=== PATIENT | female | born 1930 | race Caucasian/White ===

== ENCOUNTER 2016-04-29 18:37 | Inpatient (IN) | payer MEDICARE, MEDICAID ==
[~2016-04-29] VITALS: Ht 157.5 cm; Wt 47.5 kg
[~2016-04-29 18:37] MED LIST: /AMLO25TA PO; ADV100INH INH; AMLO10TA PO; AMOX500T2 PO; ASPI1TAB PO; ASPI81TA PO; ATEN50TA2 PO; ATOR1TAB21 PO; CLOP75TA2 PO; FURO40TA2 PO; JANU100T PO; K-TA1TAB PO; LASI40TA PO; LOSA50TA20 PO; METF1000 PO; NITR4TASL SL; POTA10CA PO; POTA1TAB14 PO; PROA1AER PO; RANI150T PO; RANI15TA PO; SIMV20TA2 PO; SIMV40TA2 PO; VITMTA PO; XANA0.5T PO; spiriva INH
--- NOTE | 2016-04-29 19:31 | REP ---
PA and lateral chest: Comparison is 01/15/2016. There are bilateral pleural effusions. There are large bulla throughout the lung benitez bilaterally, unchanged, compatible with bullous emphysema. Cardiac size is normal. The nasra, mediastinum, and bony thorax are unremarkable. Impression: Chronic bullous emphysema. New bilateral pleural effusions. Signed by Ridge Singleton MD 04/29/2016 07:22 P
[2016-04-29] MEDS ORDERED: IPRATROPIUM 0.5MG/ALBUTEROL 2.5MG INH SOL UD 3ML (DUONEB)(J7620) As Ordered ONE (19:50)
[2016-04-29] MEDS ORDERED: methylPREDNISolone INJ 125 MG/2 ML VIAL (J2930) As Ordered ONE (20:21)
[2016-04-29 20:35] LABS: MEAN CORPUSCULAR HEMOGLOBIN 25.6 pg (27.0-33.0); MEAN CORPUSCULAR HGB CONC 30.4 g/dl (32.0-36.5); MEAN CORPUSCULAR VOLUME 84.4 fl (80.0-96.0); PLATELET COUNT, AUTOMATED 203 k/mm3 (150-450); RED CELL DISTRIBUTION WIDTH 21.4 % (11.5-14.5); WHITE BLOOD COUNT 6.2 K/mm3 (4.0-10.0)
[2016-04-29 20:51] LABS: CALCIUM LEVEL 8.4 MG/DL (8.8-10.2); CREATININE FOR GFR 2.34 MG/DL (0.55-1.02)
[2016-04-29 20:59] LABS: ANISOCYTOSIS 2+; BANDS 1 % (< 11); HYPOCHROMASIA 1+; MICROCYTOSIS 1+
[2016-04-29] MEDS ORDERED: ALPRAZolam 0.25 MG TAB PO SCH (21:00)
[2016-04-29] MEDS: HEPARIN SOD (PORCINE) 5000 UNITS/ML VIAL SC SCH (21:00)
[2016-04-29] MEDS: HumaLOG INSULIN (NovoLOG) PER UNIT SC SCH (21:00)
[2016-04-29] MEDS ORDERED: ALPRAZolam 0.5 MG TAB PO SCH (21:00)
[2016-04-29] MEDS ORDERED: DEXTROSE 50% 50 ML SYRINGE IV PRN (23:00)
[2016-04-29] MEDS ORDERED: IPRATROPIUM 0.5MG/ALBUTEROL 2.5MG INH SOL UD 3ML (DUONEB)(J7620) NEB PRN (23:00)
[2016-04-29] MEDS ORDERED: GLUCOSE 4 GM CHEW TABLET PO PRN (23:00)
[2016-04-29] MEDS ORDERED: GLUCAGON FOR INJ 1 MG VIAL (J1610) SC PRN (23:00)
[2016-04-29] MEDS ORDERED: ACETAMINOPHEN TAB 650MG DOSE (2X325MG) PO PRN (23:15)
[2016-04-29] MEDS ORDERED: ONDANSETRON 4MG/2ML VIAL (J2405) IV PRN (23:15)
[2016-04-29] MEDS ORDERED: FURO20TA2 PO (23:21)
[2016-04-29] MEDS ORDERED: SIMV20TA2 PO ×2 (23:21→23:25)
[2016-04-29] MEDS ORDERED: AMLO10TA2 PO (23:21)
[2016-04-29] MEDS ORDERED: TUMS500C PO (23:21)
[2016-04-29] MEDS ORDERED: ASPI81CH PO (23:21)
[2016-04-29] MEDS ORDERED: OCEA0.654 (23:21)
--- NOTE | 2016-04-29 23:59 | HPE ---
DATE OF ADMISSION: 04/29/2016 PRIMARY CARE PROVIDER: Dr. Abiel Wooten [employer] TRADER: Dr. Lee CHIEF COMPLAINT: Shortness of breath and unable to make urine. HISTORY OF THE PRESENT ILLNESS: This is an 85-year-old female patient with underlying medical history of lung cancer in remission, treated 3 years ago, left-sided, congestive heart failure (CHF), with last echo done October 2015, ejection fraction 65% with right ventricular pressure overload, chronic obstructive pulmonary disease (COPD), chronic hypoxia on 3 liters nasal cannula, cmz-whacoes-islangvrl diabetes, dyslipidemia, hypertension, coronary artery disease with percutaneous coronary intervention (PCI) 21 years ago with stent placement. The patient presented with 3 days of progressively worsening shortness of breath and also unable to make urine today. As per patient and family, last year in September the patient had similar episode and had one session of dialysis. The patient reported recently that she is not feeling very well, reported some stomachache 3 days ago with poor oral (p.o.) intake. As per patient, stomachache has resolved but as of this morning, the patient is not able to make urine. Reported intermittent constipation. Recently, about 3 weeks ago, the patient's Lasix dose was reduced from 80 to 40 as per patient. The patient denies any chest pain, pressure or discomfort. Reported lower extremity swelling. Reported dyspnea on exertion. Baseline ambulating with a walker. Lives alone at home. In the emergency room, the patient is requiring 15 liter high-flow oxygen to achieve a saturation of 91%,mild dyspnea with conversation. Denies any significant cough. Denies any sick contact, does not produce any mucus, denies nasal congestion, fevers, chills. As per patient, recently the patient has been discharged by photogrammetrist because her kidney function significantly improved, and according to labs, in December 2015, the patient had a creatinine of 1.18. ALLERGIES: No known drug allergies. PAST MEDICAL HISTORY: Lung cancer, left sided, treated 3 years ago, in remission. CHF with diastolic dysfunction, ejection fraction 65%, likely pulmonary hypertension. COPD. Ppv-ajswtcq-mfxjkpnvr type 2 diabetes. Chronic hypoxia requiring 3 liters of oxygen. Dyslipidemia. Hypertension. Coronary artery disease with myocardial infarction ([place]) many years ago with stent placement. PAST SURGICAL HISTORY: Cataract surgery, bilateral. Cardiac catheterization with stent placement many years ago, as per patient 21 years ago. SOCIAL HISTORY: The patient quit smoking 21 years ago, 1-2 pack smoking since she was 18. Denies alcohol drinking. FAMILY HISTORY: Noncontributory. REVIEW OF SYSTEMS: 11-point review of systems is negative except for those mentioned in the history of the present illness. HOME MEDICATIONS: - ProAir every 6 hours as needed - Xanax 0.5 mg by mouth three times a day - aspirin 81 mg by mouth daily - atenolol 50 mg by mouth nightly - Lasix 40 mg by mouth daily - metformin 1000 mg by mouth twice a day - multivitamin one tablet by mouth daily - nitroglycerin 0.4 mg sublingual as needed - potassium chloride 20 mEq by mouth daily - ranitidine 150 mg by mouth twice a day - Advair Diskus 100/50 mcg dosage inhalation twice a day - Januvia 100 mg by mouth nightly PHYSICAL EXAMINATION: VITAL SIGNS: Blood pressure 161/73, pulse 68, respirations 22, temperature 96.8, pulse oximetry 94% on 15 liters high-flow nasal cannula. GENERAL: Alert and oriented, mild dyspnea with conversation. Able to speak in full sentences. HEENT: Normocephalic, atraumatic, pale. NECK: With bilateral jugular venous distention (JVD). PULMONARY: Diminished breath sounds bilateral, mild crackles bilateral. CARDIAC: Regular rate and rhythm. Normal S1, S2. ABDOMEN: Soft. No significant distention. Hypoactive bowel sounds. Nontender. No rebound, no guarding. EXTREMITIES: 2+ bilateral lower extremity edema. EKG shows sinus rhythm at 70, T-wave inversion V1 through V4. LABORATORY: WBC 6.2, hemoglobin and hematocrit 10.1 over 31.1, platelets 203. Chemistry: Sodium 138, potassium 6, chloride 100, bicarbonate 21, BUN 34, creatinine 2.34. ASSESSMENT AND PLAN: This is an 85-year-old female patient with underlying medical history of congestive heart failure with diastolic dysfunction, lung cancer, left-sided, diagnosed 3 years ago, loj-bcnxhad-hpgoqusqk type 2 diabetes , chronic kidney disease, dyslipidemia, hypertension, coronary artery disease, admitted with acute on chronic renal failure with fluid overload, acute on chronic hypoxic respiratory failure. Problems: 1. Acute on chronic hypoxic respiratory failure. Patient baseline on 3 liters nasal cannula at home, currently requiring 15 liter high flow, likely secondary to fluid overload. X-rays appreciated with bilateral minimum pleural effusions in the setting of anuric. Lasix has been given. Strict intake and output, Zaman catheter, oxygen supplementation. Continue to follow. 2. Acute on chronic renal failure. Baseline creatinine on last lab in December 2015 was 1.18. Nephrology, Dr. Lee, consulted. Strict intake and output, daily weight, Zaman catheter. Urine study sent. Lasix challenge ordered 60 mg IV Lasix once. Followup urine output. Repeat basic metabolic panel around 2:00 a.m. in the morning to see if the patient's potassium improved. Telemetry. Avoid nephrotoxic agents. Monitor for fluid status. 3. Hyperkalemia secondary to renal failure. Monitor potassium. Lasix given. Kayexalate one dose given. Telemetry monitoring. 4. Acute chronic obstructive pulmonary disease exacerbation with acute on chronic hypoxia. X-ray does not show any focal consolidation. Steroids, Solu-Medrol, Advair nebulizer treatments, followup arterial blood gas (ABG). Azithromycin for anti-inflammatory. Oxygen supplementation. 5. Congestive heart failure with diastolic dysfunction. Likely fluid overload due to renal failure. Strict intake and output, daily weight, Lasix given. Monitor ABG. Oxygen supplementation. If patient's respiratory status worsens, might need continuous positive airway pressure (CPAP). In the meantime, continue to follow. Will continue aspirin, beta blockers. Followup echo, followup cardiac enzymes. Lasix as ordered. 6. Coronary artery disease. Continue aspirin and beta blockers. Followup cardiac enzymes, followup telemetry. 7. Ybh-lnlvthi-ytwnbokyp diabetes. Holding oral medications. Insulin as per protocol. Consistent-carbohydrate and renal diet. 8. Hypertension. Monitor blood pressure. Lasix and atenolol as ordered. 9. Deep vein thrombosis (DVT) prophylaxis. Heparin subcu. 10. Constipation. Bowel regimen as ordered. DISPOSITION PLANNING: Pending clinical improvement. MTDD
[2016-04-30] MEDS ORDERED: SOD POLYSTYRENE SULFONATE SUSP 15 GM/60 ML UD PO SCH (01:14)
[2016-04-30] MEDS ORDERED: FUROSEMIDE 40 MG/4 ML VIAL (J1940) IV SCH ×2 (01:15→08:00)
--- NOTE | 2016-04-30 01:30 | REPUSA ---
CLINICAL HISTORY: Renal failure. TECHNIQUE: Realtime sonographic images were obtained in multiple projections. COMMENTS: The right kidney measures 11.5x5.1x4.5 cm and the left kidney measures 10.3x5.7x5.2 cm. bilateral i ncrease in renal cortical echogenicity with decreased corticomedullary differentiation. Both kidneys are free of hydronephrosis. There is no evidence of solid or cystic mass. There is no perinephric flu id. There is no renal calculus. IMPRESSION: Increased renal echogenicity suggestive of parenchymal disease. No change from the prior exam on 11/12/2015. Thank you for your kind referral of this patient.
[2016-04-30 02:57] LABS: CREATININE FOR GFR 2.25 MG/DL (0.55-1.02)
[2016-04-30] MEDS ORDERED: FUROSEMIDE 40 MG/4 ML VIAL (J1940) As Ordered ONE ×2 (03:00→08:11)
[2016-04-30] MEDS ORDERED: ATORVASTATIN 20 MG TAB As Ordered ONE (03:01)
[2016-04-30] MEDS ORDERED: HEPARIN SOD (PORCINE) 5000 UNITS/ML VIAL As Ordered ONE ×2 (03:01→09:10)
[2016-04-30] MEDS ORDERED: SOD POLYSTYRENE SULFONATE SUSP 15 GM/60 ML UD As Ordered ONE (03:01)
[2016-04-30] MEDS ORDERED: ALPRAZolam 0.25 MG TAB As Ordered ONE ×3 (03:01→10:11)
[2016-04-30] MEDS ORDERED: AZITHROMYCIN INJ 500MG VIAL (J0456) As Ordered ONE (03:01)
[2016-04-30] MEDS ORDERED: methylPREDNISolone INJ 125 MG/2 ML VIAL (J2930) As Ordered ONE ×2 (03:01→12:57)
[2016-04-30] MEDS: amLODIPine 10 MG TAB PO SCH ×2 (03:19→20:48)
[2016-04-30] MEDS: ATORVASTATIN 20 MG TAB PO SCH ×2 (03:19→20:47)
[2016-04-30] MEDS: ATENOLOL 50 MG TAB PO SCH ×3 (03:19→20:47)
[2016-04-30] MEDS: SENOKOT S TAB PO SCH ×3 (03:19→20:46)
[2016-04-30] MEDS: methylPREDNISolone INJ 125 MG/2 ML VIAL (J2930) IV SCH ×3 (03:20→20:45)
[2016-04-30] MEDS: HEPARIN SOD (PORCINE) 5000 UNITS/ML VIAL SC SCH ×3 (03:20→20:46)
[2016-04-30] MEDS: AZITHROMYCIN INJ 500 MG, VIAL MATE ADAPTER 1 EACH in D5W 250 ML IV SCH ×2 (03:21→20:45)
[2016-04-30] MEDS: ADVAIR DISKUS 500/50 INH PWD INH SCH ×3 (03:31→21:22)
[2016-04-30] MEDS: IPRATROPIUM 0.5MG/ALBUTEROL 2.5MG INH SOL UD 3ML (DUONEB)(J7620) NEB SCH ×4 (03:31→20:00)
[2016-04-30 04:05] VITALS: BP 131/75
[2016-04-30 06:50] LABS: MEAN CORPUSCULAR HGB CONC 30.5 g/dl (32.0-36.5); MEAN CORPUSCULAR VOLUME 85.2 fl (80.0-96.0); RED CELL DISTRIBUTION WIDTH 19.9 % (11.5-14.5); WHITE BLOOD COUNT 3.9 K/mm3 (4.0-10.0)
[2016-04-30 07:13] LABS: ALBUMIN 3.1 GM/DL (3.2-5.2); CALCIUM LEVEL 7.7 MG/DL (8.8-10.2); CREATININE FOR GFR 2.41 MG/DL (0.55-1.02); GLOMERULAR FILTRATION RATE 20.3 (>32); MAGNESIUM LEVEL 1.6 MG/DL (1.8-2.4); PHOSPHORUS LEVEL 6.2 MG/DL (2.5-4.9)
[2016-04-30 07:14] LABS: POTASSIUM SERUM 5.7 MEQ/L (3.5-5.1)
[2016-04-30] MEDS ORDERED: HumaLOG INSULIN (NovoLOG) PER UNIT As Ordered ONE ×2 (07:56→13:00)
[2016-04-30] MEDS: HumaLOG INSULIN (NovoLOG) PER UNIT SC SCH ×4 (08:15→20:49)
[2016-04-30] MEDS ORDERED: ALPRAZolam 0.5 MG TAB PO SCH (09:00)
[2016-04-30] MEDS: ALPRAZolam 0.5 MG TAB PO SCH ×2 (09:00→20:46)
[2016-04-30] MEDS ORDERED: ASPIRIN 81 MG CHEW TABLET As Ordered ONE (09:11)
[2016-04-30] MEDS ORDERED: MULTIVITAMINS/MINERALS THERAP 1 TAB As Ordered ONE (09:11)
[2016-04-30] MEDS ORDERED: PANTOPRAZOLE 40MG TAB (PROTONIX) As Ordered ONE (09:11)
[2016-04-30] MEDS: MULTIVITAMINS/MINERALS THERAP 1 TAB PO SCH (09:19)
[2016-04-30] MEDS: ASPIRIN 81 MG CHEW TABLET PO SCH (09:19)
[2016-04-30] MEDS: PANTOPRAZOLE 40MG TAB (PROTONIX) PO SCH (09:19)
[2016-04-30 09:28] VITALS: BP 111/56
[2016-04-30] MEDS ORDERED: ALPRAZolam 0.25 MG TAB PO SCH (09:47)
[2016-04-30] MEDS ORDERED: IPRATROPIUM 0.5MG/ALBUTEROL 2.5MG INH SOL UD 3ML (DUONEB)(J7620) As Ordered ONE (15:14)
[2016-04-30 16:00] VITALS: BP 104/59
[2016-04-30] MEDS ORDERED: MAG SULF 1GM/100ML (MAG RUN) 1 GM in APPROPRIATE DILUENT 1 EA IV ONE (16:00)
--- NOTE | 2016-04-30 16:19 | CR.PDOC ---
[facility] Consultation Consultation DATE OF ADMISSION: 04/29/2016 DATE OF CONSULTATION: 04/30/2016 ATTENDING PHYSICIAN: Dr. Masha Harper CONSULTING PHYSICIAN: Dr. Dalila Lee REASON FOR CONSULTATION: Acute on chronic kidney disease HISTORY OF THE PRESENT ILLNESS: Ms. Magallanes is an 85 year old female with past medical history significant for diastolic heart failure, chronic obstructive pulmonary disease, chronic hypoxic respiratory failure, on 3 liters nasal cannula, rvo-xejlbct-scplzcnmu diabetes, dyslipidemia, hypertension, coronary artery disease with stent placement and lung cancer in remission who presented to the emergency department with progressive dyspnea and inability to urinate. Patient has history of acute renal injury in the past and was following with nephrology, with significant improvement in her creatinine. Reports that she was doing pretty well and at baseline. She does have intermittent shortness of breath secondary to her COPD but reported that she had increasing shortness of breath over the past 3 days. She denied any chest pain, chest pressure, palpitations or cough. She reported that she had nausea and dry heaves for a few days but it resolved yesterday. Upon resolution of those symptoms, she began having difficulty with urinating. Prior to yesterday, she was voiding normally. She reports that she felt that she was urinating too much actually and ask her primary care provider to decrease her dose of Lasix. She states that a few weeks ago her dose of Lasix was decreased from 40 mg to 20 mg. She denies any dysuria or hematuria. No abdominal pain, vomiting or diarrhea. No fevers, chills or night sweats. She reports that appetite has been good and she has been drinking and eating normally. She denies any use of NSAIDs. When she presented to the emergency department, she was found to have a creatinine of 2.3. Most recent labs done in December show a creatinine of 1.2. She was also found to be hypoxic, initially requiring 15 L of high flow oxygen which is well above her baseline of 3 L. Currently, she has been weaned down to 8 L. Given her worsening renal function, nephrology consult was requested. PAST MEDICAL HISTORY: 1. Diastolic heart failure, with preserved ejection fraction 2. Chronic obstructive pulmonary disease 3. Chronic hypoxic respiratory failure, requiring 3 L at baseline 4. Lvx-kyihsqx-iznezxfrk type 2 diabetes. 5. Dyslipidemia. 6. Hypertension. 7. Coronary artery disease with myocardial infarction ([place]) 8. Lung cancer, in remission. PAST SURGICAL HISTORY: 1. Cardiac catheterization with stent placement many years ago. 2. Cataract surgery, bilateral. ALLERGIES: No known drug allergies. HOME MEDICATIONS: Please see below. SOCIAL HISTORY: The patient is a former smoker, quit about 22 years ago. She smoked 1-2 pack packs of cigarettes since she was 18. She denies any alcohol use. No illicit drugs. She lives alone. She has 2 living sons. FAMILY HISTORY: No history of renal disease. Daughter had history of breast cancer, now . REVIEW OF SYSTEMS: CONSTITUTIONAL: She denies fever, chills, night sweats. She reports good appetite. She reports that she has lost weight, but is unsure how much and states that it is due to urinating so much and losing fluid. HEENT: Denies headache, lightheadedness or dizziness. No acute changes to vision or hearing. CARDIOVASCULAR: Positive for dyspnea on exertion. Denies chest pain, chest pressure. No palpitations. She denies orthopnea and paroxysmal nocturnal dyspnea. RESPIRATORY: Positive for increased shortness of breath. No cough. No hemoptysis. GENITOURINARY: She reports decreased urinary frequency. No urgency. No dysuria or hematuria. MUSCULOSKELETAL: No unusual muscle or joint pains. GASTROINTESTINAL: Denies nausea, vomiting, abdominal pain, diarrhea, hematochezia or melena. She states that she is usually on the more constipated side. SKIN: No unusual rashes or skin lesions. NEUROLOGICAL: No syncope. No paresthesias. No history of CVA. ENDOCRINE: She has history of diabetes. No thyroid disorder. HEMATOLOGIC/LYMPHATIC: No excessive bleeding or bruising. No abnormal lumps or bumps in the neck, axilla or groin area. PHYSICAL EXAMINATION: Vital Signs Date Time Temp Pulse Resp B/P Pulse Ox O2 Delivery O2 Flow Rate FiO2 04/30/16 09:28 98.9 84 18 111/56 92 High Flow Cannula 10.0 GENERAL: Alert and oriented, in no acute distress. Speaking in full sentences. HEENT: Normocephalic, atraumatic, extraocular muscles are intact. Pupils are equally round and reactive to light. No scleral icterus. Moist mucosa. NECK: Jugular veins are elevated. Supple. No cervical lymphadenopathy. No thyromegaly. HEART: Normal S1, S2. Regular rate and rhythm. LUNGS: She has bilateral crackles. No rhonchi or wheezing appreciated. ABDOMEN: Soft. Nontender, nondistended. Bowel sounds are present. No rebound, guarding or rigidity. EXTREMITIES: 1+ bilateral lower extremity edema. No cyanosis. Positive pedal pulses bilaterally. SKIN: Warm and dry. Good skin turgor. No rashes noted. NEURO: No focal deficits. Cranial nerves II through XII are grossly intact. Motor and sensation intact. IMAGING: Chest x-ray on 04/29 revealed chronic bullous emphysema and new bilateral pleural effusions. Renal ultrasound on 04/30 revealed chronic parenchymal disease, no acute findings. ASSESSMENT AND PLAN: Ms. Magallanes is an 85 year old female with past medical history significant for diastolic heart failure, chronic obstructive pulmonary disease (COPD), chronic hypoxic respiratory failure, on 3 liters nasal cannula, lzz-ruyfwft-czxoezezv diabetes, dyslipidemia, hypertension, coronary artery disease and lung cancer in remission who presented to the emergency department with progressive dyspnea and inability to urinate found to have acute on chronic renal failure, fluid overload and acute on chronic hypoxic respiratory failure. 1. Acute on chronic renal failure, likely secondary to fluid overload/CHF exacerbation. Clinically, she appears volume overloaded with lower extremity edema, elevated jugular veins, and bilateral crackles. Her dose of Lasix has been increased to 60 mg every 8 hours. Monitor output. Avoid nephrotoxic medications. 2. Acute on chronic hypoxic respiratory failure, likely secondary to fluid overload. She is currently requiring 8 liters of oxygen, with a baseline of 3 liters at home. Chest x-ray revealed new bilateral pleural effusions. As patient diureses, hopefully she can be weaned down back to baseline. 3. Hyperkalemia secondary to renal failure. This should improve with Lasix. We' ll obtain a repeat potassium level this afternoon. She was also given 1 dose of Kayexalate overnight. 4. Hypomagnesemia. Mag run x 1 dose has been given. 5. Elevated lactate, likely secondary to hypoperfusion from heart failure exacerbation. 6. Diastolic heart failure. Continue with IV diuresis. Volume status will be monitored closely. Echocardiogram pending. Cardiac enzymes negative thus far. 7. Chronic obstructive pulmonary disease exacerbation. She is currently on Solu- Medrol, azithromycin and breathing treatments. Being managed by primary team. 8. Hypertension. Patient's atenolol and Norvasc now have holding parameters of systolic less than 130. This way, she can be diuresed without causing hypo- tension. 9. Coronary artery disease status post stenting. Continue aspirin, beta miesha and statin. 10. Diabetes. She is on insulin sliding scale per protocol. Thank you for the consultation and allowing us to participate in the care of Ms. Magallanes. We will continue to follow along with you. Allergies Coded Allergies: No Known Drug Allergy (Verified Allergy, Unknown, 06/29/12) Home Medications Scheduled (Aspirin) 81 Mg Chw 81 MG PO DAILY (Reported) Alprazolam (Xanax) 0.5 Mg Tab 0.5 MG PO BID (Reported) 0800, 1700 Amlodipine Besylate (Amlodipine Besylate) 10 Mg Tab 10 MG PO QHS (Reported) Atenolol (Atenolol) 50 Mg Tab 50 MG PO BID (Reported) Furosemide (Furosemide) 20 Mg Tab 20 MG PO DAILY (Reported) TOOK ONE AT 1300 PER ORDERS, NORMALLY TAKES IN THE MORNING Metformin Hydrochloride (Metformin HCl) 1,000 Mg Tab 1,000 MG PO BID (Reported ) Multivitamins *[facility] STOCKED* (Thera M Plus *[facility] STOCKED*) 1 Tab Tab 1 TAB PO DAILY (Reported) Potassium Chloride (Potassium Chloride ER) 20 Meq Tab 20 MEQ PO DAILY (Reported ) Salmeterol/Fluticasone (Advair Diskus 100-50 Mcg/Dose) 28 Puff/Inhaler Aerp 1 PUFF INH BID (Reported) Simvastatin (Simvastatin) 20 Mg Tab 20 MG PO QHS (Reported) Sitagliptin Phosphate (Januvia) 100 Mg Tab 100 MG PO QHS (Reported) Scheduled PRN Albuterol Sulfate (Proair Hfa) 108 Mcg/Act Aer 2 INHALATION PO Q6H PRN PRN SHORTNESS OF BREATH (Reported) Calcium Carbonate (Tums) 500 Mg Chw 1,000 MG PO BID PRN PRN HEARTBURN (Reported ) Nitroglycerin (Nitrostat) 0.4 Mg Subl 0.4 MG SL NITRO PRN PRN ANGINA (Reported) Sodium Chloride ([place] Nasal [place]) 0.65 % Spr 1 SPRAY NA QID PRN PRN NASAL DRYNESS (Reported) EACH NOSTRIL GME ATTESTATION GME ATTESTATION My preceptor for this patient encounter was physically present in the building during the encounter and was fully available. As needed, all aspects of the patient interview, examination, medical decision making process, and medical care plan development were reviewed and approved by the preceptor. Preceptor is aware and concurs with the plan as stated in the body of this note and will attest to such by his/her cosignature. KAYE HARMAN DO Apr 30, 2016 16:19
--- NOTE | 2016-04-30 16:24 | EDDOCDS ---
Physician Documentation [facility] Name: Shanti Magallanes Age: 85 yrs Sex: Female : 1930 Arrival Date: 04/29/2016 Time: 18:37 Bed Admit Hold Private MD: Abiel Wooten M.D. Disposition: 04/29/16 22:34 Hospitalization ordered by Masha Harper for Inpatient Admission. Preliminary diagnosis are Shortness of breath, Acute kidney failure, Acute diastolic (congestive) heart failure, Chronic obstructive pulmonary disease with (acute) exacerbation. - [facility] - Status is Inpatient Admission. ead - Condition is Stable. - Problem is new. - Symptoms have worsened. Historical: - Allergies: no known allergies; - Home Meds: 1. Januvia 100 mg oral tab 1 tab once daily (Last dose: 04/28/2016 21:00) 2. metformin 1,000 mg Oral tab 2 times per day (Last dose: 04/29/2016 15:00) 3. atenolol 50 mg Oral tab 1 tab 2 times per day (Last dose: 04/28/2016 21:00) 4. ProAir HFA inhalation 2 puffs as needed (Last dose: 04/29/2016 10:00) 5. potassium chloride 20 mEq Oral TbER once daily (Last dose: 04/29/2016 09:00) 6. furosemide 40 mg Oral tab once daily (Last dose: 04/29/2016 15:30) 7. Advair Diskus 100-50 mcg/dose Inhl dsdv 2 times per day (Last dose: 04/29/2016 09:00) 8. Xanax 0.5 mg Oral as needed (Last dose: 04/29/2016 09:00) 9. simvastatin 20 mg Oral tab once daily (Last dose: 04/28/2016 21:00) 10. amlodipine 10 mg Oral tab 1 tab once daily (Last dose: 04/28/2016 21:00) - PMHx: Cancer, Lung - Left; CHF; COPD; Diabetes - NIDDM: controlled; Hypercholesterolemia; Hypertension; RI; - PSHx: Cataract Surgery- Bilateral; - Social history: Smoking status: Patient states former smoker of tobacco. No barriers to communication noted, The patient speaks fluent [place], Speaks appropriately for age. - : The pt / caregiver states he / she is not on anticoagulants. Home medication list is obtained from the patient, family members. - Exposure Risk Screening:: None identified. Vital Signs: 04/29 19:01 BP 146 / 70; Pulse 69; Resp 20; Temp 96.8(O); Pulse Ox 91% on 3 lpm NC; ld5 19:02 Weight 47.63 kg / 105.01 lbs (R); Height 5 ft. 2 in. (157.48 cm) (R); ld5 21:08 BP 157 / 75 (auto/); mgs 21:08 Pulse 68 MON; Pulse Ox 86% ; mgs 21:12 BP 151 / 75; Pulse 70; Resp 22; Pulse Ox 94% on 15 lpm NC; mgs 21:39 BP 161 / 73 (auto/); mgs 21:40 Pulse 68 MON; Pulse Ox 94% on 15 lpm NC; mgs 22:09 BP 145 / 71 (auto/); mgs 22:09 Pulse 68 MON; Pulse Ox 93% ; mgs 22:39 BP 158 / 73 (auto/); mgs 22:39 Pulse 68 MON; Pulse Ox 93% ; mgs 19:02 Body Mass Index 19.20 (47.63 kg, 157.48 cm) ld5 MDM: 18:58 Lifestyle Director/Pulse Ox/q 30 min VS ordered. br1 18:58 IV Saline Lock ordered. br1 18:58 Rhythm Strip to chart ordered. br1 18:58 Undress patient appropriately for examination ordered. br1 18:59 B-Type Natiuretic Peptide Ordered. EDMS 18:59 Basic Metabolic Profile Ordered. EDMS 18:59 CBC with Diff Ordered. EDMS 18:59 Cardiac Injury Profile Ordered. EDMS 19:00 Troponin Ordered. EDMS 19:01 Chest, 2 View (pa\E\lat) Ordered. EDMS 19:01 ECG WITH READING ER PHYS+CARDIAG ordered. EDMS 19:41 Solu-MEDROL 125 mg IVP once ordered. fg 19:41 Albuterol-Ipratropium 3 ml Inhalation once ordered. fg 19:41 Call Respiratory ordered. fg 19:41 Call Respiratory complete. ar3 19:55 Financial registration complete. gjb 20:37 DIFFERENTIAL NO CHARGE Ordered. EDMS 20:37 PLATELET ESTIMATE Ordered. EDMS 20:53 [facility] Payment Agreement was scanned into [employer] and attached to record. gjb 22:34 BED REQUEST+ADM ordered. EDMS 23:03 RENAL US Ordered. EDMS 23:04 ECHOCARD,DOPPLER/COLOR FLOW ordered. EDMS 23:04 RENAL DIET ordered. EDMS 23:04 ARTERIAL BLOOD GAS Ordered. EDMS 23:05 URINALYSIS Ordered. EDMS 23:05 TOTAL PROTEIN,RANDOM URINE Ordered. EDMS 23:05 CREATININE,RANDOM URINE Ordered. EDMS 23:05 SODIUM,RANDOM URINE Ordered. EDMS 23:05 POTASSIUM,RANDOM URINE Ordered. EDMS 23:05 CHLORIDE,RANDOM URINE Ordered. EDMS 23:05 OSMOLALITY,URINE Ordered. EDMS 23:06 CARDIAC MARKER PANEL Ordered. EDMS 23:06 COMPLETE BLOOD COUNT Ordered. EDMS 23:06 RENAL PROFILE Ordered. EDMS 23:06 MAGNESIUM LEVEL Ordered. EDMS 23:08 PHYSICAL THERAPY EVAL & TREAT ordered. EDMS 23:09 Admission / Observation Status ordered. EDMS 23:10 C REACTIVE PROTEIN QUANTITATIV Ordered. EDMS 23:10 BASIC METABOLIC PROFILE Ordered. EDMS 23:18 LACTIC ACID LEVEL, LACTATE Ordered. EDMS 23:25 CARDIAC MARKER PANEL Ordered. EDMS 04/30 01:02 Zaman ordered. mgs Administered Medications: 04/29 19:50 Drug: Albuterol-Ipratropium 3 ml [ipratropium-albuterol 0.5 mg-3 mg(2.5 mg base)/3 mL 6 nebulization soln (3 mL)] Route: Inhalation; 20:26 Drug: Solu-MEDROL 125 mg [Solu-Medrol 500 mg intravenous solution (125 mg)] Route: IVP; mgs Site: left antecubital; Signatures: Dispatcher [employer] EDNichole Shannon RN RN mcp Roggie, Brian, MD MD br1 Mariah Ruiz, COMPUTER NUMERICAL CONTROL MACHINIST COMPUTER NUMERICAL CONTROL MACHINIST ar3 Chloe Keita RN RN ld5 Dunaway, Emily, RN RN ead Sheldon, Matthew, RN RN mgs Gill, Frances, MD MD fg Beck, Gabriela gjb Hollis, Jacob jh6 The chart was reviewed and I authenticate all verbal orders and agree with the evaluation and treatment provided.Corrections: (The following items were deleted from the chart) 23:10 23:05 C REACTIVE PROTEIN QUANTITATIV ordered. EDMS EDMS 23:25 23:05 CARDIAC MARKER PANEL ordered. EDMS EDMS Attachments: 20:53 [facility]
--- NOTE | 2016-04-30 16:24 | EDDOCDS ---
Nurse's Notes [facility] Name: Shanti Magallanes Age: 85 yrs Sex: Female : 1930 Arrival Date: 04/29/2016 Time: 18:37 Bed Admit Hold Private MD: Abiel Wooten M.D. Diagnosis: Shortness of breath;Acute kidney failure;Acute diastolic (congestive) heart failure;Chronic obstructive pulmonary disease with (acute) exacerbation Presentation: 04/29 19:01 Presenting complaint: EMS states: Initial call was for difficulty breathing. Pt has ld5 history of COPD. When EMS arrived, pt had no respiratory complaints. Family stated pt has not urinated today. In September pt had renal failure and had dialysis x1. Family concerned about renal function. Suicide/Homicide risk assessment- the patient denies having any suicidal and/or homicidal ideations and does not present with any other emotional, behavioral or mental health complaints. Status: Patient is not a customer service voice or dependent. Transition of care: patient was not received from another setting of care. Care prior to arrival: IV initiated. Glucose check. 228. 19:01 Acuity: DILLON Level 3 ld5 19:01 Method Of Arrival: Ambulance ld5 Triage Assessment: 19:03 General: Appears in no apparent distress. Pain: Denies pain. Neurological: Level of ld5 Consciousness is awake, obeys commands. Respiratory: Onset: The symptoms/episode began/occurred history of COPD, no new respiratory symptoms per pt. Respiratory: Reports cough that is non-productive. GI: Abdomen is non- distended Reports nausea. : Reports Conflicting stories as to pt's urinary status. Family reports pt has not urinated today. Pt reports urinating just prior to EMS arrival. Family member concerned due to renal failure in September. Derm: Skin is intact, Skin is dusky. Historical: - Allergies: no known allergies; - Home Meds: 1. Januvia 100 mg oral tab 1 tab once daily (Last dose: 04/28/2016 21:00) 2. metformin 1,000 mg Oral tab 2 times per day (Last dose: 04/29/2016 15:00) 3. atenolol 50 mg Oral tab 1 tab 2 times per day (Last dose: 04/28/2016 21:00) 4. ProAir HFA inhalation 2 puffs as needed (Last dose: 04/29/2016 10:00) 5. potassium chloride 20 mEq Oral TbER once daily (Last dose: 04/29/2016 09:00) 6. furosemide 40 mg Oral tab once daily (Last dose: 04/29/2016 15:30) 7. Advair Diskus 100-50 mcg/dose Inhl dsdv 2 times per day (Last dose: 04/29/2016 09:00) 8. Xanax 0.5 mg Oral as needed (Last dose: 04/29/2016 09:00) 9. simvastatin 20 mg Oral tab once daily (Last dose: 04/28/2016 21:00) 10. amlodipine 10 mg Oral tab 1 tab once daily (Last dose: 04/28/2016 21:00) - PMHx: Cancer, Lung - Left; CHF; COPD; Diabetes - NIDDM: controlled; Hypercholesterolemia; Hypertension; [place]; - PSHx: Cataract Surgery- Bilateral; - Social history: Smoking status: Patient states former smoker of tobacco. No barriers to communication noted, The patient speaks fluent Citizen [place], Speaks appropriately for age. - : The pt / caregiver states he / she is not on anticoagulants. Home medication list is obtained from the patient, family members. - Exposure Risk Screening:: None identified. Screenin/01 01:07 Screening information is obtained from the patient, family members. Fall risk: At risk mgs due to age. Assistance ADL's: requires no assistance with activities of daily living. Abuse/DV Screen: The patient / caregiver reports he/she is: not in a situation that causes fear, pain or injury. Nutritional screening: No deficits noted. Advance Directives: Currently, there is no health care proxy. There is no active DNR order. home support is adequate. Assessment: 04/29 20:04 General: Appears in no apparent distress, Behavior is appropriate for age, cooperative. mgs Neurological: Level of Consciousness is awake, alert. Cardiovascular: Capillary refill < 3 seconds. Respiratory: Airway is patent Respiratory effort is even, unlabored, Breath sounds are diminished bilaterally. Derm: Skin is pink, warm & dry. 21:10 Adult Sepsis Screening: The patient does not have new or worsening altered mentation. mgs Patient has a respiratory rate of greater than or equal to 22 (1 point). Systolic blood pressure is greater than 100. Patient has a qSOFA score of 1- Negative Sepsis Screen. General: Appears in no apparent distress, Behavior is appropriate for age, cooperative. Neurological: Level of Consciousness is awake, alert, Oriented to person, place, time. Cardiovascular: Capillary refill < 3 seconds. Respiratory: Airway is patent Respiratory effort is even, unlabored. Derm: Skin is pink, warm & dry. 22:02 General: Appears in no apparent distress, Behavior is appropriate for age, cooperative. mgs Neurological: Level of Consciousness is awake, alert, Oriented to person, place, time. Cardiovascular: Capillary refill < 3 seconds Heart tones S1 S2 present. Respiratory: Airway is patent Respiratory effort is even, unlabored, Breath sounds are diminished bilaterally. Derm: Skin is pink, warm & dry. 23:04 Adult Sepsis Screening: The patient does not have new or worsening altered mentation. mgs Patient has a respiratory rate of greater than or equal to 22 (1 point). Systolic blood pressure is greater than 100. Patient has a qSOFA score of 1- Negative Sepsis Screen. General: Appears in no apparent distress, Behavior is appropriate for age, cooperative. Neurological: Level of Consciousness is awake, alert, Oriented to person, place, time. Cardiovascular: Capillary refill < 3 seconds. Respiratory: Airway is patent Respiratory effort is even, unlabored, Respiratory pattern is regular, symmetrical. Derm: Skin is pink, warm & dry. 04/30 00:05 General: Appears in no apparent distress, Behavior is appropriate for age, cooperative. mgs Neurological: Level of Consciousness is awake, alert, Oriented to person, place, time. Cardiovascular: Capillary refill < 3 seconds. Respiratory: Airway is patent Respiratory effort is even, unlabored, Respiratory pattern is regular, symmetrical. Derm: Skin is pink, warm & dry. 01:05 General: Appears in no apparent distress, Behavior is appropriate for age, cooperative. mgs Neurological: Level of Consciousness is awake, alert, Oriented to person, place, time. Cardiovascular: Capillary refill < 3 seconds. Respiratory: Airway is patent Respiratory effort is even, unlabored, Respiratory pattern is regular, symmetrical. Derm: Skin is pink, warm & dry. Vital Signs: 04/29 19:01 BP 146 / 70; Pulse 69; Resp 20; Temp 96.8(O); Pulse Ox 91% on 3 lpm NC; ld5 19:02 Weight 47.63 kg (R); Height 5 ft. 2 in. (157.48 cm) (R); ld5 21:08 BP 157 / 75 (auto/); mgs 21:08 Pulse 68 MON; Pulse Ox 86% ; mgs 21:12 BP 151 / 75; Pulse 70; Resp 22; Pulse Ox 94% on 15 lpm NC; mgs 21:39 BP 161 / 73 (auto/); mgs 21:40 Pulse 68 MON; Pulse Ox 94% on 15 lpm NC; mgs 22:09 BP 145 / 71 (auto/); mgs 22:09 Pulse 68 MON; Pulse Ox 93% ; mgs 22:39 BP 158 / 73 (auto/); mgs 22:39 Pulse 68 MON; Pulse Ox 93% ; mgs 19:02 Body Mass Index 19.20 (47.63 kg, 157.48 cm) ld5 Vitals: 19:01 Log In Time N/A - ambulance arrival. ld5 ED Course: 18:38 Patient visited by Klaudia Walker, Picking Belt Operator. lbd 18:38 Abiel Wooten is Private Physician. lbd 18:38 Patient moved to Waiting lbd 18:39 Patient moved to 20 kcs 19:04 Triage Initiated ld5 19:11 Patient moved to Radiology tmb 19:18 Abbie Arnold MD is Attending Physician. fg 19:18 Patient visited by Abbie Arnold MD. fg 19:20 Patient moved to 20 tmb 19:32 Patient visited by Vito Colbert PCA. mdr 19:32 EKG done. (by ED staff). Reviewed by Abbie Arnold MD. mdr 19:48 Ross Velasco,RN is Primary Nurse. mgs 20:07 Patient visited by Ross Velasco,AIDA. mgs 20:17 B-Type Natiuretic Peptide Sent. mgs 20:17 Basic Metabolic Profile Sent. mgs 20:17 CBC with Diff Sent. mgs 20:17 Cardiac Injury Profile Sent. mgs 20:17 Troponin Sent. mgs 20:23 Chest, 2 View (pa\E\lat) Returned. EDMS 20:31 Maintain field IV. Dressing intact. Good blood return noted. Site clean & dry. Gauge & mgs site: 20 in left AC. 20:53 [facility] Payment Agreement was scanned into [employer] and attached to record. gjb 21:11 Patient visited by Ross Velasco,AIDA. mgs 21:13 Patient visited by Ross Velasco,AIDA. mgs 21:44 DIFFERENTIAL NO CHARGE Sent. hs1 21:45 Patient visited by Vito Colbert, ELISE. mdr 21:45 Warm blanket given. mdr 22:03 Patient visited by Ross Velasco,RN. mgs 22:23 Bladder Scan completed Results: 42 ml. mgs 22:33 Leroy Masha is Hospitalizing Provider. fg 23:05 Patient visited by Ross Velasco,AIDA. mgs 23:11 Patient moved to Admit Hold cz 02 00:14 Patient moved to Ultrasound dmg 00:25 Patient moved to 20 dmg 00:37 Patient moved to Ultrasound dmg 00:52 Patient moved to 20 dmg 01:01 Zaman cath inserted 16 Fr. Balloon inflated. To gravity drainage. rw1 01:19 Patient moved to Admit Hold sls1 02:04 RENAL US Returned. EDMS 03:28 Patient visited by Lachelle Husain RN. mlc 03:28 notified hospitalist of critical lab value, lactic acid 2.9. mlc Administered Medications: 04/29 19:50 Drug: Albuterol-Ipratropium 3 ml [ipratropium-albuterol 0.5 mg-3 mg(2.5 mg base)/3 mL [facility] nebulization soln (3 mL)] Route: Inhalation; 20:26 Drug: Solu-MEDROL 125 mg [Solu-Medrol 500 mg intravenous solution (125 mg)] Route: IVP; mgs Site: left antecubital; RT: 19:50 Initial Med Neb Given as ordered Patient was instructed and evaluated on procedure jh6 Patient tolerated procedure well without adverse effect. Respiratory: Airway is patent Respiratory effort is even, unlabored, Respiratory pattern is regular symmetrical, Breath sounds with crackles in right middle lobe, left lower lobe and right lower lobe Breath sounds are diminished in right upper lobe, left upper lobe, right middle lobe, left lower lobe and right lower lobe. 20:16 O2 via nasal cannula 12 lpm, humidified. Respiratory: Airway is patent Respiratory jh6 effort is even, unlabored, Respiratory pattern is regular symmetrical, Breath sounds with crackles in right middle lobe, left lower lobe and right lower lobe Breath sounds are diminished in right upper lobe, left upper lobe, right middle lobe, left lower lobe and right lower lobe. Order Results: Lab Order: B-Type Natiuretic Peptide; SPEC'M 04/29/16 20:15 Test: BRAIN NATRIURETIC PEPTIDE; Value: 2810; Range: <100; Abnormal: Above high normal; Units: PG/ML; Status: F Lab Order: Basic Metabolic Profile; SPEC'M 04/29/16 20:15 Test: GLUCOSE, FASTING; Value: 154; Range: 83-110; Abnormal: Above high normal; Units: MG/DL; Status: F Test: BLOOD UREA NITROGEN; Value: 34; Range: 7-18; Abnormal: Above high normal; Units: MG/DL; Status: F Test: CREATININE FOR GFR; Value: 2.34; Range: 0.55-1.02; Abnormal: Above high normal; Units: MG/DL; Status: F Test: GLOMERULAR FILTRATION RATE; Value: 21.0; Range: >32; Abnormal: Below low normal; Status: F Test: SODIUM LEVEL; Value: 138; Range: 136-145; Units: MEQ/L; Status: F Test: POTASSIUM SERUM; Value: 6.0; Range: 3.5-5.1; Abnormal: Above high normal; Units: MEQ/L; Status: F Test: CHLORIDE LEVEL; Value: 100; Range: 98-107; Units: MEQ/L; Status: F Test: CARBON DIOXIDE LEVEL; Value: 21; Range: 21-32; Units: MEQ/L; Status: F Test: ANION GAP; Value: 17; Range: 8-16; Abnormal: Above high normal; Units: MEQ/L; Status: F Test: CALCIUM LEVEL; Value: 8.4; Range: 8.8-10.2; Abnormal: Below low normal; Units: MG/DL; Status: F Test Note: ; Units are mL/min/1.73 m2 Chronic Kidney Disease Staging per NKF: Stage I & II GFR >=60 Normal to Mildly Decreased Stage III GFR 30-59 Moderately Decreased Stage IV GFR 15-29 Severely Decreased Stage V GFR <15 Very Little GFR Left ESRD GFR <15 on BROILER MANAGER Lab Order: CBC with Diff; SPEC'M 04/29/16 20:15 Test: WHITE BLOOD COUNT; Value: 6.2; Range: 4.0-10.0; Units: K/mm3; Status: F Test: RED BLOOD COUNT; Value: 3.93; Range: 4.00-5.40; Abnormal: Below low normal; Units: M/mm3; Status: F Test: HEMOGLOBIN; Value: 10.1; Range: 12.0-16.0; Abnormal: Below low normal; Units: g/dl; Status: F Test: HEMATOCRIT; Value: 33.1; Range: 36.0-47.0; Abnormal: Below low normal; Units: %; Status: F Test: MEAN CORPUSCULAR VOLUME; Value: 84.4; Range: 80.0-96.0; Units: fl; Status: F Test: MEAN CORPUSCULAR HEMOGLOBIN; Value: 25.6; Range: 27.0-33.0; Abnormal: Below low normal; Units: pg; Status: F Test: MEAN CORPUSCULAR HGB CONC; Value: 30.4; Range: 32.0-36.5; Abnormal: Below low normal; Units: g/dl; Status: F Test: RED CELL DISTRIBUTION WIDTH; Value: 21.4; Range: 11.5-14.5; Abnormal: Above high normal; Units: %; Status: F Test: PLATELET COUNT, AUTOMATED; Value: 203; Range: 150-450; Units: k/mm3; Status: F Test: NEUTROPHILS; Value: 83; Range: 35-75; Abnormal: Above high normal; Units: %; Status: F Test: BANDS; Value: 1; Range: < 11; Units: %; Status: F Test: LYMPHOCYTES; Value: 12; Range: 16-52; Abnormal: Below low normal; Units: %; Status: F Test: MONOCYTES; Value: 4; Range: 0-8; Units: %; Status: F Test: HYPOCHROMASIA; Value: 1+; Status: F Test: ANISOCYTOSIS; Value: 2+; Status: F Test: MICROCYTOSIS; Value: 1+; Status: F Lab Order: Cardiac Injury Profile; SPEC'M 04/29/16 20:15 Test: CPK CREATINE PHOSPHOKINASE; Value: 42; Range: 26-192; Units: U/L; Status: F Test: CK-MB VALUE MASS; Value: 2.6; Range: 0.0-3.6; Units: NG/ML; Status: F Test: MB/CK RELATIVE INDEX; Value: 6.19; Range: < OR =4; Abnormal: Above high normal; Status: F Test Note: ; DIAGNOSIS CRITERIA MMB ng/ml Relative Index (RI) NON-AMI < or = 5 N/A LOU ZONE > 5 < or = 4 AMI > 5 > 4 Lab Order: Troponin; [facility] 04/29/16 20:15 Test: TROPONIN I; Value: 0.04; Range: < 0.10; Units: NG/ML; Status: F Test Note: ; Troponin I Reference Interval for [employer] LOCI: 99th Percentile= 0.00-0.045 ng/ml Risk Stratification: <= 0.10 ng/ml Decreased Risk for Adverse Clinical Events. 0.10-1.50 ng/ml Increased Risk for Adverse Clinical Events. Evaluation of additional criterion and/or repeat testing in 2-6 hours is suggested to rule out myocardial damage. >= 1.50 ng/ml Indicative of Myocardial Injury. Lab Order: PLATELET ESTIMATE; [facility] 04/29/16 20:15 Test: PLATELET ESTIMATE; Value: NORMAL; Range: NORMAL; Status: F Lab Order: CARDIAC MARKER PANEL; [facility] 04/30/16 08:24 Test: CPK CREATINE PHOSPHOKINASE; Value: 39; Range: 26-192; Units: U/L; Status: F Test: CK-MB VALUE MASS; Value: 2.2; Range: 0.0-3.6; Units: NG/ML; Status: F Test: MB/CK RELATIVE INDEX; Value: 5.64; Range: < OR =4; Abnormal: Above high normal; Status: F Test: TROPONIN I; Value: 0.03; Range: < 0.10; Units: NG/ML; Status: F Test Note: ; DIAGNOSIS CRITERIA MMB ng/ml Relative Index (RI) NON-AMI < or = 5 N/A LOU ZONE > 5 < or = 4 AMI > 5 > 4 Lab Order: COMPLETE BLOOD COUNT; 04/30/16 06:32 Test: WHITE BLOOD COUNT; Value: 3.9; Range: 4.0-10.0; Abnormal: Below low normal; Units: K/mm3; Status: F Test: RED BLOOD COUNT; Value: 3.73; Range: 4.00-5.40; Abnormal: Below low normal; Units: M/mm3; Status: F Test: HEMOGLOBIN; Value: 9.7; Range: 12.0-16.0; Abnormal: Below low normal; Units: g/dl; Status: F Test: HEMATOCRIT; Value: 31.8; Range: 36.0-47.0; Abnormal: Below low normal; Units: %; Status: F Test: MEAN CORPUSCULAR VOLUME; Value: 85.2; Range: 80.0-96.0; Units: fl; Status: F Test: MEAN CORPUSCULAR HEMOGLOBIN; Value: 26.0; Range: 27.0-33.0; Abnormal: Below low normal; Units: pg; Status: F Test: MEAN CORPUSCULAR HGB CONC; Value: 30.5; Range: 32.0-36.5; Abnormal: Below low normal; Units: g/dl; Status: F Test: RED CELL DISTRIBUTION WIDTH; Value: 19.9; Range: 11.5-14.5; Abnormal: Above high normal; Units: %; Status: F Test: PLATELET COUNT, AUTOMATED; Value: 174; Range: 150-450; Units: k/mm3; Status: F Lab Order: RENAL PROFILE; [facility] 04/30/16 06:32 Test: GLUCOSE, FASTING; Value: 291; Range: 83-110; Abnormal: Above high normal; Units: MG/DL; Status: F Test: BLOOD UREA NITROGEN; Value: 46; Range: 7-18; Abnormal: Above high normal; Units: MG/DL; Status: F Test: CREATININE FOR GFR; Value: 2.41; Range: 0.55-1.02; Abnormal: Above high normal; Units: MG/DL; Status: F Test: GLOMERULAR FILTRATION RATE; Value: 20.3; Range: >32; Abnormal: Below low normal; Status: F Test: SODIUM LEVEL; Value: 138; Range: 136-145; Units: MEQ/L; Status: F Test: POTASSIUM SERUM; Value: 5.7; Range: 3.5-5.1; Abnormal: Above high normal; Units: MEQ/L; Status: F Test: CHLORIDE LEVEL; Value: 102; Range: 98-107; Units: MEQ/L; Status: F Test: CARBON DIOXIDE LEVEL; Value: 22; Range: 21-32; Units: MEQ/L; Status: F Test: ANION GAP; Value: 14; Range: 8-16; Units: MEQ/L; Status: F Test: CALCIUM LEVEL; Value: 7.7; Range: 8.8-10.2; Abnormal: Below low normal; Units: MG/DL; Status: F Test: PHOSPHORUS LEVEL; Value: 6.2; Range: 2.5-4.9; Abnormal: Above high normal; Units: MG/DL; Status: F Test: ALBUMIN; Value: 3.1; Range: 3.2-5.2; Abnormal: Below low normal; Units: GM/DL; Status: F Test Note: ; Units are mL/min/1.73 m2 Chronic Kidney Disease Staging per NKF: Stage I & II GFR >=60 Normal to Mildly Decreased Stage III GFR 30-59 Moderately Decreased Stage IV GFR 15-29 Severely Decreased Stage V GFR <15 Very Little GFR Left ESRD GFR <15 on BROILER MANAGER Lab Order: MAGNESIUM LEVEL; SPEC' 04/30/16 06:32 Test: MAGNESIUM LEVEL; Value: 1.6; Range: 1.8-2.4; Abnormal: Below low normal; Units: MG/DL; Status: F Lab Order: C REACTIVE PROTEIN QUANTITATIV; SPEC' 04/29/16 20:15 Test: C REACTIVE PROTEIN QUANTITATIV; Value: 0.72; Range: 0.00-0.30; Abnormal: Above high normal; Units: MG/DL; Status: F Lab Order: BASIC METABOLIC PROFILE; SPEC' 04/30/16 02:15 Test: GLUCOSE, FASTING; Value: 212; Range: 83-110; Abnormal: Above high normal; Units: MG/DL; Status: F Test: BLOOD UREA NITROGEN; Value: 41; Range: 7-18; Abnormal: Above high normal; Units: MG/DL; Status: F Test: CREATININE FOR GFR; Value: 2.25; Range: 0.55-1.02; Abnormal: Above high normal; Units: MG/DL; Status: F Test: GLOMERULAR FILTRATION RATE; Value: 22.0; Range: >32; Abnormal: Below low normal; Status: F Test: SODIUM LEVEL; Value: 137; Range: 136-145; Units: MEQ/L; Status: F Test: POTASSIUM SERUM; Value: 6.0; Range: 3.5-5.1; Abnormal: Above high normal; Units: MEQ/L; Status: F Test: CHLORIDE LEVEL; Value: 101; Range: 98-107; Units: MEQ/L; Status: F Test: CARBON DIOXIDE LEVEL; Value: 19; Range: 21-32; Abnormal: Below low normal; Units: MEQ/L; Status: F Test: ANION GAP; Value: 17; Range: 8-16; Abnormal: Above high normal; Units: MEQ/L; Status: F Test: CALCIUM LEVEL; Value: 8.0; Range: 8.8-10.2; Abnormal: Below low normal; Units: MG/DL; Status: F Test Note: ; Units are mL/min/1.73 m2 Chronic Kidney Disease Staging per NKF: Stage I & II GFR >=60 Normal to Mildly Decreased Stage III GFR 30-59 Moderately Decreased Stage IV GFR 15-29 Severely Decreased Stage V GFR <15 Very Little GFR Left ESRD GFR <15 on BROILER MANAGER Lab Order: LACTIC ACID LEVEL, LACTATE; 04/30/16 02:15 Test: LACTIC ACID SEPSIS PROTOCOL; Value: 2.9; Range: 0.4-2.0; Abnormal: Above upper panic limits; Units: MMOL/L; Status: F Lab Order: CARDIAC MARKER PANEL; 04/30/16 02:15 Test: CPK CREATINE PHOSPHOKINASE; Value: 45; Range: 26-192; Units: U/L; Status: F Test: CK-MB VALUE MASS; Value: 2.3; Range: 0.0-3.6; Units: NG/ML; Status: F Test: MB/CK RELATIVE INDEX; Value: 5.11; Range: < OR =4; Abnormal: Above high normal; Status: F Test: TROPONIN I; Value: 0.03; Range: < 0.10; Abnormal: Delta; Units: NG/ML; Status: F Test Note: ; DIAGNOSIS CRITERIA MMB ng/ml Relative Index (RI) NON-AMI < or = 5 N/A LOU ZONE > 5 < or = 4 AMI > 5 > 4 Lab Order: Fingerstick Blood Sugar; [facility]04/30/16 12:38 Test: BEDSIDE GLUCOSE; Value: 215; Range: 83-110; Abnormal: Above high normal; Units: MG/DL; Status: F Radiology Order: Chest, 2 View (pa\E\lat) Test: Chest, 2 View (pa\E\lat) REASON FOR EXAMINATION: Shortness of Breath; PA and lateral chest:; ; Comparison is 01/15/2016.; ; There are bilateral pleural effusions.; ; There are large bulla throughout the lung benitez bilaterally, unchanged,; compatible with bullous emphysema.; ; Cardiac size is normal. The nasra, mediastinum, and bony thorax are; unremarkable.; ; Impression:; ; Chronic bullous emphysema. New bilateral pleural effusions.; ; ; Signed by; Ridge Singleton MD 04/29/2016 07:22 P; Radiology Order: RENAL US Test: RENAL US REASON FOR EXAMINATION: renal failure; ; CLINICAL HISTORY: Renal failure.; TECHNIQUE: Realtime sonographic images were obtained in multiple projections.; COMMENTS:; The right kidney measures 11.5x5.1x4.5 cm and the left kidney measures 10.3x5.7x5.2 cm. bilateral i; ncrease in renal cortical echogenicity with decreased corticomedullary differentiation. Both kidneys; are free of hydronephrosis. There is no evidence of solid or cystic mass. There is no perinephric flu; id. There is no renal calculus.; IMPRESSION:; Increased renal echogenicity suggestive of parenchymal disease.; No change from the prior exam on 11/12/2015.; Thank you for your kind referral of this patient.; ; ; Outcome: 22:34 Decision to Hospitalize by Provider. fg 04/30 16:23 Admitted to PCU accompanied by nurse, accompanied by tech, via stretcher, on monitor, ead with chart. 16:24 Patient left the ED. ead Signatures: Dispatcher [employer] EDMS Arabella Romero, AIDA RN Klaudia Daly, Picking Belt Operator Unit lbd Charlie Malhotra RN RN cz Gunn, Deanne dmg Workman, Robert, LPN LPN rw1 Chloe Keita RN RN ld5 Kassandra Huang RN RN hs1 Jorge Luis Shetty 6 Imelda Rondon RN RN sls1 Lillian Youngblood RN RN ead Ever Stout Mandy,RN RN [facility] [place] [place] Ross Velasco,ADIA RN mgs Abbie Arnold MD MD fg Rick, Mitchell, PCA IMMIGRATION CASE WORKER Kenzie Goss Corrections: (The following items were deleted from the chart) 04/29 22:02 21:40 Pulse 68bpm; Monitor; Pulse Ox 94%; mgs mgs MTDD
[2016-04-30] MEDS: FUROSEMIDE 100 MG/10 ML VIAL (J1940) IV SCH (16:50)
--- NOTE | 2016-04-30 17:00 | IPN ---
DATE: 04/30/2016 SUBJECTIVE: The patient is seen and examined in the emergency room holding area. The patient is alert and awake, however, the patient is not fully oriented. The patient thinks that she is in [place]; however, she notes that this is 2017. Per patient, the patient feels that her breathing shows significant improvement. The patient was on high flow nasal cannula with 15 liters. Diuretic was given early in the morning, around 2:00 a.m. At the time of encounter, the patient is able to maintain satisfactory oxygen saturation with 7 liters nasal cannula. OBJECTIVE: VITAL SIGNS: Temperature 98.9, pulse is 84, respirations 18, blood pressure 111/56, pulse oximetry is 92% with 10 liters nasal cannula, later is able to titrate down to 7 liters. GENERAL: The patient is alert and awake. The patient does not demonstrate full orientation. HEENT: Normocephalic, atraumatic. Extraocular motors grossly intact. CARDIOVASCULAR: Positive S1, S2. Regular rate. LUNGS: Positive bilateral crackles. Diminished breath sounds. ABDOMEN: Soft, nontender, nondistended. Bowel sounds present. EXTREMITIES: 1+ pitting edema bilaterally, improved from the previous physical examination. LABORATORY DATA: WBC 3.9, hemoglobin 9.7, hematocrit 31.8, platelet count is 174. Sodium is 138, potassium is 5.7, chloride is 102, carbon dioxide is 22, BUN 46, creatinine 2.41, GFR is 20.3, fasting glucose 291, lactic acid 2.1, calcium 7.7, phosphorous 6.2, magnesium 1.6, total CK is 39, troponin I is 0.03. ASSESSMENT AND PLAN: 1. Acute respiratory failure, most likely secondary to congestive heart failure (CHF) exacerbation. The patient had recent adjustment of diuretic. The Lasix dose was decreased from 80 to 40. The patient presented with sign of fluid overload. IV Lasix was given in the morning and the patient showed gradual improvement of the respiratory status. Initially, the patient required 15 liters nasal cannula. At the time of encounter, the patient only required 7 liters nasal cannula. Nephrology has been consulted to help with fluid management. We appreciate their recommendations. We will follow with input, output and daily weights. 2. Acute on chronic diastolic congestive heart failure (CHF). The patient is currently being diuresed. 3. Acute on chronic renal failure, most likely secondary to her congestive heart failure (CHF) exacerbation. Currently, GFR is 20.3. We appreciate Dr. Lee's assistance. 4. Hyperkalemia secondary to renal failure, potassium decreased from 6 to 5.7. We will continue to monitor. The patient is admitted to the progressive care unit (PCU). The patient will be on cardiac telemetry. 5. History of COPD. There is a suspicion that the patient may have COPD exacerbation. The patient is on azithromycin and Solu-Medrol. The patient still requires high demand for oxygen. 6. History of coronary artery disease. Continue aspirin and beta miesha. 7. Xft-bthjxwi-pqdeeaujl diabetes. The patient will be on sliding scale. Continue with consistent carbohydrate diet. 8. Hypertension. The patient's blood pressure has been in the satisfactory range. 9. Deep vein thrombosis (DVT) prophylaxis. The patient is on heparin.
[2016-04-30 17:44] LABS: OSMOLALITY URINE 327 MOSM/KG (500-800)
--- NOTE | 2016-04-30 19:44 | ECHO ---
DATE OF PROCEDURE: 04/30/2016 AGE: 85 GENDER: Female HEIGHT: 62 inches WEIGHT: 104 pounds BODY SURFACE AREA: 1.45 sq m INPATIENT: Progressive Care Unit (PCU), room 3219 REFERRING PHYSICIAN: Dr. Harper INDICATION: Dyspnea. 2D MEASUREMENTS: RV: 4.8 cm LV: 3.4 cm Septum: 1.0 cm Posterior wall: 1.0 cm Aortic root: 3.0 cm LA: 3.2 cm LVEF: 60% DOPPLER MEASUREMENTS: AV: 0.83 m/s LVOT: 0.68 m/s LVOT diameter: 2.0 cm MV-E: 34, A: 71, E/A ratio: 0.5 Early mitral deceleration time: 211 ms E prime: 2.6, A prime 6, E/E prime ratio: 13 PAWP: 14.9 mmHg PV: 0.5 m/s Pulmonary artery acceleration time: 95 ms RVSP: 61 mmHg IVC: 2.5 cm COMMENTS: Normal sinus rhythm without intraventricular conduction disturbance. Normal left heart chamber sizes. At least moderately dilated right heart chamber. Normal left ventricle (LV) wall thickness. On real-time imaging from the parasternal and projections there was an obvious "D-shaped" septum visualizing the left ventricle from the parasternal short axis projection. This obvious septal wall motion abnormality was related to right ventricular pressure overload. Other left ventricular singh move normally. Slightly thickened mitral annulus but normal leaflet thickness and excursion with no posterior systolic buckling. Three equal size aortic cusps with mildly thickened cusp edges but adequate cusp separation. Normal aortic root size. No apparent intracardiac mass or pericardial effusion. Color flow Doppler study taken from the parasternal and projection showed trace mitral, mild aortic, and moderate tricuspid insufficiency. Guided continuous wave Doppler of her aortic valve showed a normal peak systolic velocity against LV outflow tract obstruction. Pulsed and continuous wave Doppler of her LV inflow tract taken from the apical four-chamber projection showed normal diastolic filling velocities against mitral stenosis. It was more prominent late diastolic / atrial dependent filling pattern. A degree of LV diastolic dysfunction was confirmed by a slightly prolonged early mitral deceleration time and tissue Doppler of her mitral annulus. Using pulsed and tissue Doppler of her mitral annulus, her estimated mean left atrial pressure was upper limits of normal. Pulsed and continuous wave Doppler of her pulmonary trunk showed a normal peak systolic velocity against right velocity (RV) outflow tract obstruction. Her pulmonary artery acceleration time was abbreviated consistent with an elevated pulmonary vascular resistance. Guided continuous wave Doppler of her tricuspid valve allowed our estimation of her right ventricular systolic pressure (severely increased). Her inferior vena cava was prominently dilated with absent respiratory collapse consistent with a central venous pressure of 20 or more small and swollen, a small G. CONCLUSIONS: Normal left ventricular size, and wall thickness with septal wall motion abnormality due to right ventricular pressure overload. Global left ventricular systolic function appeared to be preserved. Normal left atrial size Doppler evidence of an impairment of LV diastolic function but current estimated mean left atrial pressure upper limits of normal. Moderately prominently dilated right heart chambers with Doppler evidence of cyst severe pulmonary hypertension. Prominently dilated inferior vena cava with absent respiratory collapse consistent with right heart failure and significantly elevated central venous pressure. Slightly thickened mitral annulus without functionally significant abnormality. Mild - moderate aortic valvular sclerosis without stenosis and only mild insufficiency. Comparing the above test findings with those of 11/14/2015, there was no significant change.
[2016-04-30 19:49] VITALS: BP_SYST 100; BP_SYST 94; BP_DIAS 53; BP_DIAS 64
[2016-04-30 20:00] VITALS: PULSE 77
[2016-04-30] MEDS ORDERED: SLF 3 ML SYR IV PRN (22:15)
[2016-05-01] VITALS (9 sets, daily range): BP systolic 100–146; BP diastolic 57–70; PULSE 75–81
[2016-05-01] MEDS: FUROSEMIDE 100 MG/10 ML VIAL (J1940) IV SCH ×3 (00:57→21:23)
[2016-05-01] MEDS: IPRATROPIUM 0.5MG/ALBUTEROL 2.5MG INH SOL UD 3ML (DUONEB)(J7620) NEB SCH ×4 (02:00→20:00)
[2016-05-01] MEDS: methylPREDNISolone INJ 125 MG/2 ML VIAL (J2930) IV SCH ×2 (03:19→12:18)
[2016-05-01] MEDS: SLF 3 ML SYR IV SCH ×3 (03:20→21:25)
[2016-05-01 05:50] LABS: MEAN CORPUSCULAR HEMOGLOBIN 25.8 pg (27.0-33.0); MEAN CORPUSCULAR HGB CONC 30.5 g/dl (32.0-36.5); MEAN CORPUSCULAR VOLUME 84.6 fl (80.0-96.0); RED CELL DISTRIBUTION WIDTH 19.5 % (11.5-14.5); WHITE BLOOD COUNT 6.4 K/mm3 (4.0-10.0)
[2016-05-01 06:00] LABS: ALBUMIN 2.8 GM/DL (3.2-5.2); CREATININE FOR GFR 2.91 MG/DL (0.55-1.02); GLOMERULAR FILTRATION RATE 16.4 (>32); MAGNESIUM LEVEL 2.1 MG/DL (1.8-2.4); PHOSPHORUS LEVEL 5.7 MG/DL (2.5-4.9); POTASSIUM SERUM 4.6 MEQ/L (3.5-5.1)
[2016-05-01] MEDS: ADVAIR DISKUS 500/50 INH PWD INH SCH ×2 (07:43→20:44)
[2016-05-01] MEDS: HumaLOG INSULIN (NovoLOG) PER UNIT SC SCH ×4 (08:38→21:25)
[2016-05-01] MEDS: HEPARIN SOD (PORCINE) 5000 UNITS/ML VIAL SC SCH ×2 (08:38→21:25)
[2016-05-01] MEDS: ASPIRIN 81 MG CHEW TABLET PO SCH (08:39)
[2016-05-01] MEDS: SENOKOT S TAB PO SCH ×2 (08:39→21:00)
[2016-05-01] MEDS: ATENOLOL 50 MG TAB PO SCH ×2 (08:40→21:00)
[2016-05-01] MEDS: MULTIVITAMINS/MINERALS THERAP 1 TAB PO SCH (08:40)
[2016-05-01] MEDS: PANTOPRAZOLE 40MG TAB (PROTONIX) PO SCH (08:40)
[2016-05-01] MEDS: ALPRAZolam 0.5 MG TAB PO SCH ×2 (08:40→21:24)
--- NOTE | 2016-05-01 18:37 | IPNPDOC ---
Date Seen The patient was seen on 05/01/16. Progress Note DATE OF ENCOUNTER: 05/01/2016 SUBJECTIVE: This patient was seen this morning at bedside. She reports that she is feeling okay. She denies any increased shortness of breath. No chest pain, chest pressure or palpitations. No nausea, vomiting, diarrhea, abdominal pain. No lightheadedness or dizziness. No fevers or chills. Appetite is fair. She reports that she has been urinating. No dysuria or hematuria. She had a total negative output of 960ml with positive balance of 530ml. OBJECTIVE: Vital Signs Date Time Temp Pulse Resp B/P Pulse Ox O2 Delivery O2 Flow Rate FiO2 05/01/16 16:00 96.6 78 18 146/58 97 High Flow Cannula 6.0 I&O- Last 24 Hours up to 6 AM 05/01/16 06:00 Intake Total 1490 ml Output Total 1085 ml Balance 405 ml GENERAL: Alert and oriented, in no acute distress. HEENT: Normocephalic, atraumatic, extraocular muscles are intact. Moist mucosa. NECK: Supple. Jugular veins are mildly elevated. No thyromegaly. HEART: Normal S1, S2. Regular rate and rhythm. LUNGS: She has bilateral crackles. No rhonchi or wheezing appreciated. ABDOMEN: Soft. Nontender, nondistended. Bowel sounds are present. No rebound, guarding or rigidity. EXTREMITIES: Trace foot/ankle edema. No cyanosis. Positive pedal pulses bilaterally. SKIN: Warm and dry. Good skin turgor. No rashes noted. NEURO: No focal deficits. Motor and sensation intact. LABORATORY DATA: 05/01/16 05:21 IMAGING: Chest x-ray on 04/29 revealed chronic bullous emphysema and new bilateral pleural effusions. Renal ultrasound on 04/30 revealed chronic parenchymal disease, no acute findings. ASSESSMENT AND PLAN: Ms. Magallanes is an 85 year old female with past medical history significant for diastolic heart failure, chronic obstructive pulmonary disease (COPD), chronic hypoxic respiratory failure, on 3 liters nasal cannula, lpo-fcudmwn-ukwsczkil diabetes, dyslipidemia, hypertension, coronary artery disease and lung cancer in remission who presented to the emergency department with progressive dyspnea and inability to urinate found to have acute on chronic renal failure, fluid overload and acute on chronic hypoxic respiratory failure. 1. Acute on chronic renal failure, likely secondary to fluid overload/CHF exacerbation. Clinically, it appears that her volume status has improved however her renal function has worsened. Creatinine has gone from 2.4 to 2.9. We will decrease her Lasix to 60mg q12h. Continue to monitor output. Avoid nephrotoxic medications. We will re-assess her renal function tomorrow. 2. Acute on chronic hypoxic respiratory failure, likely secondary to fluid overload. She is currently requiring 6 liters of oxygen, with a baseline of 3 liters at home. Chest x-ray revealed new bilateral pleural effusions. As patient diureses, hopefully she can be weaned back down to baseline. 3. Hyperkalemia secondary to renal failure, resolved. Continue to monitor electrolytes. 4. Hypomagnesemia, resolved after magnesium supplementation. 5. Diastolic heart failure. Continue with IV diuresis. Echocardiogram revealed ejection fraction of 60%, right ventricular pressure overload with right heart failure and significantly elevated central venous pressure, severe pulmonary hypertension, mild aortic insufficiency. 6. Chronic obstructive pulmonary disease exacerbation. She is currently on prednisone, azithromycin and breathing treatments. Being managed by primary team. 7. Hypertension. Blood pressure stable. She is on Norvasc and atenolol. 8. Anemia. Hemoglobin is currently 9.7. No intervention needed at this time. Will check iron studies. GME ATTESTATION GME ATTESTATION My preceptor for this patient encounter was physically present in the building during the encounter and was fully available. As needed, all aspects of the patient interview, examination, medical decision making process, and medical care plan development were reviewed and approved by the preceptor. Preceptor is aware and concurs with the plan as stated in the body of this note and will attest to such by his/her cosignature. ATTENDING NOTE Nephrology: Pt examined today AM along with the resident. Volume status improving now. Cr is trending up. Decrease Lasix dose now. Cont to monitor 24 hr I/O. Rest of plan as per resident's note. KAYE HARMAN DO May 01, 2016 18:37 SAILAJA BELCHER MD May 01, 2016 22:20
[2016-05-01] MEDS: amLODIPine 10 MG TAB PO SCH (21:00)
[2016-05-01] MEDS: AZITHROMYCIN INJ 500 MG, VIAL MATE ADAPTER 1 EACH in D5W 250 ML IV SCH (21:24)
[2016-05-01] MEDS: predniSONE 20 MG TAB PO SCH (21:24)
[2016-05-01] MEDS: ATORVASTATIN 20 MG TAB PO SCH (21:24)
--- NOTE | 2016-05-01 21:40 | IPN ---
DATE: 05/01/2016 SUBJECTIVE: Patient seen and examined in the room today. Patient stated her breathing shows some improvement, and patient feels more energy and less distress; however, patient still requires dipeoy-tedm-nmbltd oxygen supplements. No overnight events were reported. OBJECTIVE: VITAL SIGNS: Temperature is 97.3, pulse is 74, respirations 20, blood pressure 112/57, pulse oximetry 93% with high-flow nasal cannula. GENERAL: No sign of acute distress, alert and oriented times three. HEENT: Normocephalic, atraumatic. Extraocular motor grossly intact. CARDIOVASCULAR: Positive S1, S2, regular rate. LUNGS: Positive bilateral crackles. Diminished breath sounds. No wheezes. ABDOMEN: Soft, nontender, nondistended. Bowel sounds present. EXTREMITIES: 1+ pitting edema bilaterally. No sign of cyanosis. LABORATORY DATA: WBC 6.4, hemoglobin 9.7, hematocrit 31.7, platelet count is 186. Sodium is 136, potassium 4.6, chloride is 98, carbon dioxide 27, BUN 38, creatinine 2.91, GFR is 16.4, fasting glucose 319, calcium 7, phosphorus 5.7, magnesium 2.1, albumin 2.8. ASSESSMENT AND PLAN: 1. Acute respiratory failure secondary to congestive heart failure exacerbation. Patient started on intravenous (IV) diuresis. Appreciate nephrology's assistance with the fluid management. Patient started to have negative output since this morning. Clinically patient shows improvement. Will try to titrate patient's oxygen down as tolerated. 2. Acute on chronic diastolic congestion heart failure. Patient is currently on IV diuresis. 3. Acute on chronic renal failure, most likely secondary to congestive heart failure (CHF) exacerbation. We appreciate city planning teacher's assistance. 5. Hyperkalemia secondary to renal failure. Potassium showed significant improvement. Initially patient had potassium of 6, currently potassium of 4.6, which is within normal range. 6. History of chronic obstructive pulmonary disease (COPD). We suspect patient may have COPD exacerbation, so patient has been on Solu-Medrol and azithromycin. During the physical exam today, patient's wheezes show significant improvement. We will continue the azithromycin. Will switch IV Solu-Medrol to oral prednisone. Will continue to taper the steroid as tolerated. 7. History of coronary artery disease, currently on aspirin and beta miesha. 8. Lvt-jhhshba-kryrpdcbz diabetes, on sliding scale. Continue on consistent-carbohydrate diet. 9. Hypertension. Blood pressure is in the satisfactory range. 10. Deep vein thrombosis (DVT) prophylaxis, on heparin.
[2016-05-01] MEDS ORDERED: SODIUM CHLORIDE NASAL 0.65% SPRAY BTL (OCEAN) PRN (22:00)
[2016-05-01] MEDS ORDERED: CEPACOL LOZENGE PO PRN (22:00)
[2016-05-02] MEDS: IPRATROPIUM 0.5MG/ALBUTEROL 2.5MG INH SOL UD 3ML (DUONEB)(J7620) NEB SCH ×4 (02:00→20:00)
[2016-05-02 04:00] VITALS: BP 111/61
[2016-05-02 06:14] LABS: MEAN CORPUSCULAR HEMOGLOBIN 25.7 pg (27.0-33.0); MEAN CORPUSCULAR HGB CONC 31.1 g/dl (32.0-36.5); MEAN CORPUSCULAR VOLUME 82.6 fl (80.0-96.0); RED CELL DISTRIBUTION WIDTH 19.4 % (11.5-14.5); WHITE BLOOD COUNT 7.4 K/mm3 (4.0-10.0)
[2016-05-02 06:24] LABS: ALBUMIN 2.8 GM/DL (3.2-5.2); CALCIUM LEVEL 6.7 MG/DL (8.8-10.2); CREATININE FOR GFR 2.53 MG/DL (0.55-1.02); GLOMERULAR FILTRATION RATE 19.2 (>32); MAGNESIUM LEVEL 1.9 MG/DL (1.8-2.4); PERCENT SATURATION 3.2 % (13.2-37.4); PHOSPHORUS LEVEL 5.3 MG/DL (2.5-4.9); POTASSIUM SERUM 3.4 MEQ/L (3.5-5.1)
[2016-05-02] MEDS: SLF 3 ML SYR IV SCH ×3 (06:56→20:52)
[2016-05-02] MEDS: ADVAIR DISKUS 500/50 INH PWD INH SCH ×2 (07:26→21:02)
[2016-05-02 08:00] VITALS: BP 125/75
[2016-05-02] MEDS: HumaLOG INSULIN (NovoLOG) PER UNIT SC SCH ×4 (08:15→20:51)
[2016-05-02] MEDS: ASPIRIN 81 MG CHEW TABLET PO SCH (08:16)
[2016-05-02] MEDS: FUROSEMIDE 100 MG/10 ML VIAL (J1940) IV SCH ×2 (08:16→20:50)
[2016-05-02] MEDS: PANTOPRAZOLE 40MG TAB (PROTONIX) PO SCH (08:16)
[2016-05-02] MEDS: HEPARIN SOD (PORCINE) 5000 UNITS/ML VIAL SC SCH ×2 (08:16→20:51)
[2016-05-02] MEDS: ALPRAZolam 0.5 MG TAB PO SCH ×2 (08:17→17:04)
[2016-05-02] MEDS: MULTIVITAMINS/MINERALS THERAP 1 TAB PO SCH (08:17)
[2016-05-02] MEDS: SENOKOT S TAB PO SCH ×2 (08:17→20:52)
[2016-05-02] MEDS: predniSONE 20 MG TAB PO SCH ×2 (08:17→20:52)
[2016-05-02] MEDS: ATENOLOL 50 MG TAB PO SCH ×2 (08:18→20:51)
--- NOTE | 2016-05-02 08:52 | ECGEPIP ---
Stationary ECG Study [facility] - ED Test Date: 2016-04-29 Pat Name: TRACY ELI Department: Room: [place] [address] Gender: F [employer]: : [id number] Requested By: LOLITA Ribera Order Number: [id number] Reading MD: Inez Leavitt Measurements Intervals [place] Rate: 70 P: 98 [place]: 156 QRS: 135 QRSD: 106 T: -16 QT: 418 QTc: 453 Interpretive Statements SINUS RHYTHM RIGHT VENTRICULAR HYPERTROPHY AND ST-T CHANGE DELAYED R PROGRESSION RAD NSTTW ABNORMALITY DECREASED RATE 01/18/16 Electronically Signed On 05-02-2016 8:51:36 EST by Inez Leavitt
[2016-05-02] MEDS ORDERED: POTASSIUM CHLORIDE 10 MEQ SR TABLET PO ONE (09:00)
[2016-05-02] MEDS ORDERED: CALCIUM GLUCONATE 1,000 MG in D5W MINI-BAG PLUS 100 ML IV ONE (09:15)
--- NOTE | 2016-05-02 11:24 | IPNPDOC ---
Date Seen The patient was seen on 05/02/16. Progress Note DATE OF ENCOUNTER: 05/02/2016 SUBJECTIVE: This patient was seen this morning at bedside. She reports that she is feeling okay. She denies any increased shortness of breath. She is currently on 5 L of nasal cannula, still above her baseline. No chest pain, chest pressure or palpitations. No nausea, vomiting, diarrhea, abdominal pain. No lightheadedness or dizziness. No fevers or chills. She reports that she has been urinating. No dysuria or hematuria. She had a net negative of 525ml in previous 24 hours. OBJECTIVE: Vital Signs Date Time Temp Pulse Resp B/P Pulse Ox O2 Delivery O2 Flow Rate FiO2 05/02/16 08:18 75 125/65 05/02/16 08:00 96.8 18 94 Nasal Cannula 5.0 I&O- Last 24 Hours up to 6 AM 05/02/16 06:00 Intake Total 1575 ml Output Total 2675 ml Balance -1100 ml GENERAL: Alert and oriented, in no acute distress. HEENT: Normocephalic, atraumatic, extraocular muscles are intact. Moist mucosa. NECK: Supple. Jugular veins are mildly elevated. No thyromegaly. HEART: Normal S1, S2. Regular rate and rhythm. LUNGS: She has bilateral crackles. No rhonchi or wheezing appreciated. ABDOMEN: Soft. Nontender, nondistended. Bowel sounds are present. No rebound, guarding or rigidity. EXTREMITIES: Trace foot/ankle edema. No cyanosis. Positive pedal pulses bilaterally. SKIN: Warm and dry. Good skin turgor. No rashes noted. NEURO: No focal deficits. Motor and sensation intact. LABORATORY DATA: 05/02/16 05:40 Albumin 2.8L, Anion Gap 13, Calcium Level 6.7L, Ferritin 30, Glomerular Filtration Rate 19.2L, Iron Level 10L, Magnesium Level 1.9, Phosphorus Level 5.3H, Total Iron Binding Capacity 314, Transferrin % Saturation 3.2L IMAGING: Chest x-ray on 04/29 revealed chronic bullous emphysema and new bilateral pleural effusions. Renal ultrasound on 04/30 revealed chronic parenchymal disease, no acute findings. Repeat chest x-ray pending. ASSESSMENT AND PLAN: Ms. Magallanes is an 85 year old female with past medical history significant for diastolic heart failure, chronic obstructive pulmonary disease (COPD), chronic hypoxic respiratory failure, on 3 liters nasal cannula, nzn-nswhevt-glpwxjgaw diabetes, dyslipidemia, hypertension, coronary artery disease and lung cancer in remission who presented to the emergency department with progressive dyspnea and inability to urinate found to have acute on chronic renal failure, fluid overload and acute on chronic hypoxic respiratory failure. 1. Acute on chronic renal failure, likely secondary to fluid overload/CHF exacerbation. Her creatinine has improved from 2.9 to 2.5. Volume status has also improved. We will continue with Lasix 60 mg every 12 hours. Continue to monitor output. Avoid nephrotoxic medications. 2. Acute on chronic hypoxic respiratory failure, likely secondary to fluid overload. She is currently requiring 5 liters of oxygen, with a baseline of 3 liters at home. There is an order for repeat chest x-ray, which is pending. Previous chest x-ray revealed bilateral pleural effusions. As patient diureses, hopefully oxygen can be weaned back down to baseline. 3. Hypokalemia. Potassium supplementation has been given. We'll place her on daily potassium while being diuresed. 4. Hypocalcemia. Calcium gluconate has been given. We will continue to monitor electrolytes. 5. Diastolic heart failure. Continue with IV diuresis. Echocardiogram revealed ejection fraction of 60%, right ventricular pressure overload with right heart failure and significantly elevated central venous pressure, severe pulmonary hypertension, mild aortic insufficiency. 6. Chronic obstructive pulmonary disease exacerbation. She is currently on prednisone, azithromycin and breathing treatments. Being managed by primary team. 7. Hypertension. Blood pressure stable. She is on Norvasc and atenolol. 8. Anemia. Hemoglobin is currently 9.4. Iron studies were found to be low. GME ATTESTATION GME ATTESTATION My preceptor for this patient encounter was physically present in the building during the encounter and was fully available. As needed, all aspects of the patient interview, examination, medical decision making process, and medical care plan development were reviewed and approved by the preceptor. Preceptor is aware and concurs with the plan as stated in the body of this note and will attest to such by his/her cosignature. ATTENDING NOTE Nephrology: Pt was seen and examined in the AM during rounds. Cont current dose of diuretics. Renal function is improving. diuretic response is adequate. KAYE HARMAN DO May 02, 2016 11:23 SAILAJA BELCHER MD May 04, 2016 21:57
[2016-05-02 12:00] VITALS: BP 142/70
[2016-05-02] MEDS ORDERED: IRON SUCROSE 100 MG/5 ML INJ (J1756) IV ONE (12:30)
--- NOTE | 2016-05-02 12:30 | REP ---
Chest x-ray: Two views. History: Shortness of breath. Comparison chest x-ray April 29, 2016. Findings: EKG monitoring electrodes overlie the chest. Oxygen delivery tubing is seen. There is some perihilar left upper lobe fibrosis again seen unchanged. There is slight blunting of the right lateral and left lateral and both posterior pleural angles indicating small bilateral pleural effusions. This is unchanged. Cardiomegaly is observed unchanged as seen on lateral radiograph. Diffuse osteopenia and degenerative changes are seen in the thoracic spine. Impression: Small bilateral effusions. Mild cardiomegaly. Left perihilar fibrosis. Signed by Greg Le MD 05/02/2016 07:25 P
[2016-05-02] MEDS ORDERED: IRON SUCROSE 25 MG in NS 50 ML IV ONE (14:00)
[2016-05-02] MEDS ORDERED: IRON SUCROSE 475 MG in NS 250 ML IV ONE (15:00)
[2016-05-02 16:00] VITALS: BP 140/68
--- NOTE | 2016-05-02 16:17 | IPN ---
DATE: 05/02/2016 SUBJECTIVE: Patient seen and examined in the room today. Patient stated her breathing has been stable, however patient has continued to require 5 liter nasal cannula. No overnight events are reported. OBJECTIVE: VITAL SIGNS temperature 96.8, pulse is 66, respiration 18, blood pressure is 125/75, pulse ox is 94% with 5 liter nasal cannula. GENERAL: No sign of acute distress. Alert and oriented times three. HEENT: Normocephalic, atraumatic. Extraocular motor grossly intact. CARDIOVASCULAR: Positive S1, S2. Regular rate. LUNGS: Positive bilateral crackles. Diminished breath sounds. No wheezes. ABDOMEN: Soft, non-tender, non-distended, bowel sounds present. EXTREMITIES: One positive pitting edema, most significant in left lower extremity. There is trace pitting edema also present on the right lower extremity. No sign of cyanosis. LABORATORY DATA: WBC 7.4, hemoglobin 9.4, hematocrit 30.3, platelet count is 187. Sodium 137, potassium 3.4, chloride 98, carbon dioxide 26, BUN 65, creatinine 2.53, glomerular filtration rate (GFR) is 19.2. Fasting glucose 272, calcium 6.7, phosphorous 5.7, magnesium 1.9, iron is 10, total red blood cells is 314. Transferrin percentage saturation is 3.2, ferritin is 30, albumin is 2.8. ASSESSMENT AND PLAN: 1. Acute respiratory failure secondary to congestive heart failure exacerbation. Patient is continued on IV Lasix diuresis. Patient will continue to require 5 liters nasal cannula for oxygen support. While patient improved compared to yesterday patient intermittently required 10 liter nasal cannula. Patient has a good negative fluid balance. We appreciate nephrology's team assistance. 2. Acute on chronic diastolic congestive heart failure on IV Lasix diuresis. 3. Acute on chronic renal failure. Patient's renal function started to improve. Continue the heavy diuresis. Appreciate nephrology's team assistance. 4. History of chronic obstructive pulmonary disease. There was suspicion patient had exacerbation. Patient was on Solu-Medrol and azithromycin. Currently patient does not have any significant wheezes. Patient continued on azithromycin. Patients steroid has been tapering as tolerated. 5. History of coronary artery disease. Currently on aspirin and beta blockers. 6. Non-insulin dependent diabetes. On sliding scale. Continue consistent carbohydrate diet. 7. Hypertension. Blood pressure in the satisfactory range. 8. Deep vein thrombosis prophylaxis on heparin.
--- NOTE | 2016-05-02 17:24 | EDDOCDS ---
Physician Documentation [facility] Name: Shanti Magallanes Age: 85 yrs Sex: Female : 1930 Arrival Date: 04/29/2016 Time: 18:37 Bed Admit Hold Private MD: Abiel Wooten M.D. Disposition: 04/29/16 22:34 Hospitalization ordered by Masha Harper for Inpatient Admission. Preliminary diagnosis are Shortness of breath, Acute kidney failure, Acute diastolic (congestive) heart failure, Chronic obstructive pulmonary disease with (acute) exacerbation. - Bed requested for [facility]. - Status is Inpatient Admission. ead - Condition is Stable. - Problem is new. - Symptoms have worsened. Historical: - Allergies: no known allergies; - Home Meds: 1. Januvia 100 mg oral tab 1 tab once daily (Last dose: 04/28/2016 21:00) 2. metformin 1,000 mg Oral tab 2 times per day (Last dose: 04/29/2016 15:00) 3. atenolol 50 mg Oral tab 1 tab 2 times per day (Last dose: 04/28/2016 21:00) 4. ProAir HFA inhalation 2 puffs as needed (Last dose: 04/29/2016 10:00) 5. potassium chloride 20 mEq Oral TbER once daily (Last dose: 04/29/2016 09:00) 6. furosemide 40 mg Oral tab once daily (Last dose: 04/29/2016 15:30) 7. Advair Diskus 100-50 mcg/dose Inhl dsdv 2 times per day (Last dose: 04/29/2016 09:00) 8. Xanax 0.5 mg Oral as needed (Last dose: 04/29/2016 09:00) 9. simvastatin 20 mg Oral tab once daily (Last dose: 04/28/2016 21:00) 10. amlodipine 10 mg Oral tab 1 tab once daily (Last dose: 04/28/2016 21:00) - PMHx: Cancer, Lung - Left; CHF; COPD; Diabetes - NIDDM: controlled; Hypercholesterolemia; Hypertension; [place]; - PSHx: Cataract Surgery- Bilateral; - Social history: Smoking status: Patient states former smoker of tobacco. No barriers to communication noted, The patient speaks fluent [place], Speaks appropriately for age. - : The pt / caregiver states he / she is not on anticoagulants. Home medication list is obtained from the patient, family members. - Exposure Risk Screening:: None identified. Vital Signs: 04/29 19:01 BP 146 / 70; Pulse 69; Resp 20; Temp 96.8(O); Pulse Ox 91% on 3 lpm NC; ld5 19:02 Weight 47.63 kg / 105.01 lbs (R); Height 5 ft. 2 in. (157.48 cm) (R); ld5 21:08 BP 157 / 75 (auto/); mgs 21:08 Pulse 68 MON; Pulse Ox 86% ; mgs 21:12 BP 151 / 75; Pulse 70; Resp 22; Pulse Ox 94% on 15 lpm NC; mgs 21:39 BP 161 / 73 (auto/); mgs 21:40 Pulse 68 MON; Pulse Ox 94% on 15 lpm NC; mgs 22:09 BP 145 / 71 (auto/); mgs 22:09 Pulse 68 MON; Pulse Ox 93% ; mgs 22:39 BP 158 / 73 (auto/); mgs 22:39 Pulse 68 MON; Pulse Ox 93% ; mgs 19:02 Body Mass Index 19.20 (47.63 kg, 157.48 cm) ld5 MDM: 18:58 Test Kitchen Home Economist/Pulse Ox/q 30 min VS ordered. br1 18:58 IV Saline Lock ordered. br1 18:58 Rhythm Strip to chart ordered. br1 18:58 Undress patient appropriately for examination ordered. br1 18:59 B-Type Natiuretic Peptide Ordered. EDMS 18:59 Basic Metabolic Profile Ordered. EDMS 18:59 CBC with Diff Ordered. EDMS 18:59 Cardiac Injury Profile Ordered. EDMS 19:00 Troponin Ordered. EDMS 19:01 Chest, 2 View (pa\E\lat) Ordered. EDMS 19:01 ECG WITH READING ER PHYS+CARDIAG ordered. EDMS 19:41 Solu-MEDROL 125 mg IVP once ordered. fg 19:41 Albuterol-Ipratropium 3 ml Inhalation once ordered. fg 19:41 Call Respiratory ordered. fg 19:41 Call Respiratory complete. ar3 19:55 Financial registration complete. gjb 20:37 DIFFERENTIAL NO CHARGE Ordered. EDMS 20:37 PLATELET ESTIMATE Ordered. EDMS 20:53 [facility] Payment Agreement was scanned into [employer] and attached to record. gjb 22:34 BED REQUEST+ADM ordered. EDMS 23:03 RENAL US Ordered. EDMS 23:04 ECHOCARD,DOPPLER/COLOR FLOW ordered. EDMS 23:04 RENAL DIET ordered. EDMS 23:04 ARTERIAL BLOOD GAS Ordered. EDMS 23:05 URINALYSIS Ordered. EDMS 23:05 TOTAL PROTEIN,RANDOM URINE Ordered. EDMS 23:05 CREATININE,RANDOM URINE Ordered. EDMS 23:05 SODIUM,RANDOM URINE Ordered. EDMS 23:05 POTASSIUM,RANDOM URINE Ordered. EDMS 23:05 CHLORIDE,RANDOM URINE Ordered. EDMS 23:05 OSMOLALITY,URINE Ordered. EDMS 23:06 CARDIAC MARKER PANEL Ordered. EDMS 23:06 COMPLETE BLOOD COUNT Ordered. EDMS 23:06 RENAL PROFILE Ordered. EDMS 23:06 MAGNESIUM LEVEL Ordered. EDMS 23:08 PHYSICAL THERAPY EVAL & TREAT ordered. EDMS 23:09 Admission / Observation Status ordered. EDMS 23:10 C REACTIVE PROTEIN QUANTITATIV Ordered. EDMS 23:10 BASIC METABOLIC PROFILE Ordered. EDMS 23:18 LACTIC ACID LEVEL, LACTATE Ordered. EDMS 23:25 CARDIAC MARKER PANEL Ordered. EDMS 02/01 01:02 Zaman ordered. mgs 05/01 13:01 T-Sheet-- Draft Copy was scanned into [employer] and attached to record. gb 13:01 ECG/EKG was scanned into [employer] and attached to record. gb 13:01 Trend VS was scanned into [employer] and attached to record. gb 13:01 Radiology Report was scanned into [employer] and attached to record. gb Administered Medications: 04/29 19:50 Drug: Albuterol-Ipratropium 3 ml [ipratropium-albuterol 0.5 mg-3 mg(2.5 mg base)/3 mL jh6 nebulization soln (3 mL)] Route: Inhalation; 20:26 Drug: Solu-MEDROL 125 mg [Solu-Medrol 500 mg intravenous solution (125 mg)] Route: IVP; mgs Site: left antecubital; Signatures: Dispatcher [employer] EDMS Nichole Kaufman RN RN mcp Emely Mcfarland, Reg Reg gb Torito Luis MD MD br1 Mariah Ruiz, ACCOUNT EXECUTIVE HEALTHCARE ACCOUNT EXECUTIVE HEALTHCARE ar3 Chloe Keita RN RN ld5 Lillian Youngblood,RN RN Ross Steel,Abbie Boateng RN, MD MD fg Beck, Gabriela gjb Hollis, Jacob 6 The chart was reviewed and I authenticate all verbal orders and agree with the evaluation and treatment provided.Corrections: (The following items were deleted from the chart) 23:10 23:05 C REACTIVE PROTEIN QUANTITATIV ordered. EDMS EDMS 23:25 23:05 CARDIAC MARKER PANEL ordered. EDMS EDMS Attachments: 20:53 [facility] Payment Agreement gjb 05/01 13:01 T-Sheet-- Draft Copy gb 13:01 ECG/EKG gb Chart Complete MTDD
--- NOTE | 2016-05-02 17:24 | EDDOCDS ---
Physician Documentation [facility] Name: Shanti Magallanes Age: 85 yrs Sex: Female : 1930 Arrival Date: 04/29/2016 Time: 18:37 Bed Admit Hold Private MD: Abiel Wooten M.D. Disposition: 04/29/16 22:34 Hospitalization ordered by Masha Harper for Inpatient Admission. Preliminary diagnosis are Shortness of breath, Acute kidney failure, Acute diastolic (congestive) heart failure, Chronic obstructive pulmonary disease with (acute) exacerbation. - [facility] - Status is Inpatient Admission. ead - Condition is Stable. - Problem is new. - Symptoms have worsened. Historical: - Allergies: no known allergies; - Home Meds: 1. Januvia 100 mg oral tab 1 tab once daily (Last dose: 04/28/2016 21:00) 2. metformin 1,000 mg Oral tab 2 times per day (Last dose: 04/29/2016 15:00) 3. atenolol 50 mg Oral tab 1 tab 2 times per day (Last dose: 04/28/2016 21:00) 4. ProAir HFA inhalation 2 puffs as needed (Last dose: 04/29/2016 10:00) 5. potassium chloride 20 mEq Oral TbER once daily (Last dose: 04/29/2016 09:00) 6. furosemide 40 mg Oral tab once daily (Last dose: 04/29/2016 15:30) 7. Advair Diskus 100-50 mcg/dose Inhl dsdv 2 times per day (Last dose: 04/29/2016 09:00) 8. Xanax 0.5 mg Oral as needed (Last dose: 04/29/2016 09:00) 9. simvastatin 20 mg Oral tab once daily (Last dose: 04/28/2016 21:00) 10. amlodipine 10 mg Oral tab 1 tab once daily (Last dose: 04/28/2016 21:00) - PMHx: Cancer, Lung - Left; CHF; COPD; Diabetes - NIDDM: controlled; Hypercholesterolemia; Hypertension; [place]; - PSHx: Cataract Surgery- Bilateral; - Social history: Smoking status: Patient states former smoker of tobacco. No barriers to communication noted, The patient speaks fluent [place], Speaks appropriately for age. - : The pt / caregiver states he / she is not on anticoagulants. Home medication list is obtained from the patient, family members. - Exposure Risk Screening:: None identified. Vital Signs: 04/29 19:01 BP 146 / 70; Pulse 69; Resp 20; Temp 96.8(O); Pulse Ox 91% on 3 lpm NC; ld5 19:02 Weight 47.63 kg / 105.01 lbs (R); Height 5 ft. 2 in. (157.48 cm) (R); ld5 21:08 BP 157 / 75 (auto/); mgs 21:08 Pulse 68 MON; Pulse Ox 86% ; mgs 21:12 BP 151 / 75; Pulse 70; Resp 22; Pulse Ox 94% on 15 lpm NC; mgs 21:39 BP 161 / 73 (auto/); mgs 21:40 Pulse 68 MON; Pulse Ox 94% on 15 lpm NC; mgs 22:09 BP 145 / 71 (auto/); mgs 22:09 Pulse 68 MON; Pulse Ox 93% ; mgs 22:39 BP 158 / 73 (auto/); mgs 22:39 Pulse 68 MON; Pulse Ox 93% ; mgs 19:02 Body Mass Index 19.20 (47.63 kg, 157.48 cm) ld5 MDM: 18:58 Tread Builder/Pulse Ox/q 30 min VS ordered. br1 18:58 IV Saline Lock ordered. br1 18:58 Rhythm Strip to chart ordered. br1 18:58 Undress patient appropriately for examination ordered. br1 18:59 B-Type Natiuretic Peptide Ordered. EDMS 18:59 Basic Metabolic Profile Ordered. EDMS 18:59 CBC with Diff Ordered. EDMS 18:59 Cardiac Injury Profile Ordered. EDMS 19:00 Troponin Ordered. EDMS 19:01 Chest, 2 View (pa\E\lat) Ordered. EDMS 19:01 ECG WITH READING ER PHYS+CARDIAG ordered. EDMS 19:41 Solu-MEDROL 125 mg IVP once ordered. fg 19:41 Albuterol-Ipratropium 3 ml Inhalation once ordered. fg 19:41 Call Respiratory ordered. fg 19:41 Call Respiratory complete. ar3 19:55 Financial registration complete. gjb 20:37 DIFFERENTIAL NO CHARGE Ordered. EDMS 20:37 PLATELET ESTIMATE Ordered. EDMS 20:53 [facility] Payment Agreement was scanned into [employer] and attached to record. gjb 22:34 BED REQUEST+ADM ordered. EDMS 23:03 RENAL US Ordered. EDMS 23:04 ECHOCARD,DOPPLER/COLOR FLOW ordered. EDMS 23:04 RENAL DIET ordered. EDMS 23:04 ARTERIAL BLOOD GAS Ordered. EDMS 23:05 URINALYSIS Ordered. EDMS 23:05 TOTAL PROTEIN,RANDOM URINE Ordered. EDMS 23:05 CREATININE,RANDOM URINE Ordered. EDMS 23:05 SODIUM,RANDOM URINE Ordered. EDMS 23:05 POTASSIUM,RANDOM URINE Ordered. EDMS 23:05 CHLORIDE,RANDOM URINE Ordered. EDMS 23:05 OSMOLALITY,URINE Ordered. EDMS 23:06 CARDIAC MARKER PANEL Ordered. EDMS 23:06 COMPLETE BLOOD COUNT Ordered. EDMS 23:06 RENAL PROFILE Ordered. EDMS 23:06 MAGNESIUM LEVEL Ordered. EDMS 23:08 PHYSICAL THERAPY EVAL & TREAT ordered. EDMS 23:09 Admission / Observation Status ordered. EDMS 23:10 C REACTIVE PROTEIN QUANTITATIV Ordered. EDMS 23:10 BASIC METABOLIC PROFILE Ordered. EDMS 23:18 LACTIC ACID LEVEL, LACTATE Ordered. EDMS 23:25 CARDIAC MARKER PANEL Ordered. EDMS 02/01 01:02 Zaman ordered. mgs 05/01 13:01 T-Sheet-- Draft Copy was scanned into [employer] and attached to record. gb 13:01 ECG/EKG was scanned into [employer] and attached to record. gb 13:01 Trend VS was scanned into [employer] and attached to record. gb 13:01 Radiology Report was scanned into [employer] and attached to record. gb Administered Medications: 04/29 19:50 Drug: Albuterol-Ipratropium 3 ml [ipratropium-albuterol 0.5 mg-3 mg(2.5 mg base)/3 mL jh6 nebulization soln (3 mL)] Route: Inhalation; 20:26 Drug: Solu-MEDROL 125 mg [Solu-Medrol 500 mg intravenous solution (125 mg)] Route: IVP; mgs Site: left antecubital; Signatures: Dispatcher [employer] EDMS Nichole Kaufman RN RN mcp Emely Mcfarland, Reg Reg gb Torito Luis MD MD br1 Mariah Ruiz, FAMILY DAY CARE WORKER FAMILY DAY CARE WORKER ar3 Chloe Keita RN RN ld5 Lillian Youngblood,RN RN Ross Steel,Abbie Boateng RN, MD MD fg Beck, Gabriela gjb Hollis, Jacob 6 The chart was reviewed and I authenticate all verbal orders and agree with the evaluation and treatment provided.Corrections: (The following items were deleted from the chart) 23:10 23:05 C REACTIVE PROTEIN QUANTITATIV ordered. EDMS EDMS 23:25 23:05 CARDIAC MARKER PANEL ordered. EDMS EDMS Attachments: 20:53 [facility] Payment Agreement gjb 05/01 13:01 T-Sheet-- Draft Copy gb 13:01 ECG/EKG gb Chart Complete MTDD
--- NOTE | 2016-05-02 17:24 | EDDOCDS ---
Nurse's Notes [facility] Name: Shanti Magallanes Age: 85 yrs Sex: Female : 1930 Arrival Date: 04/29/2016 Time: 18:37 Bed Admit Hold Private MD: Abiel Wooten M.D. Diagnosis: Shortness of breath;Acute kidney failure;Acute diastolic (congestive) heart failure;Chronic obstructive pulmonary disease with (acute) exacerbation Presentation: 04/29 19:01 Presenting complaint: EMS states: Initial call was for difficulty breathing. Pt has ld5 history of COPD. When EMS arrived, pt had no respiratory complaints. Family stated pt has not urinated today. In September pt had renal failure and had dialysis x1. Family concerned about renal function. Suicide/Homicide risk assessment- the patient denies having any suicidal and/or homicidal ideations and does not present with any other emotional, behavioral or mental health complaints. 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 Transition of care: patient was not received from another setting of care. Care prior to arrival: IV initiated. Glucose check. 228. 19:01 Acuity: DILLON Level 3 ld5 19:01 Method Of Arrival: Ambulance ld5 Triage Assessment: 19:03 General: Appears in no apparent distress. Pain: Denies pain. Neurological: Level of ld5 Consciousness is awake, obeys commands. Respiratory: Onset: The symptoms/episode began/occurred history of COPD, no new respiratory symptoms per pt. Respiratory: Reports cough that is non-productive. GI: Abdomen is non- distended Reports nausea. : Reports Conflicting stories as to pt's urinary status. Family reports pt has not urinated today. Pt reports urinating just prior to EMS arrival. Family member concerned due to renal failure in September. Derm: Skin is intact, Skin is dusky. Historical: - Allergies: no known allergies; - Home Meds: 1. Januvia 100 mg oral tab 1 tab once daily (Last dose: 04/28/2016 21:00) 2. metformin 1,000 mg Oral tab 2 times per day (Last dose: 04/29/2016 15:00) 3. atenolol 50 mg Oral tab 1 tab 2 times per day (Last dose: 04/28/2016 21:00) 4. ProAir HFA inhalation 2 puffs as needed (Last dose: 04/29/2016 10:00) 5. potassium chloride 20 mEq Oral TbER once daily (Last dose: 04/29/2016 09:00) 6. furosemide 40 mg Oral tab once daily (Last dose: 04/29/2016 15:30) 7. Advair Diskus 100-50 mcg/dose Inhl dsdv 2 times per day (Last dose: 04/29/2016 09:00) 8. Xanax 0.5 mg Oral as needed (Last dose: 04/29/2016 09:00) 9. simvastatin 20 mg Oral tab once daily (Last dose: 04/28/2016 21:00) 10. amlodipine 10 mg Oral tab 1 tab once daily (Last dose: 04/28/2016 21:00) - PMHx: Cancer, Lung - Left; CHF; COPD; Diabetes - NIDDM: controlled; Hypercholesterolemia; Hypertension; UT; - PSHx: Cataract Surgery- Bilateral; - Social history: Smoking status: Patient states former smoker of tobacco. No barriers to communication noted, The patient speaks fluent Afghan, Speaks appropriately for age. - : The pt / caregiver states he / she is not on anticoagulants. Home medication list is obtained from the patient, family members. - Exposure Risk Screening:: None identified. Screenin/01 01:07 Screening information is obtained from the patient, family members. Fall risk: At risk mgs due to age. Assistance ADL's: requires no assistance with activities of daily living. Abuse/DV Screen: The patient / caregiver reports he/she is: not in a situation that causes fear, pain or injury. Nutritional screening: No deficits noted. Advance Directives: Currently, there is no health care proxy. There is no active DNR order. home support is adequate. Assessment: 04/29 20:04 General: Appears in no apparent distress, Behavior is appropriate for age, cooperative. mgs Neurological: Level of Consciousness is awake, alert. Cardiovascular: Capillary refill < 3 seconds. Respiratory: Airway is patent Respiratory effort is even, unlabored, Breath sounds are diminished bilaterally. Derm: Skin is pink, warm & dry. 21:10 Adult Sepsis Screening: The patient does not have new or worsening altered mentation. mgs Patient has a respiratory rate of greater than or equal to 22 (1 point). Systolic blood pressure is greater than 100. Patient has a qSOFA score of 1- Negative Sepsis Screen. General: Appears in no apparent distress, Behavior is appropriate for age, cooperative. Neurological: Level of Consciousness is awake, alert, Oriented to person, place, time. Cardiovascular: Capillary refill < 3 seconds. Respiratory: Airway is patent Respiratory effort is even, unlabored. Derm: Skin is pink, warm & dry. 22:02 General: Appears in no apparent distress, Behavior is appropriate for age, cooperative. mgs Neurological: Level of Consciousness is awake, alert, Oriented to person, place, time. Cardiovascular: Capillary refill < 3 seconds Heart tones S1 S2 present. Respiratory: Airway is patent Respiratory effort is even, unlabored, Breath sounds are diminished bilaterally. Derm: Skin is pink, warm & dry. 23:04 Adult Sepsis Screening: The patient does not have new or worsening altered mentation. mgs Patient has a respiratory rate of greater than or equal to 22 (1 point). Systolic blood pressure is greater than 100. Patient has a qSOFA score of 1- Negative Sepsis Screen. General: Appears in no apparent distress, Behavior is appropriate for age, cooperative. Neurological: Level of Consciousness is awake, alert, Oriented to person, place, time. Cardiovascular: Capillary refill < 3 seconds. Respiratory: Airway is patent Respiratory effort is even, unlabored, Respiratory pattern is regular, symmetrical. Derm: Skin is pink, warm & dry. 04/30 00:05 General: Appears in no apparent distress, Behavior is appropriate for age, cooperative. mgs Neurological: Level of Consciousness is awake, alert, Oriented to person, place, time. Cardiovascular: Capillary refill < 3 seconds. Respiratory: Airway is patent Respiratory effort is even, unlabored, Respiratory pattern is regular, symmetrical. Derm: Skin is pink, warm & dry. 01:05 General: Appears in no apparent distress, Behavior is appropriate for age, cooperative. mgs Neurological: Level of Consciousness is awake, alert, Oriented to person, place, time. Cardiovascular: Capillary refill < 3 seconds. Respiratory: Airway is patent Respiratory effort is even, unlabored, Respiratory pattern is regular, symmetrical. Derm: Skin is pink, warm & dry. Vital Signs: 04/29 19:01 BP 146 / 70; Pulse 69; Resp 20; Temp 96.8(O); Pulse Ox 91% on 3 lpm NC; ld5 19:02 Weight 47.63 kg (R); Height 5 ft. 2 in. (157.48 cm) (R); ld5 21:08 BP 157 / 75 (auto/); mgs 21:08 Pulse 68 MON; Pulse Ox 86% ; mgs 21:12 BP 151 / 75; Pulse 70; Resp 22; Pulse Ox 94% on 15 lpm NC; mgs 21:39 BP 161 / 73 (auto/); mgs 21:40 Pulse 68 MON; Pulse Ox 94% on 15 lpm NC; mgs 22:09 BP 145 / 71 (auto/); mgs 22:09 Pulse 68 MON; Pulse Ox 93% ; mgs 22:39 BP 158 / 73 (auto/); mgs 22:39 Pulse 68 MON; Pulse Ox 93% ; mgs 19:02 Body Mass Index 19.20 (47.63 kg, 157.48 cm) ld5 Vitals: 19:01 Log In Time N/A - ambulance arrival. ld5 ED Course: 18:38 Patient visited by Klaudia Walker, Trailer Technician. lbd 18:38 Abiel Wooten is Private Physician. lbd 18:38 Patient moved to Waiting lbd 18:39 Patient moved to 20 kcs 19:04 Triage Initiated ld5 19:11 Patient moved to Radiology tmb 19:18 Abbie Arnold MD is Attending Physician. fg 19:18 Patient visited by Abbie Arnold MD. fg 19:20 Patient moved to 20 tmb 19:32 Patient visited by Vito Colbert PCA. mdr 19:32 EKG done. (by ED staff). Reviewed by Abbie Arnold MD. mdr 19:48 Ross Velasco,RN is Primary Nurse. mgs 20:07 Patient visited by Ross Velasco,AIDA. mgs 20:17 B-Type Natiuretic Peptide Sent. mgs 20:17 Basic Metabolic Profile Sent. mgs 20:17 CBC with Diff Sent. mgs 20:17 Cardiac Injury Profile Sent. mgs 20:17 Troponin Sent. mgs 20:23 Chest, 2 View (pa\E\lat) Returned. EDMS 20:31 Maintain field IV. Dressing intact. Good blood return noted. Site clean & dry. Gauge & mgs site: 20 in left AC. 20:53 [facility] Payment Agreement was scanned into [employer] and attached to record. gjb 21:11 Patient visited by Ross Velasco,AIDA. mgs 21:13 Patient visited by Ross Velasco,AIDA. mgs 21:44 DIFFERENTIAL NO CHARGE Sent. hs1 21:45 Patient visited by Vito Colbert, ELISE. mdr 21:45 Warm blanket given. mdr 22:03 Patient visited by Ross Velasco,RN. mgs 22:23 Bladder Scan completed Results: 42 ml. mgs 22:33 Leroy Masha is Hospitalizing Provider. fg 23:05 Patient visited by Ross Velasco,AIDA. mgs 23:11 Patient moved to Admit Hold cz 02 00:14 Patient moved to Ultrasound dmg 00:25 Patient moved to 20 dmg 00:37 Patient moved to Ultrasound dmg 00:52 Patient moved to 20 dmg 01:01 Zaman cath inserted 16 Fr. Balloon inflated. To gravity drainage. rw1 01:19 Patient moved to Admit Hold sls1 02:04 RENAL US Returned. EDMS 03:28 Patient visited by Lachelle Husain RN. mlc 03:28 notified hospitalist of critical lab value, lactic acid 2.9. [facility] 05/01 13:01 T-Sheet-- Draft Copy was scanned into [employer] and attached to record. gb 13:01 ECG/EKG was scanned into [employer] and attached to record. gb 13:01 Trend VS was scanned into [employer] and attached to record. gb 13:01 Radiology Report was scanned into [employer] and attached to record. gb Administered Medications: 04/29 19:50 Drug: Albuterol-Ipratropium 3 ml [ipratropium-albuterol 0.5 mg-3 mg(2.5 mg base)/3 mL [facility] nebulization soln (3 mL)] Route: Inhalation; 20:26 Drug: Solu-MEDROL 125 mg [Solu-Medrol 500 mg intravenous solution (125 mg)] Route: IVP; mgs Site: left antecubital; Attachments: 13:01 Trend VS gb RT: 04/29 19:50 Initial Med Neb Given as ordered Patient was instructed and evaluated on procedure jh6 Patient tolerated procedure well without adverse effect. Respiratory: Airway is patent Respiratory effort is even, unlabored, Respiratory pattern is regular symmetrical, Breath sounds with crackles in right middle lobe, left lower lobe and right lower lobe Breath sounds are diminished in right upper lobe, left upper lobe, right middle lobe, left lower lobe and right lower lobe. 20:16 O2 via nasal cannula 12 lpm, humidified. Respiratory: Airway is patent Respiratory jh6 effort is even, unlabored, Respiratory pattern is regular symmetrical, Breath sounds with crackles in right middle lobe, left lower lobe and right lower lobe Breath sounds are diminished in right upper lobe, left upper lobe, right middle lobe, left lower lobe and right lower lobe. Order Results: Lab Order: B-Type Natiuretic Peptide; SPEC'M 04/29/16 20:15 Test: BRAIN NATRIURETIC PEPTIDE; Value: 2810; Range: <100; Abnormal: Above high normal; Units: PG/ML; Status: F Lab Order: Basic Metabolic Profile; SPEC'M 04/29/16 20:15 Test: GLUCOSE, FASTING; Value: 154; Range: 83-110; Abnormal: Above high normal; Units: MG/DL; Status: F Test: BLOOD UREA NITROGEN; Value: 34; Range: 7-18; Abnormal: Above high normal; Units: MG/DL; Status: F Test: CREATININE FOR GFR; Value: 2.34; Range: 0.55-1.02; Abnormal: Above high normal; Units: MG/DL; Status: F Test: GLOMERULAR FILTRATION RATE; Value: 21.0; Range: >32; Abnormal: Below low normal; Status: F Test: SODIUM LEVEL; Value: 138; Range: 136-145; Units: MEQ/L; Status: F Test: POTASSIUM SERUM; Value: 6.0; Range: 3.5-5.1; Abnormal: Above high normal; Units: MEQ/L; Status: F Test: CHLORIDE LEVEL; Value: 100; Range: 98-107; Units: MEQ/L; Status: F Test: CARBON DIOXIDE LEVEL; Value: 21; Range: 21-32; Units: MEQ/L; Status: F Test: ANION GAP; Value: 17; Range: 8-16; Abnormal: Above high normal; Units: MEQ/L; Status: F Test: CALCIUM LEVEL; Value: 8.4; Range: 8.8-10.2; Abnormal: Below low normal; Units: MG/DL; Status: F Test Note: ; Units are mL/min/1.73 m2 Chronic Kidney Disease Staging per NKF: Stage I & II GFR >=60 Normal to Mildly Decreased Stage III GFR 30-59 Moderately Decreased Stage IV GFR 15-29 Severely Decreased Stage V GFR <15 Very Little GFR Left ESRD GFR <15 on CAST IRON DIPPER Lab Order: CBC with Diff; SPEC'M 04/29/16 20:15 Test: WHITE BLOOD COUNT; Value: 6.2; Range: 4.0-10.0; Units: K/mm3; Status: F Test: RED BLOOD COUNT; Value: 3.93; Range: 4.00-5.40; Abnormal: Below low normal; Units: M/mm3; Status: F Test: HEMOGLOBIN; Value: 10.1; Range: 12.0-16.0; Abnormal: Below low normal; Units: g/dl; Status: F Test: HEMATOCRIT; Value: 33.1; Range: 36.0-47.0; Abnormal: Below low normal; Units: %; Status: F Test: MEAN CORPUSCULAR VOLUME; Value: 84.4; Range: 80.0-96.0; Units: fl; Status: F Test: MEAN CORPUSCULAR HEMOGLOBIN; Value: 25.6; Range: 27.0-33.0; Abnormal: Below low normal; Units: pg; Status: F Test: MEAN CORPUSCULAR HGB CONC; Value: 30.4; Range: 32.0-36.5; Abnormal: Below low normal; Units: g/dl; Status: F Test: RED CELL DISTRIBUTION WIDTH; Value: 21.4; Range: 11.5-14.5; Abnormal: Above high normal; Units: %; Status: F Test: PLATELET COUNT, AUTOMATED; Value: 203; Range: 150-450; Units: k/mm3; Status: F Test: NEUTROPHILS; Value: 83; Range: 35-75; Abnormal: Above high normal; Units: %; Status: F Test: BANDS; Value: 1; Range: < 11; Units: %; Status: F Test: LYMPHOCYTES; Value: 12; Range: 16-52; Abnormal: Below low normal; Units: %; Status: F Test: MONOCYTES; Value: 4; Range: 0-8; Units: %; Status: F Test: HYPOCHROMASIA; Value: 1+; Status: F Test: ANISOCYTOSIS; Value: 2+; Status: F Test: MICROCYTOSIS; Value: 1+; Status: F Lab Order: Cardiac Injury Profile; [facility] 04/29/16 20:15 Test: CPK CREATINE PHOSPHOKINASE; Value: 42; Range: 26-192; Units: U/L; Status: F Test: CK-MB VALUE MASS; Value: 2.6; Range: 0.0-3.6; Units: NG/ML; Status: F Test: MB/CK RELATIVE INDEX; Value: 6.19; Range: < OR =4; Abnormal: Above high normal; Status: F Test Note: ; DIAGNOSIS CRITERIA MMB ng/ml Relative Index (RI) NON-AMI < or = 5 N/A LOU ZONE > 5 < or = 4 AMI > 5 > 4 Lab Order: Troponin; [facility] 04/29/16 20:15 Test: TROPONIN I; Value: 0.04; Range: < 0.10; Units: NG/ML; Status: F Test Note: ; Troponin I Reference Interval for [employer] LOCI: 99th Percentile= 0.00-0.045 ng/ml Risk Stratification: <= 0.10 ng/ml Decreased Risk for Adverse Clinical Events. 0.10-1.50 ng/ml Increased Risk for Adverse Clinical Events. Evaluation of additional criterion and/or repeat testing in 2-6 hours is suggested to rule out myocardial damage. >= 1.50 ng/ml Indicative of Myocardial Injury. Lab Order: PLATELET ESTIMATE; [facility] 04/29/16 20:15 Test: PLATELET ESTIMATE; Value: NORMAL; Range: NORMAL; Status: F Lab Order: CARDIAC MARKER PANEL; [facility] 04/30/16 08:24 Test: CPK CREATINE PHOSPHOKINASE; Value: 39; Range: 26-192; Units: U/L; Status: F Test: CK-MB VALUE MASS; Value: 2.2; Range: 0.0-3.6; Units: NG/ML; Status: F Test: MB/CK RELATIVE INDEX; Value: 5.64; Range: < OR =4; Abnormal: Above high normal; Status: F Test: TROPONIN I; Value: 0.03; Range: < 0.10; Units: NG/ML; Status: F Test Note: ; DIAGNOSIS CRITERIA MMB ng/ml Relative Index (RI) NON-AMI < or = 5 N/A LOU ZONE > 5 < or = 4 AMI > 5 > 4 Lab Order: COMPLETE BLOOD COUNT; [facility] 04/30/16 06:32 Test: WHITE BLOOD COUNT; Value: 3.9; Range: 4.0-10.0; Abnormal: Below low normal; Units: K/mm3; Status: F Test: RED BLOOD COUNT; Value: 3.73; Range: 4.00-5.40; Abnormal: Below low normal; Units: M/mm3; Status: F Test: HEMOGLOBIN; Value: 9.7; Range: 12.0-16.0; Abnormal: Below low normal; Units: g/dl; Status: F Test: HEMATOCRIT; Value: 31.8; Range: 36.0-47.0; Abnormal: Below low normal; Units: %; Status: F Test: MEAN CORPUSCULAR VOLUME; Value: 85.2; Range: 80.0-96.0; Units: fl; Status: F Test: MEAN CORPUSCULAR HEMOGLOBIN; Value: 26.0; Range: 27.0-33.0; Abnormal: Below low normal; Units: pg; Status: F Test: MEAN CORPUSCULAR HGB CONC; Value: 30.5; Range: 32.0-36.5; Abnormal: Below low normal; Units: g/dl; Status: F Test: RED CELL DISTRIBUTION WIDTH; Value: 19.9; Range: 11.5-14.5; Abnormal: Above high normal; Units: %; Status: F Test: PLATELET COUNT, AUTOMATED; Value: 174; Range: 150-450; Units: k/mm3; Status: F Lab Order: RENAL PROFILE; [facility] 04/30/16 06:32 Test: GLUCOSE, FASTING; Value: 291; Range: 83-110; Abnormal: Above high normal; Units: MG/DL; Status: F Test: BLOOD UREA NITROGEN; Value: 46; Range: 7-18; Abnormal: Above high normal; Units: MG/DL; Status: F Test: CREATININE FOR GFR; Value: 2.41; Range: 0.55-1.02; Abnormal: Above high normal; Units: MG/DL; Status: F Test: GLOMERULAR FILTRATION RATE; Value: 20.3; Range: >32; Abnormal: Below low normal; Status: F Test: SODIUM LEVEL; Value: 138; Range: 136-145; Units: MEQ/L; Status: F Test: POTASSIUM SERUM; Value: 5.7; Range: 3.5-5.1; Abnormal: Above high normal; Units: MEQ/L; Status: F Test: CHLORIDE LEVEL; Value: 102; Range: 98-107; Units: MEQ/L; Status: F Test: CARBON DIOXIDE LEVEL; Value: 22; Range: 21-32; Units: MEQ/L; Status: F Test: ANION GAP; Value: 14; Range: 8-16; Units: MEQ/L; Status: F Test: CALCIUM LEVEL; Value: 7.7; Range: 8.8-10.2; Abnormal: Below low normal; Units: MG/DL; Status: F Test: PHOSPHORUS LEVEL; Value: 6.2; Range: 2.5-4.9; Abnormal: Above high normal; Units: MG/DL; Status: F Test: ALBUMIN; Value: 3.1; Range: 3.2-5.2; Abnormal: Below low normal; Units: GM/DL; Status: F Test Note: ; Units are mL/min/1.73 m2 Chronic Kidney Disease Staging per NKF: Stage I & II GFR >=60 Normal to Mildly Decreased Stage III GFR 30-59 Moderately Decreased Stage IV GFR 15-29 Severely Decreased Stage V GFR <15 Very Little GFR Left ESRD GFR <15 on CAST IRON DIPPER Lab Order: MAGNESIUM LEVEL; 04/30/16 06:32 Test: MAGNESIUM LEVEL; Value: 1.6; Range: 1.8-2.4; Abnormal: Below low normal; Units: MG/DL; Status: F Lab Order: C REACTIVE PROTEIN QUANTITATIV; SPEC04/29/16 20:15 Test: C REACTIVE PROTEIN QUANTITATIV; Value: 0.72; Range: 0.00-0.30; Abnormal: Above high normal; Units: MG/DL; Status: F Lab Order: BASIC METABOLIC PROFILE; 04/30/16 02:15 Test: GLUCOSE, FASTING; Value: 212; Range: 83-110; Abnormal: Above high normal; Units: MG/DL; Status: F Test: BLOOD UREA NITROGEN; Value: 41; Range: 7-18; Abnormal: Above high normal; Units: MG/DL; Status: F Test: CREATININE FOR GFR; Value: 2.25; Range: 0.55-1.02; Abnormal: Above high normal; Units: MG/DL; Status: F Test: GLOMERULAR FILTRATION RATE; Value: 22.0; Range: >32; Abnormal: Below low normal; Status: F Test: SODIUM LEVEL; Value: 137; Range: 136-145; Units: MEQ/L; Status: F Test: POTASSIUM SERUM; Value: 6.0; Range: 3.5-5.1; Abnormal: Above high normal; Units: MEQ/L; Status: F Test: CHLORIDE LEVEL; Value: 101; Range: 98-107; Units: MEQ/L; Status: F Test: CARBON DIOXIDE LEVEL; Value: 19; Range: 21-32; Abnormal: Below low normal; Units: MEQ/L; Status: F Test: ANION GAP; Value: 17; Range: 8-16; Abnormal: Above high normal; Units: MEQ/L; Status: F Test: CALCIUM LEVEL; Value: 8.0; Range: 8.8-10.2; Abnormal: Below low normal; Units: MG/DL; Status: F Test Note: ; Units are mL/min/1.73 m2 Chronic Kidney Disease Staging per NKF: Stage I & II GFR >=60 Normal to Mildly Decreased Stage III GFR 30-59 Moderately Decreased Stage IV GFR 15-29 Severely Decreased Stage V GFR <15 Very Little GFR Left ESRD GFR <15 on CAST IRON DIPPER Lab Order: LACTIC ACID LEVEL, LACTATE; SPECM 04/30/16 02:15 Test: LACTIC ACID SEPSIS PROTOCOL; Value: 2.9; Range: 0.4-2.0; Abnormal: Above upper panic limits; Units: MMOL/L; Status: F Lab Order: CARDIAC MARKER PANEL; SPEC'M 04/30/16 02:15 Test: CPK CREATINE PHOSPHOKINASE; Value: 45; Range: 26-192; Units: U/L; Status: F Test: CK-MB VALUE MASS; Value: 2.3; Range: 0.0-3.6; Units: NG/ML; Status: F Test: MB/CK RELATIVE INDEX; Value: 5.11; Range: < OR =4; Abnormal: Above high normal; Status: F Test: TROPONIN I; Value: 0.03; Range: < 0.10; Abnormal: Delta; Units: NG/ML; Status: F Test Note: ; DIAGNOSIS CRITERIA MMB ng/ml Relative Index (RI) NON-AMI < or = 5 N/A LOU ZONE > 5 < or = 4 AMI > 5 > 4 Lab Order: Fingerstick Blood Sugar; [facility] 04/30/16 12:38 Test: BEDSIDE GLUCOSE; Value: 215; Range: 83-110; Abnormal: Above high normal; Units: MG/DL; Status: F Radiology Order: Chest, 2 View (pa\E\lat) Test: Chest, 2 View (pa\E\lat) REASON FOR EXAMINATION: Shortness of Breath; PA and lateral chest:; ; Comparison is 01/15/2016.; ; There are bilateral pleural effusions.; ; There are large bulla throughout the lung benitez bilaterally, unchanged,; compatible with bullous emphysema.; ; Cardiac size is normal. The nasra, mediastinum, and bony thorax are; unremarkable.; ; Impression:; ; Chronic bullous emphysema. New bilateral pleural effusions.; ; ; Signed by; Ridge Singleton MD 04/29/2016 07:22 P; Radiology Order: RENAL US Test: RENAL US REASON FOR EXAMINATION: renal failure; ; CLINICAL HISTORY: Renal failure.; TECHNIQUE: Realtime sonographic images were obtained in multiple projections.; COMMENTS:; The right kidney measures 11.5x5.1x4.5 cm and the left kidney measures 10.3x5.7x5.2 cm. bilateral i; ncrease in renal cortical echogenicity with decreased corticomedullary differentiation. Both kidneys; are free of hydronephrosis. There is no evidence of solid or cystic mass. There is no perinephric flu; id. There is no renal calculus.; IMPRESSION:; Increased renal echogenicity suggestive of parenchymal disease.; No change from the prior exam on 11/12/2015.; Thank you for your kind referral of this patient.; ; ; Outcome: 22:34 Decision to Hospitalize by Provider. fg 04/30 16:23 Admitted to PCU accompanied by nurse, accompanied by tech, via stretcher, on monitor, ead with chart. 16:24 Patient left the ED. ead Signatures: Dispatcher [employer] Arabella Wallace RN RN Klaudia Daly, Trailer Technician Unit lbd Charlie Malhotra, RN RN cz Bob, Carmita dmg Bartolo, Emely, Reg Reg gb Kun,Raffi,EYEWEAR MANUFACTURING TECH EYEWEAR MANUFACTURING TECH rw1 Chloe Keita,RN RN ld5 Kassandra Huang, AIDA RN hs1 Jorge Luis Shetty jh6 Imelda Rondon, RN RN sls1 Lillian Youngblood,RN RN asniad Ever Stout MandyRN Ross Crocker,RN RN mgs Abbie Arnold MD MD fg Rick, Mitchell, ELISE WOOD GRINDER OPERATOR Kenzie Goss Corrections: (The following items were deleted from the chart) 04/29 22:02 21:40 Pulse 68bpm; Monitor; Pulse Ox 94%; mgs mgs Chart Complete MTDD
[2016-05-02 20:37] VITALS: BP 144/74
[2016-05-02] MEDS: AZITHROMYCIN 250 MG TAB PO SCH (20:51)
[2016-05-02] MEDS: ATORVASTATIN 20 MG TAB PO SCH (20:52)
[2016-05-02] MEDS: amLODIPine 10 MG TAB PO SCH (20:52)
[2016-05-02 23:59] VITALS: BP 128/65
[2016-05-03] MEDS: IPRATROPIUM 0.5MG/ALBUTEROL 2.5MG INH SOL UD 3ML (DUONEB)(J7620) NEB SCH ×4 (02:00→20:00)
[2016-05-03] MEDS: SLF 3 ML SYR IV SCH ×3 (03:40→20:54)
[2016-05-03 04:27] VITALS: BP 139/64
[2016-05-03 05:54] LABS: MEAN CORPUSCULAR HEMOGLOBIN 25.7 pg (27.0-33.0); MEAN CORPUSCULAR HGB CONC 30.7 g/dl (32.0-36.5); MEAN CORPUSCULAR VOLUME 83.8 fl (80.0-96.0); RED CELL DISTRIBUTION WIDTH 19.4 % (11.5-14.5); WHITE BLOOD COUNT 7.6 K/mm3 (4.0-10.0)
[2016-05-03 06:13] LABS: CALCIUM LEVEL 7.1 MG/DL (8.8-10.2); CREATININE FOR GFR 1.9 MG/DL (0.55-1.02); GLOMERULAR FILTRATION RATE 26.7 (>32); MAGNESIUM LEVEL 1.8 MG/DL (1.8-2.4); PHOSPHORUS LEVEL 4.5 MG/DL (2.5-4.9); POTASSIUM SERUM 3.3 MEQ/L (3.5-5.1)
[2016-05-03] MEDS: ADVAIR DISKUS 500/50 INH PWD INH SCH ×2 (07:31→19:31)
[2016-05-03 08:00] VITALS: BP 143/76
[2016-05-03] MEDS: HEPARIN SOD (PORCINE) 5000 UNITS/ML VIAL SC SCH ×2 (08:24→20:50)
[2016-05-03] MEDS: FUROSEMIDE 100 MG/10 ML VIAL (J1940) IV SCH ×2 (08:24→20:33)
[2016-05-03] MEDS: ATENOLOL 50 MG TAB PO SCH ×2 (08:25→20:55)
[2016-05-03] MEDS: HumaLOG INSULIN (NovoLOG) PER UNIT SC SCH ×4 (08:25→20:54)
[2016-05-03] MEDS: predniSONE 20 MG TAB PO SCH ×2 (08:25→20:49)
[2016-05-03] MEDS: SENOKOT S TAB PO SCH ×2 (08:25→20:50)
[2016-05-03] MEDS: ALPRAZolam 0.5 MG TAB PO SCH ×2 (08:25→16:14)
[2016-05-03] MEDS: PANTOPRAZOLE 40MG TAB (PROTONIX) PO SCH (08:25)
[2016-05-03] MEDS: ASPIRIN 81 MG CHEW TABLET PO SCH (08:26)
[2016-05-03] MEDS: MULTIVITAMINS/MINERALS THERAP 1 TAB PO SCH (08:26)
[2016-05-03] MEDS ORDERED: POTASSIUM CHLORIDE 10 MEQ SR TABLET PO ONE (09:00)
--- NOTE | 2016-05-03 12:32 | IPNPDOC ---
Date Seen The patient was seen on 05/03/16. Progress Note DATE OF ENCOUNTER: 05/03/2016 SUBJECTIVE: Ms. Magallanes was seen this morning at bedside. She reports that she is feeling well. She denies any increased shortness of breath. She is back down to her baseline requirement of 3 L of oxygen. She reports that she was given IV Venofer yesterday that made her a little nauseous, otherwise no other acute complaints. No chest pain, chest pressure or palpitations. No vomiting, diarrhea , abdominal pain. No lightheadedness or dizziness. No fevers or chills. She had a net negative of 2530ml in previous 24 hours. OBJECTIVE: Vital Signs Date Time Temp Pulse Resp B/P Pulse Ox O2 Delivery O2 Flow Rate FiO2 05/03/16 08:25 67 143/76 05/03/16 08:00 Nasal Cannula 3.0 05/03/16 08:00 97.1 20 90 I&O- Last 24 Hours up to 6 AM 05/03/16 06:00 Intake Total 2220 ml Output Total 4650 ml Balance -2430 ml GENERAL: Alert and oriented, in no acute distress. HEENT: Normocephalic, atraumatic, extraocular muscles are intact. Moist mucosa. NECK: Supple. Jugular veins are mildly elevated. No thyromegaly. HEART: Normal S1, S2. Regular rate and rhythm. LUNGS: She has bilateral crackles. No rhonchi or wheezing appreciated. ABDOMEN: Soft. Nontender, nondistended. Bowel sounds are present. No rebound, guarding or rigidity. EXTREMITIES: No significant lower extremity edema. No cyanosis. Positive pedal pulses bilaterally. SKIN: Warm and dry. Good skin turgor. No rashes noted. NEURO: No focal deficits. Motor and sensation intact. LABORATORY DATA: 05/03/16 05:06 IMAGING: Chest x-ray on 04/29 revealed chronic bullous emphysema and new bilateral pleural effusions. Renal ultrasound on 04/30 revealed chronic parenchymal disease, no acute findings. Repeat chest x-ray done on 05/02 revealed small bilateral effusions, mild cardiomegaly and left perihilar fibrosis. ASSESSMENT AND PLAN: Ms. Magallanes is an 85 year old female with past medical history significant for diastolic heart failure, chronic obstructive pulmonary disease (COPD), chronic hypoxic respiratory failure, on 3 liters nasal cannula, acy-qdyegqa-jvxxsfrko diabetes, dyslipidemia, hypertension, coronary artery disease and lung cancer in remission who presented to the emergency department with progressive dyspnea and inability to urinate found to have acute on chronic renal failure, fluid overload and acute on chronic hypoxic respiratory failure. 1. Acute on chronic renal failure, likely secondary to fluid overload/CHF exacerbation. Her creatinine continues to improve and volume status has also improved. Continue with Lasix 60 mg every 12 hours. Continue to monitor output. Avoid nephrotoxic medications. 2. Acute on chronic hypoxic respiratory failure, likely secondary to fluid overload. She is back down to her normal 3 L of supplemental oxygen. Repeat chest x-ray shows small bilateral effusions. 3. Hypokalemia. Potassium supplementation has been given today. 4. Hypocalcemia. Calcium gluconate was given on 05/02. We will continue to monitor electrolytes. 5. Diastolic heart failure. Continue with IV diuresis. Echocardiogram revealed ejection fraction of 60%, right ventricular pressure overload with right heart failure and significantly elevated central venous pressure, severe pulmonary hypertension, mild aortic insufficiency. 6. Chronic obstructive pulmonary disease exacerbation. She is currently on prednisone, azithromycin and breathing treatments. Being managed by primary team. 7. Hypertension. Blood pressure stable. She is on Norvasc and atenolol. 8. Anemia in chronic kidney disease. Hemoglobin is currently 10.1. Iron was found to be low. She was given Venofer yesterday. GME ATTESTATION GME ATTESTATION My preceptor for this patient encounter was physically present in the building during the encounter and was fully available. As needed, all aspects of the patient interview, examination, medical decision making process, and medical care plan development were reviewed and approved by the preceptor. Preceptor is aware and concurs with the plan as stated in the body of this note and will attest to such by his/her cosignature. KAYE HARMAN DO May 03, 2016 12:32
[2016-05-03 13:40] VITALS: BP 137/67
--- NOTE | 2016-05-03 20:10 | IPN ---
DATE: 05/01/2016 SUBJECTIVE: The patient is seen and examined in the room today. The patient stated her breathing is improving. She can feel her lung is more expanded and she can have an easier time to breathe. At baseline, the patient uses three liters nasal cannula. No overnight events are reported. The patient feels she has more energy than before. OBJECTIVE: VITAL SIGNS: Temperature is 97.1, pulse is 67, respirations 20, blood pressure 143/76, pulse oximetry 90% with three liters nasal cannula. GENERAL: No sign of acute distress. Alert and oriented times three. HEENT: Normocephalic, atraumatic. Extraocular motor grossly intact. CARDIOVASCULAR: Positive S1, S2. Regular rate. LUNGS: Positive bilateral crackles, improved compared to yesterday. Diminished breath sounds. No wheezes. ABDOMEN: Soft, nontender, nondistended. Bowel sounds present. EXTREMITIES: Trace edema bilaterally. No sign of cyanosis. LABORATORY DATA: WBC is 7.6, hemoglobin 10.1, hematocrit 32.7, platelet count is 197. Sodium is 139, potassium 3.3, chloride 98, carbon dioxide 32, BUN 62, creatinine 1.9, GFR is 26.7, fasting glucose 257, calcium 7.1, phosphorus 4.5, magnesium 1.8, albumin 3. ASSESSMENT AND PLAN: 1. Acute respiratory failure secondary to diastolic congestive heart failure exacerbation. The patient's breathing continues to improve. Now the patient's oxygen support is decreased to three liters nasal cannula, which is close to the patient's baseline. The patient has been receiving diuresis with assistance from the nephrology team. 2. Acute on chronic renal failure secondary to congestive heart failure (CHF) exacerbation. The patient's renal function continues to improve. Currently the patient is on Lasix. 3. Diastolic congestive heart failure. Currently patient in exacerbation. Currently on intravenous (IV) Lasix diuresis. 4. Chronic obstructive pulmonary disease (COPD) exacerbation. The patient is on azithromycin and tapering dose of prednisone. 5. Hypertension. Continue Norvasc and atenolol. 6. Anemia of chronic disease, stable. 7. History of coronary artery disease on aspirin and beta miesha. 8. Hbd-ofqdvoc-dgzqiwdha diabetes, on sliding scale. Continue on carbohydrate consistent diet. 9. Deep venous thrombosis (DVT) prophylaxis on heparin.
[2016-05-03] MEDS: ATORVASTATIN 20 MG TAB PO SCH (20:50)
[2016-05-03] MEDS: AZITHROMYCIN 250 MG TAB PO SCH (20:50)
[2016-05-03] MEDS: amLODIPine 10 MG TAB PO SCH (20:55)
[2016-05-03 22:00] VITALS: BP 117/67
[2016-05-04] MEDS: IPRATROPIUM 0.5MG/ALBUTEROL 2.5MG INH SOL UD 3ML (DUONEB)(J7620) NEB SCH ×4 (02:17→19:11)
[2016-05-04] MEDS: SLF 3 ML SYR IV SCH ×3 (05:04→21:32)
[2016-05-04 06:00] VITALS: BP 131/64
[2016-05-04 06:21] LABS: MEAN CORPUSCULAR HEMOGLOBIN 25.9 pg (27.0-33.0); MEAN CORPUSCULAR HGB CONC 31.3 g/dl (32.0-36.5); MEAN CORPUSCULAR VOLUME 82.6 fl (80.0-96.0); RED CELL DISTRIBUTION WIDTH 19.6 % (11.5-14.5); WHITE BLOOD COUNT 5.1 K/mm3 (4.0-10.0)
[2016-05-04 06:36] LABS: CALCIUM LEVEL 7.7 MG/DL (8.8-10.2); CREATININE FOR GFR 1.66 MG/DL (0.55-1.02); GLOMERULAR FILTRATION RATE 31.3 (>32); MAGNESIUM LEVEL 1.6 MG/DL (1.8-2.4); PHOSPHORUS LEVEL 4.1 MG/DL (2.5-4.9)
[2016-05-04 06:47] LABS: POTASSIUM SERUM 2.9 MEQ/L (3.5-5.1)
[2016-05-04] MEDS: ADVAIR DISKUS 500/50 INH PWD INH SCH ×2 (07:08→19:10)
[2016-05-04] MEDS: HEPARIN SOD (PORCINE) 5000 UNITS/ML VIAL SC SCH ×2 (08:27→21:34)
[2016-05-04] MEDS: HumaLOG INSULIN (NovoLOG) PER UNIT SC SCH ×4 (08:27→21:34)
[2016-05-04] MEDS: ALPRAZolam 0.5 MG TAB PO SCH ×2 (08:28→16:01)
[2016-05-04] MEDS: ASPIRIN 81 MG CHEW TABLET PO SCH (08:28)
[2016-05-04] MEDS: predniSONE 20 MG TAB PO SCH ×2 (08:28→21:36)
[2016-05-04] MEDS: SENOKOT S TAB PO SCH ×2 (08:28→21:36)
[2016-05-04] MEDS: PANTOPRAZOLE 40MG TAB (PROTONIX) PO SCH (08:28)
[2016-05-04] MEDS: ATENOLOL 50 MG TAB PO SCH ×2 (08:29→21:35)
[2016-05-04] MEDS: MULTIVITAMINS/MINERALS THERAP 1 TAB PO SCH (08:30)
[2016-05-04] MEDS: POTASSIUM CHLORIDE 10 MEQ SR TABLET PO SCH ×3 (08:30→21:35)
[2016-05-04] MEDS ORDERED: POTASSIUM CHLORIDE 10 MEQ SR TABLET PO SCH (09:00)
[2016-05-04] MEDS: FUROSEMIDE 40 MG TAB PO SCH (10:18)
[2016-05-04] MEDS ORDERED: MAG SULF 1GM/100ML (MAG RUN) 1 GM in APPROPRIATE DILUENT 1 EA IV ONE (13:00)
[2016-05-04 14:00] VITALS: BP 136/63
--- NOTE | 2016-05-04 16:31 | IPN ---
DATE: 05/04/2016 SUBJECTIVE: Patient is seen and examined in the room today. Patient feels she has more energy. Her breathing is improving. Currently she only needs 3 liters nasal cannula to maintain normal breathing which is about her baseline. No overnight events are reported. OBJECTIVE: VITAL SIGNS: Temperature 97, pulse 80, respirations 18, blood pressure 136/63, pulse oximetry 91% with 3 liters nasal cannula. GENERAL: No sign of acute distress, alert and oriented times three. HEENT: Normocephalic, atraumatic. Extraocular motors grossly intact. CARDIOVASCULAR: Positive S1, S2, regular rate. LUNGS: Clear to auscultation bilaterally. No wheezes or rhonchi. ABDOMEN: Soft, nontender, nondistended. Bowel sounds present. EXTREMITIES: No lower extremity edema, no sign of cyanosis. LABORATORY DATA: WBC 5.1, hemoglobin 10.3, hematocrit 32.7, platelet count 205. Sodium 143, potassium 2.9, chloride 98, carbon dioxide 34, BUN 59, creatinine 1.66, GFR 31.3, fasting glucose 233, calcium 7.7, phosphorous 4.1, magnesium 1.6, albumin 3.1. ASSESSMENT AND PLAN: 1. Acute respiratory failure secondary to diastolic congestive heart failure exacerbation. Patient has been receiving intravenous (IV) Lasix diuresis. Currently patient's breathing has shown significant improvement, patient is almost back to her baseline. Will refer full management per nephrology's recommendations. 2. Acute on chronic renal failure secondary to congestive heart failure. Renal function continues to improve with IV Lasix diuresis. Lasix dosage has been adjusted due to Lasix related severe hypokalemia. 3. Hypokalemia secondary to Lasix diuresis. Patient will get appropriate potassium supplement. Continue to monitor the potassium with a daily basic metabolic panel (BMP). 4. Diastolic congestive heart failure exacerbation. Improving, signs of overload is almost resolved with diuresis. 5. Chronic obstructive pulmonary disease (COPD) exacerbation. Patient is on azithromycin and tapering dose of prednisone. 6. Hypertension. Continue Norvasc and atenolol. 7. Anemia of chronic disease. Hemoglobin and hematocrit are stable. Continue to monitor. 8. History of coronary artery disease. On beta miesha and aspirin. 9. Insulin dependent diabetes. Continue consistent carbohydrate diet. Continue insulin sliding scale. 10. Deep venous thrombosis (DVT) prophylaxis. On heparin.
[2016-05-04] MEDS: AZITHROMYCIN 250 MG TAB PO SCH (21:35)
[2016-05-04] MEDS: ATORVASTATIN 20 MG TAB PO SCH (21:35)
[2016-05-04] MEDS: amLODIPine 10 MG TAB PO SCH (21:36)
[2016-05-04 22:00] VITALS: BP 143/60
[2016-05-05] MEDS: IPRATROPIUM 0.5MG/ALBUTEROL 2.5MG INH SOL UD 3ML (DUONEB)(J7620) NEB SCH ×3 (01:51→13:24)
[2016-05-05] MEDS: SLF 3 ML SYR IV SCH ×2 (05:25→14:00)
[2016-05-05 05:43] LABS: MEAN CORPUSCULAR HEMOGLOBIN 25.5 pg (27.0-33.0); MEAN CORPUSCULAR HGB CONC 30.6 g/dl (32.0-36.5); MEAN CORPUSCULAR VOLUME 83.3 fl (80.0-96.0); RED CELL DISTRIBUTION WIDTH 19.5 % (11.5-14.5); WHITE BLOOD COUNT 5.4 K/mm3 (4.0-10.0)
[2016-05-05 06:00] VITALS: BP 145/69
[2016-05-05 06:01] LABS: ALBUMIN 2.8 GM/DL (3.2-5.2); CREATININE FOR GFR 1.54 MG/DL (0.55-1.02); GLOMERULAR FILTRATION RATE 34.1 (>32); PHOSPHORUS LEVEL 3.9 MG/DL (2.5-4.9); POTASSIUM SERUM 3.9 MEQ/L (3.5-5.1)
[2016-05-05] MEDS: ADVAIR DISKUS 500/50 INH PWD INH SCH (07:31)
[2016-05-05] MEDS: HumaLOG INSULIN (NovoLOG) PER UNIT SC SCH ×2 (08:08→12:15)
[2016-05-05] MEDS: ALPRAZolam 0.5 MG TAB PO SCH (08:09)
[2016-05-05] MEDS: FUROSEMIDE 40 MG TAB PO SCH (08:09)
[2016-05-05] MEDS: POTASSIUM CHLORIDE 10 MEQ SR TABLET PO SCH (08:09)
[2016-05-05] MEDS: HEPARIN SOD (PORCINE) 5000 UNITS/ML VIAL SC SCH (08:09)
[2016-05-05] MEDS: predniSONE 20 MG TAB PO SCH (08:10)
[2016-05-05] MEDS: PANTOPRAZOLE 40MG TAB (PROTONIX) PO SCH (08:10)
[2016-05-05] MEDS: ASPIRIN 81 MG CHEW TABLET PO SCH (08:10)
[2016-05-05] MEDS: MULTIVITAMINS/MINERALS THERAP 1 TAB PO SCH (08:10)
[2016-05-05] MEDS: SENOKOT S TAB PO SCH (08:10)
[2016-05-05 08:12] VITALS: BP 124/60
[2016-05-05] MEDS: ATENOLOL 50 MG TAB PO SCH (08:12)
[2016-05-05] MEDS ORDERED: FURO40TA2 PO (10:52)
--- NOTE | 2016-05-05 13:22 | IPN ---
DATE: 05/05/2016 SUBJECTIVE: The patient was seen and examined at the bedside this morning. She feels much better. She is currently on nasal cannula at 3 liters per minute, which is her baseline. Her volume status is well optimized at this time. REVIEW OF SYSTEMS: The patient denies any fevers, chills, rigors, headache, nausea, vomiting, or chest pain. Her shortness of breath is back to her baseline. She is requiring 2 liters of oxygen, which is her requirement at home as well. She denies any vomiting, pain in the abdomen, constipation, or diarrhea. The rest of the review of systems is negative. OBJECTIVE: VITAL SIGNS: Temperature is 96.6 degrees Fahrenheit, blood pressure is 145/69, pulse is 63, respiratory rate of 18, saturating 95% on nasal cannula. Intake and output: Urine output recorded as 2 liters and 200 mL so far today since overnight. Bed scale weight is not available. PHYSICAL EXAMINATION: GENERAL: The patient is awake, alert, oriented times three. Sitting in the bed. No apparent distress. HEAD AND NECK EXAM: Extraocular muscles intact. Pupils are equal, round and reactive to light. Mucus membranes are moist. Neck is supple. There is no jugular venous distention (JVD). CARDIOVASCULAR: S1, S2. Regular rate. No murmur, rub or gallop. RESPIRATORY: Bilateral equal air entry. No rales or rhonchi at this time. ABDOMEN: Soft. Positive bowel sounds. Nontender. No ascites. No organomegaly. EXTREMITIES: No clubbing or cyanosis. Pulses are 2+. CENTRAL NERVOUS SYSTEM (FIRER LOCOMOTIVE): No focal neurological deficits. Power is 5/5 in all extremities. LABORATORY REVIEW: CBC showed a WBC of 5.4, hemoglobin 10.1, platelets of 222. BMP showed a sodium of 141, potassium 3.9, chloride 98, bicarbonate 33, BUN 55, creatinine is 1.5, it was 1.6 yesterday. Calcium is 8, phosphorous is 3.9, magnesium 2. CURRENT MEDICATIONS: The patient's current medications are all reviewed by me. Her Lasix dose is 40 mg by mouth daily at this time. There is no change in the medications today as compared with yesterday. ASSESSMENT: Ms. Magallanes is an 85-year-old female with a past medical history of diastolic congestive heart failure (CHF), chronic obstructive pulmonary disease (COPD) on home oxygen at 3 liters per minute, pdz-agzyxid-arolucglx diabetic, hypertension admitted at this time because of fluid overload and congestive heart failure (CHF) exacerbation. Nephrology service following the patient for acute kidney injury and fluid overload. PLAN: 1. Acute kidney injury superimposed on chronic kidney disease. It was secondary to fluid overload and congestive heart failure (CHF). The patient has been aggressively diuresed. Her volume status is optimized at this time. Her Lasix dose has been decreased to 40 mg by mouth daily because she was alkalotic yesterday. Continue the current dose at this time. Renal function is improving. Creatinine is 1.5 today. 2. Hypokalemia. The patient's potassium has improved to 3.9 today. Continue current dose of potassium chloride 20 mEq by mouth three times a day. 3. Hypertension. Blood pressure is acceptable at this time. Continue current dose of amlodipine 10 mg by mouth daily, atenolol 50 mg by mouth twice a day. 4. Iron deficiency anemia. The patient was given IV Venofer during this admission. Hemoglobin is 10.1 at this time. No urgent need to start ROSLYN at this time. 5. Discharge planning. It is okay to discharge the patient from nephrology standpoint. The patient can followup with nephrology as an outpatient. Plan of care was discussed with the hospitalist team.
--- NOTE | 2016-05-05 18:22 | DSES ---
DATE OF ADMISSION: 04/29/2016 DATE OF DISCHARGE: 05/05/2016 PRIMARY CARE PROVIDER: Dr. Abiel Wooten CONSULTANTS: [employer]. PROCEDURES: None. COMPLICATIONS: None. ADMISSION/DISCHARGE DIAGNOSIS: 1. Acute respiratory failure secondary to diastolic congestive heart failure exacerbation. 2. Acute on chronic renal failure secondary to congestive heart failure exacerbation. 3. Hypokalemia secondary to Lasix diuresis. 4. Diastolic heart failure exacerbation. 5. Chronic obstructive pulmonary disease (COPD) exacerbation. 6. Hypertension. 7. Anemia of chronic disease. 8. History of coronary artery disease. 9. Insulin-dependent diabetes. HOSPITALIZATION COURSE: The patient is an 85-year-old female who presented to [facility] on 04/29/2016 for oliguria and respiratory failure. The patient recently had a home diuretic dose reduction. After medication the patient started to develop difficulty breathing, and the patient started to have signs of fluid overload to the point that she was not able to produce any urine. When the patient came to the emergency room, the patient required 15 liters high flow oxygen to achieve oxygen saturation greater than 90%. The patient is admitted for respiratory failure due to congestive heart failure (CHF) exacerbation and the patient was continued on high flow oxygen and railroad operating engineer, Dr. Lee, has been consulted. The patient was started on intravenous (IV) Lasix diuresis. With aggressive IV diuresis, the patient's oxygen requirement was able to decrease to 10 liters and 5 liters high flow in the next 1-2 days. The patient's renal failure and respiratory distress continued to improve with diuresis. However, on admission, the patient was also found to have hyperkalemia. With Lasix diuresis, the patient's potassium continued to improve and finally reached into normal range. However, on 05/02/2016, the patient started to show severe hypokalemia due to aggressive IV diuresis and Lasix diuresis had been reduced and the patient had been started on potassium supplement. The patient's hypokalemia recovered very well without any complications. On 05/05/2016, the patient had returned to her baseline, and the patient only requires 3 liters nasal cannula to maintain satisfactory oxygen saturation and the patient has very good urine output and the patient's renal function has continued to improve and is approaching baseline. The patient was determined to be medically stable for discharge. The patient was recommended to followup with her primary care provider for diuretic adjustment and laboratory followup within 1 week. OBJECTIVE: Vital Signs: Temperature is 96.6, pulse is 63, respirations 18, blood pressure is 145/69, pulse oximetry is 95% with 3 liters nasal cannula. WBC 5.4, hemoglobin 10.1, hematocrit 33, platelet count is 222. Sodium 141, potassium 3.9, chloride is 98, carbon dioxide 33, BUN is 55, creatinine 1.54, GFR is 34.1, fasting glucose is 288, calcium 8, phosphorus 3.9, magnesium 2, albumin 2.8. IMAGING STUDIES: Chest x-ray on 04/29/2016 shows chronic bullous emphysema. New bilateral pleural effusion. Renal ultrasound suggests parenchymal disease. DISCHARGE MEDICATIONS: - Lasix 40 mg by mouth daily - albuterol dual inhalation by mouth every 6 hours as needed - Xanax 0.5 mg by mouth twice a day - amlodipine 10 mg by mouth nightly - aspirin 81 mg by mouth daily - atenolol 50 mg by mouth twice a day - Tums 1000 mg by mouth twice a day as needed for heartburn - metformin 1000 mg by mouth twice a day - multivitamin one tablet by mouth daily - Nystatin 0.4 mg sublingual as needed for angina - potassium chloride 20 mEq by mouth daily - Advair one puff inhalation twice a day - simvastatin 20 mg by mouth nightly - Januvia 100 mg by mouth nightly - [place] Nasal [place] per nostril four times a day as needed DISCHARGE INSTRUCTIONS: Discontinue lines, discharge home. Activity as tolerated. Low salt diet as tolerated. The patient recommended to continue to have fluid restrictions. The patient should followup with her primary care provider within 1 week for Lasix diuresis readjustment and also followup on the electrolytes. Time: Greater than 30 minutes. Condition: Stable.
== END 2016-05-05 15:35 | disposition home or self-care (01) | DRG 291 ==
LOC: M ED 18:37 → M ED INP 23:03 → M PCU 04-30 15:41 → M MSPAV 05-03 13:32
PROVIDERS: ADMIT Hospitalist; ATTEND Internal Medicine
DX: I50.33 Acute on chronic diastolic (congestive) heart failure (principal); J96.21 Acute and chronic respiratory failure with hypoxia; J44.1 Chronic obstructive pulmonary disease with (acute) exacerbation; N17.9 Acute kidney failure, unspecified; I12.9 Hypertensive chronic kidney disease with stage 1 through stage 4 chronic kidney disease, or unspecified chronic kidney disease; D63.1 Anemia in chronic kidney disease; E11.9 Type 2 diabetes mellitus without complications; E78.5 Hyperlipidemia, unspecified; I25.10 Atherosclerotic heart disease of native coronary artery without angina pectoris; N18.9 Chronic kidney disease, unspecified; E87.6 Hypokalemia; E87.70 Fluid overload, unspecified; E83.42 Hypomagnesemia; Z79.82 Long term (current) use of aspirin; Z79.84 Long term (current) use of oral hypoglycemic drugs; Z79.899 Other long term (current) drug therapy; Z85.118 Personal history of other malignant neoplasm of bronchus and lung; Z99.81 Dependence on supplemental oxygen; Z95.9 Presence of cardiac and vascular implant and graft, unspecified; I25.2 Old myocardial infarction; Z87.891 Personal history of nicotine dependence

== ENCOUNTER → 2016-05-29 | Outpatient (REF) | payer MEDICARE, MEDICAID ==
[~2016-05-29] MED LIST changes: +AMLO10TA2 PO; +ASPI81CH PO; +FURO20TA2 PO; +OCEA0.654; +TUMS500C PO
== END ==
LOC: M LAB REF 16:49
PROVIDERS: ATTEND Internal Medicine Nephrology
DX: N18.3 Chronic kidney disease, stage 3 (moderate) (principal); N39.0 Urinary tract infection, site not specified

== ENCOUNTER → 2016-06-17 | Outpatient (REF) | payer MEDICARE, MEDICAID | LOC: M LAB REF 16:58 | PROVIDERS: ATTEND Internal Medicine Nephrology | DX: N18.3 Chronic kidney disease, stage 3 (moderate) (principal); N39.0 Urinary tract infection, site not specified ==

== ENCOUNTER 2016-12-05 20:23 | Emergency (ER) | payer MEDICARE, MEDICAID ==
[~2016-12-05] VITALS: Ht 157.5 cm; Wt 48.6 kg
[~2016-12-05 20:23] MED LIST changes: +METF10004 PO; -PROA1AER PO; +PROAAER10 PO
[2016-12-05] MEDS ORDERED: ONDANSETRON 4MG/2ML VIAL (J2405) IV ONE (21:15)
[2016-12-05] MEDS ORDERED: NS 1,000 ML IV SCH (21:15)
[2016-12-05] MEDS ORDERED: MORPHINE 4 MG/ML 1ML SYRINGE IV ONE (21:15)
[2016-12-05 21:34] LABS: BASO % 0.2 % (0.0-1.0); EOS # 0.2 K/mm3 (0.0-0.50); EOS % 1.8 % (0.0-3.0); LARGE UNSTAINED CELL # 0.1 K/mm3 (0.0-0.4); LARGE UNSTAINED CELL % 1.5 % (0.0-4.0); LYMPH # 1.2 K/mm3 (1.5-4.5); LYMPH % 12.6 % (24.0-44.0); MEAN CORPUSCULAR HEMOGLOBIN 31.3 pg (27.0-33.0); MEAN CORPUSCULAR VOLUME 94.8 fl (80.0-96.0); MONO # 0.4 K/mm3 (0.0-0.8); MONO % 3.9 % (0.0-5.0); NEUTROPHILS # 7.5 K/mm3 (1.8-7.7); NEUTROPHILS % 79.9 % (36.0-66.0); PLATELET COUNT, AUTOMATED 257 k/mm3 (150-450); WHITE BLOOD COUNT 9.4 K/mm3 (4.0-10.0)
[2016-12-05 21:41] LABS: INR 0.88
[2016-12-05 21:48] LABS: CALCIUM LEVEL 9.7 MG/DL (8.8-10.2); CREATININE FOR GFR 1.42 MG/DL (0.55-1.02); GLOMERULAR FILTRATION RATE 37.3 (>32)
[2016-12-05] MEDS ORDERED: ISOVUE-370 76% 100ML VIAL (Q9967) As Ordered ONE (22:39)
--- NOTE | 2016-12-05 23:10 | REPUSA ---
CT of the abdomen and pelvis with contrast Clinical statement: Pain, incarcerated hernia. Technique: Multiple axial CT images were obtained from the base of the lungs through the floor of the pelvis utilizing 5 mm axial slices after administration of nonionic intravenous contrast. Coronal an d sagittal reconstructions were also obtained. No comparison is available. Findings: Chest: The visualized lung bases are clear. Abdomen: The liver, spleen, kidneys, gallbladder, and adrenal glands are unremarkable. Extensive calc ification of the pancreas is noted, consistent with chronic pancreatitis. No pseudocyts are seen. No acute inflammatory changes are seen within the pancreas. The aorta demonstrates mild atherosclerotic disease, but otherwise is within normal limits. There is no evidence of abdominal lymphadenopathy or ascites. Pelvis: The bowel is unremarkable, with no obstructive or inflammatory changes. There is a right ingu inal hernia containing omental fat, but no bowel is involved at the site. The urinary bladder is with in normal limits. The other pelvic structures appear grossly intact. There is no evidence of pelvic l ymphadenopathy or ascites. Bones: There are no suspicious osseous abnormalities seen. Multilevel degenerative disc disease with mild dextroscoliosis, the apex at L3, is appreciated. This degenerative disc disease is most severe a t L3/L4. Impression: 1. No obstructive or inflammatory bowel changes. 2. Right inguinal hernia containing only omental fat. No bowel involvement is seen at this site. 3. Extensive changes from chronic pancreatitis. No evidence of acute pancreatitis. 4. Mild diffuse atherosclerosis of the abdominal aorta. 5. Moderate scoliosis and multilevel degenerative disc disease throughout the lumbar spine as describ ed.
[2016-12-05 23:39] VITALS: BP 158/79
== END 2016-12-05 23:57 | disposition home or self-care (01) ==
LOC: M ED 20:23 → EDBD 20:23 → M ED 23:57
DX: K40.90 Unilateral inguinal hernia, without obstruction or gangrene, not specified as recurrent (principal); I10 Essential (primary) hypertension; E11.9 Type 2 diabetes mellitus without complications; F33.9 Major depressive disorder, recurrent, unspecified; F41.9 Anxiety disorder, unspecified; E78.00 Pure hypercholesterolemia, unspecified; Z79.899 Other long term (current) drug therapy; I25.2 Old myocardial infarction; Z85.118 Personal history of other malignant neoplasm of bronchus and lung
CPT/HCPCS: 74177; 80048; 83605; 85025; 85610; 85730; 96374; 96375; 99284; J2405; Q9967

== ENCOUNTER 2017-02-10 07:19 | Day surgery (SDC) | payer MEDICARE, MEDICAID ==
--- NOTE | 2017-02-05 11:23 | CR ---
PREOPERATIVE EVALUATION AND CONSULTATION CONSULTING PHYSICIAN: Dr. Abiel Wooten SURGEON: Dr. Raffi Sheehan DATE: 02/05/2017 REASON FOR INTERVENTION: Right inguinal hernia repair (status post reduction in the emergency department prior). PLANNED SURGICAL DATE: 02/10/2017 CHIEF COMPLAINT: Symptomatic right inguinal hernia requiring reduction. HISTORY OF PRESENT ILLNESS: This is an extremely pleasant yet quite anxious 86-year-old patient who is well known to me. The patient presents today with her [id number] for preoperative evaluation and consultation. At this point in time, the patient is having no new symptoms whatsoever. She does however have significant medical issues for which do appear to be stable at this point in time. It is notable she is oxygen dependent. She is on 2 liters by nasal cannula with an oxygen saturation of 91%. She has a history of lung cancer for which she had targeted radiation in [place] and long standing chronic obstructive pulmonary disease (COPD). She is not having an exacerbation at this time. Additionally, the patient has known coronary artery disease and had a stent in 1994. She had not had any recent chest pain or issues; however, has had work up in the emergency room (ER) previously without significant findings. The patient does have chronic kidney disease including a history of acute renal failure, however, recent labs have shown significant improvement with a baseline creatinine of 1.5 and she does follow with Dr. Lee who has optimized her care. She was deemed to have a history of chronic diastolic heart failure which is controlled with furosemide. She has had no issues with anesthesia in the past. Other medical issues appear to generally be stable and these include type 2 diabetes, chronic anxiety, gastroesophageal reflux disease (GERD), and allergic rhinitis. Again, she denies any new symptoms and feels that she is presently stable at this point. PAST MEDICAL HISTORY: 1. Lung cancer, status post radiation in [place] with Dr. Ordonez. 2. COPD requiring 2 liters of oxygen 24-7. 3. Episode of acute renal failure on top of chronic renal failure, new creatinine of 1.5 baseline. 4. History of anemia. 5. Type 2 diabetes, fair control. 6. Anxiety - chronic. 7. GERD. 8. Coronary artery disease (CAD), status post stent in 1994 and has been asymptomatic since. 9. Allergic rhinitis. 10. History of diastolic heart failure, normal ejection fraction (EF) on last check. PAST SURGICAL HISTORY: 1. Cataract surgery. 2. Coronary catheterization and stent in 1994. 3. Radiation [address] Ordonze in [place]. HISTORY OF HOSPITALIZATIONS: 1. Most recent, 04/29/2016, acute renal failure, some diastolic heart failure, COPD exacerbation at [facility]. 2. COPD admission on 01/14/2016. 3. Acute renal failure and metabolic acidosis 11/12/2015. ALLERGIES: No known drug allergies. MEDICATIONS: - Zoloft 50 mg by mouth daily - fluticasone nose spray 2 sprays each nostril daily - Astelin 2 sprays each nostril daily as needed - aspirin 81 mg by mouth daily - potassium chloride 20 mEq daily - ProAir inhaler 2 puffs four times a day as needed for rescue - Advair 100/50 inhaled twice a day for maintenance therapy - ranitidine 150 mg once or twice a day as needed for GERD - Xanax 0.5 mg one tablet twice a day as needed for anxiety - metformin 500 mg twice a day (has been titrated by nephrology due to renal function) - atenolol 50 mg by mouth twice a day - Januvia 100 mg by mouth daily - Nitrostat 0.4 mg under the tongue times three as needed chest pain - Lasix 40 mg by mouth daily SOCIAL HISTORY: The patient lives in a senior housing complex behind [place]. Her son Ren lives in the nearby neighborhood with his . 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 She is a former smoker having smoked a pack a day for many years, quitting at age 65. Takes no alcohol. FAMILY HISTORY: Mother and father both in their mid to late 70s. Mother had diabetes. Father had severe arthritis, unclear cause of . REVIEW OF SYSTEMS: As per history of present illness (HPI), otherwise 10 system review is negative. PHYSICAL EXAMINATION: VITAL SIGNS: Blood pressure 135/75 (this is after relaxing, history of white coat initial elevations). Pulse 70. Oxygen saturation 91% on 2 liters by nasal cannula. Weight 110 pounds. GENERAL: The patient appears at baseline health. She is smiling. She greets me warmly. Her [id number] is at her side. She appears in no acute distress. She does have oxygen by nasal cannula. HEAD: Atraumatic, normocephalic. Pupils equal, round, and react to light and accommodation. Extraocular motions intact. Oral cavity: Oropharynx is benign, no evidence of thrush. NECK: Supple. No lymphadenopathy or thyromegaly. HEART: Regular rate and rhythm. S1, S2. No murmurs. LUNGS: Although quite distant, clear to auscultation. No wheezes appreciated. ABDOMEN: Soft. Nontender. Nondistended. EXTREMITIES: Trace edema. No clubbing or cyanosis. RECENT LABS: Show a CBC within normal limits, WBC 7.8, hemoglobin 12.3, platelets 208. Hemoglobin A1c is 7.3. Creatinine 1.5, BUN 32, remainder of electrolytes are generally normal. LFTs are normal. Recent EKG through the hospital showed normal sinus rhythm with T wave inversions on the precordial leads. ASSESSMENT AND PLAN: 1. Preoperative evaluation and consultation. At this point in time, although the patient is indeed optimized for surgical intervention, however, she will need close monitoring since she is oxygen dependent and is likely retaining CO2 and has decreased lung function due to radiation for prior lung cancer. Additionally, the patient did have known CAD with a stent, however, has been asymptomatic for many years. She has significant risk for acute renal issues and volume status will need to be monitored closely with some diastolic dysfunction. She has otherwise had no issues with anesthesia or other known anesthesia complications. She is a significant risk, however, is stable at this point in time. To the best of my knowledge, this is a relatively low to intermediate risk procedure. If you have any questions, please feel free to call me at [phone]. 2. Unilateral inguinal hernia. At this point in time, the patient did require manual reduction in the emergency department, hence, this could become a significant emergency and it would be better completed in planned fashion. I appreciate Dr. Sheehan's evaluation and care of this patient. 3. COPD, again, advanced, and will need to be monitored closely. 4. Chronic kidney disease Stage III-IV. Volume status needs to be monitored closely. 5. Chronic diastolic heart failure. Again, patient has had a significant cardiac workup and this appears to be compensated and stable. Volume status will need to be monitored. 6. Type 2 diabetes. Relatively well controlled with hemoglobin A1c of 7.3 for a patient of this age. Will continue to monitor. Recent reductions in metformin have been monitored by nephrology as well. 7. Anxiety. Patient is quite anxious at baseline. She may need benzodiazepines intermittently. She does understand the risk at her age and we are aware of these risks, especially undergoing her respiratory status, hence, the use of short half life and low doses whenever possible. 8. Atherosclerotic heart disease. Does not appear to be symptomatic. We are monitoring. 9. GERD. Good results with Zantac. Will continue. 10. Lower extremity edema. Will monitor as a sign of volume status. 11. Allergic rhinitis. Will continue her medication as written. 12. Ongoing care. The patient will see me as scheduled in the office, however, if there are new issues prior to surgery, she will let us know. She does understand the need to continue her atenolol perioperatively despite respiratory issues, cardiac protection appears to be paramount at this point. If she has new problems or issues sooner, again, she will let us know.
[~2017-02-10] VITALS: Ht 154.9 cm; Wt 53.1 kg
[~2017-02-10 07:19] MED LIST changes: +BUPIVACAINE HCL 0.25% 30 ML VIAL As Ordered ONE; +BUPIVACAINE LIPOSOME/PF 1.3% 20 ML VIAL (13.3MG/ML)(EXPAREL) As Ordered ONE; +LR 1,000 ML IV SCH
[2017-02-10] MEDS ORDERED: fentaNYL 100 MCG/2 ML INJECTION (J3010) As Ordered ONE (10:56)
[2017-02-10] MEDS ORDERED: MIDAZOLAM INJ 2 MG/2 ML VIAL (J2250) As Ordered ONE (10:56)
[2017-02-10] MEDS ORDERED: PROPOFOL 200 MG/20 ML VIAL As Ordered ONE (11:16)
[2017-02-10] MEDS ORDERED: LIDOCAINE 2% INJ 100 MG/5 ML SDV (FOR ANES.) As Ordered ONE (11:17)
[2017-02-10] MEDS ORDERED: PHENYLephrine HCL 500 MCG/5 ML (100MCG/ML) SYRINGE (J2370) As Ordered ONE (11:26)
[2017-02-10] MEDS ORDERED: ePHEDrine SULFATE 25 MG/5 ML(5MG/ML) SYRINGE As Ordered ONE (11:46)
[2017-02-10] MEDS ORDERED: DESFLURANE 240 ML INHALANT As Ordered ONE (11:47)
[2017-02-10] MEDS ORDERED: LR 1,000 ML IV SCH (12:30)
[2017-02-10] MEDS ORDERED: MORPHINE 2 MG/ML 1ML SYRINGE IV PRN (12:30)
[2017-02-10] MEDS ORDERED: fentaNYL 100 MCG/2 ML INJECTION (J3010) IV PRN (12:30)
[2017-02-10] MEDS ORDERED: ONDANSETRON 4MG/2ML VIAL (J2405) IV PRN (12:30)
[2017-02-10] MEDS ORDERED: BUPIVACAINE LIPOSOME/PF 1.3% 20 ML VIAL (13.3MG/ML)(EXPAREL) As Ordered ONE (12:34)
[2017-02-10] MEDS ORDERED: NORCO, ANEXSIA 5/325MG TABLET (HYDROcodone/ACETAMINOPHEN) PO PRN (12:45)
[2017-02-10] MEDS ORDERED: IBUPROFEN 400 MG TAB PO PRN (12:45)
[2017-02-10] MEDS ORDERED: ACETAMINOPHEN TAB 650MG DOSE (2X325MG) PO PRN (12:45)
[2017-02-10 15:03] VITALS: BP 191/87
[2017-02-10] MEDS ORDERED: NORCOTAB PO (16:02)
--- NOTE | 2017-02-12 07:11 | RO ---
DATE OF PROCEDURE: 02/10/2017 PREOPERATIVE DIAGNOSIS: Right inguinal hernia. POSTOPERATIVE DIAGNOSIS: Right inguinal hernia. PROCEDURE PERFORMED: Right inguinal herniorrhaphy. SURGEON: Raffi Sheehan MD CENTRIFUGAL STATION OPERATOR: ANESTHESIA: Spinal. INDICATIONS FOR PROCEDURE: The patient is an 86-year-old woman with a long history of a small right inguinal hernia. She recently had an episode where she developed abdominal cramping and distension and was seen in the emergency department. A CT scan confirmed her inguinal hernia and showed a loop of bowel near the opening of the hernia with some proximal dilated small bowel. This was felt to be a transient incarceration of small bowel within her hernia and she is now for repair. OPERATIVE PROCEDURE: The patient had a spinal anesthetic placed. She was placed supine on the operating table. The patient's lower abdomen, groin and genitalia were prepped and draped in a sterile fashion. An approximately 6 cm right lower quadrant skin incision was made over the course of the inguinal canal. The incision was deepened through the subcutaneous tissues. Hemostasis was ensured with the cautery. The external oblique was opened in the direction of its fibers into the external ring. The patient was found to have a definite direct hernia, though this presented as a fairly narrow thick-walled sac. There was a minimal amount of fibrofatty tissue protruding lateral to the inferior epigastric vessels as well. The hernia sac was dissected free from surrounding structures. The round ligament was divided. The hernia sac was opened and there were no adherent contents. The sac was transected at the level of the fascia and sent as a permanent pathology specimen. The neck of the sac was closed with a running suture of #0 Vicryl. A Bassini type repair of the inguinal floor was then performed approximating the shelving edge of the inguinal ligament with the conjoint tendon using interrupted simple sutures of Ethibond. This appeared to give a nice closure of the inguinal floor. Care was taken to close the internal ring. The external oblique was then closed with a running suture of #0 Vicryl. 0.25% Marcaine was infiltrated about the wound. The subcutaneous tissues were approximated with chromic and the skin edges were closed with a running subcuticular #4-0 Vicryl and Steri-Strips. A light dressing was applied. The patient tolerated the procedure well without apparent complication. She was awakened in the operating room and moved to the recovery room in stable condition.
== END 2017-02-10 16:06 | disposition home or self-care (01) ==
LOC: M SDC 07:19
PROVIDERS: ATTEND Surgery
DX: K40.90 Unilateral inguinal hernia, without obstruction or gangrene, not specified as recurrent (principal); I12.0 Hypertensive chronic kidney disease with stage 5 chronic kidney disease or end stage renal disease; J44.9 Chronic obstructive pulmonary disease, unspecified; C34.90 Malignant neoplasm of unspecified part of unspecified bronchus or lung; E11.9 Type 2 diabetes mellitus without complications; N18.5 Chronic kidney disease, stage 5; I50.32 Chronic diastolic (congestive) heart failure; F41.9 Anxiety disorder, unspecified; I25.10 Atherosclerotic heart disease of native coronary artery without angina pectoris; I25.2 Old myocardial infarction; D64.9 Anemia, unspecified; K21.9 Gastro-esophageal reflux disease without esophagitis; J30.9 Allergic rhinitis, unspecified; Z79.899 Other long term (current) drug therapy; Z79.82 Long term (current) use of aspirin; Z79.84 Long term (current) use of oral hypoglycemic drugs; Z92.3 Personal history of irradiation; Z87.891 Personal history of nicotine dependence; Z96.1 Presence of intraocular lens
CPT/HCPCS: 49505; 88302; J2250; J2370; J3010

== ENCOUNTER → 2020-01-06 | Outpatient (REF) | payer MEDICARE, MEDICAID ==
[~2020-01-06] MED LIST changes: -/AMLO25TA PO; -AMLO10TA2 PO; +AMLO1TAB25 PO; -ASPI1TAB PO; -ASPI81CH PO; +ASPI81CH32 PO; +ASPI81CH49 PO; -ASPI81TA PO; +ASPI81TA26 PO; -BUPIVACAINE HCL 0.25% 30 ML VIAL As Ordered ONE; -BUPIVACAINE LIPOSOME/PF 1.3% 20 ML VIAL (13.3MG/ML)(EXPAREL) As Ordered ONE; +HYDR-3715 PO; +KLOR10TA76 PO; -LASI40TA PO; +LASI40TA9 PO; -LR 1,000 ML IV SCH; +NORV2TAB PO; -POTA10CA PO; -SIMV20TA2 PO; +SIMV20TA22 PO
== END ==
LOC: M LAB REF 16:09
PROVIDERS: ATTEND Family Medicine
DX: E03.9 Hypothyroidism, unspecified (principal)

== ENCOUNTER 2020-05-02 19:07 | Inpatient (IN) | payer MEDICARE, MEDICAID ==
[~2020-05-02] VITALS: Ht 162.6 cm; Wt 76.2 kg
[~2020-05-02 19:07] MED LIST changes: -ALPR0.5T3 PO; -CALC1CAP31 PO; -GLIP5TAB8 PO; -PROAAER10 INH; -SITA50TAB PO; -[UNRECOGNIZED DRUG - REMARK]
[2020-05-02] MEDS ORDERED: NS 1,000 ML IV SCH (19:50)
[2020-05-02] MEDS ORDERED: LIDOCAINE 2% 5ML JELLY UROJET TOP ONE (20:00)
[2020-05-02] MEDS ORDERED: MORPHINE 4 MG/ML 1ML VIAL/SYRINGE (J2270) IV ONE (20:00)
[2020-05-02] MEDS ORDERED: ONDANSETRON 4MG/2ML VIAL IV ONE (20:00)
[2020-05-02 20:27] LABS: BASO % 0.3 % (0.0-1.0); EOS # 0.1 10^3/uL (0.0-0.5); EOS % 0.9 % (0.0-3.0); HEMATOCRIT 44.8 % (36.0-47.0); LYMPH # 1.1 10^3/uL (1.5-5.0); LYMPH % 9.2 % (24.0-44.0); MEAN CORPUSCULAR HEMOGLOBIN 28.8 pg (27.0-33.0); MEAN CORPUSCULAR HGB CONC 31.3 g/dl (32.0-36.5); MEAN CORPUSCULAR VOLUME 92.2 fl (80.0-96.0); MONO # 0.4 10^3/uL (0.0-0.8); MONO % 3.6 % (0.0-5.0); NEUTROPHILS # 9.9 10^3/uL (1.5-8.5); NEUTROPHILS % 85.3 % (36.0-66.0); PLATELET COUNT, AUTOMATED 189 10^3/uL (150-450); RED BLOOD COUNT 4.86 10^6/uL (4.00-5.40); WHITE BLOOD COUNT 11.6 10^3/uL (4.0-10.0)
--- OUTSIDE RECORDS SUMMARY | 2020-05-02 20:29 | CCD ---
Author Author [facility] Organization [facility] Address Unknown Phone Unavailable Care Team Providers Care [employer] Specialist Name Role Phone Tommy CUETO [phone] Unavailable Unavailable José Luis, A Glenroy Unavailable Unavailable José Luis, A Glen[place] Unavailable Unavailable [place], A Glenroy Unavailable Unavailable [place], A Glenroy Unavailable Unavailable [place], A Glenroy Unavailable Unavailable José Luis, A Glenroy Unavailable Unavailable José Luis, A Glenroy Unavailable Unavailable José Luis, A Glen[place] Unavailable Unavailable [place], A Glenroy Unavailable Unavailable [place], A Glenroy Unavailable Unavailable [place], A Glenroy Unavailable Unavailable [place], A Glenroy Unavailable Unavailable [place], A Glenroy Unavailable Unavailable [place], A Glenroy Unavailable Unavailable [place], A Glenroy Unavailable Unavailable [place], A Glenroy Unavailable Unavailable José Luis, A Glenroy Unavailable Unavailable [place], A Glenroy Unavailable Unavailable [place], A Glenroy Unavailable Unavailable [place], A Glenroy Unavailable Unavailable José Luis, A Glen[place] Unavailable Unavailable José Luis, A [place] Unavailable Unavailable [place], A Glenroy Unavailable Unavailable [place], A Glenroy Unavailable Unavailable [place], A Glenroy Unavailable Unavailable José Luis, A Glen[place] Unavailable Unavailable José Luis, A [place] Unavailable Unavailable [place], A [place] Unavailable Unavailable José Luis, A [place] Unavailable Unavailable Jim Wooten MD Unavailable Unavailable Sugar F Abiel ASHER Unavailable Unavailable White F Abiel ASHER Unavailable Unavailable White F Abiel ASHER Unavailable Unavailable White F Abiel ASHER Unavailable Unavailable White F Abiel ASHER Unavailable Unavailable White F Abiel ASHER Unavailable Unavailable White F Abiel ASHER Unavailable Unavailable White F Abiel ASHER Unavailable Unavailable White F Abiel ASHER Unavailable Unavailable White F Abiel ASHER Unavailable Unavailable White F Abiel ASHER Unavailable Unavailable White F Abiel ASHER Unavailable Unavailable White F Abiel ASHER Unavailable Unavailable White F Abiel ASHER Unavailable Unavailable White F Abiel ASHER Unavailable Unavailable White F Abiel ASHER Unavailable Unavailable White F Abiel ASHER Unavailable Unavailable White, F Abiel ASHER Unavailable Unavailable White F Abiel ASHER Unavailable Unavailable White F Abiel ASHER Unavailable Unavailable White F Abiel ASHER Unavailable Unavailable White F Abiel ASHER Unavailable Unavailable White F Abiel ASHER Unavailable Unavailable White F Abiel ASHER Unavailable Unavailable White F Abiel ASHER Unavailable Unavailable Sugar F Abiel ASHER Unavailable Unavailable Sugar F Abiel ASHER Unavailable Unavailable Sugar F Abiel ASHER Unavailable Unavailable Sugar F Abiel ASHER Unavailable Unavailable White F Abiel ASHER Unavailable Unavailable Sugar F Abiel ASHER Unavailable Unavailable Sugar F Abiel ASHER Unavailable Unavailable Sugar F Abiel ASHER Unavailable Unavailable Sugar F Abiel ASHER Unavailable Unavailable Sugar F Abiel ASHER Unavailable Unavailable Sugar F Abiel ASHER Unavailable Unavailable Sugar F Abiel ASHER Unavailable Unavailable Sugar F Abiel ASHER Unavailable Unavailable Sugar F Abiel ASHER Unavailable Unavailable Sugar F Abiel ASHER Unavailable Unavailable Sugar F Abiel ASHER Unavailable Unavailable Sugar F Abiel ASHER Unavailable Unavailable Sugar F Abiel ASHER Unavailable Unavailable Sugar F Abiel ASHER Unavailable Unavailable Sugar F Abiel ASHER Unavailable Unavailable Sugar F Abiel ASHER Unavailable Unavailable Sugar F Abiel ASHER Unavailable Unavailable Sugar F Abiel ASHER Unavailable Unavailable Sugar F Abiel ASHER Unavailable Unavailable Sugar F Abiel ASHER Unavailable Unavailable Sugar F Abiel ASHER Unavailable Unavailable Sugar F Abiel ASHER Unavailable Unavailable Sugar F Abiel ASHER Unavailable Unavailable Sugar F Abiel ASHER Unavailable Unavailable Sugar F Abiel ASHER Unavailable Unavailable Sugar F Abiel ASHER Unavailable Unavailable Sugar F Abiel ASHER Unavailable Unavailable Sugar F Abiel ASHER Unavailable Unavailable Sugar F Abiel ASHER Unavailable Unavailable Sugar F Abiel ASHER Unavailable Unavailable Sugar F Abiel ASHER Unavailable Unavailable White, F Abiel MD Unavailable Unavailable White, F Abiel MD Unavailable Unavailable White, F Abiel MD Unavailable Unavailable White, F Abiel MD Unavailable Unavailable White, F Abiel MD Unavailable Unavailable White, F Abiel MD Unavailable Unavailable White, F Abiel MD Unavailable Unavailable White, F Abiel MD Unavailable Unavailable White, F Abiel MD Unavailable Unavailable White, F Abiel MD Unavailable Unavailable White, F Abiel MD Unavailable Unavailable Re-disclosure Warning The records that you are about to access may contain information from federally-assisted alcohol or drug abuse programs. If such information is present, then the following federally mandated warning applies: This information has been disclosed to you from records protected by federal confidentiality rules (42 CFR part 2). The federal rules prohibit you from making any further disclosure of this information unless further disclosure is expressly permitted by the written consent of the person to whom it pertains or as otherwise permitted by 42 CFR part 2. A general authorization for the release of medical or other information is NOT sufficient for this purpose. The Federal rules restrict any use of the information to criminally investigate or prosecute any alcohol or drug abuse patient.The records that you are about to access may contain highly sensitive health information, the redisclosure of which is protected by Article 27-F of the [place] Public Health law. If you continue you may have access to information: Regarding HIV / AIDS; Provided by facilities licensed or operated by the [place] [facility] Office of Mental Health; or Provided by the [place] [facility] Office for People With Developmental Disabilities. If such information is present, then the following [place] [facility] mandated warning applies: This information has been disclosed to you from confidential records which are protected by state law. State law prohibits you from making any further disclosure of this information without the specific written consent of the person to whom it pertains, or as otherwise permitted by law. Any unauthorized further disclosure in violation of state law may result in a fine or retirement sentence or both. A general authorization for the release of medical or other information is NOT sufficient authorization for further disc losure. Allergies and Adverse Reactions Type Description Substance Reaction Status Data Source(s ) Drug Class NO KNOWN ALLERGIES NO KNOWN ALLERGIES [facility] Family History Family Member Name Family Member Gender Family Member Status Date o f Status Description Data Source(s) Unknown Male Problem [facility] ([facility], ) () Unknown Female Problem [facility] ([facility]) Encounters Encounter Providers Location Date Indications Data Source(s ) Outpatient Attender: Glenroy Ordonez 10/23/2020 12:00:00 A [facility] Office Visit Attender: Abiel Haas 01/08 02:30:00 PM [facility] Outpatient Attender: Glenroy HurtadoA-LISSARONC 2019 12:00:00 AM EDT - 10/17/2019 03:40:30 PM EDT Malignant neoplasm of unspecified part o f left bronchus or lung [facility] Malignant neoplasm of unspecified part o f left bronchus or lung Outpatient Referrer: CRISTOBAL CUETO [id number] 12:00:00 AM EDT Malignant neoplasm of unspecified part of left bronchus or lung [facility] Malignant neoplasm of unspecified part o f left bronchus or lung Outpatient Attender: Glenroy Ordonez 10/14/2019 12:00:00 [facility] Outpatient Attender: Abiel Haas 09/06 01:30:00 PM EDT [facility] Medications Medication Brand Name Start Date Product Form Dose Route Admi nistrative Instructions Pharmacy Instructions Status Indications Reaction Description Data Source(s) 5 mg 04/13/2020 12:00:00 AM EST tablet 90 TAKE ONE TABLET BY MOUTH EVERY DAY TAKE ONE TABLET BY MOUTH EVERY DAY SOLD: 04/15/2020 [facility] Alprazolam 0.5 MG Oral Tablet ALPRAZOLAM 04/06/2020 12:00:00 AM EST ta blet 60 TAKE 1 TABLET BY MOUTH TWO TIMES A DAY NEEDED MAX DAILY DOSE = 2 TABLETS TAKE 1 TABLET BY MOUTH TWO TIMES A DAY NEEDED MAX DAILY DOSE = 2 TABLETS SOLD: 04/06/2020 [facility] 90 mcg/actuation 04/05/2020 12:00:00 AM EST HFA aerosol inha ler 8 INHALE TWO PUFFS BY MOUTH FOUR TIMES A DAY NEEDED INHALE TWO PUFFS BY MOUTH FOUR TIMES A DAY NEEDED SOLD: 04/05/2020 [facility] 40 mg 03/12/2020 12:00:00 AM EST tablet 90 TAKE ONE TABLET BY MOUTH EVERY DAY TAKE ONE TABLET BY MOUTH EVERY DAY SOLD: 03/12/2020 [facility] Alprazolam 0.5 MG Oral Tablet ALPRAZOLAM 02/06/2020 12:00:00 AM EST ta blet 60 TAKE ONE TABLET BY MOUTH TWICE A DAY NEEDED MAXIMUM DAILY DOSE = 2 TABLETS TAKE ONE TABLET BY MOUTH TWICE A DAY NEEDED MAXIMUM DAILY DOSE = 2 TABLETS SOLD: 02/06/2020 [facility] 100-50 mcg/dose 01/19/2020 12:00:00 AM EDT blister with vy ce 120 INHALE ONE PUFF BY MOUTH TWICE A DAY INHALE ONE PUFF BY MOUTH TWICE A DAY SOLD: 01/19/2020 [facility] 100-50 mcg/dose 01/19/2020 12:00:00 AM EDT blister with vy ce 120 INHALE ONE PUFF BY MOUTH TWICE A DAY INHALE ONE PUFF BY MOUTH TWICE A DAY SOLD: 03/18/2020 [facility] Alprazolam 0.5 MG Oral Tablet ALPRAZOLAM 01/06/2020 12:00:00 AM EDT ta blet 60 TAKE ONE TABLET BY MOUTH TWICE A DAY NEEDED MAXIMUM DAILY DOSE = 2 TAKE ONE TABLET BY MOUTH TWICE A DAY NEEDED MAXIMUM DAILY DOSE = 2 SOLD: 01/06/2020 [facility] Alprazolam 0.5 MG Oral Tablet ALPRAZOLAM 12/08/2019 12:00:00 AM EDT ta blet 60 TAKE ONE TABLET BY MOUTH TWICE A DAY NEEDED MAXIMUM DAILY DOSE = TWO TABLETS TAKE ONE TABLET BY MOUTH TWICE A DAY NEEDED MAXIMUM DAILY DOSE = TWO TABLETS SOLD: 12/08/2019 [facility] 20 mEq 11/16/2019 12:00:00 AM EDT tablet extended release 90 TAKE ONE TABLET BY MOUTH EVERY DAY TAKE ONE TABLET BY MOUTH EVERY DAY SOLD: 11/16/2019 [facility] 20 mEq 11/16/2019 12:00:00 AM EDT tablet extended release 90 TAKE ONE TABLET BY MOUTH EVERY DAY TAKE ONE TABLET BY MOUTH EVERY DAY SOLD: 02/12/2020 [facility] Alprazolam 0.5 MG Oral Tablet ALPRAZOLAM 11/08/2019 12:00:00 AM EDT ta blet 60 TAKE ONE TABLET BY MOUTH TWICE A DAY NEEDED MAXIMUM DAILY DOSE = 2 TABLETS TAKE ONE TABLET BY MOUTH TWICE A DAY NEEDED MAXIMUM DAILY DOSE = 2 TABLETS SOLD: 11/08/2019 [facility] 90 mcg/actuation 11/03/2019 12:00:00 AM EDT HFA aerosol inha ler 8 INHALE TWO PUFFS BY MOUTH FOUR TIMES A DAY NEEDED INHALE TWO PUFFS BY MOUTH FOUR TIMES A DAY NEEDED SOLD: 11/22/2019 [facility] 90 mcg/actuation 11/03/2019 12:00:00 AM EDT HFA aerosol inha ler 8 INHALE TWO PUFFS BY MOUTH FOUR TIMES A DAY NEEDED INHALE TWO PUFFS BY MOUTH FOUR TIMES A DAY NEEDED SOLD: 03/01/2020 [facility] 90 mcg/actuation 11/03/2019 12:00:00 AM EDT HFA aerosol inha ler 8 INHALE TWO PUFFS BY MOUTH FOUR TIMES A DAY NEEDED INHALE TWO PUFFS BY MOUTH FOUR TIMES A DAY NEEDED SOLD: 11/03/2019 [facility] 90 mcg/actuation 11/03/2019 12:00:00 AM EDT HFA aerosol inha ler 8 INHALE TWO PUFFS BY MOUTH FOUR TIMES A DAY NEEDED INHALE TWO PUFFS BY MOUTH FOUR TIMES A DAY NEEDED SOLD: 12/16/2019 [facility] 5 mg 10/21/2019 12:00:00 AM EDT tablet 90 TAKE 1 TABLET BY MOUTH ONCE DAILY TAKE 1 TABLET BY MOUTH ONCE DAILY SOLD: 10/21/2019 [facility] 5 mg 10/21/2019 12:00:00 AM EDT tablet 90 TAKE 1 TABLET BY MOUTH ONCE DAILY TAKE 1 TABLET BY MOUTH ONCE DAILY SOLD: 01/16/2020 [facility] Calcitriol 0.55851 MG Oral Capsule 0.25 mcg CALCITRIOL 10/14/2019 12:00:00 AM EDT capsule 60 TAKE 1 CAPSULE BY MOUTH 5 DA YS PER WEEK TAKE 1 CAPSULE BY MOUTH 5 DAYS PER WEEK SOLD: 10/14/2019 [facility] 0.25 mcg 10/14/2019 12:00:00 AM EDT capsule 60 TAKE 1 CAPSULE BY MOUTH 5 DAYS PER WEEK TAKE 1 CAPSULE BY MOUTH 5 DAYS PER WEEK SOLD: 12/30/2019 [facility] Alprazolam 0.5 MG Oral Tablet ALPRAZOLAM 10/07/2019 12:00:00 AM EDT ta blet 60 TAKE ONE TABLET BY MOUTH TWICE A DAY NEEDED MAXIMUM DAILY DOSE = 2 TAKE ONE TABLET BY MOUTH TWICE A DAY NEEDED MAXIMUM DAILY DOSE = 2 SOLD: 10/07/2019 [facility] Atenolol 50 MG Oral Tablet ATENOLOL 09/29/2019 12:00:00 AM EDT tablet 180 TAKE ONE TABLET BY MOUTH TWICE A DAY TAKE ONE TABLET BY MOUTH TWICE A DAY SOLD: 12/26/2019 [facility] Atenolol 50 MG Oral Tablet ATENOLOL 09/29/2019 12:00:00 AM EDT tablet 180 TAKE ONE TABLET BY MOUTH TWICE A DAY TAKE ONE TABLET BY MOUTH TWICE A DAY SOLD: 03/22/2020 [facility] 50 mg 09/29/2019 12:00:00 AM EDT tablet 180 TAKE ONE TABLET BY MOUTH TWICE A DAY TAKE ONE TABLET BY MOUTH TWICE A DAY SOLD: 09/30/2019 [facility] 40 mg 09/19/2019 12:00:00 AM EDT tablet 90 TAKE 1 TABLET BY MOUTH EVERY DAY TAKE 1 TABLET BY MOUTH EVERY DAY SOLD: 12/16/2019 [facility] 40 mg 09/19/2019 12:00:00 AM EDT tablet 90 TAKE 1 TABLET BY MOUTH EVERY DAY TAKE 1 TABLET BY MOUTH EVERY DAY SOLD: 09/19/2019 [facility] Alprazolam 0.5 MG Oral Tablet ALPRAZOLAM 09/09/2019 12:00:00 AM EDT ta blet 60 TAKE ONE TABLET BY MOUTH TWICE A DAY NEEDED MAXIMUM DAILY DOSE = 2 TABLETS TAKE ONE TABLET BY MOUTH TWICE A DAY NEEDED MAXIMUM DAILY DOSE = 2 TABLETS SOLD: 09/09/2019 [facility] 40 mg 09/08/2019 12:00:00 AM EDT tablet 60 TAKE ONE TABLET BY MOUTH TWICE A DAY TAKE ONE TABLET BY MOUTH TWICE A DAY SOLD: 09/08/2019 [facility] 25 mg 09/08/2019 12:00:00 AM EDT tablet 30 TAKE 1 TABLET BY MOUTH EVERY DAY AT DINNER, DO NOT TAKE IF YOU SKIP DINNER TAKE 1 TABLET BY MOUTH EVERY DAY AT DINNER, DO NOT TAKE IF YOU SKIP DINNER SOLD: 09/08/2019 [facility] Famotidine 40 MG Oral Tablet [Pepcid] Pepcid 09/07/2019 12:00:00 AM EDT ORAL active [facility] ([facility]) 60 ACTUAT Budesonide 0.16 MG/ACTUAT / fo rmoterol fumarate 0.0045 MG/ACTUAT Metered Dose Inhaler [Symbicort] Symbicort 09/07/2019 12:00:00 AM EDT RESPIRATORY active [facility] ( [facility]) Acarbose 25 MG Oral Tablet Acarbose 09/07/2019 12:00:00 AM EDT active [facility]) Alprazolam 0.5 MG Oral Tablet ALPRAZOLAM 08/09/2019 12:00:00 AM EDT ta blet 60 TAKE ONE TABLET BY MOUTH TWICE A DAY NEEDED MAXIMUM DAILY DOSE = 2 TAKE ONE TABLET BY MOUTH TWICE A DAY NEEDED MAXIMUM DAILY DOSE = 2 SOLD: 08/09/2019 [facility] 100-50 mcg/dose 07/29/2019 12:00:00 AM EDT blister with vy ce 120 INHALE ONE PUFF BY MOUTH TWICE A DAY INHALE ONE PUFF BY MOUTH TWICE A DAY SOLD: 11/22/2019 [facility] 100-50 mcg/dose 07/29/2019 12:00:00 AM EDT blister with vy ce 120 INHALE ONE PUFF BY MOUTH TWICE A DAY INHALE ONE PUFF BY MOUTH TWICE A DAY SOLD: 09/25/2019 [facility] 100-50 mcg/dose 07/29/2019 12:00:00 AM EDT blister with vy ce 120 INHALE ONE PUFF BY MOUTH TWICE A DAY INHALE ONE PUFF BY MOUTH TWICE A DAY SOLD: 07/29/2019 [facility] 50 mg 07/25/2019 12:00:00 AM EDT tablet 90 TAKE ONE TABLET BY MOUTH EVERY DAY TAKE ONE TABLET BY MOUTH EVERY DAY SOLD: 10/21/2019 [facility] 50 mg 07/25/2019 12:00:00 AM EDT tablet 90 TAKE ONE TABLET BY MOUTH EVERY DAY TAKE ONE TABLET BY MOUTH EVERY DAY SOLD: 01/16/2020 [facility] 50 mg 07/25/2019 12:00:00 AM EDT tablet 90 TAKE ONE TABLET BY MOUTH EVERY DAY TAKE ONE TABLET BY MOUTH EVERY DAY SOLD: 07/25/2019 [facility] 50 mg 07/25/2019 12:00:00 AM EDT tablet 90 TAKE ONE TABLET BY MOUTH EVERY DAY TAKE ONE TABLET BY MOUTH EVERY DAY SOLD: 04/15/2020 [facility] 5 mg 07/21/2019 12:00:00 AM EDT tablet 90 TAKE ONE TABLET BY MOUTH EVERY DAY TAKE ONE TABLET BY MOUTH EVERY DAY SOLD: 07/21/2019 [facility] Alprazolam 0.5 MG Oral Tablet ALPRAZOLAM 07/11/2019 12:00:00 AM EDT ta blet 60 TAKE ONE TABLET BY MOUTH TWICE A DAY NEEDED MAXIMUM DAILY DOSE = 2 TAKE ONE TABLET BY MOUTH TWICE A DAY NEEDED MAXIMUM DAILY DOSE = 2 SOLD: 07/11/2019 [facility] 90 mcg/actuation 07/05/2019 12:00:00 AM EDT HFA aerosol inha ler 8 INHALE TWO PUFFS BY MOUTH FOUR TIMES A DAY NEEDED INHALE TWO PUFFS BY MOUTH FOUR TIMES A DAY NEEDED SOLD: 08/05/2019 [facility] 90 mcg/actuation 07/05/2019 12:00:00 AM EDT HFA aerosol inha ler 8 INHALE TWO PUFFS BY MOUTH FOUR TIMES A DAY NEEDED INHALE TWO PUFFS BY MOUTH FOUR TIMES A DAY NEEDED SOLD: 10/07/2019 [facility] 90 mcg/actuation 07/05/2019 12:00:00 AM EDT HFA aerosol inha ler 8 INHALE TWO PUFFS BY MOUTH FOUR TIMES A DAY NEEDED INHALE TWO PUFFS BY MOUTH FOUR TIMES A DAY NEEDED SOLD: 09/09/2019 [facility] 90 mcg/actuation 07/05/2019 12:00:00 AM EDT HFA aerosol inha ler 8 INHALE TWO PUFFS BY MOUTH FOUR TIMES A DAY NEEDED INHALE TWO PUFFS BY MOUTH FOUR TIMES A DAY NEEDED SOLD: 07/05/2019 [facility] Alprazolam 0.5 MG Oral Tablet ALPRAZOLAM 06/10/2019 12:00:00 AM EDT ta blet 60 TAKE 1 TABLET BY MOUTH TWICE DAILY NEEDED MAXIMUM DAILY DOSE = 2 TABLETS TAKE 1 TABLET BY MOUTH TWICE DAILY NEEDED MAXIMUM DAILY DOSE = 2 TABLETS SOLD: 06/10/2019 [facility] Alprazolam 0.5 MG Oral Tablet ALPRAZOLAM 05/12/2019 12:00:00 AM EST ta blet 60 TAKE 1 TABLET BY MOUTH TWICE DAILY NEEDED MAX = 2 TABS/DAY TAKE 1 TABLET BY MOUTH TWICE DAILY NEEDED MAX = 2 TABS/DAY SOLD: 05/12/2019 [facility] Calcitriol 0.22361 MG Oral Capsule Calcitriol 04/29/2019 12:00:00 AM EST ORAL active [facility] Alprazolam 0.5 MG Oral Tablet ALPRAZOLAM 04/12/2019 12:00:00 AM EST ta blet 60 TAKE ONE TABLET BY MOUTH TWICE A DAY NEEDED MAXIMUM DAILY DOSE = 2 TABLETS TAKE ONE TABLET BY MOUTH TWICE A DAY NEEDED MAXIMUM DAILY DOSE = 2 TABLETS SOLD: 04/12/2019 [facility] 40 mg 03/31/2019 12:00:00 AM EST tablet 90 TAKE ONE TABLET BY MOUTH EVERY DAY TAKE ONE TABLET BY MOUTH EVERY DAY SOLD: 03/31/2019 [facility] 40 mg 03/31/2019 12:00:00 AM EST tablet 90 TAKE ONE TABLET BY MOUTH EVERY DAY TAKE ONE TABLET BY MOUTH EVERY DAY SOLD: 06/24/2019 [facility] Alprazolam 0.5 MG Oral Tablet ALPRAZOLAM 03/14/2019 12:00:00 AM EST ta blet 60 TAKE ONE TABLET BY MOUTH TWICE A DAY NEEDED MAXIMUM DAILY DOSE = 2 TABLETS TAKE ONE TABLET BY MOUTH TWICE A DAY NEEDED MAXIMUM DAILY DOSE = 2 TABLETS SOLD: 03/14/2019 [facility] Calcitriol 0.01483 MG Oral Capsule 0.25 mcg CALCITRIOL 02/14/2019 12:00:00 AM EST capsule 45 TAKE ONE CAPSULE BY MOUTH EV MOE OTHER DAY TAKE ONE CAPSULE BY MOUTH EVERY OTHER DAY SOLD: 05/12/2019 [facility] Calcitriol 0.38115 MG Oral Capsule 0.25 mcg CALCITRIOL 02/14/2019 12:00:00 AM EST capsule 45 TAKE ONE CAPSULE BY MOUTH EV MOE OTHER DAY TAKE ONE CAPSULE BY MOUTH EVERY OTHER DAY SOLD: 08/07/2019 [facility] 5 mg 02/14/2019 12:00:00 AM EST tablet 90 TAKE 1 TABLET BY MOUTH ONCE DAILY TAKE 1 TABLET BY MOUTH ONCE DAILY SOLD: 05/03/2019 [facility] 100-50 mcg/dose 02/09/2019 12:00:00 AM EST blister with vy ce 120 INHALE ONE PUFF BY MOUTH TWICE A DAY INHALE ONE PUFF BY MOUTH TWICE A DAY SOLD: 06/03/2019 [facility] 100-50 mcg/dose 02/09/2019 12:00:00 AM EST blister with vy ce 120 INHALE ONE PUFF BY MOUTH TWICE A DAY INHALE ONE PUFF BY MOUTH TWICE A DAY SOLD: 04/07/2019 [facility] 20 mEq 12/27/2018 12:00:00 AM EDT tablet extended release 90 TAKE ONE TABLET BY MOUTH EVERY DAY TAKE ONE TABLET BY MOUTH EVERY DAY SOLD: 09/01/2019 [facility] 20 mEq 12/27/2018 12:00:00 AM EDT tablet extended release 90 TAKE ONE TABLET BY MOUTH EVERY DAY TAKE ONE TABLET BY MOUTH EVERY DAY SOLD: 03/15/2019 [facility] 20 mEq 12/27/2018 12:00:00 AM EDT tablet extended release 90 TAKE ONE TABLET BY MOUTH EVERY DAY TAKE ONE TABLET BY MOUTH EVERY DAY SOLD: 06/10/2019 [facility] 50 mg 08/27/2018 12:00:00 AM EDT tablet 180 TAKE ONE TABLET BY MOUTH TWICE A DAY TAKE ONE TABLET BY MOUTH TWICE A DAY SOLD: 03/15/2019 [facility] 50 mg 08/27/2018 12:00:00 AM EDT tablet 180 TAKE ONE TABLET BY MOUTH TWICE A DAY TAKE ONE TABLET BY MOUTH TWICE A DAY SOLD: 06/24/2019 [facility] 50 mg 07/26/2018 12:00:00 AM EDT tablet 90 TAKE ONE TABLET BY MOUTH EVERY DAY TAKE ONE TABLET BY MOUTH EVERY DAY SOLD: 04/26/2019 [facility] 90 mcg/actuation 05/19/2018 12:00:00 AM EST HFA aerosol inha ler 8 INHALE TWO PUFFS BY MOUTH FOUR TIMES A DAY NEEDED INHALE TWO PUFFS BY MOUTH FOUR TIMES A DAY NEEDED SOLD: 03/30/2019 [facility] 90 mcg/actuation 05/19/2018 12:00:00 AM EST HFA aerosol inha ler 8 INHALE TWO PUFFS BY MOUTH FOUR TIMES A DAY NEEDED INHALE TWO PUFFS BY MOUTH FOUR TIMES A DAY NEEDED SOLD: 05/11/2019 [facility] Insurance Providers Payer name Policy type / Coverage type Policy ID Covered libertarian ID Covered libertarian's relationship to hernandez Policy Hernandez Plan Information EMEDNY [id number] SP [id number] MEDICARE [id number] SP [id number] MEDICARE A [id number] Self [id number] MEDICAID [id number] Self [id number] MEDICARE A [id number] Self [id number] A Medicaid Medigap Part B [id number] Self [id number] Medicare [place] Medicare Primary [id number] Self [id number] Medicaid Medigap Part B [id number] Self [id number] [place] Primary [id number] Self [id number] MEDICAID [id number] SP [id number] MEDICARE [id number] SP [id number] [place] Primary [id number] Self [id number] Medicaid Medigap Part B [id number] Self [id number] [place] Medicare Primary [id number] Self [id number] MEDICAID [id number] SP [id number] Medicaid Medigap Part B [id number] Self [id number] Medicare [place] Medicare Primary [id number] Self [id number] [facility] C [id number] S [id number] MEDICAID M [id number] S [id number] MEDICARE C [id number] S [id number] A Medicaid Medigap Part B [id number] Self [id number] [place] Primary [id number] Self [id number] Medicaid Medigap Part B 1 1 Self 1 1 Medicare [place] Primary Self MEDICAID [id number] SP [id number] PART B C [id number] S [id number] [place] Part B Self [place] Primary Self MEDICAID REF AMBULAT W [id number] S [id number] MEDICARE OUTPATIENT M [id number] S [id number] A [id number] Surgeries/Procedures Procedure Description Date Indications Data Source(s) CT THORAX W/O CONTRAST MATERIAL CT THORAX WITHOUT CONTRAST 7125 0 Routine 10/14/2019 2:50 PM EDT Non-small cell cancer of left lung 10/14/2019 06:50:42 PM ED T Non-small cell cancer of left lung [facility] Non-small cell cancer of left lung Results ID Date Data Source [id number] 01/06/2020 08:58:00 AM EDT [facility] ([facility]) Name Value Range Interpretation Code Description Data Ale rce(s) Supporting Document(s) Triiodothyronine (T3) Free [Mass/volume] in Serum or Plasma 3.5 pg/ mL 2.2-4.[facility] ID Date Data Source [id number] 01/06/2020 08:58:00 AM EDT [facility] Name Value Range Interpretation Code Description Data Ale rce(s) Supporting Document(s) Thyroxine (T4) free [Mass/volume] in Serum or Plasma 1.39 ng/dL 0.76- 1.46 [facility] ID Date Data Source [id number] 01/06/2020 08:58:00 AM EDT [facility]) Name Value Range Interpretation Code Description Data Ale rce(s) Supporting Document(s) Thyrotropin [Units/volume] in Serum or Plasma by Detec tion limit <= 0.05 mIU/L 0.04 uIU/mL 0.36-3.74 [facility] ([facility] ) ID Date Data Source [id number] 01/06/2020 08:58:00 AM EDT [facility] Name Value Range Interpretation Code Description Data Ale rce(s) Supporting Document(s) Cholesterol in LDL [Mass/volume] in Serum or Plasma by calcu lation 140 CALC 50-159 [facility] ([facility]) Cholesterol [Mass/volume] in Serum or Plasma 240 mg/dL 131-200 [facility] ([facility]) Triglyceride [Mass/volume] in Serum or Plasma 209 mg/dL 30-150 [facility] ([facility]) Cholesterol in HDL [Mass/volume] in Serum or Plasma 58 mg/dL 35-60 [facility] ([facility]) ID Date Data Source [id number] 01/06/2020 08:58:00 AM EDT [facility] [facility] Name Value Range Interpretation Code Description Data Ale rce(s) Supporting Document(s) Glucose [Mass/volume] in Serum or Plasma 342 mg/dL 74-99 [facility] ([facility]) 100-125 mg/dL PRE-DIABETES/FASTING >126 mg/dL DIABETES/FASTING Urea nitrogen [Mass/volume] in Serum or Plasma 42 mg/dL 7-18 [facility] ([facility]) Creatinine 1.9 mg/dL 0.6-1.3 [facility] ([facility]) Sodium [Moles/volume] in Serum or Plasma 140 meq/L 136-145 [facility] ([facility]) Potassium [Moles/volume] in Serum or Plasma 4.3 meq/L 3.5-5.1 [facility] ([facility]) Carbon dioxide, total [Moles/volume] in Serum or Plasma 30 meq/L 21 -32 [facility] ([facility]) Chloride [Moles/volume] in Serum or Plasma 102 meq/L 98-107 [facility] ([facility]) Alkaline phosphatase isoenzyme [Units/volume] in Serum or Pl asma 87 mg/dL 46-116 [facility] ([facility]) Calcium [Mass/volume] in Serum or Plasma 9.8 mg/dL 8.5-10.1 [facility] ([facility]) Total Bilirubin 0.7 mg/dL 0.2-1.0 [facility] ([facility]) Aspartate aminotransferase [Enzymatic activity/volume] in Serum or Plasma 17 U/L 15-37 [facility] ([facility] ) Alanine aminotransferase [Enzymatic activity/volume] in Seru m or Plasma 25 U/L 12-78 [facility] ([facility]) Albumin [Mass/volume] in Serum or Plasma 3.1 g/dL 3.4-5.0 [facility] ([facility]) A/G Ratio 0.78 CALC 1.00-1.90 [facility] ([facility]) Proteinase 3 Ab [Units/volume] in Serum 7.1 g/dL 6.4-8.2 [facility] ([facility]) Glomerular filtration rate/1.73 sq M pre dicted among non-blacks [Volume Rate/Area] in Serum or Plasma by Creatinine-based formula (MDRD) 25 mL/min [facility] ([facility]) Glomerular filtration rate/1.73 sq M pre dicted among blacks [Volume Rate/Area] in Serum or Plasma by Creatinine-based formula (MDRD) 30 mL/min [facility] ([facility]) <content>CHRONIC KIDNEY DISEASE STAGING PER NKF</content>
<content></content>
<content>STAGE I & II GFR >= 60 NORMAL TO MILDLY DECREASED</content>
<content>STAGE III GFR 30-59 MODERATELY DECREASED</content>
<content>STAGE IV GFR 15-29 SEVERELY DECREASED</content>
<content>STAGE V GFR <15 VERY LITTLE GFR LEFT</content>
<content>ESRD GFR <15 ON RETAIL SELLING FLOOR LEADER</content>
<content></content> ID Date Data Source [id number] 01/06/2020 08:58:00 AM EDT [facility] ([facility]) Name Value Range Interpretation Code Description Data Ale rce(s) Supporting Document(s) Magnesium 1.5 mg/dL 1.8-2.[address] [facility] ID Date Data Source [id number] 01/06/2020 08:58:00 AM EDT [facility] ([facility]) Name Value Range Interpretation Code Description Data Ale rce(s) Supporting Document(s) Glucose mean value [Mass/volume] in Blood Estimated fr om glycated hemoglobin 174 mg/dL 60-[address] [facility] ) Hemoglobin A1c/Hemoglobin.total in Blood 7.7 % [facility] ([facility]) Lab Result Notes: Pre-Diabetes 5.7 - 6.4 % Diabetes = or > 6.5% ID Date Data Source [id number] 01/06/2020 08:58:00 AM EDT [facility] ([facility]) Name Value Range Interpretation Code Description Data Ale rce(s) Supporting Document(s) Leukocytes [#/volume] in Blood by Automated count 9.3 x10*3/UL 4.1-10 .[address] [facility]) Hemoglobin [Mass/volume] in Blood 13.9 g/dL 12.0-18.0 [facility] ([facility]) Erythrocytes [#/volume] in Blood by Automated count 4.63 x10*6/UL 4.2 0-6.30 [facility]) Hematocrit [Volume Fraction] of Blood by Automated count 41.5 % 3 7.0-51.0 [facility] ([facility]) MCV 89.7 fL 80.0-97.0 [facility] MCH 30.0 pg 26.0-32.0 [facility] MCHC 33.4 g/dL 31.0-38.0 [facility]) Erythrocyte distribution width [Ratio] by Automated count 13.6 % 11.6-13.7 [facility] ([facility]) Platelets [#/volume] in Blood by Automated count 191 x10*3/UL 140-440 [facility] ([facility]) Mid % 4.3 % 1.7-9.3 [facility]) MPV 8.4 FL 7.8-11.0 [facility]) Lymph % 13.5 % 10.0-58.5 [facility]) Neut % 82.2 % 37.0-92.0 [facility] Lymph # 1.2 x10*3/UL 0.6-4.1 [facility] ([facility]) Mid # 0.5 x10*3/UL 0.1-0.6 [facility] ([facility]) Neut # 7.6 x10*3/UL 2.0-7.8 [facility] ([facility]) ID Date Data Source [id number] 10/17/2019 02:15:10 PM EDT [facility] Name Value Range Interpretation Code Description Data Ale rce(s) Supporting Document(s) Progress Note [facility] DQTLLh7hIoDWYtRk46/PBQnfMROle5QsEUcoWZn7TGnbYGWwZ4BfRMI5gL4aKJN2GJfAAhEyVsCpKuTb lbm [file] AY/0N86h7s45CrCR4YKBSu/HM1a+k5a2J58V+S5c78 v6Reulk6k3gqmhMZeYbhYB4gbwTAuLdQPRqzYGqv32tsyct9MFt16G2bFW6yX0iCpooq4EMVQ/hq9Wfr baking assistant+ByX3uhgQLCkOQes2QvU1aPxZPDfnsOIrqsmS7OozWevJqvIPAZ9YqB+OV+4DXgLeoGBIHRgFe+Xo [file] AgICAgICAgICAgICAgICAgICAgICAgICAgICAgICAgICAgICAgICAgICAgICAgICAgICAgICAgICAgIC AgICAgICAgICAgICAgICAgICAgICAgICAgICAgICAgICAgDQogICAgICAgICAgICAgICAgICAgICAgIC AgICAgICAgICAgICAgICAgICAgICAgICAgICAgICAg ICAgICAgICAgICAgICAgICAgICAgICAgICAgICAgICAgICAgICAgICAgICAgDQogICAgICAgICAgICAg ICAgICAgICAgICAgICAgICAgICAgICAgICAgICAgICAgICAgICAgICAgICAgICAgICAgICAgICAgICAg ICAgICAgICAgICAgICAgICAgICAgICAgICAgDQogIC AgICAgICAgICAgICAgICAgICAgICAgICAgICAgICAgICAgICAgICAgICAgICAgICAgICAgICAgICAgIC AgICAgICAgICAgICAgICAgICAgICAgICAgICAgICAgICAgICAgDQogICAgICAgICAgICAgICAgICAgIC AgICAgICAgICAgICAgICAgICAgICAgICAgICAgICAg ICAgICAgICAgICAgICAgICAgICAgICAgICAgICAgICAgICAgICAgICAgICAgICAgDQogICAgICAgICAg ICAgICAgICAgICAgICAgICAgICAgICAgICAgICAgICAgICAgICAgICAgICAgICAgICAgICAgICAgICAg ICAgICAgICAgICAgICAgICAgICAgICAgICAgICAgDQ ogICAgICAgICAgICAgICAgICAgICAgICAgICAgICAgICAgICAgICAgICAgICAgICAgICAgICAgICAgIC AgICAgICAgICAgICAgICAgICAgICAgICAgICAgICAgICAgICAgICAgDQogICAgICAgICAgICAgICAgIC AgICAgICAgICAgICAgICAgICAgICAgICAgICAgICAg ICAgICAgICAgICAgICAgICAgICAgICAgICAgICAgICAgICAgICAgICAgICAgICAgICAgDQogICAgICAg ICAgICAgICAgICAgICAgICAgICAgICAgICAgICAgICAgICAgICAgICAgICAgICAgICAgICAgICAgICAg ICAgICAgICAgICAgICAgICAgICAgICAgICAgICAgIC AgDQogICAgICAgICAgICAgICAgICAgICAgICAgICAgICAgICAgICAgICAgICAgICAgICAgICAgICAgIC NzSZLfJQAsPBStVMUuIZEqHWGmPPLeGVWqFTGiMCRfZWGmVINfLHTtRDIwBXq9D8bkHVWaXXLxPP0jUX d3Jz8+RXdLLqFtVQD8ufRewS4DMA2gr0ChVJiuLCNr o1NaZCd6EG8UGNYeOSyzTQ9FCBfgiw5ZBLRtVLKguPLDr3fnUvNyYIT7EIRaKnnnWF1ULNMaD6ycxlGj DSXuOGDWENuxJZIFXNbaWALBJU8NYbNoS1QgtN72SVEFXp4+ZMsydfQaWtnIArItINEin4KrCQs5LX3O QSBlPrgqj1TdNrGcDRQHNKmkHG4MNNJ8XPQ1RKIuCa 2NDROdF436nrDbFO6MDx2MJmBtTR6efq2NBvPiOGBgUaoXRmv7TQvfST9RcLIvXQdLnx0nkuCfpeAQk7 FhkcWqkTRCeYMrGZMdLPEvSRWyr57sAMaeIBGrEERkBk8sSQ9gFCQtRWGgUgOvIVBIVV4QKDXhQAZjnK HsNBJsTKTNQW8YZZxnBDJ5ULUmmwDcyBOdABjaKD4F YXJlbnQgMjMgMCBSDQo+Wx2HVI4te7QhUBxkOELvPY9szu7NGMtRNmFkO1J4cKVmD0U6PSgbIu2VNZXl ZXRjLtFhZHHSUSspZB3GJR1msyR6VP6CuGVsDGUsYEFrjBVrJZr5W93nuAThWXqjKK3ADMA+Brody+Pg0K THRwVITaAZUyLrKiKRMAPrSyH9BmG6WGl2CrX0FvXI 57pQsyxjKbESpjOV6OBY1bPQEfMCCTIU3VtWRwtL5zboCuNqEhFBIGTmSxU61cuBLaWUXnMTKoQKSsHs 1ZKNTrX4ZrniNqnCylqzLtCVKpZLKOJY7HKLkadaKzjXXoqEncZH59lFtqNZ5PUk4DCgHdHU6joy6HqS RqCu9JYDSjVy3VJMMbYIIdGPAyHTC7PBPvAwOmRCvw TPLaDAIiVLW3BHAxFUQuVY1QKsJaYUYaFcIoSwMwRFNtUDCgza3TXXVhLFOyCGy6AiYnZXJyUVAvDTzf GVJpYMXkIFQ9ULKbKAFvIZ3DKtWpEXBaADQ7SCZoSAUhVOAico5VQGUjMCBhFfgfIDRgRQPqCFZbUVci VUXmXBN3WDLiRSPpCVYsWR9KBeQfWXYgJEesQzCxHD GzDCLril9OWEMlMXOaXys2QEBdIYVsETKnYKyhAMWkNBH5HWLiHHHsWTJwTA9FDwOkPMKqNDxeHMPbPK EqWBWlrw6OJNYcPHKyPBWqHZVzLJTxTYOsHMomIZTdZQL3KaedCLDzUNRlPC9KWpAmJWJaPGZlRPXpJW RtDNAywh4YVOMbUKTjVQT4OaZaMUTuITQuGBmmGLJb BDMgKiEdPJAsFMCpRH0QUcHlPIGtIqHxFrFrONSnVSXzaw3AORIaDBIjSbT3VwFnTJDfIJCtNPnmRFEz OQQiRsG2IPFcZDNeSA8XXeGaMGIoDqK0KQCaEFTmXBGnyy6CMCJhSOPyChSoACVnMCHmGNRwPJzqDJXz TGHgIZTgGGZwQRCcOD0EUlGzXCUrVvJ0HXJyUIFcHR Xfyh8QJYZwWULrOAVrTfVmFZSeBEOvNHwbXGFpIWW5GSa9ERWbNQFoBC9BBlImJPnjMUAJVrw8UNnlR7 a0OLYtGj4WC4Bse6XmOiJlUSQQIExoPM9bzvYkQTRoCc3KM4wNKlu6MjM4BqY5JfXmVyYsNWO4EIU2WY X2EdXwVMT8IoabRP6nLCQ7XhYjWLE5IXUvI5T4MSRa CTr2NTxrHwRzAuT0GNM0NvMnIX5LYg6DLuD9SSE2tRQkAd6ENjJ4RHhFRnXnJB6HZVx= ID Date Data Source [id number] 10/14/2019 07:51:56 PM EDT [facility] CT THORAX WITHOUT CONTRAST [id number] RE SULTInterpreted by:Lolita Enriquez MDPROCEDURE INFORMATION: Exam: CT Chest Without Contrast Exam date and time: 10/14/2019 2:41 PM Age: 89 years old Clinical indication: Malignant neoplasm of unspecified part of left bronchus or lung; Other: Osman treated with sbrt; Additional info: Osman treated with sbrt 01/22/17 TECHNIQUE: Imaging protocol: Computed tomography of the chest without contrast. Radiation optimization: All CT scans at this facility use at least one of these dose optimization techniques: automated exposure control; mA and/or kV adjustment per patient size (includes targeted exams where dose is matched to clinical indication); or iterative reconstruction. COMPARISON: CT THORAX WITHOUT CONTRAST [id number] 10/15/2018 12:30 PM FINDINGS: Lungs: Right apical calcified pulmonary nodule, 4.5 mm. Anterior right upper lobe calcified pulmonary nodule, 1.6 mm. Normal 2 increased lung volumes without diffuse opacities. Pleural space: No significant pleural fluid or evidence of pneumothorax. Heart: There are left anterior descending and left circumflex coronary artery calcifications. Aorta: Unremarkable. No aortic aneurysm. Great vessels off aortic arch: The heart and great vessels demonstrate normal contour and configuration. Lymph nodes: There are small middle mediastinal and hilar lymph nodes. Pancreas: Findings again suggest chronic calcific pancreatitis. Bones/joints: The skeletal structures demonstrate normal contour and configuration without significant lytic or blastic change. Soft tissues: Unremarkable. Other findings: Spiculated left suprahilar mass, 3.1 x 2 cm, stable to slightly increased in size when compared to prior examination dated, October 15, 2018 . There are centrilobular hyperlucent parenchymal changes. IMPRESSION: 1. Mild multifocal reactive mediastinal and hilar lymphadenopathy. 2. Coronary artery disease. 3. Spiculated left suprahilar mass, 3.1 x 2 cm, stable to slightly increased in size when compared to prior examination dated, October 15, 2018 . 4. Centrilobular emphysema. 5. No evidence of acute pulmonary disease. THIS DOCUMENT HAS BEEN ELECTRONICALLY SIGNED BY LOLITA ENRIQUEZ MDThis document has been electronically signed by Lolita Enriquez MD on 10/14/2019 7:51 PM Name Value Range Interpretation Code Description Data Ale rce(s) Supporting Document(s) ID Date Data Source [id number] 09/07/2019 07:58:00 AM EDT [facility] ([facility]) Name Value Range Interpretation Code Description Data Ale rce(s) Supporting Document(s) Glucose [Mass/volume] in Serum or Plasma 199 mg/dL 74-99 [facility] ([facility]) 100-125 mg/dL PRE-DIABETES/FASTING >126 mg/dL DIABETES/FASTING Urea nitrogen [Mass/volume] in Serum or Plasma 38 mg/dL 7-18 [facility] ([facility]) Sodium [Moles/volume] in Serum or Plasma 145 meq/L 136-145 [facility] ([facility]) Creatinine 1.9 mg/dL 0.6-1.3 [facility] Chloride [Moles/volume] in Serum or Plasma 107 meq/L 98-107 [facility] ([facility]) Potassium [Moles/volume] in Serum or Plasma 3.6 meq/L 3.5-5.1 [facility] ([facility]) Carbon dioxide, total [Moles/volume] in Serum or Plasma 28 meq/L 21 -32 [facility] ([facility]) Calcium [Mass/volume] in Serum or Plasma 9.2 mg/dL 8.5-10.1 [facility] ([facility]) Alkaline phosphatase isoenzyme [Units/volume] in Serum or Pl asma 109 mg/dL 46-116 [facility] ([facility]) Alanine aminotransferase [Enzymatic activity/volume] in Seru m or Plasma 20 U/L 12-78 [facility] ([facility]) Total Bilirubin 0.7 mg/dL 0.2-1.0 [facility] ([facility]) Aspartate aminotransferase [Enzymatic activity/volume] in Serum or Plasma 13 U/L 15-37 [facility] ([facility] ) Albumin [Mass/volume] in Serum or Plasma 3.2 g/dL 3.4-5.0 [facility] ([facility]) NOTE: RESULT VERIFIED. A/G Ratio 0.78 CALC 1.00-1.90 [facility]) Proteinase 3 Ab [Units/volume] in Serum 7.3 g/dL 6.4-8.2 [facility] ([facility]) Glomerular filtration rate/1.73 sq M pre dicted among non-blacks [Volume Rate/Area] in Serum or Plasma by Creatinine-based formula (MDRD) 25 mL/min [facility] Glomerular filtration rate/1.73 sq M pre dicted among blacks [Volume Rate/Area] in Serum or Plasma by Creatinine-based formula (MDRD) 30 mL/min [facility] ([facility]) <content>CHRONIC KIDNEY DISEASE STAGING PER NKF</content>
<content></content>
<content>STAGE I & II GFR >= 60 NORMAL TO MILDLY DECREASED</content>
<content>STAGE III GFR 30-59 MODERATELY DECREASED</content>
<content>STAGE IV GFR 15-29 SEVERELY DECREASED</content>
<content>STAGE V GFR <15 VERY LITTLE GFR LEFT</content>
<content>ESRD GFR <15 ON RETAIL SELLING FLOOR LEADER</content>
<content></content> ID Date Data Source [id number] 09/07/2019 07:58:00 AM EDT [facility]) Name Value Range Interpretation Code Description Data Ale rce(s) Supporting Document(s) Hemoglobin A1c/Hemoglobin.total in Blood 7.9 g/dL 4.8-5.6 [facility] ([facility]) Lab Result Notes: Pre-Diabetes 5.7 - 6.4 % Diabetes = or > 6.5% Glucose mean value [Mass/volume] in Blood Estimated fr om glycated hemoglobin 180 mg/dL 60-110 [facility] ([facility] ) ID Date Data Source [id number] 09/07/2019 07:57:00 AM EDT [facility] ([facility]) Name Value Range Interpretation Code Description Data Ale rce(s) Supporting Document(s) Thyroxine (T4) free [Mass/volume] in Serum or Plasma 1.45 ng/dL 0.76- 1.46 [facility] ([facility]) ID Date Data Source [id number] 09/07/2019 07:57:00 AM EDT [facility] ([facility]) Name Value Range Interpretation Code Description Data Ale rce(s) Supporting Document(s) Magnesium 1.6 mg/dL 1.8-2.4 [facility] Thyrotropin [Units/volume] in Serum or Plasma by Detec tion limit <= 0.05 mIU/L 0.03 uIU/mL 0.36-3.74 [facility] ([facility] ) ID Date Data Source [id number] 05/04/2019 07:37:00 AM EST [facility] ([facility]) Name Value Range Interpretation Code Description Data Ale rce(s) Supporting Document(s) Thyrotropin [Units/volume] in Serum or Plasma by Detec tion limit <= 0.05 mIU/L 0.03 uIU/mL 0.36-3.74 [facility] ([facility] ) NOTE: RESULT VERIFIED. ID Date Data Source [id number] 05/04/2019 07:37:00 AM EST [facility] ([facility]) Name Value Range Interpretation Code Description Data Ale rce(s) Supporting Document(s) Cholesterol [Mass/volume] in Serum or Plasma 232 mg/dL 131-200 [facility] ([facility]) Triglyceride [Mass/volume] in Serum or Plasma 240 mg/dL 30-150 [facility] ([facility]) Cholesterol in HDL [Mass/volume] in Serum or Plasma 51 mg/dL 35-60 [facility] ([facility]) Cholesterol in LDL [Mass/volume] in Serum or Plasma by calcu lation 133 CALC 50-159 [facility] ([facility]) ID Date Data Source [id number] 05/04/2019 07:37:00 AM EST [facility] ([facility]) Name Value Range Interpretation Code Description Data Ale rce(s) Supporting Document(s) Glucose [Mass/volume] in Serum or Plasma 228 mg/dL 74-99 [facility] ([facility]) 100-125 mg/dL PRE-DIABETES/FASTING >126 mg/dL DIABETES/FASTING Sodium [Moles/volume] in Serum or Plasma 142 meq/L 136-145 [facility] ([facility]) Urea nitrogen [Mass/volume] in Serum or Plasma 27 mg/dL 7-18 [facility] ([facility]) Creatinine 1.5 mg/dL 0.6-1.3 [facility] ([facility] Chloride [Moles/volume] in Serum or Plasma 104 meq/L 98-107 [facility] ([facility]) Calcium [Mass/volume] in Serum or Plasma 9.0 mg/dL 8.5-10.1 [facility] ([facility]) Potassium [Moles/volume] in Serum or Plasma 3.9 meq/L 3.5-5.1 [facility] ([facility]) Carbon dioxide, total [Moles/volume] in Serum or Plasma 31 meq/L 21 -32 [facility] ([facility]) Total Bilirubin 0.6 mg/dL 0.2-1.0 [facility] ([facility]) Aspartate aminotransferase [Enzymatic activity/volume] in Serum or Plasma 12 U/L 15-37 [facility] ([facility] ) Alkaline phosphatase isoenzyme [Units/volume] in Serum or Pl asma 103 mg/dL 46-116 [facility] ([facility]) Albumin [Mass/volume] in Serum or Plasma 3.0 g/dL 3.4-5.0 [facility] ([facility]) NOTE: RESULT VERIFIED. Alanine aminotransferase [Enzymatic activity/volume] in Seru m or Plasma 20 U/L 12-78 [facility] ([facility]) Proteinase 3 Ab [Units/volume] in Serum 6.9 g/dL 6.4-8.2 [facility] Glomerular filtration rate/1.73 sq M pre dicted among blacks [Volume Rate/Area] in Serum or Plasma by Creatinine-based formula (MDRD) 40 mL/min [facility] <content>CHRONIC KIDNEY DISEASE STAGING PER NKF</content>
<content></content>
<content>STAGE I & II GFR >= 60 NORMAL TO MILDLY DECREASED</content>
<content>STAGE III GFR 30-59 MODERATELY DECREASED</content>
<content>STAGE IV GFR 15-29 SEVERELY DECREASED</content>
<content>STAGE V GFR <15 VERY LITTLE GFR LEFT</content>
<content>ESRD GFR <15 ON RETAIL SELLING FLOOR LEADER</content>
<content></content> A/G Ratio 0.77 CALC 1.00-1.90 [facility] Glomerular filtration rate/1.73 sq M pre dicted among non-blacks [Volume Rate/Area] in Serum or Plasma by Creatinine-based formula (MDRD) 33 mL/min [facility] ID Date Data Source [id number] 05/04/2019 07:37:00 AM EST [facility] Name Value Range Interpretation Code Description Data Ale rce(s) Supporting Document(s) Hemoglobin A1c/Hemoglobin.total in Blood 7.9 g/dL 4.8-5.6 [facility] Lab Result Notes: Pre-Diabetes 5.7 - 6.4 % Diabetes = or > 6.5% Glucose mean value [Mass/volume] in Blood Estimated fr om glycated hemoglobin 180 mg/dL 60-110 [facility] ID Date Data Source [id number] 05/04/2019 07:37:00 AM EST [facility] Name Value Range Interpretation Code Description Data Ale rce(s) Supporting Document(s) Erythrocytes [#/volume] in Blood by Automated count 4.18 x10*6/UL 4.2 0-6.30 [facility] ([facility]) Leukocytes [#/volume] in Blood by Automated count 8.8 x10*3/UL 4.1-10 .9 [facility] ([facility]) Hemoglobin [Mass/volume] in Blood 12.2 g/dL 12.0-18.0 [facility] ([facility]) MCH 29.1 pg 26.0-32.0 [facility] Hematocrit [Volume Fraction] of Blood by Automated count 36.7 % 3 7.0-51.0 [facility] ([facility]) MCV 87.7 fL 80.0-97.0 [facility] MCHC 33.2 g/dL 31.0-38.0 [facility] Erythrocyte distribution width [Ratio] by Automated count 12.9 % 11.6-13.7 [facility] ([facility]) Platelets [#/volume] in Blood by Automated count 196 x10*3/UL 140-440 [facility] ([facility]) Lymph % 17.0 % 10.0-58.5 [facility] MPV 8.2 FL 7.8-11.0 [facility] Mid % 5.1 % 1.7-9.3 [facility] Neut % 77.9 % 37.0-92.0 [facility] Mid # 0.4 x10*3/UL 0.1-0.6 [facility] ([facility]) Lymph # 1.5 x10*3/UL 0.6-4.1 [facility] ([facility]) Neut # 6.9 x10*3/UL 2.0-7.8 [facility] ([facility]) Procedure Vital Signs ID Date Data Source [id number] Name Value Range Interpretation Code Description Data Source(s) Body mass index (BMI) [Ratio] 21.3 kg/m2 21.3 k g/m2 [facility]) Body weight 120.00 [lb_av] 120.00 [lb_av] [facility] ([facility]) Body height 63 [in_i] 63 [in_i] [facility] 5'3" Body mass index (BMI) [Ratio] 21.3 kg/m2 21.3 k g/m2 [facility]) Oxygen saturation in Arterial blood by Pulse oximetry 88 % 88 % [facility]) 3 liters Body weight 120.00 [lb_av] 120.00 [lb_av] [facility] ([facility]) Body height 63 [in_i] 63 [in_i] [facility] ([facility]) 5'3" Heart rate 94 /min 94 /min [facility] ([facility]) Diastolic blood pressure 80 mm[Hg] 80 mm[Hg] [facility]) Systolic blood pressure 144 mm[Hg] 144 mm[Hg] [facility]) Body mass index (BMI) [Ratio] 22.5 kg/m2 22.5 k g/m2 [facility]) Oxygen saturation in Arterial blood by Pulse oximetry 93 % 93 % [facility]) 3 liters Body weight 127.00 [lb_av] 127.00 [lb_av] [facility] ([facility]) Body height 63 [in_i] 63 [in_i] [facility] ([facility]) 5'3" Heart rate 88 /min 88 /min [facility] ([facility]) Diastolic blood pressure 78 mm[Hg] 78 mm[Hg] [facility]) Systolic blood pressure 144 mm[Hg] 144 mm[Hg] [facility] ([facility]) Diastolic blood pressure 80 mm[Hg] 80 mm[Hg] [facility]) Systolic blood pressure 152 mm[Hg] 152 mm[Hg] [facility] ([facility])
[2020-05-02 20:48] LABS: CALCIUM LEVEL 9.4 MG/DL (8.8-10.2); CREATININE FOR GFR 1.68 MG/DL (0.55-1.30); GLOMERULAR FILTRATION RATE 30.5 (>32)
[2020-05-02 20:53] LABS: INR 1.04; PROTHROMBIN TIME 13.8 SECONDS (12.5-14.3)
--- NOTE | 2020-05-02 21:17 | REPVR ---
PROCEDURE INFORMATION: Exam: XR Chest, 1 View Exam date and time: 05/02/2020 8:57 PM Age: 89 years old Clinical indication: Other: Hip trauma; Additional info: Preop TECHNIQUE: Imaging protocol: XR of the chest Views: 1 view. COMPARISON: CR Chest, 2 view PA, Lat 05/02/2016 10:44 AM FINDINGS: Lungs: Unremarkable. No consolidation. Pleural spaces: Unremarkable. No pleural effusion. No pneumothorax. Heart/Mediastinum: Unremarkable. No cardiomegaly. Bones/joints: Acute intertrochanteric fracture left hip. Osteoporosis. Degenerative spondylosis in the visualized lower lumbar spine. IMPRESSION: Acute intertrochanteric fracture left hip. Electronically signed by: Ryder Mcdonald On 05/02/2020 21:17:41 PM
--- NOTE | 2020-05-02 21:18 | REPVR ---
PROCEDURE INFORMATION: Exam: XR Left Hip with Pelvis when Performed Exam date and time: 05/02/2020 8:57 PM Age: 89 years old Clinical indication: Other: Trauma; Additional info: Include pelvis trauma TECHNIQUE: Imaging protocol: XR Left hip with pelvis when performed. Views: 2 or 3 views. COMPARISON: CT ABD PELVIS WITH CONTRAST 12/05/2016 10:49 PM FINDINGS: Bones/joints: Acute intertrochanteric fracture left hip. Degenerative arthropathy left hip joint. Osteoporosis. Soft tissues: Unremarkable. IMPRESSION: Acute intertrochanteric fracture left hip. Electronically signed by: Ryder Mcdonald On 05/02/2020 21:18:16 PM
--- NOTE | 2020-05-02 21:25 | REPVR ---
PROCEDURE INFORMATION: Exam: CT Lumbar Spine Without Contrast Exam date and time: 05/02/2020 9:06 PM Age: 89 years old Clinical indication: Injury or trauma; Fall; Blunt trauma (contusions or hematomas); Additional info: Fall pain TECHNIQUE: Imaging protocol: Computed tomography images of the lumbar spine without contrast. Radiation optimization: All CT scans at this facility use at least one of these dose optimization techniques: automated exposure control; mA and/or kV adjustment per patient size (includes targeted exams where dose is matched to clinical indication); or iterative reconstruction. COMPARISON: No relevant prior studies available. FINDINGS: Vertebrae: Dextroscoliosis. The spine demonstrates moderate degenerative changes. L1-L2: No significant disc protrusion. No severe spinal canal stenosis. No significant neural foraminal narrowing. L2-L3: Mild central spinal stenosis at L2-L3. L3-L4: Marked disc space narrowing at L3-L4 with prominent intervertebral osteophytes. Moderate foraminal stenosis on the left. Moderate central spinal stenosis at L3-L4. L4-L5: Severe central spinal stenosis at L4-L5. L5-S1: Bulging annulus L5-S1. Other bones/joints: Osteoporosis. Lungs: Patchy infiltrates both lung bases likely represent atelectasis. Clinical correlation to exclude pneumonitis suggested. Soft tissues: Nonobstructive calculus lower pole right kidney. Atherosclerotic calcifications abdominal aorta. Otherwise unremarkable. Other findings: Extensive pancreatic calcifications redemonstrated. IMPRESSION: 1. Mild central spinal stenosis L2-L3, moderate central spinal stenosis L3-L4, and severe central spinal stenosis L4-L5. No acute findings. 2. Patchy infiltrates both lung bases likely represent atelectasis. Clinical correlation to exclude pneumonitis suggested. 3. Extensive pancreatic calcifications redemonstrated. Electronically signed by: Ryder Mcdonald On 05/02/2020 21:25:09 PM
[2020-05-02] MEDS ORDERED: MORPHINE 2 MG/ML 1ML VIAL (J2270) IV ONE (22:15)
[2020-05-02] MEDS ORDERED: PROAAER10 INH (22:50)
[2020-05-02] MEDS ORDERED: POTA1TAB14 PO (22:50)
[2020-05-02] MEDS ORDERED: ATEN50TA2 PO (22:50)
[2020-05-02] MEDS ORDERED: NITR4TASL SL (22:50)
[2020-05-02] MEDS ORDERED: GLIP5TAB8 PO (22:50)
[2020-05-02] MEDS ORDERED: SITA50TAB PO (22:50)
[2020-05-02] MEDS ORDERED: FURO40TA2 PO (22:50)
[2020-05-02] MEDS ORDERED: CALC1CAP31 PO (22:50)
[2020-05-02] MEDS ORDERED: ALPR0.5T3 PO (22:50)
[2020-05-02] MEDS ORDERED: ADV100INH INH (22:50)
[2020-05-02] MEDS ORDERED: [UNRECOGNIZED DRUG - REMARK] (22:51)
[2020-05-02 22:56] LABS: RSV AMPLIFICATION NEGATIVE (NEGATIVE)
[2020-05-02] MEDS ORDERED: ONDANSETRON 4MG/2ML VIAL IV PRN (23:00)
[2020-05-02] MEDS ORDERED: ALPRAZolam 0.5 MG TAB PO PRN (23:00)
[2020-05-02] MEDS ORDERED: GLUCAGON INJ 1MG VIAL SC PRN (23:00)
[2020-05-02] MEDS ORDERED: ALBUTEROL 90 MCG/ACT 8GM HFA INHALER INH PRN (23:00)
[2020-05-02] MEDS ORDERED: ACETAMINOPHEN TAB 650MG DOSE (2X325MG) PO PRN (23:00)
[2020-05-02] MEDS ORDERED: GLUCOSE 4GM CHEW TABLET PO PRN (23:00)
[2020-05-02] MEDS ORDERED: NITROGLYCERIN 0.4 MG SUBL TABLET SL PRN (23:00)
[2020-05-02] MEDS ORDERED: DEXTROSE 50% 50 ML SYRINGE IV PRN (23:00)
--- OUTSIDE RECORDS SUMMARY | 2020-05-02 23:07 | CCD ---
Author Author [facility] Organization [facility] Address Unknown Phone Unavailable Care Team Providers Care Payroll Consultant Name Role Phone Tommy CUETO [id number] Unavailable Unavailable Waubay, A Glenroy Unavailable Unavailable Waubay, A Glenroy Unavailable Unavailable Waubay, A Glenroy Unavailable Unavailable Waubay, A Glenroy Unavailable Unavailable José Luis, A Glenroy Unavailable Unavailable Waubay, A Glenroy Unavailable Unavailable Waubay, A Glenroy Unavailable Unavailable Waubay, A Glenroy Unavailable Unavailable José Luis, A Glenroy Unavailable Unavailable Waubay, A Glenroy Unavailable Unavailable José Luis, A Glenroy Unavailable Unavailable José Luis, A Glenroy Unavailable Unavailable Waubay, A Glenroy Unavailable Unavailable José Luis, A Glenroy Unavailable Unavailable Waubay, A Glenroy Unavailable Unavailable Waubay, A Glenroy Unavailable Unavailable Waubay, A Glenroy Unavailable Unavailable José Luis, A Glenroy Unavailable Unavailable José Luis, A Glenroy Unavailable Unavailable José Luis, A Glenroy Unavailable Unavailable José Luis, A Glenroy Unavailable Unavailable José Luis, A Glenroy Unavailable Unavailable José Luis, A Glenroy Unavailable Unavailable Waubay, A Glenroy Unavailable Unavailable José Luis, A Glenroy Unavailable Unavailable Waubay, A Glenroy Unavailable Unavailable José Luis, A [...] Abiel ASHER Unavailable Unavailable Sugar F Abiel SAHER Unavailable Unavailable Sugar F Abiel ASHER Unavailable Unavailable Sugar F Abiel ASHER Unavailable Unavailable Sugar F Abiel ASHER Unavailable Unavailable Sugar F Abiel ASHER Unavailable Unavailable Sugar F Abiel ASHER Unavailable Unavailable Jim Wooten MD Unavailable Unavailable Jim Wooten MD Unavailable Unavailable Jim Wooten MD Unavailable Unavailable Jim Wooten MD Unavailable Unavailable Jim Wooten MD Unavailable Unavailable [...] Unavailable Sugar F Abiel ASHER Unavailable Unavailable Jim Wooten MD Unavailable Unavailable Sugar F Abiel ASHER Unavailable Unavailable Sugar F Abiel MD Unavailable Unavailable White, F [...] is protected by Article 27-F of the [facility] Public Health law. If you continue you may have access to information: Regarding HIV / AIDS; Provided by facilities licensed or operated by the [facility] Office of Mental Health; or Provided by the [facility] Office for People With Developmental Disabilities. If such information is present, then the following [facility] mandated warning applies: This information has been [...] law may result in a fine or nursing home sentence or both. A general authorization for the release of medical or other information is NOT sufficient authorization for further disc losure. Allergies and Adverse Reactions Type Description Substance Reaction Status Data Source(s ) Drug Class NO KNOWN ALLERGIES NO KNOWN ALLERGIES [facility] Family History Family Member Name Family Member Gender Family Member Status Date o f Status Description Data Source(s) Unknown Male Problem [facility] ([facility] ) () Unknown Female Problem [facility] ([facility]) Encounters Encounter Providers Location Date Indications Data Source(s ) Outpatient Attender: Glenroy Ordonez 10/23/2020 12:00:00 [facility] Office Visit Attender: Abiel Haas 01/08 02:30:00 PM EDT [facility] ([facility] ) Outpatient Attender: Glenroy Ordonez [id number] 2019 12:00:00 AM EDT - 10/17/2019 03:40:30 PM EDT Malignant neoplasm of unspecified part o f left bronchus or lung [facility] Malignant neoplasm of unspecified part o f left bronchus or lung Outpatient Referrer: CRISTOBAL CUETO [id number] 12:00:00 AM EDT Malignant neoplasm of unspecified part of left bronchus or lung [facility] Malignant neoplasm of unspecified part o f left bronchus or lung Outpatient Attender: Glenroy Ordonez 10/14/2019 12:00:00 [facility] Outpatient Attender: Abiel Haas 09/06 01:30:00 PM EDT [facility] ([facility] ) Medications Medication Brand Name Start [...] TIMES A DAY NEEDED SOLD: 04/05/2020 [facility] 40 mg 03/12/2020 12:00:00 AM EST [...] BY MOUTH ONCE DAILY SOLD: 01/16/2020 [facility] Calcitriol 0.96689 MG Oral Capsule 0.25 mcg CALCITRIOL 10/14/2019 [...] 09/07/2019 12:00:00 AM EDT ORAL active [facility] ([facility]) 60 ACTUAT Budesonide 0.16 MG/ACTUAT / fo rmoterol fumarate 0.0045 MG/ACTUAT Metered Dose Inhaler [Symbicort] Symbicort 09/07/2019 12:00:00 AM EDT RESPIRATORY active [facility] ( [facility]) Acarbose 25 MG Oral Tablet Acarbose 09/07/2019 12:00:00 AM EDT active [facility] ([facility]) Alprazolam 0.5 MG Oral Tablet [...] BY MOUTH EVERY DAY SOLD: 07/21/2019 [facility] Alprazolam 0.5 MG Oral Tablet ALPRAZOLAM 07/11/2019 12:00:00 AM EDT ta blet 60 TAKE ONE TABLET BY MOUTH TWICE A DAY NEEDED MAXIMUM DAILY DOSE = 2 TAKE ONE TABLET BY MOUTH TWICE A DAY NEEDED MAXIMUM DAILY DOSE = 2 SOLD: 07/11/2019 [facility] 90 mcg/actuation 07/05/2019 12:00:00 AM EDT HFA aerosol inha ler 8 INHALE TWO PUFFS BY MOUTH FOUR TIMES A DAY NEEDED INHALE TWO PUFFS BY MOUTH FOUR TIMES A DAY NEEDED SOLD: 08/05/2019 [facility] 90 mcg/actuation 07/05/2019 12:00:00 AM EDT HFA aerosol inha ler 8 INHALE TWO PUFFS BY MOUTH FOUR TIMES A DAY NEEDED INHALE TWO PUFFS BY MOUTH FOUR TIMES A DAY NEEDED SOLD: 10/07/2019 [facility] 90 mcg/actuation 07/05/2019 12:00:00 AM EDT HFA aerosol inha ler 8 INHALE TWO PUFFS BY MOUTH FOUR TIMES A DAY NEEDED INHALE TWO PUFFS BY MOUTH FOUR TIMES A DAY NEEDED SOLD: 09/09/2019 [facility] 90 mcg/actuation 07/05/2019 12:00:00 AM EDT [...] DOSE = 2 TABLETS SOLD: 06/10/2019 [facility] Alprazolam 0.5 MG Oral Tablet ALPRAZOLAM 05/12/2019 12:00:00 AM EST ta blet 60 TAKE 1 TABLET BY MOUTH TWICE DAILY NEEDED MAX = 2 TABS/DAY TAKE 1 TABLET BY MOUTH TWICE DAILY NEEDED MAX = 2 TABS/DAY SOLD: 05/12/2019 [facility] Calcitriol 0.62928 MG Oral Capsule Calcitriol 04/29/2019 12:00:00 AM EST ORAL active [facility] ([facility]) Alprazolam 0.5 MG Oral Tablet ALPRAZOLAM [...] 2 TABLETS SOLD: 03/14/2019 [facility] Calcitriol 0.94796 MG Oral Capsule 0.25 mcg CALCITRIOL 02/14/2019 12:00:00 AM EST capsule 45 TAKE ONE CAPSULE BY MOUTH EV MOE OTHER DAY TAKE ONE CAPSULE BY MOUTH EVERY OTHER DAY SOLD: 05/12/2019 [facility] Calcitriol 0.22606 MG Oral Capsule 0.25 mcg CALCITRIOL 02/14/2019 [...] BY MOUTH TWICE A DAY SOLD: 04/07/2019 [facility] 20 mEq 12/27/2018 12:00:00 AM EDT [...] type / Coverage type Policy ID Covered democrat ID Covered democrat's relationship to hernandez Policy Hernandez Plan Information EMEDNY [id number] SP [id number] MEDICARE [id number] SP [id number] MEDICARE A [id number] Self [id number] MEDICAID M [id number] Self [id number] MEDICARE A [id number] Self [id number] A Medicaid Medigap Part B [id number] Self [id number] Medicare [place] Govt Servic Medicare Primary [id number] Self [id number] Medicaid Medigap Part B [id number] Self [id number] 94A Medicare [place] Govt Servic Medicare Primary [id number] Self [id number] MEDICAID [id number] SP [id number] MEDICARE [id number] SP [id number] [place] Primary [id number] Self [id number] Medicaid Medigap Part B [id number] Self [id number] 94A Medicare [place] Govt [place] Medicare Primary [id number] Self [id number] MEDICAID [id number] SP [id number] Medicaid Medigap Part B [id number] Self [id number] 94A Medicare [place] Govt Servic Medicare Primary [id number] Self [id number] [facility] C [id number] S [id number] MEDICAID M [id number] S [id number] MEDICARE C [id number] S [id number] A Medicaid Medigap Part B [id number] Self [id number] 94A Medicare [place] Govt [place] Medicare Primary [id number] Self [id number] Medicaid Medigap Part B 1 1 Self 1 1 Medicare [place] Medicare Primary Self MEDICAID [id number] SP [id number] [id number] MEDICARE PART B C [id number] S [id number] [place] Med[place] Part B Self [place] Primary Self MEDICAID REF AMBULAT W [id number] S [id number] MEDICARE OUTPATIENT M [id number] S [id number] A [id number] Surgeries/Procedures Procedure Description Date Indications Data Source(s) CT THORAX W/O CONTRAST MATERIAL CT THORAX WITHOUT CONTRAST [id number] 0 Routine 10/14/2019 2:50 PM EDT Non-small cell cancer of left lung 10/14/2019 06:50:42 PM ED T Non-small cell cancer of left lung [facility] Non-small cell cancer of left lung Results ID Date Data Source [id number] 01/06/2020 08:58:00 AM EDT [facility] ([facility]) Name Value Range Interpretation Code Description Data Ale rce(s) Supporting Document(s) Triiodothyronine (T3) Free [Mass/volume] in Serum or Plasma 3.5 pg/ mL 2.2-4.0 [facility] ([facility]) ID Date Data Source [id number] 01/06/2020 08:58:00 AM EDT [facility] ([facility]) Name Value Range Interpretation Code Description Data Ale rce(s) Supporting Document(s) Thyroxine (T4) free [Mass/volume] in Serum or Plasma 1.39 ng/dL 0.76- 1.46 [facility] ([facility]) ID Date Data Source [id number] 01/06/2020 08:58:00 AM EDT [facility] ([facility]) Name Value Range Interpretation Code Description Data Ale rce(s) Supporting Document(s) Thyrotropin [Units/volume] in Serum or Plasma by Detec tion limit <= 0.05 mIU/L 0.04 uIU/mL 0.36-3.74 [facility] ([facility] ) ID Date Data Source [id number] 01/06/2020 08:58:00 AM EDT [facility] ([facility]) Name Value Range Interpretation Code Description Data Ale rce(s) Supporting Document(s) Cholesterol in LDL [Mass/volume] in Serum or Plasma by calcu lation 140 CALC 50-159 [facility] ([facility]) Cholesterol [Mass/volume] in Serum or Plasma 240 mg/dL 131-200 [facility] ([facility]) Triglyceride [Mass/volume] in Serum or Plasma 209 mg/dL 30-150 [facility] ([facility]) Cholesterol in HDL [Mass/volume] in Serum or Plasma 58 mg/dL 35-60 [facility] ([facility]) ID Date Data Source [id number] 01/06/2020 08:58:00 AM EDT [facility] ([facility]) Name Value Range Interpretation Code Description Data Ale rce(s) Supporting Document(s) Glucose [Mass/volume] in Serum or Plasma 342 mg/dL 74-99 [facility] ([facility]) 100-125 mg/dL PRE-DIABETES/FASTING >126 mg/dL DIABETES/FASTING Urea nitrogen [Mass/volume] in Serum or Plasma 42 mg/dL 7-18 [facility] ([facility]) Creatinine 1.9 mg/dL 0.6-1.3 [facility]) Sodium [Moles/volume] in Serum or Plasma 140 meq/L 136-145 [facility] ([facility]) Potassium [Moles/volume] in Serum or Plasma 4.3 meq/L 3.5-5.1 [facility] ([facility]) Carbon dioxide, total [Moles/volume] in Serum or Plasma 30 meq/L 21 -32 [facility] ([facility]) Chloride [Moles/volume] in Serum or Plasma 102 meq/L 98-107 [facility] ([facility]) Alkaline phosphatase isoenzyme [Units/volume] in Serum or Pl asma 87 mg/dL 46-116 [facility] ([facility]) Calcium [Mass/volume] in Serum or Plasma 9.8 mg/dL 8.5-10.1 [facility] ([facility]) Total Bilirubin 0.7 mg/dL 0.2-1.0 [facility] ([facility]) Aspartate aminotransferase [Enzymatic activity/volume] in Serum or Plasma 17 U/L 15-37 [facility] ([facility] ) Alanine aminotransferase [Enzymatic activity/volume] in Seru m or Plasma 25 U/L 12-78 [facility] ([facility]) Albumin [Mass/volume] in Serum or Plasma 3.1 g/dL 3.4-5.0 [facility] ([facility]) A/G Ratio 0.78 CALC 1.00-1.90 [facility] ([facility]) Proteinase 3 Ab [Units/volume] in Serum 7.1 g/dL 6.4-8.2 [facility] ([facility]) Glomerular filtration rate/1.73 sq M pre dicted among non-blacks [Volume Rate/Area] in Serum or Plasma by Creatinine-based formula (MDRD) 25 mL/min [facility] ([facility]) Glomerular filtration rate/1.73 sq M pre dicted among blacks [Volume Rate/Area] in Serum or Plasma by Creatinine-based formula (MDRD) 30 mL/min [facility] <content>CHRONIC KIDNEY DISEASE STAGING PER NKF</content>
<content></content>
<content>STAGE I & II GFR >= 60 NORMAL TO MILDLY DECREASED</content>
<content>STAGE III GFR 30-59 MODERATELY DECREASED</content>
<content>STAGE IV GFR 15-29 SEVERELY DECREASED</content>
<content>STAGE V GFR <15 VERY LITTLE GFR LEFT</content>
<content>ESRD GFR <15 ON CLINICAL AUDITOR</content>
<content></content> ID Date Data Source [id number] 01/06/2020 08:58:00 AM EDT [facility] ([facility]) Name Value Range Interpretation Code Description Data Ale rce(s) Supporting Document(s) Magnesium 1.5 mg/dL 1.8-2.4 [facility]) ID Date Data Source [id number] 01/06/2020 08:58:00 AM EDT [facility] ([facility]) Name Value Range Interpretation Code Description Data Ale rce(s) Supporting Document(s) Glucose mean value [Mass/volume] in Blood Estimated fr om glycated hemoglobin 174 mg/dL 60-110 [facility] ([facility] ) Hemoglobin A1c/Hemoglobin.total in Blood 7.7 % [facility] ([facility]) Lab Result Notes: Pre-Diabetes 5.7 - 6.4 % Diabetes = or > 6.5% ID Date Data Source [id number] 01/06/2020 08:58:00 AM EDT [facility] ([facility]) Name Value Range Interpretation Code Description Data Ale rce(s) Supporting Document(s) Leukocytes [#/volume] in Blood by Automated count 9.3 x10*3/UL 4.1-10 .9 [facility] ([facility]) Hemoglobin [Mass/volume] in Blood 13.9 g/dL 12.0-18.0 [facility] ([facility]) Erythrocytes [#/volume] in Blood by Automated count 4.63 x10*6/UL 4.2 0-6.30 [facility] ([facility]) Hematocrit [Volume Fraction] of Blood by Automated count 41.5 % 3 7.0-51.0 [facility] ([facility]) MCV 89.7 fL 80.0-97.0 [facility] ([facility]) MCH 30.0 pg 26.0-32.0 [facility] ([facility]) MCHC 33.4 g/dL 31.0-38.0 [facility] ([facility]) Erythrocyte distribution width [Ratio] by Automated count 13.6 % 11.6-13.7 [facility] ([facility]) Platelets [#/volume] in Blood by Automated count 191 x10*3/UL 140-440 [facility] ([facility]) Mid % 4.3 % 1.7-9.3 [facility]) MPV 8.4 FL 7.8-11.0 [facility] ([facility]) Lymph % 13.5 % 10.0-58.5 [facility]) Neut % 82.2 % 37.0-92.0 [facility]) Lymph # 1.2 x10*3/UL 0.6-4.1 [facility] ([facility]) Mid # 0.5 x10*3/UL 0.1-0.6 [facility] ([facility]) Neut # 7.6 x10*3/UL 2.0-7.8 [facility] ([facility]) ID Date Data Source [id number] 10/17/2019 02:15:10 PM EDT [facility] Name Value Range Interpretation Code Description Data Ale rce(s) Supporting Document(s) Progress Note [facility] QPLZKq5nMtNWUiKo83/BODjrFHXkb7GnPRreEOj7EYrbGWCaC2JkYGW5zN0wJGF8SZiXKvCgVxBgRvSr lbm [file] AY/4K98z6w71ZmIE2KKERb/HM1a+l2w3I95G+S5c78 i9Tbaft0y2fexdXEgUfkEV7gdjGHdMdCIKqtVUtm35medbh3LGc16L7dTW8bA8tPtvka0KWTA/hq9Wfr civil design technician+TyP4kiuTXPjICho3EiW8uGgZWOryfIDbampB3XgtOzcKewRKDG5BgT+OV+4DXgLeoGBIHRgFe+Xo [file] AgICAgICAgICAgICAgICAgICAgICAgICAgICAgICAgICAgICAgICAgICAgICAgICAgICAgICAgICAgIC AgICAgICAgICAgICAgICAgICAgICAgICAgICAgICAgICAgDQogICAgICAgICAgICAgICAgICAgICAgIC AgICAgICAgICAgICAgICAgICAgICAgICAgICAgICAg ICAgICAgICAgICAgICAgICAgICAgICAgICAgICAgICAgICAgICAgICAgICAgDQogICAgICAgICAgICAg ICAgICAgICAgICAgICAgICAgICAgICAgICAgICAgICAgICAgICAgICAgICAgICAgICAgICAgICAgICAg ICAgICAgICAgICAgICAgICAgICAgICAgICAgDQogIC AgICAgICAgICAgICAgICAgICAgICAgICAgICAgICAgICAgICAgICAgICAgICAgICAgICAgICAgICAgIC AgICAgICAgICAgICAgICAgICAgICAgICAgICAgICAgICAgICAgDQogICAgICAgICAgICAgICAgICAgIC AgICAgICAgICAgICAgICAgICAgICAgICAgICAgICAg ICAgICAgICAgICAgICAgICAgICAgICAgICAgICAgICAgICAgICAgICAgICAgICAgDQogICAgICAgICAg ICAgICAgICAgICAgICAgICAgICAgICAgICAgICAgICAgICAgICAgICAgICAgICAgICAgICAgICAgICAg ICAgICAgICAgICAgICAgICAgICAgICAgICAgICAgDQ ogICAgICAgICAgICAgICAgICAgICAgICAgICAgICAgICAgICAgICAgICAgICAgICAgICAgICAgICAgIC AgICAgICAgICAgICAgICAgICAgICAgICAgICAgICAgICAgICAgICAgDQogICAgICAgICAgICAgICAgIC AgICAgICAgICAgICAgICAgICAgICAgICAgICAgICAg ICAgICAgICAgICAgICAgICAgICAgICAgICAgICAgICAgICAgICAgICAgICAgICAgICAgDQogICAgICAg ICAgICAgICAgICAgICAgICAgICAgICAgICAgICAgICAgICAgICAgICAgICAgICAgICAgICAgICAgICAg ICAgICAgICAgICAgICAgICAgICAgICAgICAgICAgIC AgDQogICAgICAgICAgICAgICAgICAgICAgICAgICAgICAgICAgICAgICAgICAgICAgICAgICAgICAgIC FsEBDuJVCdSHFkYKNxZKUuTVVlICEzZMNpEBMgDCKiYCIvRQVpNYUeFNCsHBa4U6seFSTwIPAlCF3bPT d3Jz8+OVoLNtUqOGJ5maUsgD7WOV4ju6DaIEuwQGPq r9IoTLi4EO3FTMOxWGgmIE9XQJsghv8RTRGvYMSruQQDk7wkKmHdKIO7WTIySxfuQV8KBALeT7tvvvAt KTBfYNXOUCpuSBYOMNdiDOOCIS6MTbWdP5JpiD37JCTUKh7+TZvipsMfUwzUUbZxQMPyg9TaKRa6TP3F JPMqVarfa2AqIpGfUXYCLIcgBL0LHGU8WHO5HMYgBs 9ZRWBcL002knYkOF6XOy6HDgMrVL7fsg4XVhCmWLFxTavOYbf5BDziAD3FsLRjJYhNsh3eczAgniQCv5 BaybAneHXXcAYrZZQdWSZdBTQgh61zTMutWGKcEBNzZy8fSJ4qRGHvXENyOeSoMWIKGT8BKHOtVHGghT OtBMBhTFTMGK8MWOdmNBS6LRZuwnNnpOCeXKraZL7U YXJlbnQgMjMgMCBSDQo+Kq6DYI3et6MbPJdzDXNrWM9lyp8NKBdTEnQsV0F4lVKnF9Z7QQaxRr0AMLKl QCMoBeDvKLSEWHslGW8LEL0mqdN6VP8XiJRoECLpFIOepGTuKSf8Y21yhCHyDUjtYO8YYBE+Brody+Pg0K UFVuSKCxWHHtTuGwHSGRGgBvI2SdG3KEo8RhM8YnWD 59dRemnxQwFFinXP8FYE0nCOYpAPTTDG7TwVCxhC2klxEpPrRwRMUBAkYkI82spFMqPDHcRRZzROLoQf 8LONCvP7XvbtUknQkdbnLzBCXwYAYBTI3CLQfynoDizLDstFiuOA55vXkdCA9GLz8EReXbRW1pkg1KrM WfRv2YCRBrKr0FMQMyVJBiCKNtBRO4IZDwYhAzKOxn PJKtXCFzAGO2NASfILAaSM6FSsXaYEOtFbIrRqMoMDMkXBGgza6DKEEnOCFuHPd6MxTaNOAqICXeXNqd QMRuEGPmDEK9OSRrCMOfZF7VWfMzCAQnDGX0RHXyZZNqJGHoxf3JRBUpUTJwVeohAEIlAAMxFRCsIDhd HPOhEBS9XHScZRSsNTAcTO3AKiLhONLuPYsnTzApAY SmNFKpsq1KGHQbJNQoAlm3KEBtTHBkCSHfTVdkINChLPM6MJSeZUAuSWWpZA9RKxSaGVIbQRgvYRCrFS SnDXYwxn4OMAXqHDIfHPUeUYTmWROgBNMpOTdpNSUcBNF5MuxeVQVgFVFlWS3RBpQtCXJbSRRzHOXtAN DpTWOmve2CYUZbAJKiVSH0PiFuLRUdFPSvXZumHTZh MTCsUxMnZROvSAFiOL6ZHtRrSKQuNkUjZzZpNFDsOWHhom9OVMGmWWPnXpC8VkRjQWNdTTJjFPyaRFWo OKZzIzB4ZCJmQLKuFV0AOcXiGECaZcI3VKOsTSKwYLQdtk6DQPHdQFIsWlJnLQAyBFBoENPiWJloLDBs ZNHhPXHnDWBsTRZiYM2PSdFzLDHkVtQ0SYUhSUYrXA Ewwh2VVIKuYZJwBEGfFuOuCHIiFGRaGPvmAPIxHOK1OUs6XCJdBXCeVL7UStDfFOolSLTICfb9JYcjH3 t4EPMmSo1IZ0Wez2CdKoWrLKVGYXqwRK2djuAlNZIwIh7LK1lJUne4VkF4TgE7FeFoZzNyBHN9KIR5QE O9SkMaDBY0WywhBW5dHUT7LuWyWLO1DQPmL6M4KHAo YWw1YPuyOeMjRdQ3YVQ2YfYoEL9HYu6GJqA7XKH7fOQcDm1RRsJ7EWlWToZlWN1YFMy= ID Date Data Source [id number] 10/14/2019 07:51:56 PM EDT [facility] CT THORAX WITHOUT CONTRAST [id number] RE SULTInterpreted by:Lolita Enriquez, MDPROCEDURE INFORMATION: Exam: CT Chest Without Contrast [...] iterative reconstruction. COMPARISON: CT THORAX WITHOUT CONTRAST [id number] 10/15/2018 12:30 PM FINDINGS: Lungs: Right apical [...] rce(s) Supporting Document(s) ID Date Data Source [id number] 09/07/2019 07:58:00 AM EDT [facility] ([facility]) Name Value Range Interpretation Code Description Data Ale rce(s) Supporting Document(s) Glucose [Mass/volume] in Serum or Plasma 199 mg/dL 74-99 [facility] ([facility]) 100-125 mg/dL PRE-DIABETES/FASTING >126 mg/dL DIABETES/FASTING Urea nitrogen [Mass/volume] in Serum or Plasma 38 mg/dL 7-18 [facility] ([facility]) Sodium [Moles/volume] in Serum or Plasma 145 meq/L 136-145 [facility] ([facility]) Creatinine 1.9 mg/dL 0.6-1.3 [facility]) Chloride [Moles/volume] in Serum or Plasma 107 meq/L 98-107 [facility] ([facility]) Potassium [Moles/volume] in Serum or Plasma 3.6 meq/L 3.5-5.1 [facility] ([facility]) Carbon dioxide, total [Moles/volume] in Serum or Plasma 28 meq/L 21 -32 [facility] ([facility]) Calcium [Mass/volume] in Serum or Plasma 9.2 mg/dL 8.5-10.1 [facility] ([facility]) Alkaline phosphatase isoenzyme [Units/volume] in Serum or Pl asma 109 mg/dL 46-116 [facility] ([facility]) Alanine aminotransferase [Enzymatic activity/volume] in Seru m or Plasma 20 U/L 12-78 [facility] ([facility]) Total Bilirubin 0.7 mg/dL 0.2-1.0 [facility] ([facility]) Aspartate aminotransferase [Enzymatic activity/volume] in Serum or Plasma 13 U/L 15-37 [facility] ([facility] ) Albumin [Mass/volume] in Serum or Plasma 3.2 g/dL 3.4-5.0 [facility] ([facility]) NOTE: RESULT VERIFIED. A/G Ratio 0.78 CALC 1.00-1.90 [facility] Proteinase 3 Ab [Units/volume] in Serum 7.3 g/dL 6.4-8.2 [facility] ([facility]) Glomerular filtration rate/1.73 sq M pre dicted among non-blacks [Volume Rate/Area] in Serum or Plasma by Creatinine-based formula (MDRD) 25 mL/min [facility] ([facility]) Glomerular filtration rate/1.73 sq M pre dicted among blacks [Volume Rate/Area] in Serum or Plasma by Creatinine-based formula (MDRD) 30 mL/min [facility] ([facility]) <content>CHRONIC KIDNEY DISEASE STAGING PER NKF</content>
<content></content>
<content>STAGE I & II GFR >= 60 NORMAL TO MILDLY DECREASED</content>
<content>STAGE III GFR 30-59 MODERATELY DECREASED</content>
<content>STAGE IV GFR 15-29 SEVERELY DECREASED</content>
<content>STAGE V GFR <15 VERY LITTLE GFR LEFT</content>
<content>ESRD GFR <15 ON CLINICAL AUDITOR</content>
<content></content> ID Date Data Source [id number] 09/07/2019 07:58:00 AM EDT [facility] ([facility]) Name Value Range Interpretation Code Description Data Ale rce(s) Supporting Document(s) Hemoglobin A1c/Hemoglobin.total in Blood 7.9 g/dL 4.8-5.6 [facility] ([facility]) Lab Result Notes: Pre-Diabetes 5.7 - 6.4 % Diabetes = or > 6.5% Glucose mean value [Mass/volume] in Blood Estimated fr om glycated hemoglobin 180 mg/dL 60-110 [facility] ([facility] ) ID Date Data Source [id number] 09/07/2019 07:57:00 AM EDT [facility] ([facility]) Name Value Range Interpretation Code Description Data Ale rce(s) Supporting Document(s) Thyroxine (T4) free [Mass/volume] in Serum or Plasma 1.45 ng/dL 0.76- 1.46 [facility] ([facility]) ID Date Data Source [id number] 09/07/2019 07:57:00 AM EDT [facility] ([facility]) Name Value Range Interpretation Code Description Data Ale rce(s) Supporting Document(s) Magnesium 1.6 mg/dL 1.8-2.4 [facility]) Thyrotropin [Units/volume] in Serum or Plasma by Detec tion limit <= 0.05 mIU/L 0.03 uIU/mL 0.36-3.74 [facility] ([facility] ) ID Date Data Source [id number] 05/04/2019 07:37:00 AM EST [facility] ([facility]) Name Value Range Interpretation Code Description Data Ale rce(s) Supporting Document(s) Thyrotropin [Units/volume] in Serum or Plasma by Detec tion limit <= 0.05 mIU/L 0.03 uIU/mL 0.36-3.74 [facility] ([facility] ) NOTE: RESULT VERIFIED. ID Date Data Source [id number] 05/04/2019 07:37:00 AM EST [facility] ([facility]) Name Value Range Interpretation Code Description Data Ale rce(s) Supporting Document(s) Cholesterol [Mass/volume] in Serum or Plasma 232 mg/dL 131-200 [facility] ([facility]) Triglyceride [Mass/volume] in Serum or Plasma 240 mg/dL 30-150 [facility] ([facility]) Cholesterol in HDL [Mass/volume] in Serum or Plasma 51 mg/dL 35-60 [facility] ([facility]) Cholesterol in LDL [Mass/volume] in Serum or Plasma by calcu lation 133 CALC 50-159 [facility] ([facility]) ID Date Data Source [id number] 05/04/2019 07:37:00 AM EST [facility] ([facility]) Name Value Range Interpretation Code Description Data Ale rce(s) Supporting Document(s) Glucose [Mass/volume] in Serum or Plasma 228 mg/dL 74-99 [facility] ([facility]) 100-125 mg/dL PRE-DIABETES/FASTING >126 mg/dL DIABETES/FASTING Sodium [Moles/volume] in Serum or Plasma 142 meq/L 136-145 [facility] ([facility]) Urea nitrogen [Mass/volume] in Serum or Plasma 27 mg/dL 7-18 [facility] ([facility]) Creatinine 1.5 mg/dL 0.6-1.3 [facility] ([facility]) Chloride [Moles/volume] in Serum or Plasma 104 meq/L 98-107 [facility] ([facility]) Calcium [Mass/volume] in Serum or Plasma 9.0 mg/dL 8.5-10.1 [facility] ([facility]) Potassium [Moles/volume] in Serum or Plasma 3.9 meq/L 3.5-5.1 [facility] ([facility]) Carbon dioxide, total [Moles/volume] in Serum or Plasma 31 meq/L 21 -32 [facility] ([facility]) Total Bilirubin 0.6 mg/dL 0.2-1.0 [facility] ([facility]) Aspartate aminotransferase [Enzymatic activity/volume] in Serum or Plasma 12 U/L 15-37 [facility] ([facility] ) Alkaline phosphatase isoenzyme [Units/volume] in Serum or Pl asma 103 mg/dL 46-116 [facility] ([facility]) Albumin [Mass/volume] in Serum or Plasma 3.0 g/dL 3.4-5.0 [facility] ([facility]) NOTE: RESULT VERIFIED. Alanine aminotransferase [Enzymatic activity/volume] in Seru m or Plasma 20 U/L 12-78 [facility] ([facility]) Proteinase 3 Ab [Units/volume] in Serum 6.9 g/dL 6.4-8.2 [facility] Glomerular filtration rate/1.73 sq M pre dicted among blacks [Volume Rate/Area] in Serum or Plasma by Creatinine-based formula (MDRD) 40 mL/min [facility] <content>CHRONIC KIDNEY DISEASE STAGING PER NKF</content>
<content></content>
<content>STAGE I & II GFR >= 60 NORMAL TO MILDLY DECREASED</content>
<content>STAGE III GFR 30-59 MODERATELY DECREASED</content>
<content>STAGE IV GFR 15-29 SEVERELY DECREASED</content>
<content>STAGE V GFR <15 VERY LITTLE GFR LEFT</content>
<content>ESRD GFR <15 ON CLINICAL AUDITOR</content>
<content></content> A/G Ratio 0.77 CALC 1.00-1.90 [facility] Glomerular filtration rate/1.73 sq M pre dicted among non-blacks [Volume Rate/Area] in Serum or Plasma by Creatinine-based formula (MDRD) 33 mL/min [facility] ID Date Data Source [id number] 05/04/2019 07:37:00 AM EST [facility] Name Value Range Interpretation Code Description Data Ale rce(s) Supporting Document(s) Hemoglobin A1c/Hemoglobin.total in Blood 7.9 g/dL 4.8-5.6 [facility] Lab Result Notes: Pre-Diabetes 5.7 - 6.4 % Diabetes = or > 6.5% Glucose mean value [Mass/volume] in Blood Estimated fr om glycated hemoglobin 180 mg/dL 60-110 [facility] ID Date Data Source [id number] 05/04/2019 07:37:00 AM EST [facility] Name Value Range Interpretation Code Description Data Ale rce(s) Supporting Document(s) Erythrocytes [#/volume] in Blood by Automated count 4.18 x10*6/UL 4.2 0-6.30 [facility] ([facility]) Leukocytes [#/volume] in Blood by Automated count 8.8 x10*3/UL 4.1-10 .9 [facility] ([facility]) Hemoglobin [Mass/volume] in Blood 12.2 g/dL 12.0-18.0 [facility] ([facility]) MCH 29.1 pg 26.0-32.0 [facility] Hematocrit [Volume Fraction] of Blood by Automated count 36.7 % 3 7.0-51.0 [facility] ([facility]) MCV 87.7 fL 80.0-97.0 [facility] MCHC 33.2 g/dL 31.0-38.0 [facility] Erythrocyte distribution width [Ratio] by Automated count 12.9 % 11.6-13.7 [facility] ([facility]) Platelets [#/volume] in Blood by Automated count 196 x10*3/UL 140-440 [facility] ([facility]) Lymph % 17.0 % 10.0-58.5 [facility] MPV 8.2 FL 7.8-11.0 [facility] Mid % 5.1 % 1.7-9.3 [facility] Neut % 77.9 % 37.0-92.0 [facility] Mid # 0.4 x10*3/UL 0.1-0.6 [facility] ([facility]) Lymph # 1.5 x10*3/UL 0.6-4.1 [facility] ([facility]) Neut # 6.9 x10*3/UL 2.0-7.8 [facility] ([facility]) Procedure Vital Signs ID Date Data Source [id number] Name Value Range Interpretation Code Description Data Source(s) Body mass index (BMI) [Ratio] 21.3 kg/m2 21.3 k g/m2 [facility] ([facility]) Body weight 120.00 [lb_av] 120.00 [lb_av] [facility] T ([facility]) Body height 63 [in_i] 63 [in_i] [facility] ([facility]) 5'3" Body mass index (BMI) [Ratio] 21.3 kg/m2 21.3 k g/m2 [facility] ([facility]) Oxygen saturation in Arterial blood by Pulse oximetry 88 % 88 % [facility] ([facility]) 3 liters Body weight 120.00 [lb_av] 120.00 [lb_av] [facility] ([facility]) Body height 63 [in_i] 63 [in_i] [facility] ([facility]) 5'3" Heart rate 94 /min 94 /min [facility] ([facility]) Diastolic blood pressure 80 mm[Hg] 80 mm[Hg] [facility] ([facility]) Systolic blood pressure 144 mm[Hg] 144 mm[Hg] [facility] ([facility]) Body mass index (BMI) [Ratio] 22.5 kg/m2 22.5 k g/m2 [facility] ([facility]) Oxygen saturation in Arterial blood by Pulse oximetry 93 % 93 % [facility] ([facility]) 3 liters Body weight 127.00 [lb_av] 127.00 [lb_av] [facility] T ([facility]) Body height 63 [in_i] 63 [in_i] [facility] ([facility]) 5'3" Heart rate 88 /min 88 /min [facility] ([facility]) Diastolic blood pressure 78 mm[Hg] 78 mm[Hg] [facility] ([facility]) Systolic blood pressure 144 mm[Hg] 144 mm[Hg] [facility] ([facility]) Diastolic blood pressure 80 mm[Hg] 80 mm[Hg] [facility] ([facility]) Systolic blood pressure 152 mm[Hg] 152 mm[Hg] [facility] ([facility])
[2020-05-02] MEDS ORDERED: IPRATROPIUM 0.5MG/ALBUTEROL 2.5MG INH SOL UD 3ML (DUONEB) NEB PRN (23:15)
[2020-05-03] VITALS (39 sets, daily range): BP systolic 77–126; BP diastolic 49–75
--- NOTE | 2020-05-03 02:58 | HPEPDOC ---
[facility] Medical History & Physical Date of Admission May 02, 2020 Date of Service: May 02, 2020 Attending Physician: KHADIJAH JOSEPH MD History and Physical CHIEF COMPLAINT: Left hip pain HISTORY OF PRESENT ILLNESS:. Patient is an 89-year-old female with a past medical history of congestive heart failure with diastolic dysfunction, pulmonary hypertension, COPD, diabetes mellitus type 2, dyslipidemia, hyp ertension who presented to the [facility] emergency department with complaint of left hip pain after mechanical fall at home. Patient states that she was reaching over her couch to grab something and her foot got caught on something causing her to fall over onto her left side. She was unable to get up and had to call her son who found her and called EMS. Patient states that she did not have any chest pain, palpitations or shortness of breath when this occurred. She denies any loss of consciousness. She denies hitting her head. In the emergency department the patient was vitally stable, although hypertensive. She received a lumbar spine CT, hip pelvis x-ray a chest x-ray imaging, which was all normal except for an acute intertrochanteric fracture of the left hip. Patient was given pain medication. Dr. Henao of orthopedic surgery was contacted through the ER. Hospitalist service was consulted and the patient was admitted for further evaluation management PAST MEDICAL HISTORY: 1. Lung cancer, left lung, treated with radiation 2. Congestive heart failure with diastolic dysfunction. Last echocardiogram was in 2017, LVEF 65%. 3. Pulmonary hypertension. 4. COPD with chronic hypoxemic respiratory failure on 3 L nasal cannula at baseline 5. Diabetes mellitus type II 6. Dyslipidemia. 7. Hypertension 8. Coronary artery disease with a myocardial infarction and stent placement PAST SURGICAL HISTORY: 1. Cataract surgery bilaterally. 2. Cardiac catheterization with stent placement many years ago. 3. Inguinal hernia repair. SOCIAL HISTORY: Patient lives at home alone. She cares for herself. She has a cane for ambulation. Her states that she does not use it. She is a former smoker, quit more than 20 years ago but smoked approximately 1-2 packs per day. Denies any alcohol use. Denies any history of IV or illicit drug use. FAMILY HISTORY: Patient admits to a family history of coronary disease ALLERGIES: Please see below. REVIEW OF SYSTEMS: CONSTITUTIONAL: Denies fevers, chills, unintentional weight loss or weight gain. Denies night sweats. HEENT:. Denies dysphagia or odynophagia. Denies headache. CARDIOVASCULAR:. Denies chest pain, palpitations or feelings of the heart racing. RESPIRATORY:. Denies shortness of breath from baseline. Denies coughing. Denies wheezing. GASTROINTESTINAL: Denies abdominal pain, nausea, vomiting, diarrhea, or constipation. GENITOURINARY:. Denies dysuria or increased frequency. SKIN: Denies any Rashes or lesions. MUSCULOSKELETAL: Admits to Left sided hip pain NEUROLOGICAL: Denies any change in speech or slurred speech.. PSYCHIATRIC: Denies any history of depression or anxiety. ENDOCRINE:. Denies heat intolerance or cold intolerance, admits to history of diabetes mellitus type 2 HEMATOLOGIC/LYMPHATIC:. Denies any history of easy bruising or bleeding. Denies any history of DVT or pulmonary embolism. HOME MEDICATIONS: Please see below. PHYSICAL EXAMINATION: VITAL SIGNS: Temperature 98.6, pulse, 97, respiratory rate 20, blood pressure and 141/68, pulse oximetry 94 % on 5 L nasal cannula GENERAL APPEARANCE: Patient is awake, alert, oriented. He does not appear to be in any Acute distress. she is lying comfortably on stretcher. HEENT: Atraumatic Normocephalic. Eyes nonicteric. Trachea is midline mucous members are pink and moist. CARDIOVASCULAR: Normal S1, S2, regular rate and rhythm. No clicks rubs or murmurs. LUNGS: Clear vesicular breath sounds bilaterally somewhat diminished throughout. Mild scattered wheezing. Otherwise no rhonchi or rales ABDOMEN:. Soft Nondistended. Nontender. Normoactive bowel sounds throughout. EXTREMITIES: Externally rotated and shortened left leg. Full equal pulses in bilateral upper and lower extremities. No edema NEUROLOGICAL: No Focal neurological deficits. PSYCHIATRIC: Mood and Affect appear appropriate. LABORATORY DATA: See below. IMAGING: PROCEDURE INFORMATION: Exam: CT Lumbar Spine Without Contrast Exam date and time: 05/02/2020 9:06 PM Age: 89 years old Clinical indication: Injury or trauma; Fall; Blunt trauma (contusions or hematomas); Additional info: Fall pain TECHNIQUE: Imaging protocol: Computed tomography images of the lumbar spine without contrast. Radiation optimization: All CT scans at this facility use at least one of these dose optimization techniques: automated exposure control; mA and/or kV adjustment per patient size (includes targeted exams where dose is matched to clinical indication); or iterative reconstruction. COMPARISON: No relevant prior studies available. FINDINGS: Vertebrae: Dextroscoliosis. The spine demonstrates moderate degenerative changes. L1-L2: No significant disc protrusion. No severe spinal canal stenosis. No significant neural foraminal narrowing. L2-L3: Mild central spinal stenosis at L2-L3. L3-L4: Marked disc space narrowing at L3-L4 with prominent intervertebral osteophytes. Moderate foraminal stenosis on the left. Moderate central spinal stenosis at L3-L4. L4-L5: Severe central spinal stenosis at L4-L5. L5-S1: Bulging annulus L5-S1. Other bones/joints: Osteoporosis. Lungs: Patchy infiltrates both lung bases likely represent atelectasis. Clinical correlation to exclude pneumonitis suggested. Soft tissues: Nonobstructive calculus lower pole right kidney. Atherosclerotic calcifications abdominal aorta. Otherwise unremarkable. Other findings: Extensive pancreatic calcifications redemonstrated. IMPRESSION: 1. Mild central spinal stenosis L2-L3, moderate central spinal stenosis L3-L4, and severe central spinal stenosis L4-L5. No acute findings. 2. Patchy infiltrates both lung bases likely represent atelectasis. Clinical correlation to exclude pneumonitis suggested. 3. Extensive pancreatic calcifications redemonstrated. Electronically signed by: Ryder Mcdonald On 05/02/2020 21:25:09 PM PROCEDURE INFORMATION: Exam: XR Left Hip with Pelvis when Performed Exam date and time: 05/02/2020 8:57 PM Age: 89 years old Clinical indication: Other: Trauma; Additional info: Include pelvis trauma TECHNIQUE: Imaging protocol: XR Left hip with pelvis when performed. Views: 2 or 3 views. COMPARISON: CT ABD PELVIS WITH CONTRAST 12/05/2016 10:49 PM FINDINGS: Bones/joints: Acute intertrochanteric fracture left hip. Degenerative arthropathy left hip joint. Osteoporosis. Soft tissues: Unremarkable. IMPRESSION: Acute intertrochanteric fracture left hip. Electronically signed by: Ryder Mcdonald On 05/02/2020 21:18:16 PM PROCEDURE INFORMATION: Exam: XR Chest, 1 View Exam date and time: 05/02/2020 8:57 PM Age: 89 years old Clinical indication: Other: Hip trauma; Additional info: Preop TECHNIQUE: Imaging protocol: XR of the chest Views: 1 view. COMPARISON: CR Chest, 2 view PA, Lat 05/02/2016 10:44 AM FINDINGS: Lungs: Unremarkable. No consolidation. Pleural spaces: Unremarkable. No pleural effusion. No pneumothorax. Heart/Mediastinum: Unremarkable. No cardiomegaly. Bones/joints: Acute intertrochanteric fracture left hip. Osteoporosis. Degenerative spondylosis in the visualized lower lumbar spine. IMPRESSION: Acute intertrochanteric fracture left hip. Electronically signed by: Ryder Mcdonald On 05/02/2020 21:17:41 PM MICROBIOLOGY: Please see below. ASSESSMENT: Patient is an 89-year-old female with a past medical history significant for coronary artery disease, congestive heart failure with diastolic dysfunction, pulmonary hypertension and COPD who presented to the [facility] emergency room after mechanical fall and found to have a left intertrochanteric hip fracture PLAN: 1. Left intertrochanteric hip fracture secondary to mechanical fall -Patient suffered a mechanical fall at home. She was reaching over a couch to get something in her foot got caught resulting her to fall over. Orthopedic surgery has been contacted through the emergency department likely surgery tomorrow. -Will keep patient nothing by mouth -Pain management with morphine 2. Hypoxia -Patient was noted to become more hypoxic emergency department. Currently on 7 L nasal cannula. . She has a history of chronic central pulmonary disease and may be in a mild exacerbation. We'll give Solu-Medrol. Additionally she has a history of pulmonary hypertension and diastolic congestive heart failure although she does not appear volume overloaded. -Will continue to monitor. - DuoNeb's ordered when necessary. 3. Pulmonary hypertension and chronic diastolic congestive heart failure -Patient has a history of pulmonary hypertension and chronic diastolic it is heart failure. Currently she does appear compensated. She is hypoxic, although chest x-ray and lung sounds are clear. 4. Diabetes mellitus type 2 -Will hold glipizide -Every 6 hours fingersticks this patient is currently nothing by mouth 5. COPD -Possibly in a mild exacerbation. Will continue home inhalers and given Solu- Medrol IV. 6. Anxiety -Continue home Xanax 7. Hypertension -Continue atenolol 8. DVT prophylaxis -Mechanical Vital Signs Vital Signs Date Time Temp Pulse Resp B/P (MAP) Pulse Ox O2 Delivery O2 Flow Rate FiO2 05/03/20 01:00 97.6 96 19 108/60 (76) 88 Nasal Cannula 7.0 Laboratory Data Labs 24H Laboratory Tests 2 05/02/20 20:14: Immature Granulocyte % (Auto) 0.7, Neutrophils (%) (Auto) 85.3H, Lymphocytes (%) (Auto) 9.2L, Monocytes (%) (Auto) 3.6, Eosinophils (%) (Auto) 0.9, Basophils (%) (Auto) 0.3, Neutrophils # (Auto) 9.9H, Lymphocytes # (Auto) 1.1L, Monocytes # (Auto) 0.4, Eosinophils # (Auto) 0.1, Basophils # (Auto) 0.0, Nucleated Red Blood Cells % (auto) 0.0, Prothrombin Time 13.8, Prothromb Time International Ratio 1.04, Urine Color YELLOW, Urine Appearance HAZY, Urine pH 5.0, Urine Specific [place] 1.008, Urine Protein NEGATIVE, Urine Glucose (UA) NEGATIVE, Urine Ketones NEGATIVE, Urine Blood NEGATIVE, Urine Nitrite NEGATIVE, Urine Bilirubin NEGATIVE, Urine Urobilinogen 0.2, Urine Leukocyte Esterase 1+H, Urine WBC (Auto) 5H, Urine RBC (Auto) 1, Urine Hyaline Casts (Auto) 0, Urine Bacteria (Auto) 1+H, Urine Squamous Epithelial Cells 0, Urine Sperm (Auto) , Anion Gap 9, Glomerular Filtration Rate 30.5L, Calcium Level 9.4, DZ-Prg-W-Type Natriuretic Peptide 671H 05/02/20 22:05: Coronavirus (COVID-19)(PCR) NEGATIVE, Influenza Type A (RT-PCR) NEGATIVE, Influenza Type B (RT-PCR) NEGATIVE, Respiratory Syncytial Virus (PCR) NEGATIVE 05/03/20 01:07: Bedside [facility] CBC/BMP Laboratory Tests 05/02/20 20:14 Microbiology Microbiology 05/02/20 Urine Culture, Received Pending Home Medications Scheduled Atenolol (Atenolol) 50 Mg Tablet, 50 MG PO BID Calcitriol (Calcitriol) 0.25 Mcg Capsule, 0.25 MCG PO 5XW Furosemide (Furosemide) 40 Mg Tablet, 40 MG PO DAILY Glipizide (Glipizide) 5 Mg Tablet, 5 MG PO DAILY Potassium Chloride (Potassium Chloride) 20 Meq Tablet.er, 20 MEQ PO DAILY Salmeterol/Fluticasone (Advair 100-50 Diskus) 1 Each Blst.w.dev, 1 PUFF INH BID Sitagliptin (Januvia) 50 Mg Tablet, 50 MG PO DAILY Scheduled PRN Albuterol Sulfate (Proair Hfa) 8.5 Gm Hfa.aer.ad, 2 PUFF INH QID PRN for SHORTNESS OF BREATH Alprazolam (Alprazolam) 0.5 Mg Tablet, 0.5 MG PO BID PRN for ANXIETY Nitroglycerin (Nitrostat) 0.4 Mg Tab.subl, 0.4 MG SL NITRO PRN for CHEST PAIN Miscellaneous Medications [Patient Coment] MED REC COMPLETED VIA PHARMACY Allergies Coded Allergies: No Known Drug Allergies (Verified Allergy, Unknown, 05/02/20) ATTENDING NOTE I have personally evaluated and examined the patient. Discussed with resident/student regarding plan of care and agree with the above assessment and plan. Patient noted to be hypoxic to mid to high 80s on 5-7L of O2 via NC. Patient did appear to be in chronic respiratory insufficiency requiring 3L home O2 use. Patient presented with traumatic fall and no evidence of infection or acute pathology to explain hypoxia. Patient is mentating well and is convinced that the pulse ox is not reading accurately. Will transition patient to NRB and see if she can be tapered down again by mo rning. No evidence of PNA or volume overload. A-FIB/CHADSVASC A-FIB History Current/History of A-Fib/PAF?: No SIRI WALL DO May 03, 2020 02:58 KHADIJAH JOSEPH MD May 03, 2020 05:09
[2020-05-03] MEDS ORDERED: methylPREDNISolone 125MG 2ML VIAL IV ONE (04:15)
[2020-05-03] MEDS ORDERED: ceFAZolin SOD 2 GM in IV 1 EA IV ONE (06:00)
[2020-05-03] MEDS: HumaLOG INSULIN (NovoLOG) PER UNIT SC SCH ×5 (06:04→23:45)
[2020-05-03 06:33] LABS: HEMATOCRIT 47.5 % (36.0-47.0); HEMOGLOBIN 14.4 g/dl (12.0-15.5); MEAN CORPUSCULAR HEMOGLOBIN 28.9 pg (27.0-33.0); MEAN CORPUSCULAR HGB CONC 30.3 g/dl (32.0-36.5); MEAN CORPUSCULAR VOLUME 95.4 fl (80.0-96.0); PLATELET COUNT, AUTOMATED 202 10^3/uL (150-450); RED BLOOD COUNT 4.98 10^6/uL (4.00-5.40); WHITE BLOOD COUNT 27.9 10^3/uL (4.0-10.0)
[2020-05-03 06:56] LABS: CALCIUM LEVEL 8.9 MG/DL (8.8-10.2); CREATININE FOR GFR 2.54 MG/DL (0.55-1.30)
[2020-05-03] MEDS: ADVAIR HFA 45/21MCG INHALER INH SCH ×2 (07:24→20:31)
[2020-05-03] MEDS ORDERED: NS 500 ML IV ONE (07:30)
--- NOTE | 2020-05-03 07:42 | ECGEPIP ---
[facility] - ED Test Date: 2020-05-02 Pat Name: TRACY ELI Department: Room: - Gender: Female [employer] Work[employer]: SELMA : 1930 Requested By: MARIELLA MCKEON Order Number: [id number] Reading MD: Inez Leavitt Measurements Intervals [place] Rate: 95 P: 83 MA: 191 QRS: -82 QRSD: 90 T: 56 QT: 337 QTc: 424 Interpretive Statements SINUS RHYTHM POSSIBLE LEFT ATRIAL ENLARGEMENT LEFT ANTERIOR FASCICULAR BLOCK DELAYED R PROGRESSION MODERATE ST DEPRESSION baseline artifact may affect interpretation Electronically Signed on 05-03-2020 7:42:09 EST by Inez Leavitt
[2020-05-03] MEDS ORDERED: PIPERACILLIN/TAZOBACTAM SOD 3.375 GM in D5W MINI-BAG PLUS 50 ML IV SCH (08:00)
[2020-05-03] MEDS ORDERED: PIPERACILLIN/TAZOBACTAM SOD 2.25 GM in D5W MINI-BAG PLUS 50 ML IV SCH ×4 (08:00)
--- NOTE | 2020-05-03 08:08 | REP ---
INDICATION: ? cva. COMPARISON: None. TECHNIQUE: Helical scanning is acquired. 5 mm axial images were reformatted. Coronal MPR images were generated. FINDINGS: Bone window settings demonstrate intact bony calvarium. The visualized paranasal sinuses are clear. No intraorbital abnormality is seen. On soft tissue window settings, there is a extra-axial mass in the left frontal a lobe region 2.3 by 3.3 x 2.5 cm in diameter with a broad dural attachment and increased attenuation consistent with a benign meningioma. There is subtle mass effect on the adjacent to the frontal yost matter. There is no evidence of intracranial hemorrhage. No other intracranial mass lesion is seen. There is generalized volume loss and some small vessel changes are seen. No acute infarction is evident. Mild vascular calcification is present. IMPRESSION: 3.3 cm left frontal meningioma. No evidence of intracranial hemorrhage, infarct, extra-axial fluid collection, or midline shift.. <Electronically signed by Jamil Le > 05/03/20 0804
[2020-05-03 08:15] LABS: ABG BASE EXCESS -6.5 (-2.0-2.0); ABG HCO3 21.7 MEQ/L (22.0-26.0); ABG PARTIAL PRESSURE CO2 54.3 mmHg (35.0-45.0); ABG PARTIAL PRESSURE O2 66.3 mmHg (75.0-100.0); ABG STANDARD HCO3 19.1 MEQ/L (22.0-26.0); ABG TOTAL CO2 23.4 MEQ/L (23.0-31.0)
[2020-05-03] MEDS ORDERED: NS 1,000 ML IV SCH (08:30)
[2020-05-03] MEDS: atenoloL 50 MG TAB PO SCH ×2 (09:00→20:20)
[2020-05-03] MEDS ORDERED: ASPIRIN 300 MG SUPP PR ONE ×2 (09:00→14:30)
[2020-05-03] MEDS ORDERED: VANCOMYCIN HCL 750 MG, VIAL MATE ADAPTER 1 EACH in D5W 250 ML IV ONE (09:00)
[2020-05-03 09:09] LABS: ALBUMIN 2.4 GM/DL (3.2-5.2); BILIRUBIN,DIRECT 0.1 MG/DL (0.0-0.2); BILIRUBIN,TOTAL 0.3 MG/DL (0.2-1.0); TOTAL PROTEIN 6.2 GM/DL (6.4-8.2)
--- NOTE | 2020-05-03 09:28 | REP ---
INDICATION: Acute resp failure. COMPARISON: Comparison chest CT 14 January 2016. Comparison is made with chest radiograph from May 02, 2020. TECHNIQUE: Bed. FINDINGS: Preliminary hr representative radiograph demonstrates a significant change from the appearance of the chest x-ray on May 02, 2020. Extensive bilateral infiltrates are noted. Axial CT images demonstrate dense consolidation in both lower lobes with multiple small airspace is in the infiltrate in the right lower lobe consistent with necrotizing pneumonia. There is considerable consolidation in the left lower lobe as well. Small bilateral pleural effusions are suspected. No pericardial effusion is seen. Cardiomegaly is observed. No mediastinal adenopathy is seen. There is a left upper lobe perihilar mass lesion visible on today's CT study. This spiculated lesion is similar to the appearance on the 2016 study. It currently measures 2.1 cm anterior-posterior by 3.1 cm right to left by 2.3 cm cranial to caudal. It is quite similar in size and appearance to the 2016 prior study. There are advanced emphysematous changes throughout both upper lobes. There is some early infiltrate in the right middle lobe inferiorly. Extensive vascular calcification is again seen. Normal adrenal glands. Visualized upper abdominal structures are unremarkable. IMPRESSION: 1. Essentially stable spiculated left upper lobe perihilar mass. 2. Advanced COPD. And bilateral upper lobe emphysema. 3. Extensive bilateral lower lobe necrotizing pneumonia. 4. Very small bilateral pleural effusions. Right a little more so than left. <Electronically signed by Jamil Le > 05/03/20 0908
[2020-05-03] MEDS ORDERED: VANCOMYCIN INTERMITTENT/PULSE DOSING BY CLINICAL PHARMACIST PER DOSING PROTOCOL XX SCH (11:30)
--- NOTE | 2020-05-03 11:40 | REP ---
INDICATION: CVP. COMPARISON: Comparison chest x-ray 02 May 2020. TECHNIQUE: Portable upright AP chest radiograph. FINDINGS: Right subclavian catheter is been inserted with its tip in the expected location of the superior vena cava. Monitoring electrodes are seen. The patient is rotated somewhat to the left. Left perihilar spiculated density is seen with adjacent fibrosis unchanged. There is a mottled pattern of consolidation throughout the right lung consistent with infiltrate. Increased markings are seen in the left base behind the heart as well.. IMPRESSION: Bilateral infiltrates. Right subclavian catheter in good position. No evidence of pneumothorax.. <Electronically signed by Jamil Le > 05/03/20 [id number]
[2020-05-03] MEDS ORDERED: NOREPINEPHRINE 4 MG/4 ML AMP As Ordered ONE (12:10)
[2020-05-03 12:19] LABS: ABG BASE EXCESS -9.8 (-2.0-2.0); ABG HCO3 17.4 MEQ/L (22.0-26.0); ABG O2 SATURATION 95.4 % (95.0-99.0); ABG PARTIAL PRESSURE CO2 42.4 mmHg (35.0-45.0); ABG PARTIAL PRESSURE O2 80.7 mmHg (75.0-100.0); ABG STANDARD HCO3 16.7 MEQ/L (22.0-26.0); ABG TOTAL CO2 18.7 MEQ/L (23.0-31.0)
[2020-05-03 12:26] LABS: BASO % 0.1 % (0.0-1.0); HEMATOCRIT 43.1 % (36.0-47.0); HEMOGLOBIN 13.2 g/dl (12.0-15.5); LYMPH # 0.8 10^3/uL (1.5-5.0); LYMPH % 5.2 % (24.0-44.0); MEAN CORPUSCULAR HEMOGLOBIN 29.7 pg (27.0-33.0); MEAN CORPUSCULAR HGB CONC 30.6 g/dl (32.0-36.5); MEAN CORPUSCULAR VOLUME 97.1 fl (80.0-96.0); MONO # 0.2 10^3/uL (0.0-0.8); NEUTROPHILS # 15.1 10^3/uL (1.5-8.5); PLATELET COUNT, AUTOMATED 138 10^3/uL (150-450); RED BLOOD COUNT 4.44 10^6/uL (4.00-5.40); WHITE BLOOD COUNT 16.3 10^3/uL (4.0-10.0)
[2020-05-03] MEDS: NOREPINEPHRINE BITARTRATE 8 MG in D5W 492 ML IV SCH ×3 (12:26→22:31)
--- NOTE | 2020-05-03 12:39 | RO ---
OPERATIVE NOTE DATE OF OPERATION: / / PREOPERATIVE DIAGNOSIS: Shock. POSTOPERATIVE DIAGNOSIS: Shock. PROCEDURE PERFORMED: Right subclavian TRAIN GATE ATTENDANT placement. SURGEON: Papo Saba, , SONYAP, JENNA. PROCEDURE NOTE: The patient was seen and the procedure explained to the patient as were all the possible complications pertaining thereto including but not limited to bleeding, infection, medication reaction, and lung collapse. An informed consent was obtained. The patient was placed in the supine position. The skin overlying the right subclavian vein was prepped with ChloraPrep and draped in a sterile fashion. A 25 gauge needle was used to raise the skin with 1% lidocaine. Thereafter, a 17 gauge introducer needle was placed in through the skin and into the right subclavian vein. Free return of venous blood was obtained. A vascular tip guidewire was advanced. A small incision was made adjacent to the guidewire and a catheter advanced to a distance of 18 cm. The catheter was sewn in place. A sterile dressing was applied and a postprocedural chest x-ray performed. There were no complications.
[2020-05-03] MEDS: methylPREDNISolone 40MG 1ML VIAL IV SCH ×2 (12:45→20:13)
[2020-05-03 13:12] LABS: ALBUMIN 2.3 GM/DL (3.2-5.2); BILIRUBIN,TOTAL 0.2 MG/DL (0.2-1.0); CALCIUM LEVEL 8.5 MG/DL (8.8-10.2); CREATININE FOR GFR 2.58 MG/DL (0.55-1.30); GLOMERULAR FILTRATION RATE 18.6 (>32); POTASSIUM SERUM 5.1 MEQ/L (3.5-5.1); TOTAL PROTEIN 5.8 GM/DL (6.4-8.2)
[2020-05-03] MEDS: PIPERACILLIN/TAZOBACTAM SOD 2.25 GM in D5W MINI-BAG PLUS 50 ML IV SCH ×2 (14:23→23:38)
[2020-05-03 14:41] LABS: ABG BASE EXCESS -10.7 (-2.0-2.0); ABG HCO3 16.9 MEQ/L (22.0-26.0); ABG PARTIAL PRESSURE O2 84.6 mmHg (75.0-100.0); ABG STANDARD HCO3 16.1 MEQ/L (22.0-26.0); ABG TOTAL CO2 18.3 MEQ/L (23.0-31.0)
[2020-05-03 14:43] LABS: ABG pH (ARTERIAL) 7.203 UNITS (7.350-7.450)
--- NOTE | 2020-05-03 14:54 | CCN ---
CRITICAL CARE NOTE DATE: 05/03/2020 I was called to the patient's bedside in the intensive care unit. She was admitted in the night following a left hip fracture from a fall. Imaging showed a nondisplaced fracture of her left hip. She has an extensive past medical history on review the electronic health record, including lung cancer diagnosed in 2011, for which she received radiation, congestive heart failure, pulmonary hypertension, chronic obstructive lung disease, oxygen dependent at 3 liters, diabetes mellitus, and she has coronary artery disease and has had a stent placed. Since admission, her respiratory status has declined, requiring the application of increased oxygen and subsequently noninvasive positive pressure ventilation. Also since admission her blood pressure has declined. She is now being titrated to a mean arterial pressure of 65 with Levophed. On my arrival at bedside she is very somnolent. Does respond to voice. Her temperature is 97.8, pulse rate 100, respirations are 20, blood pressure is 82/53 on Levophed. HEENT: Her mucosae are dry. Neck is supple. There is no meningismus. Heart sounds are regular, somewhat distant. Breath sounds diminished globally and coarse. Expiratory phase is prolonged. Abdomen is soft with intact bowel sounds. Extremities are cool. Pulses are palpable times four. I see no obvious skin rashes. DIAGNOSTIC STUDIES: A white count is 16.3, hemoglobin 13.2, hematocrit 43.0, platelet count 138,000. Differential white cell count shows 93% neutrophils. Her electrolytes are sodium 142, potassium 5.1, chloride 109, CO2 of 18, BUN 49, creatinine 2.58, glucose 278. Her lactic acid level is 2.6. Calcium is 8.5 with an albumin of 2.3. Arterial blood gases show a pH of 7.23, pCO2 of 42, pO2 of 80. Chest imaging shows bilateral infiltrates. The primary problem requiring critical attention is shock. The etiology is not entirely clear. Levophed has been initiated. We will titrate to mean arterial pressure of 65. Empiric Zosyn has been associated to address infectious causes, though the presentation is not typical for infection. I am concerned that the patient may have suffered a fat embolism due to long-bone fracture, in which case care will be supported. Respiratory failure, acute on chronic. The patient is compensated at the moment on noninasive positive pressure ventilation. I will increase the pressure window in an effort to drive increased minute ventilation in light of her metabolic acidosis. Pending response to pressure therapy, it may be necessary to formally intubate her and provide mechanical ventilatory support. Acute kidney injury. The patient's creatinine is elevating, and urine output has fallen. I will discuss with the primary service, who will engage nephrology, as she has a prior history of kidney disease. Deep venous thrombosis (DVT) prophylaxis will be addressed with sequential hose and thromboembolic deterrents (TEDs) given her unstable neurologic status. The patient's condition is critical. Intensive care unit (ICU) care is appropriate. I have reviewed my findings with the attending hospitalist service and reviewed her case with the ICU nursing team. Care plans for the day have bee outlined. One hundred and twelve minutes was spent in the provision of bedside critical care and coordination, exclusive of any procedure time.
--- NOTE | 2020-05-03 14:56 | IPNPDOC ---
Text Note Date of Service The patient was seen on 05/03/20. NOTE Subjective: In the morning rapid response team was called, patient was found to have right facial droop, patient was slightly confused. CT head was done and showed no stroke or acute bleed. Patient developed acute respiratory failure requiring ventilation mask. Patient was transferred to the ICU. Objective: GENERAL APPEARANCE: In moderate distress breathing via BiPAP HEENT: no scleral icterus, plus JVD, EOMI CARDIOVASCULAR: S1S2 LUNGS: Diminished lung sounds bilaterally ABDOMEN: soft & not tender w palpitation MUSCULOSKELETAL: no cyanosis, no swelling INTEGUMENT: generalized pallor NEUROLOGICAL: Slight Right facial droop, follows commands, moves 4 extremities, no nuchal rigidity ASSESSMENT: Patient is an 89-year-old female with a past medical history significant for coronary artery disease, congestive heart failure with diastolic dysfunction, pulmonary hypertension and COPD who presented to the [facility] emergency room after mechanical fall and found to have a left intertrochanteric hip fracture Acute hypoxemic respiratory failure Most likely secondary to acute bilateral pneumonia possibly complicated with fat embolism CT showed Essentially stable spiculated left upper lobe perihilar mass.2. Advanced COPD. And bilateral upper lobe emphysema.3. Extensive bilateral lower lobe necrotizing pneumonia.4. Very small bilateral pleural effusions. Right a little more so than left. Started broad-spectrum antibiotics vancomycin IV and Zosyn IV Continue IV steroids Continue BiPAP Continue to monitor ABG Septic shock Could be secondary to bilateral pneumonia Patient developed hypotension with increased leukocytosis and hypoxia Central line was placed and pressure support started Blood culture ordered Bilateral pneumonia/ COPD Be secondary to aspiration complicated with fat embolism See above Possible CVA Patient developed right facial droop in the morning CT head negative for stroke or bleeding Unable to do brain MRI due to acute respiratory failure and BiPAP I talked to Dr. Verdin in the morning, he did not recommend TPA due to advanced age and not obvious neurological presentation of stroke type 2 diabetes Insulin sliding scale AURA/Oliguria Patient developed kidney failure most likely secondary to septic shock Also there is concern for fat embolism Continue to monitor Appreciate agree with php wordpress developer consult VS,Lorena, I+O VS, Thonge, I+O Laboratory Tests 05/02/20 20:14 05/03/20 05:44 05/03/20 12:12 Vital Signs Date Time Temp Pulse Resp B/P (MAP) Pulse Ox O2 Delivery O2 Flow Rate FiO2 05/03/20 12:26 82/54 05/03/20 09:41 90 05/03/20 07:58 86 19 85 Venturi Mask 15.0 05/03/20 06:00 97.8 I&O- Last 24 Hours up to 6 AM 05/03/20 06:00 Intake Total 307 ml Balance 307 ml ANIBAL GARCIA DO May 03, 2020 14:56
[2020-05-03] MEDS ORDERED: MIDAZOLAM INJ 2MG/2ML VIAL (J2250 PER 1MG) As Ordered ONE ×2 (15:00→15:16)
[2020-05-03] MEDS ORDERED: MIDAZOLAM INJ 2MG/2ML VIAL (J2250 PER 1MG) IV ONE ×4 (15:11→15:18)
[2020-05-03] MEDS ORDERED: REFRIGERATOR IV KEYS XX PRN (15:30)
--- NOTE | 2020-05-03 15:55 | REP ---
INDICATION: ETT. COMPARISON: Chest radiograph 11:24 a.m. 05/03/2020. TECHNIQUE: SINGLE PORTABLE AP VIEW OF THE CHEST WAS PERFORMED. FINDINGS: There is an endotracheal tube with the tip approximately 5 cm above the evelio. Right central venous catheter is again seen with tip in the superior vena cava. A nasogastric tube is seen with side port just distal to the gastroesophageal junction. Diffuse bilateral infiltrates are again noted. The infiltrates appear slightly more dense in both lung bases. Heart mediastinum are grossly unchanged. IMPRESSION: Endotracheal tube tip 5 cm above the evelio. Nasogastric tube side port just distal to the gastroesophageal junction. Diffuse bilateral infiltrates appear slightly worse in the lung bases bilaterally. <Electronically signed by Ridge Hernández > 05/03/20 [id number]
[2020-05-03] MEDS: MIDAZOLAM HCL 100 MG in D5W 80 ML IV SCH (16:45)
[2020-05-03] MEDS: MIDAZOLAM INJ 2MG/2ML VIAL (J2250 PER 1MG) IV PRN (16:47)
[2020-05-03] MEDS: IPRATROPIUM 0.5MG/ALBUTEROL 2.5MG INH SOL UD 3ML (DUONEB) NEB SCH ×2 (17:12→20:00)
[2020-05-03 17:38] LABS: ABG BASE EXCESS -7.7 (-2.0-2.0); ABG HCO3 17.1 MEQ/L (22.0-26.0); ABG O2 SATURATION 97.7 % (95.0-99.0); ABG PARTIAL PRESSURE CO2 32.8 mmHg (35.0-45.0); ABG PARTIAL PRESSURE O2 96.9 mmHg (75.0-100.0); ABG STANDARD HCO3 18.3 MEQ/L (22.0-26.0); ABG TOTAL CO2 18.1 MEQ/L (23.0-31.0); ABG pH (ARTERIAL) 7.334 UNITS (7.350-7.450)
--- NOTE | 2020-05-03 18:01 | CR ---
CONSULTATION DATE: 05/03/2020 CONSULT REQUESTING: Dr. Reed REASON FOR CONSULTATION: Left hip pain, fracture. HISTORY OF PRESENT ILLNESS: Shanti an 89-year-old female fell at her home on 05/02/2020, while trying to reach over the couch to grab something. She was evaluated by Dr. Rose with lumbar CT and hip x-rays completed at the ER. Imaging showed left hip intertrochanteric fracture. Lumbar CT consistent with degenerative findings. Her vitals were stable, but she was notably hypertensive. Unfortunately, her condition declined and she ended up being intubated. She was found to have right fascial droop and slightly confused. Head CT showed no stroke or bleed. She has been transferred to the ICU. ALLERGIES: None known to drugs. MEDICATION RECONCILIATION: Reviewed. PAST SURGICAL HISTORY: 1. Bilateral cataract surgery. 2. Cardiac catheterization many years ago with stent. 3. Inguinal hernia repair. SOCIAL HISTORY: She is a former smoker, quit greater than 20 years ago. Denies ethanol intake or illicit drugs. FAMILY HISTORY: Positive for coronary artery disease. This is as reviewed through prior director physical therapy exam, as the patient is not able to communicate right now. REVIEW OF SYSTEMS: Reviewed. LABORATORY DATA: Reviewed in chart. IMAGING STUDIES: Shows a left hip acute intertrochanteric fracture. CT lumbar spine shows mild central canal stenosis L2-3, moderate central spinal stenosis L3-4, and severe central spinal stenosis at L4-5. No acute findings. Patchy infiltrates both lungs likely represent atelectasis. Extensive pancreatic calcifications. I reviewed images and generally agree with findings as read. I might add consideration for subacute versus acute L1 and T12 vertebral body fractures in addition to T11, which is not completely visualized in the slices. PHYSICAL EXAMINATION: Today show a temperature of 97.3, pulse 73, respiratory rate 18. Most recent blood pressure 91/55. Pulse oximetry 98%. She is on a ventilator. She is resting with a tube in her noted left hip external rotation. She has a left knee compressive sleeve on. Bilateral lower extremities skin intact without any defects. IMPRESSION: Left hip acute intertrochanteric fracture sustained on 05/02/2020. The patient has decompensated and is being worked up for potential cerebrovascular accident (CVA). RECOMMENDATIONS: We will standy by as her medical workup and treatment progress. If medical team feels she is stable, then recommendation would be left hip open reduction internal fixation. At that point, we could have a better examination to see if she is having any thoracolumbar back pain. There may be a role for thoracolumbar MRI base upon my CT review, which could exhibit subacute vs chronic fracture findings. That is of course if she is having pain. I collaborated with my attending physician Dr. Orlin Henao. From an orthopedic standpoint, pain medicine for comfort. Obviously, she is nonweightbearing. Thank you for allowing me to participate in Shanti Magallanes's care. If there is any other orthopedic intervention, please feel free to contact our services. CYNTHIA
--- NOTE | 2020-05-03 18:01 | RO ---
OPERATIVE NOTE DATE OF OPERATION: 05/03/2020 PREOPERATIVE DIAGNOSIS: Acute respiratory failure with hypoxemia hypercarbia. POSTOPERATIVE DIAGNOSIS: Acute respiratory failure with hypoxemia hypercarbia. PROCEDURE PERFORMED: Endotracheal tube intubation. SURGEON: Papo Saba M.D. LOAD PLANNER: None. ANESTHESIA: DESCRIPTION OF PROCEDURE: The patient was seen in the intensive care unit on noninvasive ventilation tolerating the mask poorly. We were unable to achieve an adequate seal. The procedure of intubation and mechanical ventilation was reviewed with the patient. The risks and potential complications were reviewed including, but not limited to bleeding, infection, medication reaction, collapse of the lungs, prolonged need for mechanical ventilation, and informed consent was obtained from the patient. Thereafter, the patient was placed in the supine position. IV Versed was administered for sedation. Direct laryngoscopy was performed and the vocal cords were visualized. A #8 endotracheal tube was placed through the vocal cords to a distance of 21 cm. The balloon was inflated. CO2 was appreciated on the monitor and there were good bilateral breath sounds. Postprocedural chest x-ray is now pending. There were no complications.
[2020-05-03] MEDS: CHLORHEXIDINE GLUCONATE 0.12 % 15ML UDC (PERIDEX ORAL RINSE) MT SCH (20:13)
[2020-05-03] MEDS: SODIUM BICARBONATE 75 MEQ in NS 0.45% 1,000 ML IV SCH (20:42)
[2020-05-04] VITALS (35 sets, daily range): BP systolic 81–163; BP diastolic 47–87
[2020-05-04] MEDS: IPRATROPIUM 0.5MG/ALBUTEROL 2.5MG INH SOL UD 3ML (DUONEB) NEB SCH ×6 (01:15→20:00)
[2020-05-04] MEDS: MORPHINE 2 MG/ML 1ML VIAL (J2270) IV PRN ×3 (03:41→15:37)
[2020-05-04] MEDS: methylPREDNISolone 40MG 1ML VIAL IV SCH ×3 (04:22→22:22)
[2020-05-04] MEDS: HumaLOG INSULIN (NovoLOG) PER UNIT SC SCH ×3 (05:09→18:33)
[2020-05-04 05:29] LABS: CALCIUM LEVEL 7.5 MG/DL (8.8-10.2); CREATININE FOR GFR 3.18 MG/DL (0.55-1.30); GLOMERULAR FILTRATION RATE 14.6 (>32); POTASSIUM SERUM 4.3 MEQ/L (3.5-5.1)
[2020-05-04 05:36] LABS: ABG BASE EXCESS -4.5 (-2.0-2.0); ABG HCO3 18.1 MEQ/L (22.0-26.0); ABG O2 SATURATION 99.4 % (95.0-99.0); ABG PARTIAL PRESSURE CO2 26.9 mmHg (35.0-45.0); ABG PARTIAL PRESSURE O2 177.8 mmHg (75.0-100.0); ABG STANDARD HCO3 20.8 MEQ/L (22.0-26.0); ABG TOTAL CO2 18.9 MEQ/L (23.0-31.0); ABG pH (ARTERIAL) 7.446 UNITS (7.350-7.450)
[2020-05-04] MEDS: PIPERACILLIN/TAZOBACTAM SOD 2.25 GM in D5W MINI-BAG PLUS 50 ML IV SCH ×3 (07:00→22:24)
[2020-05-04] MEDS: ADVAIR HFA 45/21MCG INHALER INH SCH ×2 (07:31→20:38)
[2020-05-04] MEDS: atenoloL 50 MG TAB PO SCH ×2 (07:50→21:00)
--- NOTE | 2020-05-04 07:58 | REP ---
INDICATION: ett COMPARISON: 05/03/2020 TECHNIQUE: Portable AP view of the chest FINDINGS: Endotracheal tube 4 cm above the evelio. Nasogastric tube courses below left hemidiaphragm. Right central line with tip in the SVC. Mediastinum and cardiac silhouette stable. Lung benitez demonstrate chronic interstitial changes with scattered opacities and left lower lobe consolidation improved from prior examination. No new acute process appreciated. IMPRESSION: 1. Lines and tubes in satisfactory position. 2. Minimally improved aeration, but continued elements of scattered airspace disease. No obvious new acute process. <Electronically signed by Arnaldo James > 05/04/20 [id number]
[2020-05-04 08:06] LABS: BASO % 0.1 % (0.0-1.0); HEMATOCRIT 37.2 % (36.0-47.0); HEMOGLOBIN 12.4 g/dl (12.0-15.5); LYMPH # 1.3 10^3/uL (1.5-5.0); LYMPH % 6.2 % (24.0-44.0); MEAN CORPUSCULAR HEMOGLOBIN 30.2 pg (27.0-33.0); MEAN CORPUSCULAR HGB CONC 33.3 g/dl (32.0-36.5); MEAN CORPUSCULAR VOLUME 90.5 fl (80.0-96.0); MONO # 0.5 10^3/uL (0.0-0.8); MONO % 2.5 % (0.0-5.0); NEUTROPHILS # 19.1 10^3/uL (1.5-8.5); NEUTROPHILS % 90.5 % (36.0-66.0); PLATELET COUNT, AUTOMATED 145 10^3/uL (150-450); RED BLOOD COUNT 4.11 10^6/uL (4.00-5.40); WHITE BLOOD COUNT 21.1 10^3/uL (4.0-10.0)
[2020-05-04] MEDS: CHLORHEXIDINE GLUCONATE 0.12 % 15ML UDC (PERIDEX ORAL RINSE) MT SCH ×2 (08:44→22:22)
[2020-05-04] MEDS ORDERED: VANCOMYCIN HCL 500 MG in D5W MINI-BAG PLUS 100 ML IV ONE (10:00)
[2020-05-04] MEDS: SODIUM BICARBONATE 75 MEQ in NS 0.45% 1,000 ML IV SCH (10:39)
--- NOTE | 2020-05-04 11:29 | CCN ---
CRITICAL CARE NOTE DATE: 05/04/2020 START TIME: 1015 STOP TIME: 1049 SUBJECTIVE: I attended Shanti Magallanes here in the intensive care unit. The patient has been examined and chart reviewed. I spoke at length with the nurse at the bedside. OBJECTIVE: VITAL SIGNS: T-max overnight 97.7, blood pressure 90 to 160s. She is on weaning doses of Levophed. Heart rate generally in the 80s to 90s with a sinus mechanism. Respiratory rate 16-18. INTAKE AND OUTPUT: [id number] 1207 mL in with only 26 mL out. GENERAL APPEARANCE: She is sedate, but arousable when sedation is lightened. HEENT: Pupils react. Sclerae clear. NECK: Trachea is in the midline. CHEST: Shows some faint crackles dependently, fairly clear anteriorly. Expansion although borderline is symmetric. CARDIAC: Generally regular. Peripheral pulses are palpable. Trace edema especially on the side with her hip fracture. ABDOMEN: Does have active bowel sounds although they are diminished and generally soft without any obvious organomegaly or masses. EXTREMITIES: Show no cyanosis or clubbing. NEUROLOGIC: She is sedate. LABORATORY DATA: Most recent labs show a white blood cell count of 21.1, hemoglobin 12.4, platelet count 145,000, 90% segs, and no bands. Sodium 138, K of 4.3, chloride 2, CO2 of 2, CO2 of 23, BUN 61, creatinine 3.18 up from 2.58 yesterday. Most recent blood gas done on a pressure control mode, respiratory rate of 18, FiO2 of 60%, and PEEP of 8 has a pH of 7.446, pCO2 of 26.9, and pO2 of 77.8. IMAGING DATA: Chest x-ray does show less interstitial markings today. Lines and tubes in good position. IMPRESSION: Most pressing problems requiring my presence at the bedside: 1. Respiratory failure requiring mechanical ventilatory support. 2. Suspect fat emboli syndrome. 3. Acute kidney injury. 4. Deep vein thrombosis (DVT) and ulcer prophylaxis. PLAN: At this point, she remains quite critically ill. Her gas exchange has improved somewhat. The ventilator changes were made to reflect that. We will allow her to do some breathing on her own today, but she is nowhere near ready for extubation. Fluid status is being managed by the primary service and nephrology has been asked to become involved. We will begin enteral feeds. I am in agreement with the remainder of her regimen as ordered through the primary service. We will proceed as outline above. I left the bedside at 1049 hours. CRITICAL CARE TIME: 39 minutes of critical care delivered at the bedside not including procedures.
--- NOTE | 2020-05-04 11:43 | IPNPDOC ---
Text Note Date of Service The patient was seen on 05/04/20. NOTE Subjective: Patient continues to be intubated. Patient has minimal urine output overnight Objective: GENERAL APPEARANCE: Intubated female HEENT: no scleral icterus, plus JVD, EOMI CARDIOVASCULAR: S1S2 LUNGS: Diminished lung sounds bilaterally ABDOMEN: soft & not tender w palpitation MUSCULOSKELETAL: no cyanosis, no swelling INTEGUMENT: generalized pallor NEUROLOGICAL: Patient intubated, not follows commands ASSESSMENT: Patient is an 89-year-old female with a past medical history significant for coronary artery disease, congestive heart failure with diastolic dysfunction, pulmonary hypertension and COPD who presented to the [facility] emergency room after mechanical fall and found to have a left intertrochanteric hip fracture Acute hypoxemic respiratory failure Most likely secondary to acute bilateral pneumonia possibly complicated with fat embolism CT showed Essentially stable spiculated left upper lobe perihilar mass.2. Advanced COPD. And bilateral upper lobe emphysema.3. Extensive bilateral lower lobe necrotizing pneumonia.4. Very small bilateral pleural effusions. Right a little more so than left. Started broad-spectrum antibiotics vancomycin IV and Zosyn IV Continue IV steroids Continue BiPAP Continue to monitor ABG Patient was intubated on 05/04/20 Septic shock Could be secondary to bilateral pneumonia Patient developed hypotension with increased leukocytosis and hypoxia Central line was placed and pressure support started One set of Blood culture negative for 24 hours Bilateral pneumonia/ COPD Be secondary to aspiration complicated with fat embolism See above Possible CVA Patient developed right facial droop in the morning CT head negative for stroke or bleeding Unable to do brain MRI due to acute respiratory failure and BiPAP I talked to Dr. Verdin, he did not recommend TPA due to advanced age and not obvious neurological presentation of stroke type 2 diabetes Insulin sliding scale AURA/Oliguria Patient developed kidney failure most likely secondary to septic shock Also there is concern for fat embolism I talked to , most likely patient will need dialysis Elevated troponin Troponin trended up , 3d troponin 0.8 EKG Appreciate/agree with lead front desk agent consult Lorena MARTINEZ, I+O Lorena MARTINEZ I+O Laboratory Tests 05/03/20 12:12 05/04/20 04:43 05/04/20 07:45 Vital Signs Date Time Temp Pulse Resp B/P (MAP) Pulse Ox O2 Delivery O2 Flow Rate FiO2 05/04/20 11:07 102 122/87 05/04/20 10:45 98 Ventilator 05/04/20 10:11 18 05/04/20 08:00 60 05/04/20 08:00 97.6 05/03/20 12:00 15.0 I&O- Last 24 Hours up to 6 AM 05/04/20 06:00 Intake Total 981.5 ml Output Total 116 ml Balance 865.5 ml ANIBAL GARCIA DO May 04, 2020 11:43
[2020-05-04 11:55] LABS: ABG BASE EXCESS -7.3 (-2.0-2.0); ABG HCO3 15.7 MEQ/L (22.0-26.0); ABG O2 SATURATION 93.9 % (95.0-99.0); ABG PARTIAL PRESSURE CO2 25.4 mmHg (35.0-45.0); ABG PARTIAL PRESSURE O2 72.9 mmHg (75.0-100.0); ABG STANDARD HCO3 18.5 MEQ/L (22.0-26.0); ABG TOTAL CO2 16.5 MEQ/L (23.0-31.0)
--- NOTE | 2020-05-04 12:10 | ECGEPIP ---
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 Electronically Signed on 05-04-2020 12:10:34 EST by Papo Jones
--- NOTE | 2020-05-04 12:13 | ECGEPIP ---
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 ST-T abnormalities, consider inferior wall ischemia. Electronically Signed on 05-04-2020 12:13:30 EST by Papo Jones
[2020-05-04] MEDS: MIDAZOLAM HCL 100 MG in D5W 80 ML IV SCH (13:27)
[2020-05-04] MEDS: ASPIRIN 300 MG SUPP PR SCH (14:40)
[2020-05-04] MEDS: MIDAZOLAM INJ 2MG/2ML VIAL (J2250 PER 1MG) IV PRN ×2 (15:57→16:35)
[2020-05-04] MEDS: propofoL 1,000 MG in IV 1 EA IV SCH (17:39)
--- NOTE | 2020-05-04 18:58 | IPN ---
PROGRESS NOTE DATE: 05/04/2020 SUBJECTIVE: Patient was seen and examined at the bedside today morning in the intensive care unit (ICU). She remains intubated and sedated. She is currently requiring Levophed at 15 mcg. When I saw her, her FiO2 requiring on the ventilator is 40%. Patient is oliguric overnight; however, by the time I saw her in the morning she started making urine at around 75 mL an hour, which is a good sign. OBJECTIVE: Vital signs: Temperature is 98 degrees Fahrenheit, blood pressure 111/72, pulse is 119, respiratory rate 18, saturating 92% on the ventilator with 35% FiO2. Intake and output: Urine output recorded is 150 mL by the time I saw her, and that was in the morning, and I was told that was over 2 hours, so patient is making urine at around 75 mL an hour. Weight in the bed scale is 58.5 kg. PHYSICAL EXAMINATION: GENERAL: Patient is intubated, sedated. She tries to get up and opens eyes. HEAD AND NECK: Pupils are equally round and reactive to light. Patient has an endotracheal tube and orogastric tube. Neck is supple. There is no jugular venous distention (JVD). CARDIOVASCULAR: S1, S2, regular rate. No edema of the bilateral lower extremities. RESPIRATORY: Decreased breath sounds at the bases with inspiratory crackles at the bases. ABDOMEN: Soft. Positive bowel sounds. Nontender. No organomegaly. GENITOURINARY: She has an indwelling Zaman catheter. MUSCULOSKELETAL: Left leg is externally rotated, shortened because of recent fracture. CENTRAL NERVOUS SYSTEM: Patient wakes up on loud commands and moves extremities. LABORATORY REVIEW: CBC showed a WBC of 21, hemoglobin 12.4, platelets are 145. BMP showed sodium 138, potassium 4.3, chloride 102, bicarbonate 23, BUN 61, creatinine is 3.1. Lactic acid level is 3. Troponin is 0.8. Microbiology: Blood cultures are pending. Urine culture is growing Klebsiella pneumoniae, about 80,000 colonies, which is sensitive to third-generation cephalosporins and quinolones. IMAGING: A chest x-ray was done today morning, which showed lines and tubes in satisfactory position. Minimally improved aeration but continued elements of scattered airspace disease. CURRENT INPATIENT MEDICATIONS: Patient's medications were all reviewed by myself. She is currently on Levophed. She is sedated with propofol. She continues to be on Zosyn 2.25 grams every 8 hours. She continues to be on sodium bicarbonate drip at 75 mL an hour. No other significant change in the medications today as compared with yesterday. ASSESSMENT AND PLAN: 1. Acute renal failure. Patient has nonoliguric renal failure at this time. She started making urine today morning. I will continue the intravenous (IV) fluid. Since acid base and electrolytes are within the acceptable range, I will wait for her renal recovery. 2. Normal anion gap metabolic acidosis. Patient is getting sodium bicarbonate. A pH on the arterial blood gas (ABG) today is within the acceptable range at 7.41. Continue IV bicarbonate fluids. 3. Septic shock. Patient is currently on vancomycin and Zosyn to empirically cover for pneumonia. She also has urinary tract infection. She is dependent on Levophed at this time. Lactic acid is still elevated. Continue bicarbonate-containing fluids at this time. 4. Elevated troponins. Cardiology has been called on board. She is getting rectal aspirin 300 mg daily. Rest of the management is as per their recommendations. 5. Left intertrochanteric femur fracture. Patient is not a surgical candidate at this time.
[2020-05-04 19:07] LABS: CK-MB VALUE MASS 4.9 NG/ML (<3.6); MB/CK RELATIVE INDEX 2.02 (< OR =4); TROPONIN I 0.64 NG/ML (< 0.10)
--- NOTE | 2020-05-04 21:03 | REPVR ---
PROCEDURE INFORMATION: Exam: US Duplex Lower Extremity Veins, Bilateral Exam date and time: 05/04/2020 8:37 PM Age: 89 years old Clinical indication: Other: Hip fracture; Additional info: Rule out dvt TECHNIQUE: Imaging protocol: Real-time duplex ultrasound of the extremities with 2-D yost scale, color Doppler flow and spectral waveform analysis with image documentation. Complete exam focused on the bilateral lower extremity veins. COMPARISON: No relevant prior studies available. FINDINGS: Right deep veins: Unremarkable. The common femoral, femoral and popliteal veins are patent without thrombus. Normal Doppler waveforms. Normal compressibility and/or augmentation response. Right superficial veins: Saphenofemoral junction is patent without thrombus. Left deep veins: Unremarkable. The common femoral, femoral and popliteal veins are patent without thrombus. Normal Doppler waveforms. Normal compressibility and/or augmentation response. Left superficial veins: Saphenofemoral junction is patent without thrombus. Soft tissues: Unremarkable. IMPRESSION: No sonographic evidence of deep vein thrombosis. Electronically signed by: Glenroy Hooker On 05/04/2020 21:03:39 PM
[2020-05-05] VITALS (27 sets, daily range): BP systolic 85–123; BP diastolic 51–65
[2020-05-05] MEDS: HumaLOG INSULIN (NovoLOG) PER UNIT SC SCH ×5 (00:21→23:32)
[2020-05-05] MEDS: SODIUM BICARBONATE 75 MEQ in NS 0.45% 1,000 ML IV SCH (00:24)
[2020-05-05] MEDS: IPRATROPIUM 0.5MG/ALBUTEROL 2.5MG INH SOL UD 3ML (DUONEB) NEB SCH ×7 (01:05→23:54)
[2020-05-05] MEDS: methylPREDNISolone 40MG 1ML VIAL IV SCH (05:05)
[2020-05-05 05:22] LABS: BASO % 0.1 % (0.0-1.0); HEMATOCRIT 31.9 % (36.0-47.0); LYMPH # 0.6 10^3/uL (1.5-5.0); LYMPH % 4.3 % (24.0-44.0); MEAN CORPUSCULAR HEMOGLOBIN 29.1 pg (27.0-33.0); MEAN CORPUSCULAR VOLUME 91.1 fl (80.0-96.0); MONO # 0.2 10^3/uL (0.0-0.8); MONO % 1.4 % (0.0-5.0); NEUTROPHILS # 13.6 10^3/uL (1.5-8.5); NEUTROPHILS % 93.4 % (36.0-66.0); PLATELET COUNT, AUTOMATED 101 10^3/uL (150-450); WHITE BLOOD COUNT 14.5 10^3/uL (4.0-10.0)
[2020-05-05 05:28] LABS: HEMOGLOBIN 10.2 g/dl (12.0-15.5)
[2020-05-05 05:56] LABS: ALBUMIN 1.8 GM/DL (3.2-5.2); BILIRUBIN,TOTAL 0.2 MG/DL (0.2-1.0); CREATININE FOR GFR 3.18 MG/DL (0.55-1.30); GLOMERULAR FILTRATION RATE 14.6 (>32); MAGNESIUM LEVEL 1.7 MG/DL (1.8-2.4); POTASSIUM SERUM 3.7 MEQ/L (3.5-5.1); VANCOMYCIN RANDOM 15.1 UG/ML
[2020-05-05] MEDS: propofoL 1,000 MG in IV 1 EA IV SCH ×4 (07:25→22:45)
[2020-05-05] MEDS: MIDAZOLAM HCL 100 MG in D5W 80 ML IV SCH ×2 (07:45→23:38)
[2020-05-05] MEDS: PIPERACILLIN/TAZOBACTAM SOD 2.25 GM in D5W MINI-BAG PLUS 50 ML IV SCH ×3 (07:55→22:49)
[2020-05-05] MEDS: MORPHINE 2 MG/ML 1ML VIAL (J2270) IV PRN ×3 (08:07→18:03)
[2020-05-05] MEDS: ADVAIR HFA 45/21MCG INHALER INH SCH ×2 (08:19→20:08)
[2020-05-05] MEDS: atenoloL 50 MG TAB PO SCH ×2 (08:53→20:24)
[2020-05-05] MEDS: CHLORHEXIDINE GLUCONATE 0.12 % 15ML UDC (PERIDEX ORAL RINSE) MT SCH ×2 (08:54→21:03)
[2020-05-05] MEDS: ASPIRIN 300 MG SUPP PR SCH (08:55)
[2020-05-05] MEDS ORDERED: MAG SULF 1GM/100ML (MAG RUN) 1 GM in IV 1 EA IV ONE (09:00)
[2020-05-05] MEDS ORDERED: BISACODYL 10 MG SUPP PR PRN (10:00)
[2020-05-05] MEDS ORDERED: VANCOMYCIN HCL 500 MG in D5W MINI-BAG PLUS 100 ML IV ONE (10:00)
[2020-05-05] MEDS ORDERED: NS 500 ML IV ONE ×2 (10:15→19:30)
--- NOTE | 2020-05-05 10:20 | REP ---
INDICATION: ett. COMPARISON: 05/03/2020 and 05/04/2020. TECHNIQUE: SINGLE PORTABLE AP VIEW OF THE CHEST WAS PERFORMED. FINDINGS: Endotracheal tube, nasogastric tube and right central venous catheter appear essentially unchanged. Patient is rotated toward the left which somewhat limits the exam. Spiculated mass is again seen in the left upper lobe. Left lung volume appears decreased with probable elevation of the left hemidiaphragm and probable increased atelectasis in the left lung base. The right basilar infiltrate is likely unchanged given differences in technique. IMPRESSION: I suspect some degree of atelectatic change in the left base as discussed above. Otherwise stable. <Electronically signed by Ridge Hernández > 05/05/20 1016
[2020-05-05] MEDS: KCL 20MEQ IN D5/0.45NS 1000ML 1,000 ML IV SCH ×2 (10:33→17:22)
--- NOTE | 2020-05-05 11:07 | IPNPDOC ---
Text Note Date of Service The patient was seen on 05/05/20. NOTE Subjective: Patient continues to be intubated. Patient urine output improved Objective: GENERAL APPEARANCE: In moderate distress breathing via BiPAP HEENT: no scleral icterus, plus JVD, EOMI CARDIOVASCULAR: S1S2 LUNGS: Diminished lung sounds bilaterally ABDOMEN: soft & not tender w palpitation MUSCULOSKELETAL: no cyanosis, no swelling INTEGUMENT: generalized pallor NEUROLOGICAL: Slight Right facial droop, follows commands, moves 4 extremities, no nuchal rigidity ASSESSMENT: Patient is an 89-year-old female with a past medical history significant for coronary artery disease, congestive heart failure with diastolic dysfunction, pulmonary hypertension and COPD who presented to the [facility] emergency room after mechanical fall and found to have a left intertrochanteric hip fracture Acute hypoxemic respiratory failure Most likely secondary to acute bilateral pneumonia possibly complicated with fat embolism CT showed Essentially stable spiculated left upper lobe perihilar mass.2. Advanced COPD. And bilateral upper lobe emphysema.3. Extensive bilateral lower lobe necrotizing pneumonia.4. Very small bilateral pleural effusions. Right a little more so than left. Started broad-spectrum antibiotics vancomycin IV and Zosyn IV DC IV steroids Continue to monitor ABG Patient was intubated on 05/04/20 Septic shock Could be secondary to bilateral pneumonia Patient developed hypotension with increased leukocytosis and hypoxia Central line was placed and pressure support started Blood culture negative for 48 hours Urine culture positive for Klebsiella pneumonia, treated for now with broad- spectrum antibiotics Bilateral pneumonia/ COPD Be secondary to aspiration complicated with fat embolism See above Possible CVA Patient developed right facial droop in the morning CT head negative for stroke or bleeding Unable to do brain MRI due to acute respiratory failure and BiPAP I talked to Dr. Verdin, he did not recommend TPA due to advanced age and not obvious neurological presentation of stroke type 2 diabetes Insulin sliding scale AURA/Oliguria Patient developed kidney failure most likely secondary to septic shock Also there is concern for fat embolism Urine output improved Nephrology team follows her Elevated troponin Troponin trended up , 3d troponin 0.8 EKG didn't show acute ischemic changes Troponin trended down today Doppler DVT ultrasound negative VS,Fishbone, I+O VS, Fishbone, I+O Laboratory Tests 05/05/20 05:11 Vital Signs Date Time Temp Pulse Resp B/P (MAP) Pulse Ox O2 Delivery O2 Flow Rate FiO2 05/05/20 10:30 100 116/59 (78) 93 05/05/20 09:00 97.0 20 Ventilator 40 05/03/20 12:00 15.0 I&O- Last 24 Hours up to 6 AM 05/05/20 06:00 Intake Total 2085 ml Output Total 975 ml Balance 1110 ml ANIBAL GARCIA DO May 05, 2020 11:07
--- NOTE | 2020-05-05 12:28 | ECGEPIP ---
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 Faster rate but less repolarization abnormality compared with 05/03/20 Electronically Signed on 05-05-2020 12:28:17 EST by Andres Houston
--- NOTE | 2020-05-05 12:58 | CCN ---
CRITICAL CARE NOTE DATE: 05/05/2020 START TIME: 0940 STOP TIME: 1014 I again attended Shanti Magallanes here in the intensive care unit. Patient has been examined, chart reviewed. She remains intubated, sedated, and mechanically ventilated. She has a very vigorous cough and was quite animated when sedation lightened. I spoke at length with the nurse at the bedside. Maximum temperature overnight 97.4, blood pressure 84-118 systolic. She has been able to be held off of the Levophed. Heart rate 90s to the low 100s, respiratory rate 16 to low 20s with the accessory muscle use. Intake and output midnight to midnight 1556 mL in with 930 mL out. Sodium 137, potassium 3.7, chloride 99, CO2 of 27, BUN 68, creatinine 3.18, which is unchanged, glucose 299. Magnesium low at 1.7. Albumin low at 1.8. White blood cell count 14.5, hemoglobin 10.2, platelet count 101,000, 93% segs. No bands. Blood gas pending this mornings. Chest x-ray is markedly rotated, but I do not believe shows any significant changes. On exam, she is sedate. Moves all extremities. Pupils reactive. Sclerae are clear. Trachea is in the midline. Chest is diminished but symmetric expansion. Mildly hyper-resonant percussion throughout. Tactile fremitus diminished but palpable. No focal wheeze, rhonchus, or rubs are identified. Cardiac exam generally regular. Peripheral pulses palpable. Left leg remains edematous. Abdomen is minimally distended today. There are active bowel sounds. No convincing organomegaly or masses. Extremities again show changes in the left consistent with her hip fracture. Neurologically she is sedate but does move extremities. She is tolerating her tube feeds. She has not had a bowel movement yet. The most pressing problems requiring my presence at the bedside: 1. Respiratory failure requiring mechanical ventilatory support. 2. Suspected fat emboli syndrome from a left femur fracture. 3. Acute kidney injury. 4. History of lung cancer, status post localized therapy. 5. Pulmonary hypertension. 6. Congestive heart failure with preserved systolic function. 7. Ulcer and deep venous thrombosis (DVT) prophylaxis. 8. Hypotension with shock. 9. Borderline troponins. At this point, I believe clinically she is still dry. I have altered her intravenous (IV) fluids at this point, as I believe it would be more beneficial to her to avoid the use of vasopressors. I have stopped her bicarbonate drip. Will supplement her with D5 half with 28 potassium and normal saline boluses for now. Ventilator changes have been made. We will repeat a blood gas in several hours. I will recheck a troponin. We will recheck a lactate to make she it has cleared. It may be reasonable to repeat an echocardiogram, especially in view of her overall status. She is tolerating an intermittent mandatory ventilation (IMV) mode. We will diminish her positive end-expiratory pressure (PEEP) as able to facilitate weaning at some point. I will add cathartics from below, as she is tolerating her tube feeds but has not had a bowel movement yet. We will proceed as outlined above. She remains critically ill with multiorgan dysfunction. I left the bedside at 1014 hours. Thirty-four minutes of critical care time delivered at the bedside, not including procedures.
[2020-05-05] MEDS ORDERED: methylPREDNISolone 40MG 1ML VIAL IV SCH (16:00)
[2020-05-05 16:09] LABS: ABG BASE EXCESS -3.9 (-2.0-2.0); ABG HCO3 22.9 MEQ/L (22.0-26.0); ABG PARTIAL PRESSURE CO2 49.7 mmHg (35.0-45.0); ABG PARTIAL PRESSURE O2 66.4 mmHg (75.0-100.0); ABG STANDARD HCO3 21.1 MEQ/L (22.0-26.0); ABG TOTAL CO2 24.5 MEQ/L (23.0-31.0); ABG pH (ARTERIAL) 7.282 UNITS (7.350-7.450)
[2020-05-05] MEDS: ENOXAPARIN 60MG/0.6ML SYRINGE (J1650 PER 10MG) SC SCH (17:59)
[2020-05-05 18:49] LABS: ALBUMIN 1.8 GM/DL (3.2-5.2); CALCIUM LEVEL 6.6 MG/DL (8.8-10.2); CREATININE FOR GFR 2.99 MG/DL (0.55-1.30); GLOMERULAR FILTRATION RATE 15.7 (>32); PHOSPHORUS LEVEL 4.6 MG/DL (2.5-4.9); POTASSIUM SERUM 4.2 MEQ/L (3.5-5.1)
[2020-05-05 19:12] LABS: ABG BASE EXCESS -4.4 (-2.0-2.0); ABG O2 SATURATION 96.9 % (95.0-99.0); ABG PARTIAL PRESSURE CO2 46.2 mmHg (35.0-45.0); ABG PARTIAL PRESSURE O2 95.4 mmHg (75.0-100.0); ABG STANDARD HCO3 20.8 MEQ/L (22.0-26.0); ABG TOTAL CO2 23.4 MEQ/L (23.0-31.0); ABG pH (ARTERIAL) 7.296 UNITS (7.350-7.450)
--- NOTE | 2020-05-05 20:45 | IPN ---
NEPHROLOGY PROGRESS NOTE DATE: 05/05/2020 SUBJECTIVE: Patient was seen and examined at the bedside today morning. She remains intubated, sedated. Currently she is not requiring any Levophed. She was given 500 cc of normal saline bolus and started on I.V. fluid hydration. She is nonoliguric at this time. Acid base status is within the acceptable range and creatinine is stable today as compared with yesterday. OBJECTIVE: VITAL SIGNS: Temperature 97.7 degrees Fahrenheit, blood pressure 115/60, pulse 102, respiratory rate 20, saturating 97% on the vent with 50% FIO2. INTAKE AND OUTPUT: Urine output recorded as 930 mL yesterday, 480 mL so far today since overnight. Weight in the bed scale is 61 kg. PHYSICAL EXAMINATION: GENERAL: Patient is intubated, sedated. HEAD/NECK: Pupils equally round and reactive to light. She has an endotracheal tube and an orogastric tube. Neck is supple. There is no JVD. CARDIOVASCULAR: S1, S2, regular rate. No edema of the bilateral lower extremities. RESPIRATORY: Chest is clear to auscultation bilaterally. In the upper lung zones, mildly decreased breath sounds at the bases. ABDOMEN: Soft, positive bowel sounds, nontender. No organomegaly. MUSCULOSKELETAL: No clubbing or cyanosis. She has a shortened and externally rotated left leg because of hip fracture. PAIRER ODDS: Patient is sedated but she moves extremities on painful stimuli. LABORATORY REVIEW: CBC showed WBC 14.5, hemoglobin 10.2, platelets 101,000. ABG shows pH 7.29, pCO2 46, pO2 95, bicarb 22, O2 sat 96%. BMP showed sodium 135, potassium 4.2, chloride 98, bicarb 22, BUN 69, creatinine 2.9; it was 3.1 yesterday. Glucose 618. IMAGING STUDIES: A chest x-ray was done today, which showed atelectasis changes in the left base. CURRENT INPATIENT MEDICATIONS: Patient's medications were all reviewed by myself. She was given normal saline bolus I.V., is getting KCl 20 mEq and D5 half normal saline at 150 cc an hour. She is getting I.V. Vancomycin. I.V. Solu-Medrol has been stopped now. ASSESSMENT AND PLAN: 1. Acute renal failure: Patient has nonoliguric renal failure. Electrolytes and acid base status is within the acceptable range at this time. There is no urgent need of hemodialysis. I would continue to closely monitor the patient for any need of dialysis. 2. Non-anion gap metabolic acidosis: Patient was getting I.V. bicarb fluids, which have been stopped today. Continue gentle I.V. fluid hydration with normal saline now. D5 containing fluids have been stopped because the patient is hyperglycemic. 3. Hyperglycemia: Patient's sugars are more than 600 on the BMP. D5 is being stopped. Normal saline is being started. Continue insulin sliding scale coverage. 4. Sepsis secondary to bilateral necrotizing pneumonia: Patient is on broad spectrum I.V. antibiotics. There is a concern that patient likely has fat embolism because of left hip fracture. 5. Lactic acidosis: Patient was given normal saline bolus. Repeat lactic acid level is still high at 3.6. If patient becomes hypotensive again, she might need to restart Levophed.
[2020-05-05] MEDS ORDERED: HumaLOG INSULIN (NovoLOG) PER UNIT SC STA (20:49)
[2020-05-05] MEDS ORDERED: SODIUM BICARBONATE 100 MEQ in D5W 1,000 ML IV SCH (21:00)
[2020-05-05 22:30] LABS: ABG BASE EXCESS -3.4 (-2.0-2.0); ABG HCO3 22.8 MEQ/L (22.0-26.0); ABG O2 SATURATION 97.5 % (95.0-99.0); ABG PARTIAL PRESSURE CO2 46.4 mmHg (35.0-45.0); ABG PARTIAL PRESSURE O2 102.4 mmHg (75.0-100.0); ABG STANDARD HCO3 21.6 MEQ/L (22.0-26.0); ABG TOTAL CO2 24.3 MEQ/L (23.0-31.0)
[2020-05-06] VITALS (47 sets, daily range): BP systolic 67–139; BP diastolic 44–67
[2020-05-06 02:55] LABS: CALCIUM LEVEL 6.6 MG/DL (8.8-10.2); CREATININE FOR GFR 2.92 MG/DL (0.55-1.30); GLOMERULAR FILTRATION RATE 16.1 (>32); POTASSIUM SERUM 3.6 MEQ/L (3.5-5.1)
[2020-05-06] MEDS ORDERED: HumaLOG INSULIN (NovoLOG) PER UNIT SC ONE (03:15)
[2020-05-06] MEDS: IPRATROPIUM 0.5MG/ALBUTEROL 2.5MG INH SOL UD 3ML (DUONEB) NEB SCH ×6 (03:19→23:13)
[2020-05-06 05:14] LABS: BASO % 0.1 % (0.0-1.0); HEMATOCRIT 29.5 % (36.0-47.0); HEMOGLOBIN 9.4 g/dl (12.0-15.5); LYMPH # 0.5 10^3/uL (1.5-5.0); LYMPH % 4.1 % (24.0-44.0); MEAN CORPUSCULAR HEMOGLOBIN 29.5 pg (27.0-33.0); MEAN CORPUSCULAR HGB CONC 31.9 g/dl (32.0-36.5); MEAN CORPUSCULAR VOLUME 92.5 fl (80.0-96.0); MONO # 0.5 10^3/uL (0.0-0.8); MONO % 3.8 % (0.0-5.0); NEUTROPHILS # 10.9 10^3/uL (1.5-8.5); NEUTROPHILS % 90.9 % (36.0-66.0); RED BLOOD COUNT 3.19 10^6/uL (4.00-5.40)
[2020-05-06 05:30] LABS: PLATELET COUNT, AUTOMATED 93 10^3/uL (150-450)
[2020-05-06 05:33] LABS: ALBUMIN 1.7 GM/DL (3.2-5.2); BILIRUBIN,TOTAL 0.3 MG/DL (0.2-1.0); CALCIUM LEVEL 6.7 MG/DL (8.8-10.2); CREATININE FOR GFR 2.92 MG/DL (0.55-1.30); GLOMERULAR FILTRATION RATE 16.1 (>32); POTASSIUM SERUM 3.4 MEQ/L (3.5-5.1); TOTAL PROTEIN 5.1 GM/DL (6.4-8.2)
[2020-05-06] MEDS: HumaLOG INSULIN (NovoLOG) PER UNIT SC SCH ×3 (06:09→17:46)
[2020-05-06] MEDS: MIDAZOLAM INJ 2MG/2ML VIAL (J2250 PER 1MG) IV PRN ×2 (06:09→20:38)
[2020-05-06 06:11] LABS: ABG BASE EXCESS -1.6 (-2.0-2.0); ABG HCO3 23.8 MEQ/L (22.0-26.0); ABG O2 SATURATION 93.5 % (95.0-99.0); ABG PARTIAL PRESSURE O2 67.9 mmHg (75.0-100.0); ABG TOTAL CO2 25.1 MEQ/L (23.0-31.0); ABG pH (ARTERIAL) 7.361 UNITS (7.350-7.450)
[2020-05-06] MEDS: MORPHINE 2 MG/ML 1ML VIAL (J2270) IV PRN ×3 (06:21→20:19)
[2020-05-06] MEDS: PIPERACILLIN/TAZOBACTAM SOD 2.25 GM in D5W MINI-BAG PLUS 50 ML IV SCH ×2 (06:22→13:56)
[2020-05-06] MEDS ORDERED: KCL 20MEQ IN 100ML SWI (KRUN) 20 MEQ in IV 1 EA IV ONE ×2 (07:00)
[2020-05-06] MEDS: ADVAIR HFA 45/21MCG INHALER INH SCH ×2 (07:16→20:15)
[2020-05-06] MEDS ORDERED: KCL 10MEQ/100ML SWI (KRUN) 10 MEQ in IV 1 EA IV ONE (09:00)
[2020-05-06] MEDS: atenoloL 50 MG TAB PO SCH ×2 (09:00→21:00)
[2020-05-06] MEDS: CHLORHEXIDINE GLUCONATE 0.12 % 15ML UDC (PERIDEX ORAL RINSE) MT SCH ×2 (09:45→20:18)
[2020-05-06] MEDS: LEVEMIR (INSULIN DETEMIR) 1 UNITS/0.01ML SC SCH ×2 (09:45→20:18)
[2020-05-06] MEDS: ASPIRIN 300 MG SUPP PR SCH (09:47)
--- NOTE | 2020-05-06 09:48 | REP ---
INDICATION: ett. COMPARISON: 05/05/2020. TECHNIQUE: SINGLE PORTABLE AP VIEW OF THE CHEST WAS PERFORMED. FINDINGS: Bilateral infiltrates are unchanged. Heart and mediastinum appear unchanged. Endotracheal tube tip is 4.3 cm above the evelio. Right central venous catheter tip is in the superior vena cava. Nasogastric tube side port is just distal to the gastroesophageal junction. IMPRESSION: Stable exam. <Electronically signed by Ridge Hernández > 05/06/20 0912
[2020-05-06] MEDS ORDERED: VANCOMYCIN HCL 500 MG in D5W MINI-BAG PLUS 100 ML IV SCH (10:00)
--- NOTE | 2020-05-06 11:07 | IPNPDOC ---
Text Note Date of Service The patient was seen on 05/06/20. NOTE Subjective: Patient continues to be intubated. Will titrate down oxygenation Objective: GENERAL APPEARANCE: Intubated female HEENT: no scleral icterus, plus JVD, EOMI CARDIOVASCULAR: S1S2 LUNGS: Diminished lung sounds bilaterally ABDOMEN: soft & not tender w palpitation MUSCULOSKELETAL: no cyanosis, no swelling INTEGUMENT: generalized pallor NEUROLOGICAL: Patient intubated, not follows commands ASSESSMENT: Patient is an 89-year-old female with a past medical history significant for coronary artery disease, congestive heart failure with diastolic dysfunction, pulmonary hypertension and COPD who presented to the [facility] emergency room after mechanical fall and found to have a left intertrochanteric hip fracture Acute hypoxemic respiratory failure Most likely secondary to acute bilateral pneumonia possibly complicated with fat embolism CT showed Essentially stable spiculated left upper lobe perihilar mass.2. Advanced COPD. And bilateral upper lobe emphysema.3. Extensive bilateral lower lobe necrotizing pneumonia.4. Very small bilateral pleural effusions. Right a little more so than left. Started broad-spectrum antibiotics vancomycin IV and Zosyn IV DC IV steroids Continue to monitor ABG Patient was intubated on 05/04/20 Septic shock Could be secondary to bilateral pneumonia Patient developed hypotension with increased leukocytosis and hypoxia Central line was placed and pressure support started Blood culture negative for 48 hours Urine culture positive for Klebsiella pneumonia, treated for now with broad-s pectrum antibiotics Bilateral pneumonia/ COPD Be secondary to aspiration complicated with fat embolism See above Possible CVA Patient developed right facial droop in the morning CT head negative for stroke or bleeding Unable to do brain MRI due to acute respiratory failure and BiPAP I talked to Dr. Verdin, he did not recommend TPA due to advanced age and not obvious neurological presentation of stroke type 2 diabetes Insulin sliding scale HHS Patient developed hyperglycemia overnight with glucose level of 618 due to D5 IV D5 stopped Detemir twice a day Lactic acidosis Improved after fluid resuscitation AURA/Oliguria Patient developed kidney failure most likely secondary to septic shock Also there is concern for fat embolism Urine output improved Nephrology team follows her Elevated troponin Troponin trended up , 3d troponin 0.8 EKG didn't show acute ischemic changes Troponin trended down today Doppler DVT ultrasound negative Dr. Mane recommended transesophageal echo. Transthoracic echo showed possible clot in the right atrium Therapeutic dose of Lovenox started VS,Fishbone, I+O VS, Fishbone, I+O Laboratory Tests 05/05/20 17:59 05/06/20 02:14 05/06/20 04:58 Vital Signs Date Time Temp Pulse Resp B/P (MAP) Pulse Ox O2 Delivery O2 Flow Rate FiO2 05/06/20 09:00 110 88/53 (65) 94 Ventilator 40 05/06/20 08:00 99.0 20 05/05/20 18:00 50.0 I&O- Last 24 Hours up to 6 AM 05/06/20 06:00 Intake Total 3620 ml Output Total 635 ml Balance 2985 ml ANIBAL GARCIA DO May 06, 2020 11:07
[2020-05-06] MEDS: SODIUM BICARBONATE 75 MEQ in NS 0.45% 1,000 ML IV SCH (11:55)
[2020-05-06] MEDS: propofoL 1,000 MG in IV 1 EA IV SCH (12:11)
[2020-05-06] MEDS ORDERED: NS 500 ML IV ONE (13:00)
[2020-05-06] MEDS: MIDAZOLAM HCL 100 MG in D5W 80 ML IV SCH (16:53)
[2020-05-06] MEDS: ENOXAPARIN 60MG/0.6ML SYRINGE (J1650 PER 10MG) SC SCH (17:47)
[2020-05-06] MEDS ORDERED: NS 1,000 ML IV ONE (21:00)
[2020-05-06] MEDS: NOREPINEPHRINE BITARTRATE 8 MG in D5W 492 ML IV SCH (22:25)
--- NOTE | 2020-05-06 22:34 | IPN ---
NEPHROLOGY PROGRESS NOTE DATE: 05/06/2020 SUBJECTIVE: The patient was seen and examined at the bedside today morning in the ICU. She remains intubated. She needed IV normal saline fluid boluses because of lactic acidosis. She remains non oliguric at this time. Creatinine has been staying stable at less than 3. She continues to be on bicarbonate containing fluids. She was hyperglycemic yesterday. She is not requiring pressors at this time. OBJECTIVE: VITAL SIGNS: Temperature is 98 degrees Fahrenheit, blood pressure is 104/56, pulse is 112, respiratory rate of 20, saturating 94% on the ventilator at 45% FiO2. INTAKE AND OUTPUT: Urine output recorded as 675 mL yesterday, 270 mL so far today since overnight. Weight in the bed scale is 64.4 kg. PHYSICAL EXAMINATION: GENERAL APPEARANCE: The patient is intubated, lightly sedated, laying in bed. HEAD AND NECK: She has an endotracheal tube and orogastric tube. Neck is supple. There is no jugular venous distention. CARDIOVASCULAR: S1, S2, regular rate. EXTREMITIES: No edema of the bilateral lower extremities. RESPIRATORY: Chest is clear to auscultation bilaterally. Bilaterally currently no rales or rhonchi. ABDOMEN: Soft, positive bowel sounds, nontender. GENITOURINARY: She has an indwelling Zaman catheter. MUSCULOSKELETAL: She has a bruise in the left groin. She has a shortened and externally rotated left leg. CLOTH BIN PACKER: She is intubated and sedated. LAB REVIEW: CBC showed a WBC of 12. Hemoglobin is 9.4, platelet count 93. BMP showed sodium 135, potassium 3.4, chloride 98, bicarbonate 29, BUN 68, creatinine is 2.9. Lactic acid level was 2.7 in the morning, 2.2 later on. IMAGING: A chest x-ray was done today morning which showed a stable exam. CURRENT INPATIENT MEDICATIONS: The patient's medications were all reviewed by myself. She continues to be on IV bicarbonate containing fluids. I have changed them to half normal saline at 75 mEq and bicarbonate at 75 mL an hour. She was given a normal saline 500 mL bolus in the afternoon. No other significant change in the medications today. ASSESSMENT AND PLAN: 1. Acute renal failure The patient is becoming oliguric now. She has elevated lactic acid level. I am going to give her another bolus of normal saline. 2. Hypotension - The patient is not requiring pressors. She likely has fat embolism syndrome. Continue empiric antibiotics with Vancomycin and Zosyn. 3. Left hip fracture - The patient is on rectal Aspirin and on Lovenox. Hemoglobin level is dropping and she has a bruise in the left groin. I would suggest stopping anticoagulation. 4. Insulin dependent diabetes and hyperglycemia - bicarbonate containing fluids have been changed into half normal saline with bicarbonate. Continue insulin sliding scale coverage. MTDD
[2020-05-07] VITALS (104 sets, daily range): BP systolic 71–147; BP diastolic 36–90
[2020-05-07] MEDS: PIPERACILLIN/TAZOBACTAM SOD 2.25 GM in D5W MINI-BAG PLUS 50 ML IV SCH ×4 (00:05→23:40)
[2020-05-07] MEDS: MIDAZOLAM INJ 2MG/2ML VIAL (J2250 PER 1MG) IV PRN ×3 (00:41→12:58)
[2020-05-07] MEDS: HumaLOG INSULIN (NovoLOG) PER UNIT SC SCH ×5 (00:41→23:32)
[2020-05-07] MEDS: MORPHINE 2 MG/ML 1ML VIAL (J2270) IV PRN ×4 (00:55→17:01)
[2020-05-07] MEDS: SODIUM BICARBONATE 75 MEQ in NS 0.45% 1,000 ML IV SCH (02:06)
[2020-05-07] MEDS: IPRATROPIUM 0.5MG/ALBUTEROL 2.5MG INH SOL UD 3ML (DUONEB) NEB SCH ×5 (03:08→21:16)
[2020-05-07 05:51] LABS: BASO % 0.2 % (0.0-1.0); EOS % 0.1 % (0.0-3.0); HEMATOCRIT 30.6 % (36.0-47.0); HEMOGLOBIN 9.6 g/dl (12.0-15.5); LYMPH # 1.3 10^3/uL (1.5-5.0); LYMPH % 7.4 % (24.0-44.0); MEAN CORPUSCULAR HEMOGLOBIN 29.2 pg (27.0-33.0); MEAN CORPUSCULAR HGB CONC 31.4 g/dl (32.0-36.5); MONO # 0.9 10^3/uL (0.0-0.8); MONO % 5.3 % (0.0-5.0); NEUTROPHILS # 14.7 10^3/uL (1.5-8.5); NEUTROPHILS % 84.2 % (36.0-66.0); PLATELET COUNT, AUTOMATED 139 10^3/uL (150-450); RED BLOOD COUNT 3.29 10^6/uL (4.00-5.40); WHITE BLOOD COUNT 17.5 10^3/uL (4.0-10.0)
[2020-05-07 06:18] LABS: ABG BASE EXCESS 0.9 (-2.0-2.0); ABG HCO3 25.7 MEQ/L (22.0-26.0); ABG O2 SATURATION 97.1 % (95.0-99.0); ABG PARTIAL PRESSURE CO2 41.6 mmHg (35.0-45.0); ABG PARTIAL PRESSURE O2 91.8 mmHg (75.0-100.0); ABG STANDARD HCO3 25.3 MEQ/L (22.0-26.0); ABG TOTAL CO2 26.9 MEQ/L (23.0-31.0); ABG pH (ARTERIAL) 7.408 UNITS (7.350-7.450)
[2020-05-07 06:24] LABS: ALBUMIN 1.8 GM/DL (3.2-5.2); BILIRUBIN,TOTAL 0.3 MG/DL (0.2-1.0); CALCIUM LEVEL 6.4 MG/DL (8.8-10.2); CREATININE FOR GFR 2.76 MG/DL (0.55-1.30); GLOMERULAR FILTRATION RATE 17.2 (>32); MAGNESIUM LEVEL 2.1 MG/DL (1.8-2.4); POTASSIUM SERUM 4.4 MEQ/L (3.5-5.1); TOTAL PROTEIN 4.9 GM/DL (6.4-8.2)
--- NOTE | 2020-05-07 08:28 | REP ---
INDICATION: ett. COMPARISON: Comparison chest x-ray May 06, 2020. TECHNIQUE: Portable upright AP chest radiograph. FINDINGS: Endotracheal tube is seen in good position above the level of the transverse aorta. NG tube enters the left upper quadrant. Monitoring electrodes are noted. A right subclavian catheter terminates in paramedial position under the right proximal clavicle. There is blunting of the left pleural angle and the left hemidiaphragm is obscured similar to the previous radiograph. There is also slight blunting and pleural opacity at the right base. Bibasilar infiltrates persist unchanged. No new infiltrate is seen.. IMPRESSION: Bibasilar infiltrates and small effusions persist unchanged from the 06 May 2020 study.. <Electronically signed by Jamil Le > 05/07/20 [id number]
[2020-05-07] MEDS: ADVAIR HFA 45/21MCG INHALER INH SCH ×2 (08:29→21:16)
[2020-05-07] MEDS: atenoloL 50 MG TAB PO SCH ×2 (09:00→21:00)
[2020-05-07] MEDS: MIDAZOLAM HCL 100 MG in D5W 80 ML IV SCH (09:44)
[2020-05-07] MEDS: DOXYCYCLINE HYCLATE 100 MG in D5W MINI-BAG PLUS 100 ML IV SCH ×2 (10:17→20:38)
[2020-05-07] MEDS: ASPIRIN 300 MG SUPP PR SCH (10:18)
[2020-05-07] MEDS: CHLORHEXIDINE GLUCONATE 0.12 % 15ML UDC (PERIDEX ORAL RINSE) MT SCH ×2 (10:18→20:41)
[2020-05-07] MEDS: LEVEMIR (INSULIN DETEMIR) 1 UNITS/0.01ML SC SCH ×2 (10:18→20:48)
--- NOTE | 2020-05-07 11:41 | IPNPDOC ---
Text Note Date of Service The patient was seen on 05/07/20. NOTE Subjective: Patient continues to be intubated. Objective: GENERAL APPEARANCE: Intubated female HEENT: no scleral icterus, plus JVD, EOMI CARDIOVASCULAR: S1S2 LUNGS: Diminished lung sounds bilaterally ABDOMEN: soft & not tender w palpitation MUSCULOSKELETAL: no cyanosis, no swelling INTEGUMENT: generalized pallor NEUROLOGICAL: Patient intubated, not follows commands ASSESSMENT: Patient is an 89-year-old female with a past medical history significant for coronary artery disease, congestive heart failure with diastolic dysfunction, pulmonary hypertension and COPD who presented to the [facility] emergency room after mechanical fall and found to have a left intertrochanteric hip fracture Acute hypoxemic respiratory failure Most likely secondary to acute bilateral pneumonia possibly complicated with fat embolism CT showed Essentially stable spiculated left upper lobe perihilar mass.2. Advanced COPD. And bilateral upper lobe emphysema.3. Extensive bilateral lower lobe necrotizing pneumonia.4. Very small bilateral pleural effusions. Right a little more so than left. Started broad-spectrum antibiotics vancomycin IV and Zosyn IV MRSA negative, DC vancomycin, I added doxycycline to cover atypicals DC IV steroids Continue to monitor ABG Patient was intubated on 05/04/20 Septic shock Could be secondary to bilateral pneumonia Patient developed hypotension with increased leukocytosis and hypoxia Central line was placed and pressure support started Blood culture negative for 48 hours Urine culture positive for Klebsiella pneumonia, treated for now with broad- spectrum antibiotics Bilateral pneumonia/ COPD Be secondary to aspiration complicated with fat embolism See above Possible CVA Patient developed right facial droop in the morning CT head negative for stroke or bleeding Unable to do brain MRI due to acute respiratory failure and BiPAP I talked to Dr. Verdin, he did not recommend TPA due to advanced age and not obvious neurological presentation of stroke type 2 diabetes Insulin sliding scale HHS Patient developed hyperglycemia overnight with glucose level of 618 due to D5 IV D5 stopped Detemir twice a day Lactic acidosis Improved after fluid resuscitation AURA/Oliguria Patient developed kidney failure most likely secondary to septic shock Also there is concern for fat embolism Urine output improved Nephrology team follows her Elevated troponin Troponin trended up , 3d troponin 0.8 EKG didn't show acute ischemic changes Troponin trended down today Doppler DVT ultrasound negative Dr. Mane recommended transesophageal echo. Transthoracic echo showed possible clot in the right atrium Continue Lovenox VS,Fishbone, I+O VS, Fishbone, I+O Laboratory Tests 05/07/20 05:28 Vital Signs Date Time Temp Pulse Resp B/P (MAP) Pulse Ox O2 Delivery O2 Flow Rate FiO2 05/07/20 10:30 109 102/62 (75) 93 05/07/20 09:30 16 Ventilator 40 05/07/20 08:00 97.6 05/05/20 18:00 50.0 I&O- Last 24 Hours up to 6 AM 05/07/20 06:00 Intake Total 3130 ml Output Total 365 ml Balance 2765 ml ANIBAL GARCIA May 07, 2020 11:41
--- NOTE | 2020-05-07 12:06 | CCN ---
CRITICAL CARE NOTE DATE: 05/07/2020 START TIME: 0930 hours. STOP TIME: 1008 hours. SUBJECTIVE: I again attended Shanti Magallanes in the intensive care unit. Patient has been examined and chart reviewed. I spoke at length with the nurse at the bedside. I was called yesterday by Dr. Houston, who read her repeat echocardiogram. The density of the right atrium was felt to be a carrier formation and not a clot. She has severe pulmonary hypertension with compromise of the septum into the left ventricle. Temperature overnight 98.9, blood pressure 80s to the 140s, heart rate in the 100s to the 120s with a sinus mechanism. She occasionally overbreathes the vent. Intake and output midnight to midnight: 3405 mL in with 390 mL out. Most recent blood gas done on SIMV 20, tidal volume 420, PEEP of 5, FiO2 of 45%, pH 7.408, pCO2 of 41.6 and pO2 of 91.8. Sodium 135, potassium 4.4, chloride 96, CO2 30, BUN 73, creatinine mildly diminished from yesterday at 2.76. Lactate did clear early yesterday at 1.7. White blood cell count 17.5, hemoglobin 9.6, platelet count 139,000, 84% segs, no bands. MEDICATION LIST: Has been reviewed. She remains on: - morphine - insulin - albuterol nebulizers - anxiolytics - atenolol - low dose Levophed - Zosyn - Versed - propofol - bicarbonate drip - doxycycline PHYSICAL EXAMINATION: She is sedate, but with sedation lightened, basically just flails her arms and does not follow commands. Pupils do react. Borderline disconjugate gaze. Trachea is in the midline. CHEST: Fairly clear anteriorly. Diminished breath sounds at the bases, maybe some early egophony, left greater than right. HEART EXAM: Generally regular. Second heart sound prominent. Peripheral pulses palpable. Edema in the left lower extremity unchanged. ABDOMEN: Does have active bowel sounds. No organomegaly or masses. EXTREMITIES: Again showed changes consistent with her femur fracture on the left. NEUROLOGIC: She is sedate. MOST PRESSING PROBLEMS REQUIRING MY PRESENCE AT THE BEDSIDE: 1. Respiratory failure requiring mechanical ventilatory support. 2. Suspected fat emboli syndrome. 3. Severe pulmonary hypertension. 4. Diabetes mellitus. 5. Kidney injury, acute on chronic. 6. Left femur fracture. At this point, she has cleared her lactate. Her blood gas has shown improvement. My concern is her hemodynamic status, as she has profound pulmonary hypertension. Certainly, this needs to be taken into account with any manipulations in her hemodynamic status. She will be very sensitive to any drop in her filling pressures and will not tolerate dehydration. Deep venous thrombosis and ulcer prophylaxis being managed by the primary service, as is her nutrition. I am in agreement with her other medications. We will make gentle changes in her ventilatory status in hopes of achieving weaning at some point, but her mental status also presents a significant issue. At this point, she is not an operative candidate for her femur, and this will present the real problem in the long run. We will proceed as outlined above. She had requested that "everything be done" prior to her change in status and until I hear otherwise from the primary service or from her healthcare proxy, we will proceed in that direction. I left the bedside at 1008 hours. Thirty-eight minutes of critical care time at the bedside, not including procedures. CYNTHIA
[2020-05-07] MEDS: METOCLOPRAMIDE INJ 10MG/2ML VIAL (J2765 PER 1) IV SCH ×3 (12:34→23:40)
[2020-05-07] MEDS ORDERED: NS 1,000 ML IV SCH (13:00)
[2020-05-07 14:41] LABS: ABG BASE EXCESS 3.5 (-2.0-2.0); ABG HCO3 28.8 MEQ/L (22.0-26.0); ABG O2 SATURATION 88.7 % (95.0-99.0); ABG PARTIAL PRESSURE CO2 47.5 mmHg (35.0-45.0); ABG PARTIAL PRESSURE O2 54.5 mmHg (75.0-100.0); ABG STANDARD HCO3 27.4 MEQ/L (22.0-26.0); ABG TOTAL CO2 30.3 MEQ/L (23.0-31.0); ABG pH (ARTERIAL) 7.401 UNITS (7.350-7.450)
[2020-05-07] MEDS ORDERED: LIDOCAINE 1% MDV 20ML VIAL As Ordered ONE (15:42)
[2020-05-07] MEDS: propofoL 1,000 MG in IV 1 EA IV SCH (16:38)
--- NOTE | 2020-05-07 16:42 | CCN ---
CRITICAL CARE NOTE DATE: 05/06/2020 (start time 1007 and stop time 1043). SUBJECTIVE: I again attended Shanti Magallanes here in the Intensive Care Unit. Patient has been examined and chart was reviewed. I spoke at length with the nurse at the bedside as well as Dr. Castillo from nephrology and Dr. Valdez who was her primary attending. She remains intubated, sedated, mechanically ventilated. OBJECTIVE: VITAL SIGNS: T-max overnight 99.0, blood pressure 87 and 110 and she was back on Levophed, heart rate generally low 100's with a sinus mechanism. She does over breath the ventilator. IN'S AND OUT'S: Midnight to midnight show 3,435 cc in with 675 cc out. Last CVP was 12 to 13. MOST RECENT LABORATORIES: White blood cell count 12.0, hemoglobin 9.4, platelet count 93,000. Sodium 135, potassium 3.4, chloride 98, CO2 29, BUN 68, creatinine stable at 2.92. Glucose this morning 376. Albumin depressed at 1.7. Arterial blood gas done on SIMV rate of 20, pressure support of 12, PEEP of 5, FIO2 of 40%, shows pH 7.361, pCO2 43.0, pO2 67.9. She was back on low dose bicarb drip as well. IMAGING STUDIES: Chest x-ray shows continued bibasilar findings; left greater than right. Lines and tubes in good position. PHYSICAL EXAMINATION: GENERAL: She is sedate and quite agitated when aroused, essentially flailing all over extremities. HEENT: Pupils react. Sclerae clear. Trachea is in the midline. LUNGS: Do show some dependent crackles with decreased breath sounds egophony at the bases. No convincing rhonchus or wheeze. CARDIAC: Tachycardic but regular. Peripheral pulses are palpable. Left lower extremity edema unchanged. ABDOMEN: Minimally distended. There are hyperactive bowel sounds. Flatus is noted during the exam. No convincing organomegaly or masses. EXTREMITIES: Do show the beginnings of what looks like a small hematoma medially in the proximal left thigh, consistent with her fracture. No other cyanosis or clubbing. NEUROLOGIC: As outlined above. PROBLEMS: Most pressing problem requiring my presence at the bedside: 1. Hypoxemic respiratory failure: [place] to be on the basis of fat emboli syndrome. 2. Acute kidney injury. 3. Altered mental status. 4. Metabolic acidosis. I had a long discussion with the other physicians involved in her care. I do believe she was clinically dry. With a significant amount of volume resuscitation, her CVP essentially remained unchanged. She did show improvement in her acidosis as well as in her lactate and repeat is pending. She is beginning to make urine, although her creatinine is unchanged. She remains on sequential stockings and TEDs for her fracture as opposed to full anticoagulation in view of her issues with mental status. Regarding her fat emboli, supportive care is the standard. She is on empiric antimicrobials through the primary service. I do see that Lovenox was started by primary service and as long as she is bedridden, I have no issues with this whatsoever. Her diabetes is being managed through the primary service. We will continue as outlined above. No plans for weaning today in view of all of the above. My hope is that we will be able to push her somewhat in that regard in the next several days. The issue will be, as I am told, she did not wish prolonged support and we will need to discuss with her healthcare proxy what their timeframe would be should we not be able to achieve weaning and extubation in the next several days. We will proceed as outlined above. Her prognosis remains guarded at best. I left the bedside at 1043 hours. A total of 36 minutes of critical care time at the bedside not including procedures. CYNTHIA
--- NOTE | 2020-05-07 17:16 | REP ---
PROCEDURE NAME: PICC LINE INSERTION W/SITERITE CLINICAL INFORMATION: Irritating medications. COMPARISON: None. PROCEDURE DESCRIPTION: The procedure was performed by LISA Sebastian, under the direct supervision of Dr. Le. The risks and benefits of the procedure were explained to the patient's son who is also her healthcare proxy and an informed consent was obtained verbally. Directly prior to the start of the procedure a formal time-out was completed in the patient's room, as this procedure was done at the bedside. The left basilic vein was localized using ultrasound guidance. The skin was prepped and draped in sterile fashion. One mL of 1% lidocaine 10 mg/mL was used as a local anesthetic. Using ultrasound guidance the left basilic vein was cannulated, and a 0.018 guidewire was inserted and advanced to the level of SVC using serial chest x-rays as guidance. The needle was removed and a 5.5 Filipino dilator and peel-away sheath was inserted over the guidewire. A 5.5 Filipino dual lumen catheter was cut to a length of 40 cm. The dilator was removed and the catheter was inserted over the guidewire with the tip ending at the level of the SVC. The peel-away sheath was removed and the catheter was flushed with heparinized saline as per hospital protocol. The catheter was affixed to the skin and a sterile dressing was applied. The patient tolerated the procedure well and there were no immediate complications. CONCLUSION: PICC line insertion into the left basilic vein. No fluoroscopy was utilized for this procedure. All imaging was obtained with serial chest x-rays at the bedside. <Electronically signed by Krystina Flores > 05/07/20 [id number] <Electronically signed by Jamil Le > 05/07/20 [id number]
[2020-05-07] MEDS ORDERED: SODIUM CHLORIDE 0.9% INJ 10 ML SYR IV PRN (18:15)
[2020-05-07] MEDS: NOREPINEPHRINE BITARTRATE 8 MG in D5W 492 ML IV SCH (19:59)
[2020-05-08] VITALS (97 sets, daily range): BP systolic 62–153; BP diastolic 40–72
[2020-05-08] MEDS: IPRATROPIUM 0.5MG/ALBUTEROL 2.5MG INH SOL UD 3ML (DUONEB) NEB SCH ×6 (00:38→20:00)
[2020-05-08] MEDS: propofoL 1,000 MG in IV 1 EA IV SCH ×2 (01:30→17:45)
[2020-05-08] MEDS: MIDAZOLAM HCL 100 MG in D5W 80 ML IV SCH ×2 (02:37→17:44)
[2020-05-08] MEDS: NOREPINEPHRINE BITARTRATE 8 MG in D5W 492 ML IV SCH ×2 (04:08→14:55)
[2020-05-08 05:38] LABS: ABG BASE EXCESS 1.2 (-2.0-2.0); ABG HCO3 27.8 MEQ/L (22.0-26.0); ABG O2 SATURATION 95.6 % (95.0-99.0); ABG PARTIAL PRESSURE CO2 54.1 mmHg (35.0-45.0); ABG PARTIAL PRESSURE O2 81.9 mmHg (75.0-100.0); ABG STANDARD HCO3 25.5 MEQ/L (22.0-26.0); ABG TOTAL CO2 29.5 MEQ/L (23.0-31.0); ABG pH (ARTERIAL) 7.329 UNITS (7.350-7.450)
[2020-05-08] MEDS: SODIUM CHLORIDE 0.9% INJ 10 ML SYR IV SCH ×2 (06:00→17:45)
[2020-05-08 06:01] LABS: BASO % 0.2 % (0.0-1.0); EOS % 0.2 % (0.0-3.0); HEMATOCRIT 30.1 % (36.0-47.0); HEMOGLOBIN 9.5 g/dl (12.0-15.5); LYMPH # 1.6 10^3/uL (1.5-5.0); LYMPH % 10.1 % (24.0-44.0); MEAN CORPUSCULAR HEMOGLOBIN 29.5 pg (27.0-33.0); MEAN CORPUSCULAR HGB CONC 31.6 g/dl (32.0-36.5); MEAN CORPUSCULAR VOLUME 93.5 fl (80.0-96.0); MONO # 0.9 10^3/uL (0.0-0.8); MONO % 5.5 % (0.0-5.0); NEUTROPHILS # 13.3 10^3/uL (1.5-8.5); NEUTROPHILS % 81.6 % (36.0-66.0); PLATELET COUNT, AUTOMATED 139 10^3/uL (150-450); RED BLOOD COUNT 3.22 10^6/uL (4.00-5.40); WHITE BLOOD COUNT 16.3 10^3/uL (4.0-10.0)
[2020-05-08] MEDS: METOCLOPRAMIDE INJ 10MG/2ML VIAL (J2765 PER 1) IV SCH ×3 (06:12→17:45)
[2020-05-08] MEDS: HumaLOG INSULIN (NovoLOG) PER UNIT SC SCH ×3 (06:12→18:00)
[2020-05-08] MEDS: PIPERACILLIN/TAZOBACTAM SOD 2.25 GM in D5W MINI-BAG PLUS 50 ML IV SCH ×3 (06:13→22:58)
[2020-05-08 06:25] LABS: BILIRUBIN,TOTAL 0.4 MG/DL (0.2-1.0); CALCIUM LEVEL 6.5 MG/DL (8.8-10.2); CREATININE FOR GFR 2.94 MG/DL (0.55-1.30); MAGNESIUM LEVEL 2.1 MG/DL (1.8-2.4); POTASSIUM SERUM 4.2 MEQ/L (3.5-5.1)
[2020-05-08] MEDS: ADVAIR HFA 45/21MCG INHALER INH SCH ×2 (07:14→20:44)
--- NOTE | 2020-05-08 08:00 | REP ---
INDICATION: ett. COMPARISON: Comparison study 07 May 2020. TECHNIQUE: Portable upright AP chest radiograph. FINDINGS: Endotracheal and nasogastric tubes remain in place unchanged. Left-sided PICC line is seen terminating in the expected location of the superior vena cava. Oxygen delivery tubing and monitoring electrodes are seen. There is evidence of bilateral pleural effusion, left larger than right. Hazy increased parenchymal density is seen in the right base consistent with infiltrate. There are a few air bronchograms in the left lower lobe region also noted unchanged.. IMPRESSION: No new infiltrate. Small bilateral pleural effusions, left greater than right. Hazy infiltrate persists right base.. <Electronically signed by Jamil Le > 05/08/20 [id number]
[2020-05-08] MEDS: atenoloL 50 MG TAB PO SCH (08:30)
[2020-05-08] MEDS: CHLORHEXIDINE GLUCONATE 0.12 % 15ML UDC (PERIDEX ORAL RINSE) MT SCH ×2 (08:43→20:03)
[2020-05-08] MEDS: DOXYCYCLINE HYCLATE 100 MG in D5W MINI-BAG PLUS 100 ML IV SCH ×2 (08:43→19:49)
[2020-05-08] MEDS: ASPIRIN 300 MG SUPP PR SCH (08:44)
[2020-05-08] MEDS: LEVEMIR (INSULIN DETEMIR) 1 UNITS/0.01ML SC SCH ×2 (08:44→20:52)
--- NOTE | 2020-05-08 09:29 | IPN ---
NEPHROLOGY PROGRESS NOTE DATE: 05/07/2020 SUBJECTIVE: Shanti was seen and examined this morning at the bedside in the Intensive Care Unit. Her hemodynamics have worsened over the past 24 hours. She was persistently hypotensive yesterday evening and blood pressure was down to systolic in the 70's and 80's. She was started on Levophed infusion and she also received a 1.5 liter normal saline bolus. She did have a mild lactic acidosis that did improve after IV fluids were given, however given her ongoing severe hypotension now requiring pressors, her urine output has become oliguric and her renal function is expected to worsen. She remains intubated on 50% FiO2 and nursing staff reports that she had large residuals and that tube feeds were held. PHYSICAL EXAMINATION: VITAL SIGNS: Temperature 98.9, heart rate mostly in the 110's, blood pressure systolic ranging from 70's to 100 over diastolic 30'3 to 50's, saturating 92% on 50% FiO2. INTAKE AND OUTPUT: Intake yesterday was 3.4 liters. Urine output was only 400 mL, net positive 3 liters. Weight in the bed scale today is 69.5 kg which is 5 kilos up from yesterday. GENERAL APPEARANCE: The patient is seen intubated and sedated and in no distress. She does become restless with touch and with physical exam. HEENT: Pupils react to light. Endotracheal tube in place. CHEST: There is a central line in the right chest wall. LUNGS: Diminished breath sounds bilaterally with occasional crackles. CARDIAC: Tachycardic. I am unable to appreciate murmur. There is at least 1+ leg edema in the peripheries and 1-2+ in the dependent area. GENITOURINARY: Indwelling Zaman catheter with some urine. ABDOMEN: Mildly distended. There were hypoactive bowel sounds. NEUROLOGICAL: She is intubated and sedated. LABORATORY STUDIES: Labs today show sodium of 135, potassium 4.4, bicarbonate 30, BUN 73, creatinine 2.7, albumin 1.8, hemoglobin 9.6, white count 17.5, pH 7.40, pco2 41, pO2 91. IMAGING: Chest x-ray done this morning. Bibasilar infiltrates and small effusions persist. INPATIENT MEDICATIONS: Albumin 25%, 25 grams q. 8 hourly x4 doses was ordered. She is on Levophed infusion. I note she was started on Doxycycline 100 mg IV q. 12 hourly. I discontinued her sodium bicarbonate drip and switched her to normal saline at 60 mL an hour. She continues on IV Zosyn. Her insulin was adjusted by the Primary Team. She was started on Reglan 10 mg IV q. 6 hourly and Morphine p.r.n. The remainder of medications are unchanged as compared to yesterday. PROBLEMS: 1. Acute kidney injury superimposed on chronic kidney disease stage 3B. The patient is now oliguric with urine output in the past 24 hours of only 390 mL. It is due to worsening hemodynamics. Her blood pressure was very soft the past 24 hours. She was given a 1.5 liter normal saline bolus and she is now back on Levophed infusion. However her urine output remains suboptimal and the patient is also insignificant positive and the patient is also in significant positive fluid balance. I feel that she is unfortunately at high risk for further deterioration in renal function, and she will most likely be a poor candidate for dialysis. I will discuss this with her family and discuss further goals of care with them should she happen to develop dialysis needs. At present there is no urgent indication for dialysis. 2. Septic shock - The patient is now back on Levophed pressor support. Her mild lactic acidosis did resolve with a 1.5 liter normal saline bolus. She is on broad spectrum antibiotics as per the Primary Team with therapeutic random Vancomycin level and also on Doxycycline and Zosyn. Her blood cultures are thus far negative, and urine culture grew Klebsiella. Continue Levophed for MAP greater than 65. 3. Metabolic acidosis and lactic acidosis her lactic acidosis did resolve after further IV fluids and her serum bicarbonate is up to 30. I have discontinued the sodium bicarbonate drip and switching her over to low rate normal saline at this time given that her tube feeds are presently held because of large volume residual. 4. Hypoalbuminemia I am going to give her albumin in the hopes that it may also help with oncotic pressure and stabilization of her MAP along with renal perfusion.
--- NOTE | 2020-05-08 09:36 | REP ---
INDICATION: r/o sbo COMPARISON: None. TECHNIQUE: Portable semi upright AP view of the abdomen and pelvis. FINDINGS: The bowel gas pattern is relatively nonspecific although fecal stasis as well as enteritis cannot be excluded. No definite bowel obstruction or obvious perforation. No organomegaly. Nasogastric tube suggested in the left upper quadrant. Skeletal structures demonstrate age-related osteopenia and degenerative changes. There is evidence for intertrochanteric fracture to the left hip and correlation is required. IMPRESSION: 1. Bowel pattern suggests fecal stasis and possible enteritis. 2. Intertrochanteric fracture to the left femur warrants further investigation <Electronically signed by Arnaldo James > 05/08/20 [id number]
[2020-05-08] MEDS: MORPHINE 2 MG/ML 1ML VIAL (J2270) IV PRN ×4 (09:47→18:10)
[2020-05-08] MEDS ORDERED: FLEET ENEMA PR ONE (11:00)
--- NOTE | 2020-05-08 11:30 | ECHO ---
DATE OF PROCEDURE: 05/03/2020 Age: 89 Gender: Female PATIENT LOCATION: [facility], Room 21. REFERRING PHYSICIAN: Alan Valdez DO REASON FOR STUDY: Respiratory failure. 2D MEASUREMENTS: IVS 1.2 cm LV 2.3 cm LVPW 1.3 cm LA 2.0 cm Aorta 3.1 cm IVC 2.5 cm DOPPLER MEASUREMENT Peak velocity across the aortic valve 0.7 m/s Peak velocity across the LVOT 0.4 m/s Mitral E 0.7 Maximum tricuspid valve velocity 3.0 m/s 2D COMMENTS: 1. Normal left ventricular size, wall thickness, and normal global left ventricular systolic function. The estimated left ventricular systolic ejection fraction is 55% to 60%. 2. Normal left atrium. The right atrium and the right ventricle are enlarged. The right ventricular free wall appeared to be hypokinetic consistent with right ventricular systolic dysfunction. 3. The ventricular septum was flat in both systole and diastole consistent with severe pulmonary hypertension related to both pressure and volume overload. 4. Normal aortic root. 5. A small pericardial effusion was noted, no evidence of cardiac tamponade. 6. Mildly calcified aortic valve with normal leaflet excursion. Normal tricuspid valve. The pulmonic valve appeared to be normal. The proximal pulmonary artery branches were not well visualized. 7. The inferior vena cava was dilated, central venous pressure mildly elevated. Doppler detects trace aortic regurgitation, mild tricuspid regurgitation, mild pulmonic regurgitation. The calculated pulmonary artery systolic pressure varies between 40 to 50 mmHg, but most likely underestimated. Assessment of the left ventricular diastolic function was limited. IMPRESSION: 1. Normal global left ventricular systolic function. Assessment of the left ventricular diastolic function was limited. 2. Aortic valve sclerosis with trace aortic regurgitation, but no aortic stenosis. 3. Mild tricuspid regurgitation with moderate pulmonary hypertension. There are findings consistent with severe pulmonary hypertension. 4. The inferior vena cava was dilated, central venous pressure is most likely elevated. 5. Bubble study done with agitated normal saline did not reveal any passage of bubbles from the right heart chamber to the left. 6. There was an echogenic structure in the right atrium that measured 3.4 cm long and 0.4 cm wide, mobile, not thin enough to represent Chiari network and not thick enough to represent eustachian valve. I would recommend a transesophageal echocardiogram and this was discussed with the patients hospitalist. Trace to small pericardial effusion noted, no evidence of cardiac tamponade. MTDD
--- NOTE | 2020-05-08 12:39 | IPNPDOC ---
Text Note Date of Service The patient was seen on 05/08/20. NOTE Subjective: Patient continues to be intubated. Patient has significant abdominal distention, residual around 1 L Objective: GENERAL APPEARANCE: Intubated female HEENT: no scleral icterus, plus JVD, EOMI CARDIOVASCULAR: S1S2 LUNGS: Diminished lung sounds bilaterally ABDOMEN: soft & not tender w palpitation MUSCULOSKELETAL: no cyanosis, no swelling INTEGUMENT: generalized pallor NEUROLOGICAL: Patient intubated, not follows commands ASSESSMENT: Patient is an 89-year-old female with a past medical history significant for coronary artery disease, congestive heart failure with diastolic dysfunction, pulmonary hypertension and COPD who presented to the [facility] emergency room after mechanical fall and found to have a left intertrochanteric hip fracture Acute hypoxemic respiratory failure Most likely secondary to acute bilateral pneumonia possibly complicated with fat embolism CT showed Essentially stable spiculated left upper lobe perihilar mass.2. Advanced COPD. And bilateral upper lobe emphysema.3. Extensive bilateral lower lobe necrotizing pneumonia.4. Very small bilateral pleural effusions. Right a little more so than left. Started broad-spectrum antibiotics vancomycin IV and Zosyn IV MRSA negative, DC vancomycin, I added doxycycline to cover atypicals DC IV steroids Continue to monitor ABG Patient was intubated on 05/04/20 I will discuss with family the goal of treatment Septic shock Could be secondary to bilateral pneumonia Patient developed hypotension with increased leukocytosis and hypoxia Central line was placed and pressure support started Blood culture negative for 48 hours Urine culture positive for Klebsiella pneumonia, treated for now with broad- spectrum antibiotics Bilateral pneumonia/ COPD Be secondary to aspiration complicated with fat embolism See above Possible CVA Patient developed right facial droop in the morning CT head negative for stroke or bleeding Unable to do brain MRI due to acute respiratory failure and BiPAP I talked to Dr. Verdin, he did not recommend TPA due to advanced age and not obvious neurological presentation of stroke type 2 diabetes Insulin sliding scale HHS Resolved Patient developed hyperglycemia overnight with glucose level of 618 due to D5 IV D5 stopped Detemir twice a day Lactic acidosis Improved after fluid resuscitation AURA/Oliguria Patient developed kidney failure most likely secondary to septic shock Also there is concern for fat embolism Urine output improved, but remains suboptimal. No indications for dialysis for now Nephrology team follows her Elevated troponin Troponin trended up , 3d troponin 0.8 EKG didn't show acute ischemic changes Troponin trended down today Doppler DVT ultrasound negative Dr. Mane recommended transesophageal echo. Transthoracic echo showed possible clot in the right atrium Continue Lovenox Constipation Abdominal x-ray showed Bowel pattern suggests fecal stasis and possible enteritis Dulcolax Fleet Enema Hypoalbuminemia Nephrology team recommended albumin IV infusion which can possibly help with blood pressure support VS,Fishbone, I+O VS, Fishbone, I+O Laboratory Tests 05/08/20 05:43 Vital Signs Date Time Temp Pulse Resp B/P (MAP) Pulse Ox O2 Delivery O2 Flow Rate FiO2 05/08/20 09:57 16 05/08/20 09:47 Ventilator 45 05/08/20 07:14 109 94 05/08/20 07:00 125/63 (83) 05/08/20 06:49 98.0 05/05/20 18:00 50.0 I&O- Last 24 Hours up to 6 AM 05/08/20 06:00 Intake Total 2746.9 ml Output Total 545 ml Balance 2201.9 ml ANIBAL GARCIA DO May 08, 2020 12:39
--- NOTE | 2020-05-08 13:10 | CCN ---
CRITICAL CARE NOTE DATE: 05/08/2020 START TIME: 10:20 STOP TIME: 11:03 SUBJECTIVE: I again attended Shanti Magallanes here in the Intensive Care Unit. The patient has been examined and chart reviewed. I spoke at length with Dr. Valdez regarding her status this morning. T-max overnight 98.4, blood pressure 60s to the 130s, heart rate generally in the 90s to the one-teens. She does over-breathe the ventilator. Input and output midnight to midnight: 2,660 mL in with 440 mL out. Most recent laboratories show a blood gas with a pH of 7.329, pCO2 of 54.1, PaO2 81.9, on an SIMV mode, rate of 16, tidal volume 420, PEEP of 5, pressure support of 12 and FiO2 of 60%. White blood cell count 16.3, hemoglobin 9.5, platelet count of 139,000, 81% segs, no bands. Sodium 132, potassium 4.2, chloride 93, CO2 30, BUN 80, creatinine mildly up at 2.94. Lactic acid yesterday cleared at 1.7. Chest x-ray shows lines and tubes in good position, still with some atelectatic changes at the bases. OBJECTIVE: She is sedate, agitated when aroused. HEENT: Sclerae clear. Trachea is in the midline. Chest shows diminished but symmetric expansion, a little more marked at the bases. Cardiac exam generally regular. Peripheral pulses are diminished but palpable, no edema. Abdomen is soft. There are active bowel sounds. Extremities show no cyanosis or clubbing. Edema consistent with her femur fracture. Echocardiogram final report is still pending but I did receive preliminary report from Dr. Houston regarding her significant pulmonary hypertension. MOST PRESSING PROBLEMS REQUIRING MY PRESENCE AT THE BEDSIDE: 1. [id number] respiratory failure both hypoxemic and hypercapnic. 2. Advanced obstructive lung disease. 3. Severe pulmonary hypertension. 4. Acute kidney injury. 5. Femur fracture. 6. Altered mental status. 7. Sepsis. I had a long discussion with Dr. Valdez this morning. At this point we have made no headway regarding weaning from the ventilator and I believe unfortunately in view of her severe pulmonary hypertension, the likelihood of that happening in the very near future is negligible. The patient had opted for a reasonable attempt at full support and I believe we have achieved that but unfortunately the outcome is not what we all had hoped. I am in agreement with her current level of support. We are unable to make any further ventilator manipulations in view of her pulmonary hypertension and her respiratory acidosis this morning. When sedation is lightened, she is agitated. Nephrology is involved with her care as well. At this point she has made minimal progress. It may be very appropriate at this point to have further discussions with the family regarding limitations of care as the next step for her clearly would be a tracheostomy if she was able to tolerate it. She would not tolerate operative intervention regarding her femur and therefore will be bedridden for quite sometime time. We await the outcome of the family discussion. Her prognosis overall in view of that is guarded to grim. I left the bedside at 1103 hours. Thirty-three minutes of critical care time at the bedside, not including procedures.
[2020-05-08] MEDS ORDERED: NS 0.45% 1,000 ML IV SCH (13:15)
--- NOTE | 2020-05-08 14:20 | ECHO ---
DATE OF PROCEDURE: 05/05/2020 Age: 89 Gender: Female Height: 64 inches Weight: 134 pounds Body surface area: 1.65 m2 PATIENT LOCATION: Inpatient PCU, room 3221. REFERRING PHYSICIAN: Ulices Chicas M.D. INDICATION: Congestive heart failure (CHF). History of lung cancer post- radiation therapy. MEASUREMENTS: 2D Measurements: RV 4.6 cm LV 3.2 cm Septum 1.1 cm Posterior wall 1.1 cm Aortic Root 3.4 cm LA 3.2 cm LVEF 55% Doppler Measurements: AV 1.1 m/s LVOT 0.86 m/s MV-E 97, A 119, E/A ratio 0.8 E prime medial 9, A prime medial 11.7, E prime lateral 8.2 Average E/E prime ratio 11.3/PCWP 15.9 mmHg PV 0.75 m/s Pulmonary artery acceleration time 63 msec RVSP 69-74 mmHg IVC 2.3 cm COMMENTS: Normal sinus rhythm with sinus tachycardia without intraventricular conduction disturbance. M-mode and two-dimensional echocardiography was performed with pulse, continuous wave, color flow, and tissue Doppler studies. Normal left ventricular size and wall thickness with D-shaped septum both in systole and diastole consistent with severe right ventricular pressure overload. Other left ventricular wall segments move normally. Global left ventricular systolic performance is still within normal limits. Normal left atrial size with grade 1 LV diastolic dysfunction, but current estimated mean left atrial pressure upper limits of normal. At least moderately dilated right ventricle and prominently dilated right atrium with right ventricular free wall hypokinesis and Doppler evidence of severe pulmonary hypertension. Dilated IVC with absent respiratory collapse in keeping with severely increased central venous pressure/right heart failure. Normal aortic dimensions. Mild aortic valvular sclerosis without functional abnormality. Mild degenerative changes of the mitral valve apparatus with slow flow pattern and mild insufficiency. Normal appearing tricuspid valve with at least moderate to moderately severe insufficiency. Prominent Chiari network visualized in the right atrium adjacent to the inferior vena cava. No other intracardiac mass. Miniscule posterior pericardial effusion. A preliminary report of this study was relayed to Dr. Chicas at 3 p.m. 05/06/2020. [facility]
[2020-05-09] VITALS (81 sets, daily range): BP systolic 87–128; BP diastolic 50–64
[2020-05-09] MEDS: IPRATROPIUM 0.5MG/ALBUTEROL 2.5MG INH SOL UD 3ML (DUONEB) NEB SCH ×6 (00:38→20:18)
[2020-05-09] MEDS: METOCLOPRAMIDE INJ 10MG/2ML VIAL (J2765 PER 1) IV SCH ×5 (01:07→23:14)
[2020-05-09] MEDS: NOREPINEPHRINE BITARTRATE 8 MG in D5W 492 ML IV SCH ×2 (03:14→03:15)
[2020-05-09 05:21] LABS: BASO % 0.1 % (0.0-1.0); EOS # 0.1 10^3/uL (0.0-0.5); EOS % 0.8 % (0.0-3.0); HEMATOCRIT 26.9 % (36.0-47.0); HEMOGLOBIN 8.7 g/dl (12.0-15.5); LYMPH # 1.3 10^3/uL (1.5-5.0); LYMPH % 8.2 % (24.0-44.0); MEAN CORPUSCULAR HEMOGLOBIN 30.1 pg (27.0-33.0); MEAN CORPUSCULAR HGB CONC 32.3 g/dl (32.0-36.5); MEAN CORPUSCULAR VOLUME 93.1 fl (80.0-96.0); MONO # 0.8 10^3/uL (0.0-0.8); MONO % 4.8 % (0.0-5.0); NEUTROPHILS # 13.6 10^3/uL (1.5-8.5); NEUTROPHILS % 84.7 % (36.0-66.0); PLATELET COUNT, AUTOMATED 129 10^3/uL (150-450); RED BLOOD COUNT 2.89 10^6/uL (4.00-5.40)
[2020-05-09 05:45] LABS: ALBUMIN 2.4 GM/DL (3.2-5.2); BILIRUBIN,TOTAL 0.7 MG/DL (0.2-1.0); CALCIUM LEVEL 6.4 MG/DL (8.8-10.2); CREATININE FOR GFR 3.03 MG/DL (0.55-1.30); GLOMERULAR FILTRATION RATE 15.5 (>32); MAGNESIUM LEVEL 2.2 MG/DL (1.8-2.4); POTASSIUM SERUM 3.6 MEQ/L (3.5-5.1); TOTAL PROTEIN 5.3 GM/DL (6.4-8.2)
[2020-05-09 05:53] LABS: ABG BASE EXCESS 1.4 (-2.0-2.0); ABG HCO3 27.6 MEQ/L (22.0-26.0); ABG O2 SATURATION 95.2 % (95.0-99.0); ABG PARTIAL PRESSURE O2 80.2 mmHg (75.0-100.0); ABG STANDARD HCO3 25.7 MEQ/L (22.0-26.0); ABG TOTAL CO2 29.2 MEQ/L (23.0-31.0); ABG pH (ARTERIAL) 7.343 UNITS (7.350-7.450)
[2020-05-09] MEDS: HumaLOG INSULIN (NovoLOG) PER UNIT SC SCH ×5 (05:58→23:15)
[2020-05-09] MEDS: propofoL 1,000 MG in IV 1 EA IV SCH ×2 (06:23→17:55)
[2020-05-09] MEDS: PIPERACILLIN/TAZOBACTAM SOD 2.25 GM in D5W MINI-BAG PLUS 50 ML IV SCH ×3 (06:23→23:15)
[2020-05-09] MEDS: SODIUM CHLORIDE 0.9% INJ 10 ML SYR IV SCH ×2 (06:24→18:00)
--- NOTE | 2020-05-09 08:03 | REP ---
INDICATION: ett COMPARISON: 05/08/2020 TECHNIQUE: Portable AP view of the chest FINDINGS: Lines and tubes in stable satisfactory position. Cardiac silhouette within normal limits. Bilateral lower lobe infiltrates/consolidations with possible layering pleural effusions essentially unchanged. New areas of linear atelectasis in the left mid lung zone suggested. No pneumothorax. IMPRESSION: Diffuse bilateral infiltrates/consolidations and possible small layering effusions essentially unchanged. New platelike atelectasis in the left perihilar mid lung zone. <Electronically signed by Arnaldo Jmaes > 05/09/20 0752
[2020-05-09] MEDS: CHLORHEXIDINE GLUCONATE 0.12 % 15ML UDC (PERIDEX ORAL RINSE) MT SCH ×2 (08:06→20:46)
[2020-05-09] MEDS: MORPHINE 2 MG/ML 1ML VIAL (J2270) IV PRN ×5 (08:07→20:44)
[2020-05-09] MEDS: ASPIRIN 300 MG SUPP PR SCH (08:07)
[2020-05-09] MEDS: DOXYCYCLINE HYCLATE 100 MG in D5W MINI-BAG PLUS 100 ML IV SCH ×2 (08:07→20:45)
[2020-05-09] MEDS: MIDAZOLAM HCL 100 MG in D5W 80 ML IV SCH (08:18)
[2020-05-09] MEDS: LEVEMIR (INSULIN DETEMIR) 1 UNITS/0.01ML SC SCH (09:00)
--- NOTE | 2020-05-09 09:27 | IPN ---
PROGRESS NOTE DATE: 05/08/2020 SUBJECTIVE: Shanti is seen and examined this morning at the bedside in the Intensive Care Unit. She remains intubated on 50% FIO2 and continues on Levophed infusion as well. Her urine output the past two days was very poor, less than 500 ml a day but her urine output does seem to be improving today with consistent Levophed pressor support. I did talk to the patient's family and gave them an update regarding her clinical condition and recent worsening renal function. PHYSICAL EXAMINATION: VITAL SIGNS: Temperature 98.0, pulse 100, respiratory rate 22, blood pressure is 118/61, saturating 93 to 94% on FIO2 50%. INTAKE AND OUTPUT: Intake yesterday was 2.6 liters, urine output yesterday was only 440 ml but urine output thus far today is already 800 ml. Weight on the bed scale today is 71.9 kg. GENERAL APPEARANCE: Patient is seen intubated and sedated but does notably become agitated with physical exam. HEENT: Her sclera are clear. Her pupils are reactive. She has a PICC line. HEART: Heart sounds are regular. There is 1+ edema in her extremities. LUNGS: Lung sounds are symmetric without crackle or rale. ABDOMEN: Soft and mildly distended. Bowel sounds are hypoactive. GENITOURINARY: Zaman catheter. SKIN: Ecchymosis at the site of left hip fracture. There is also pallor. NEUROLOGIC: She is sedated but becomes restless and agitated with physical exam. She is breathing above the vent. LABORATORY DATA: Laboratory studies today shows white count 16.3, hemoglobin 9.5, platelets 139,000, sodium 132, potassium 4.2, bicarbonate 30, BUN 80, creatinine 2.9, GFR 16, albumin 2.0. Chest x-ray this morning shows bilateral pleural effusion, left larger than right but overall small, hazy infiltrate right base. X-ray of the abdomen today shows bowel pattern suggesting fecal stasis. INPATIENT MEDICATIONS: She continues on Versed drip and Levophed infusion and propofol. I started her on 1/2 normal saline at 40 ml/hr. She continues on IV Doxycycline and Zosyn. Her remainder of medications are unchanged from prior with the exception in the ICU she got a one time dose of Fleet enema. PROBLEMS: 1. 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 The patient as oliguric on May 07 and May 06, however today she is now non-oliguric and urine output is improving due to improved hemodynamics. I spoke with the nursing staff and I do not want to wean off her Levophed. I feel the pressor support is helping with the renal perfusion. I am also going to continue her on half normal saline 40 ml at this time. I did discuss her renal failure with her family members. There is no indication for dialysis at this time but I will continue the conversation with her family over the next couple of days as I feel overall she would be a poor candidate for dialysis should the need arise. 2. Acute hypoxemic respiratory failure, vent dependent, FIO2 requirements are stable at 45 to 50%. Chest x-ray is noted with small bilateral pleural effusions. She is not suitable for diuresis at this time. She continues on broad spectrum empiric antibiotics, Vancomycin and Zosyn along with Doxycycline. She has been vent dependent for several days now. 3. Septic shock. Patient continues with Levophed pressor support and as her hemodynamics have improved her urine output has improved as well. She is on broad spectrum antimicrobials. Her white count has slowly downtrended. There is no ongoing lactic acidosis. Possible fat embolism causing further complication as well. 4. Nutritional support. The patient has had large residuals and gastric drainage is up to 900 ml today. I started her on half-normal saline. We may need to switch over to TPN.
[2020-05-09] MEDS ORDERED: FLEET ENEMA PR PRN (10:15)
[2020-05-09] MEDS: ADVAIR HFA 45/21MCG INHALER INH SCH ×2 (10:57→20:18)
--- NOTE | 2020-05-09 11:33 | IPNPDOC ---
Text Note Date of Service The patient was seen on 05/09/20. NOTE Subjective: Patient continues to be intubated. I talked to her son Evgeny in the morning, I explain the current situation with our treatment and grim prognosis. Her son asked a few days to allow all family members to come to the town to say goodbye to her mom. Objective: GENERAL APPEARANCE: Intubated female HEENT: no scleral icterus, plus JVD, EOMI CARDIOVASCULAR: S1S2 LUNGS: Diminished lung sounds bilaterally ABDOMEN: soft & not tender w palpitation MUSCULOSKELETAL: no cyanosis, no swelling INTEGUMENT: generalized pallor NEUROLOGICAL: Patient intubated, not follows commands ASSESSMENT: Patient is an 89-year-old female with a past medical history significant for coronary artery disease, congestive heart failure with diastolic dysfunction, pulmonary hypertension and COPD who presented to the [facility] emergency room after mechanical fall and found to have a left intertrochanteric hip fracture Acute hypoxemic respiratory failure Most likely secondary to acute bilateral pneumonia possibly complicated with fat embolism CT showed Essentially stable spiculated left upper lobe perihilar mass.2. Advanced COPD. And bilateral upper lobe emphysema.3. Extensive bilateral lower lobe necrotizing pneumonia.4. Very small bilateral pleural effusions. Right a little more so than left. Started broad-spectrum antibiotics vancomycin IV and Zosyn IV MRSA negative, DC vancomycin, I added doxycycline to cover atypicals DC IV steroids Continue to monitor ABG Patient was intubated on 05/04/20 The son Evgeny will discuss with other family members comfort measure only today Septic shock Could be secondary to bilateral pneumonia Patient developed hypotension with increased leukocytosis and hypoxia Central line was placed and pressure support started Blood culture negative for 48 hours Urine culture positive for Klebsiella pneumonia, treated for now with broad- spectrum antibiotics Bilateral pneumonia/ COPD Be secondary to aspiration complicated with fat embolism See above Possible CVA Patient developed right facial droop in the morning CT head negative for stroke or bleeding Unable to do brain MRI due to acute respiratory failure and BiPAP I talked to Dr. Verdin, he did not recommend TPA due to advanced age and not o bvious neurological presentation of stroke type 2 diabetes Insulin sliding scale HHS Resolved Patient developed hyperglycemia overnight with glucose level of 618 due to D5 IV D5 stopped Lactic acidosis Improved after fluid resuscitation AURA/Oliguria Patient developed kidney failure most likely secondary to septic shock Also there is concern for fat embolism Urine output improved, but remains suboptimal. No indications for dialysis for now Nephrology team follows her Elevated troponin Troponin trended up , 3d troponin 0.8 EKG didn't show acute ischemic changes Troponin trended down today Doppler DVT ultrasound negative Dr. Mane recommended transesophageal echo. Transthoracic echo showed possible clot in the right atrium Continue Lovenox Constipation Abdominal x-ray showed Bowel pattern suggests fecal stasis and possible enteritis Dulcolax Fleet Enema Hypoalbuminemia Nephrology team recommended albumin IV infusion which can possibly help with blood pressure support VS,Fishbone, I+O VS, Fishbone, I+O Laboratory Tests 05/09/20 04:50 Vital Signs Date Time Temp Pulse Resp B/P (MAP) Pulse Ox O2 Delivery O2 Flow Rate FiO2 05/09/20 11:00 87 109/59 (76) 96 05/09/20 10:00 50 05/09/20 10:00 16 Ventilator 05/09/20 08:00 97.8 05/05/20 18:00 50.0 I&O- Last 24 Hours up to 6 AM 05/09/20 06:00 Intake Total 2202.9 ml Output Total 1745 ml Balance 457.9 ml ANIBAL GARCIA DO May 09, 2020 11:33
--- NOTE | 2020-05-09 12:36 | CCN ---
CRITICAL CARE NOTE DATE: 05/09/2020 START TIME: 929 STOP TIME: 10:12 SUBJECTIVE: I again attended Shanti Magallanes here in the Intensive Care Unit. The patient has been examined, chart reviewed. I had a very lengthy discussion at the bedside with her nurse today. OBJECTIVE: VITAL SIGNS: T-max overnight 98.0, blood pressure 87/120s and she remains on Levophed. Heart rate 90 to the 100s, respiratory rate 16 to occasionally 18 without accessory muscle use. Input and output midnight to midnight 2,269 mL in with 1,760 mL out. Most recent laboratories show a white blood cell count of 16.0, hemoglobin 8.7, platelet count of 129,000, 84% segs, no bands. Sodium 134, K 3.6, chloride 92, CO2 of 30, BUN 82, creatinine mildly elevated from yesterday at 3.03. Arterial blood gas done on an SIMV of 16, tidal volume 420, PEEP of 5, pressure support of 12, and FiO2 of 50% has a pH of 7.343, pCO2 of 52.0, PaO2 of 80. Chest x-ray done this morning shows lines and tubes in good position. She remains with increased vasculature bilaterally, cardiomegaly, and I cannot rule out small bilateral effusions. No new culture data. Urine from 05/02 had grown Klebsiella. Medication list has been reviewed. She remains on Levophed, Zosyn, Versed, propofol, doxycycline, Reglan, insulin coverage and bronchodilators. She is on Morphine for pain and Vicodin was just added down her tube today for longer lasting coverage. GENERAL: On exam, she is sedate. HEENT: Pupils are small but react. Sclerae are clear. Bilateral arcus senilis. Trachea is in the midline. CHEST: Chest shows diminished but symmetric expansion. There are some crackles dependently. No wheeze or rhonchi. CARDIAC: Cardiac exam is distant, generally regular. Peripheral pulses are diminished. Edema is unchanged. ABDOMEN: Abdomen is soft, minimally distended. There are active bowel sounds although mildly hypoactive. No obvious organomegaly or masses. EXTREMITIES: No cyanosis or clubbing. NEUROLOGIC: Neurologically she is sedate but when sedation lightens, she is agitated but does not follow commands. THE MOST PRESSING PROBLEMS REQUIRING MY PRESENCE AT THE BEDSIDE: 1. Respiratory failure [id number]. 2. Advance obstructive lung disease. 3. Profound pulmonary hypertension. 4. Acute kidney injury. 5. Suspected CVA. 6. Left femur fracture. 7. Suspected fat emboli syndrome. ASSESSMENT AND PLAN: At this point I believe we have reached the limits of what we can do from a pulmonary standpoint. I had a long discussion with Dr. Valdez her primary attending yesterday and was under the impression that he was to speak to the family regarding potential comfort measures only care. I am told that did not happen. From a renal standpoint, she clearly will not tolerate dialysis and I am not sure she will tolerate CRRT especially in view of her pulmonary hypertension. Any significant drop in her systolic blood pressure likely will result in hemodynamic collapse and cardiac arrest from which I believe it would be unrecoverable in view of her known pulmonary hypertension severity. I will augment her pain control as I do believe she still has some significant issues in that regard. She is not tolerating enteral feeds and if she is unable to do so, if we are to continue care then she would need TPN. Certainly this can be either done by myself or more likely Nephrology, especially if they are considering CRRT. For now I continued her other medications. Empiric antimicrobials are in place and we probably can stop those in the next day or so. We completed a reasonable course. She remains on ulcer and DVT prophylaxis. At this point her prognosis is grim to guarded and I do not see her weaning from the ventilator any time soon. If she is not going to be able to tolerate the other interventions discussed above, then withdrawal of care and comfort measures may be the most appropriate but certainly this is a decision to be made between the primary service and the family. We will proceed as outlined above. I left the bedside at 10:12 hours. Forty two minutes of critical care time at the bedside not including procedures.
[2020-05-09] MEDS: NORCO, ANEXSIA 5/325MG TABLET (HYDROcodone/ACETAMINOPHEN) PO PRN ×2 (12:44→23:14)
[2020-05-09] MEDS ORDERED: [UNRECOGNIZED DRUG - OTHER] IV SCH ×5 (18:00)
[2020-05-09] MEDS ORDERED: SODIUM CHLORIDE IV SCH ×5 (18:00)
[2020-05-09] MEDS ORDERED: CALCIUM GLUCONATE IV SCH ×5 (18:00)
[2020-05-10] VITALS (46 sets, daily range): BP systolic 64–166; BP diastolic 37–73
[2020-05-10] MEDS: MIDAZOLAM HCL 100 MG in D5W 80 ML IV SCH ×2 (01:30→17:51)
[2020-05-10] MEDS: NOREPINEPHRINE BITARTRATE 8 MG in D5W 492 ML IV SCH ×2 (03:45→23:16)
[2020-05-10] MEDS: MORPHINE 2 MG/ML 1ML VIAL (J2270) IV PRN ×4 (03:46→23:15)
[2020-05-10] MEDS: IPRATROPIUM 0.5MG/ALBUTEROL 2.5MG INH SOL UD 3ML (DUONEB) NEB SCH ×6 (04:25→20:13)
[2020-05-10 05:15] LABS: BASO % 0.2 % (0.0-1.0); EOS # 0.3 10^3/uL (0.0-0.5); EOS % 1.6 % (0.0-3.0); HEMATOCRIT 26.7 % (36.0-47.0); HEMOGLOBIN 8.5 g/dl (12.0-15.5); LYMPH % 6.4 % (24.0-44.0); MEAN CORPUSCULAR HEMOGLOBIN 29.8 pg (27.0-33.0); MEAN CORPUSCULAR HGB CONC 31.8 g/dl (32.0-36.5); MEAN CORPUSCULAR VOLUME 93.7 fl (80.0-96.0); MONO # 0.8 10^3/uL (0.0-0.8); MONO % 5.3 % (0.0-5.0); NEUTROPHILS # 13.2 10^3/uL (1.5-8.5); NEUTROPHILS % 84.5 % (36.0-66.0); PLATELET COUNT, AUTOMATED 137 10^3/uL (150-450); RED BLOOD COUNT 2.85 10^6/uL (4.00-5.40); WHITE BLOOD COUNT 15.6 10^3/uL (4.0-10.0)
[2020-05-10 05:30] LABS: BILIRUBIN,TOTAL 0.6 MG/DL (0.2-1.0); CALCIUM LEVEL 7.2 MG/DL (8.8-10.2); CREATININE FOR GFR 3.23 MG/DL (0.55-1.30); GLOMERULAR FILTRATION RATE 14.4 (>32); MAGNESIUM LEVEL 2.1 MG/DL (1.8-2.4); POTASSIUM SERUM 3.5 MEQ/L (3.5-5.1)
[2020-05-10] MEDS: METOCLOPRAMIDE INJ 10MG/2ML VIAL (J2765 PER 1) IV SCH ×4 (05:44→23:16)
[2020-05-10] MEDS: HumaLOG INSULIN (NovoLOG) PER UNIT SC SCH ×4 (05:44→23:16)
[2020-05-10] MEDS: SODIUM CHLORIDE 0.9% INJ 10 ML SYR IV SCH ×2 (05:45→17:51)
[2020-05-10] MEDS: propofoL 1,000 MG in IV 1 EA IV SCH ×2 (05:45→18:22)
[2020-05-10] MEDS: PIPERACILLIN/TAZOBACTAM SOD 2.25 GM in D5W MINI-BAG PLUS 50 ML IV SCH ×3 (06:09→21:19)
[2020-05-10 06:32] LABS: ABG BASE EXCESS -0.2 (-2.0-2.0); ABG HCO3 26.2 MEQ/L (22.0-26.0); ABG O2 SATURATION 97.8 % (95.0-99.0); ABG PARTIAL PRESSURE CO2 51.7 mmHg (35.0-45.0); ABG PARTIAL PRESSURE O2 105.4 mmHg (75.0-100.0); ABG STANDARD HCO3 24.3 MEQ/L (22.0-26.0); ABG TOTAL CO2 27.7 MEQ/L (23.0-31.0); ABG pH (ARTERIAL) 7.322 UNITS (7.350-7.450)
[2020-05-10] MEDS: ADVAIR HFA 45/21MCG INHALER INH SCH ×2 (08:07→20:13)
--- NOTE | 2020-05-10 08:15 | REP ---
INDICATION: ett COMPARISON: 05/09/2020 TECHNIQUE: Portable AP view of the chest FINDINGS: Endotracheal tube approximately 3 cm above the evelio. Nasogastric tube below the left hemidiaphragm in stable position. Left PICC line with tip in the SVC. Diffuse chronic changes with superimposed perihilar/lower lobe infiltrates and areas of consolidation as well as pleural effusions again noted and essentially unchanged. IMPRESSION: 1. Lines and tubes as above. 2. No significant change from prior examination. Continued lower lobe infiltrates/opacities and pleural effusions. <Electronically signed by Arnaldo James > 05/10/20 [id number]
[2020-05-10] MEDS: CHLORHEXIDINE GLUCONATE 0.12 % 15ML UDC (PERIDEX ORAL RINSE) MT SCH ×2 (09:08→21:19)
[2020-05-10] MEDS: DOXYCYCLINE HYCLATE 100 MG in D5W MINI-BAG PLUS 100 ML IV SCH ×2 (09:08→21:19)
[2020-05-10] MEDS: ASPIRIN 300 MG SUPP PR SCH (09:08)
--- NOTE | 2020-05-10 09:51 | IPNPDOC ---
Text Note Date of Service The patient was seen on 05/10/20. NOTE Subjective: No any acute events overnight. I discussed with family the CODE Charles MAY yesterday and patient was transferred to DNR/DNI Objective: GENERAL APPEARANCE: Intubated female HEENT: no scleral icterus, plus JVD, EOMI CARDIOVASCULAR: S1S2 LUNGS: Diminished lung sounds bilaterally ABDOMEN: soft & not tender w palpitation MUSCULOSKELETAL: no cyanosis, no swelling INTEGUMENT: generalized pallor NEUROLOGICAL: Patient intubated, not follows commands ASSESSMENT: Patient is an 89-year-old female with a past medical history significant for coronary artery disease, congestive heart failure with diastolic dysfunction, pulmonary hypertension and COPD who presented to the [facility] emergency room after mechanical fall and found to have a left intertrochanteric hip fracture Acute hypoxemic respiratory failure Most likely secondary to acute bilateral pneumonia possibly complicated with fat embolism CT showed Essentially stable spiculated left upper lobe perihilar mass.2. Advanced COPD. And bilateral upper lobe emphysema.3. Extensive bilateral lower lobe necrotizing pneumonia.4. Very small bilateral pleural effusions. Right a little more so than left. Started broad-spectrum antibiotics vancomycin IV and Zosyn IV MRSA negative, DC vancomycin, I added doxycycline to cover atypicals DC IV steroids Continue to monitor ABG Patient was intubated on 05/04/20 The family will visit hospital tomorrow, they would like to change her CODE STA TUS to comfort measures only when they arrive. Septic shock Could be secondary to bilateral pneumonia Patient developed hypotension with increased leukocytosis and hypoxia Central line was placed and pressure support started Blood culture negative for 48 hours Urine culture positive for Klebsiella pneumonia, treated for now with broad- spectrum antibiotics Bilateral pneumonia/ COPD Be secondary to aspiration complicated with fat embolism See above Possible CVA Patient developed right facial droop in the morning CT head negative for stroke or bleeding Unable to do brain MRI due to acute respiratory failure and BiPAP I talked to Dr. Verdin, he did not recommend TPA due to advanced age and not obvious neurological presentation of stroke type 2 diabetes Insulin sliding scale HHS Resolved Patient developed hyperglycemia overnight with glucose level of 618 due to D5 IV D5 stopped Lactic acidosis Improved after fluid resuscitation AURA/Oliguria Patient developed kidney failure most likely secondary to septic shock Also there is concern for fat embolism Urine output improved, but remains suboptimal. No indications for dialysis for now Nephrology team follows her Elevated troponin Troponin trended up , 3d troponin 0.8 EKG didn't show acute ischemic changes Troponin trended down today Doppler DVT ultrasound negative Dr. Mane recommended transesophageal echo. Transthoracic echo showed possible clot in the right atrium Continue Lovenox Constipation Abdominal x-ray showed Bowel pattern suggests fecal stasis and possible enteritis Dulcolax Fleet Enema Hypoalbuminemia Patient received albumin IV infusion per nephrology team recommendation VS,Fishbone, I+O VS, Fishbone, I+O Laboratory Tests 05/10/20 04:50 Vital Signs Date Time Temp Pulse Resp B/P (MAP) Pulse Ox O2 Delivery O2 Flow Rate FiO2 05/10/20 09:00 93 16 113/57 (75) 93 Ventilator 50 05/10/20 08:00 98.7 05/05/20 18:00 50.0 I&O- Last 24 Hours up to 6 AM 05/10/20 06:00 Intake Total 2645.7 ml Output Total 975 ml Balance 1670.7 ml ANIBAL GARCIA DO May 10, 2020 09:51
--- NOTE | 2020-05-10 10:19 | CCN ---
CRITICAL CARE NOTE DATE: 05/10/2020 SUBJECTIVE: I again attended Shanti Nimcofroilan here in the Intensive Care. The patient has been examined and chart reviewed. I spoke at length with the nurse at the bedside. I am told that Dr. Valdez had a long discussion with the family yesterday and they are waiting for the family to arrive probably tomorrow and that the plans are for comfort measures only and withdrawal of aggressive support. I do believe this is quite appropriate. VITAL SIGNS: T-max overnight 98.7, blood pressure 98 to 120s on increased dose of Levophed. Respiratory rate remains 16 via the ventilator. INPUT AND OUTPUT: In's and outs midnight to midnight 2700 ml in with 825 ml out. LABORATORY DATA: Most recent labs shows white blood cell count of 50.6, hemoglobin 8.5, platelet count 137,000, 84% segs, no bands. Sodium 130, potassium 3.5, chloride 88, CO2 29, BUN 98, creatinine up to 3.23. Glucose 252. Blood gas done this morning: SIMV of 16, tidal volume 420, PEEP of 5, pressure support of 12, and FiO2 of 50%, pH of 7.322, pCO2 of 51.7, PaO2 of 105.4 Chest x-ray shows lines and tubes in good position. Small bilateral effusions with lower lung zone airspace disease unchanged. There may be a little bit more atelectasis at the left base today. With any lightening in her sedation she is agitated, does not follow commands. PHYSICAL EXAMINATION: Exam shows her to be sedate. She moves her upper extremities when sedation is lightened. Pupils are reactive. Trachea is in the midline. Chest shows diminished but symmetric expansion, some dependent crackles are noted. Cardiac exam is generally regular. Peripheral pulses are diminished but palpable. Edema is unchanged. Abdomen is soft. There are active bowel sounds. No obvious organomegaly or masses. Extremities again show edema and bruising of the left upper thigh consistent with her femur fracture. No cyanosis or clubbing. Neurologic: As outlined above. IMPRESSION: 1. Respiratory failure, acute on chronic. 2. Advanced obstructive lung disease. 3. Profound pulmonary hypertension. 4. Acute kidney injury with progression. 5. Left femur fracture. 6. Suspected CVA. 7. Fat emboli syndrome, suspected. RECOMMENDATIONS: At this point we have been unable to make any progress with weaning. I had a discussion in the last several days with Nephrology and would agree completely that I doubt she would tolerate dialysis or CRRT. We have been unable to wean her Levophed. She is not able to have her hip fracture operatively addressed. Her mental status is certainly consistent with acute event. In view of all of this and her advanced age, I would agree that conversion to comfort measure care would seem the most appropriate and I am told that is the wishes of the family. In view of this, we will make no further manipulations today. Certainly, her sedation is lightened when able. Further recommendations will be made in the progress records as new information becomes available.
--- NOTE | 2020-05-10 12:59 | IPN ---
PROGRESS NOTE DATE: 05/10/2020 SUBJECTIVE: Shanti is seen and examined this morning at the bedside in the Intensive Care Unit. She remains intubated and sedated and on Levophed pressor support and receiving TPN. The nursing staff reports no acute changes in the past 24 hours. There is a plan for withdrawal of care once her family gathers on Thursday. REVIEW OF SYSTEMS: Unable to obtain secondary to clinical condition. PHYSICAL EXAMINATION: VITAL SIGNS: Temperature 98.7, pulse 90, respiratory rate 16, blood pressure 113/57, saturating 93% on FIO2 50%. INTAKE AND OUTPUT: Urine output yesterday was 475 ml. GENERAL: Patient is seen intubated and sedated, elderly female. HEENT: Pupils reactive to light. NECK: There is jugular venous distention. There is an endotracheal tube. HEART: S1 and S2, regular. There is 1 to 2+ edema diffusely and in the dependent areas. LUNGS: Diminished breath sounds. ABDOMEN: Soft. There are bowel sounds. GENITOURINARY: Zaman catheter. EXTREMITIES: Edema and ecchymosis at the left thigh consistent with her fracture. LABORATORY DATA: Today's laboratory studies shows a white count of 15.6, hemoglobin 8.5, platelets 137,000, sodium 130, potassium 3.5. Bicarbonate 29, BUN 88, creatinine 3.2. Albumin 2.0. Chest x-ray today shows no significant change since yesterday. There are lower lobe infiltrates and small pleural effusions. INPATIENT MEDICATIONS: She continues on TPN at 50 ml/hr. She continues on Levophed and Versed. Her remainder of medications are unchanged as compared to yesterday. PROBLEMS: 1. Oligoanuric renal failure superimposed on CKD Stage IIIB. Renal function continues to worsen and urine output has been suboptimal. She continues on Levophed for maintenance of her MAP. She is getting low rate TPN for nutrition. The family plans to withdraw care on May 11 after they have gathered. I am making no changes to her care today. 2. Nutritional support, hypoalbuminemia and hypoglycemia. Patient had large residuals and her gastric drainage has decreased. She is on TPN and orders are re-written to prevent recurrent hypoglycemia.
[2020-05-10] MEDS ORDERED: CALCIUM GLUCONATE IV SCH (18:00)
[2020-05-10] MEDS ORDERED: SODIUM CHLORIDE IV SCH (18:00)
[2020-05-10] MEDS ORDERED: [UNRECOGNIZED DRUG - OTHER] IV SCH (18:00)
[2020-05-10] MEDS: NORCO, ANEXSIA 5/325MG TABLET (HYDROcodone/ACETAMINOPHEN) PO PRN (21:20)
[2020-05-11] VITALS (35 sets, daily range): BP systolic 81–128; BP diastolic 40–61
[2020-05-11] MEDS: NOREPINEPHRINE BITARTRATE 8 MG in D5W 492 ML IV SCH ×2 (00:10→07:22)
[2020-05-11] MEDS: IPRATROPIUM 0.5MG/ALBUTEROL 2.5MG INH SOL UD 3ML (DUONEB) NEB SCH ×4 (00:13→11:27)
[2020-05-11 04:57] LABS: BASO % 0.2 % (0.0-1.0); EOS # 0.1 10^3/uL (0.0-0.5); EOS % 0.5 % (0.0-3.0); HEMATOCRIT 27.4 % (36.0-47.0); HEMOGLOBIN 8.8 g/dl (12.0-15.5); LYMPH % 5.4 % (24.0-44.0); MEAN CORPUSCULAR HEMOGLOBIN 29.8 pg (27.0-33.0); MEAN CORPUSCULAR HGB CONC 32.1 g/dl (32.0-36.5); MEAN CORPUSCULAR VOLUME 92.9 fl (80.0-96.0); MONO # 1.1 10^3/uL (0.0-0.8); MONO % 5.9 % (0.0-5.0); NEUTROPHILS # 15.1 10^3/uL (1.5-8.5); NEUTROPHILS % 84.6 % (36.0-66.0); PLATELET COUNT, AUTOMATED 178 10^3/uL (150-450); RED BLOOD COUNT 2.95 10^6/uL (4.00-5.40); WHITE BLOOD COUNT 17.9 10^3/uL (4.0-10.0)
[2020-05-11 05:18] LABS: ALBUMIN 1.9 GM/DL (3.2-5.2); BILIRUBIN,TOTAL 0.6 MG/DL (0.2-1.0); CALCIUM LEVEL 7.2 MG/DL (8.8-10.2); CREATININE FOR GFR 3.62 MG/DL (0.55-1.30); GLOMERULAR FILTRATION RATE 12.6 (>32); POTASSIUM SERUM 3.6 MEQ/L (3.5-5.1); TOTAL PROTEIN 5.2 GM/DL (6.4-8.2)
[2020-05-11] MEDS: METOCLOPRAMIDE INJ 10MG/2ML VIAL (J2765 PER 1) IV SCH (05:41)
[2020-05-11] MEDS: HumaLOG INSULIN (NovoLOG) PER UNIT SC SCH (05:41)
[2020-05-11] MEDS: NORCO, ANEXSIA 5/325MG TABLET (HYDROcodone/ACETAMINOPHEN) PO PRN (05:42)
[2020-05-11 05:51] LABS: ABG BASE EXCESS -5.3 (-2.0-2.0); ABG HCO3 21.9 MEQ/L (22.0-26.0); ABG O2 SATURATION 93.8 % (95.0-99.0); ABG PARTIAL PRESSURE CO2 51.2 mmHg (35.0-45.0); ABG PARTIAL PRESSURE O2 76.1 mmHg (75.0-100.0); ABG TOTAL CO2 23.5 MEQ/L (23.0-31.0)
[2020-05-11] MEDS: SODIUM CHLORIDE 0.9% INJ 10 ML SYR IV SCH (06:00)
[2020-05-11] MEDS: propofoL 1,000 MG in IV 1 EA IV SCH (06:00)
[2020-05-11] MEDS: PIPERACILLIN/TAZOBACTAM SOD 2.25 GM in D5W MINI-BAG PLUS 50 ML IV SCH (06:23)
[2020-05-11] MEDS: ADVAIR HFA 45/21MCG INHALER INH SCH (07:39)
--- NOTE | 2020-05-11 07:42 | REP ---
INDICATION: ett COMPARISON: 05/10/2020 TECHNIQUE: Portable AP view of the chest FINDINGS: Endotracheal tube 3 cm above the eveloi. Nasogastric tube courses below left hemidiaphragm. Left PICC line with tip in the SVC. Bilateral lower lobe opacities/consolidations and pleural effusions again noted and essentially unchanged. IMPRESSION: 1. Lines and tubes in satisfactory stable position. 2. No significant change from prior examination with continued lower lobe consolidations/airspace disease and effusions. <Electronically signed by Arnaldo James > 05/11/20 0770
[2020-05-11] MEDS: DOXYCYCLINE HYCLATE 100 MG in D5W MINI-BAG PLUS 100 ML IV SCH (08:47)
[2020-05-11] MEDS: ASPIRIN 300 MG SUPP PR SCH (08:47)
[2020-05-11] MEDS: CHLORHEXIDINE GLUCONATE 0.12 % 15ML UDC (PERIDEX ORAL RINSE) MT SCH (08:48)
[2020-05-11] MEDS: MIDAZOLAM HCL 100 MG in D5W 80 ML IV SCH (08:54)
--- NOTE | 2020-05-11 09:56 | CCN ---
CRITICAL CARE NOTE DATE: 05/11/2020 CRITICAL CARE TIME: 48 minutes. This excludes all procedures. The majority of the time was spent reviewing the chart and the patient's presentation. SUBJECTIVE: The patient presented on 05/03/2020, with an acute fracture, had respiratory failure, has known advanced obstructive lung disease, severe pulmonary hypertension, and has not been doing well; in fact, this morning is doing worse with more leukocytosis, more acidemia, and worsening renal failure. On my rounds this morning when I went to see the patient, the family is gathered at bedside to say goodbye and therefore, I did not interrupt to perform a physical exam. I discussed the comfort measures with the nursing staff and it does appear that they are withdrawing care and they just want to say one last goodbye. The patient has: 1. Respiratory failure. 2. Renal failure. 3. Leukocytosis. 4. Anemia. 5. Hyponatremia. 6. Protein malnourishment. 7. Anion gap acidosis. 8. Severe pulmonary hypertension. 9. Advanced obstructive lung disease. 10. Hip fracture. LABORATORY DATA: Shows a sodium of 125, potassium 3.6, chloride 95, bicarb 25, BUN 99, creatinine 3.62. Arterial blood gas with pH of 7.25, pCO2 of 51, and PaO2 of 76. On 05/02, Klebsiella was grown out of the urine culture. The patient is currently on Zosyn and doxycycline; I am not sure of the exact indication for the doxycycline. White blood cell count is up to 17.9, hemoglobin 8.8 with a platelet count of 178,000. The patient has hyperglycemia with a glucose of 283. IMPRESSION: After reviewing the chart and looking at the patient's multiple comorbidities, I am in agreement with the decision for comfort measures only. As mentioned above, I did not examine the patient, but spent time reviewing the chart and discussing the plan of care with the nursing staff. Primary care team has already discussed withdrawing care with the patient's family. We will assist with the extubation process. Critical care time was 48 minutes. This excludes all procedures.
--- NOTE | 2020-05-11 10:11 | IPN ---
PROGRESS NOTE DATE: 05/09/2020 SUBJECTIVE: Patient seen and examined this morning at the bedside in the Intensive Care Unit. 24-hour events are reviewed with nurse. Patient remains on Levophed running at 5 mcg. She has been hypoglycemic overnight. Glucose down into the 70's. Orders are written for TPN today and half normal saline is discontinued. Her FIO2 requirements remain stable at 50%. Solo Musician feels that patient cannot be extubated. Her urine output has improved over the past 24 hours, but overall her renal function remains poor. REVIEW OF SYSTEMS: Unable to obtain secondary to clinical condition. PHYSICAL EXAMINATION: VITAL SIGNS: Temperature 97.6, pulse 89, respiratory rate 16, blood pressure 99/54, saturating 96% on 50% FiO2. INTAKE AND OUTPUT: Urine output yesterday was 860 cc. GI drainage was 900 cc. Intake was 2.2 liters. She is net positive 500 cc. Weight in the bed scale today is 72.1 kg. GENERAL: Patient is seen intubated and sedated in the ICU. HEENT: Extraocular muscles are intact. An endotracheal tube is in place. Jugular veins are elevated. HEART: Sounds are regular, S1, S2. There is 1 to 2+ pitting edema diffusely. RESPIRATORY: Symmetric air entry, diminished and with crackles at the base. GENITOURINARY: Shows indwelling Zaman catheter. ABDOMEN: Soft and mildly distended. SKIN: Shows generalized pallor. LABORATORY STUDIES: Labs today show white count 16.0, hemoglobin 8.7, platelets 129,000. Sodium 134, potassium 3.6, bicarbonate 30, BUN 82, creatinine 3.0, Magnesium 2.2. IMAGING: Chest x-ray today shows diffuse bilateral infiltrates, consolidations and possible small layering effusions. INPATIENT MEDICATIONS: Reviewed. She continues on Versed and Propofol along with Levophed, pressor support, Doxycycline and Zosyn. Half normal saline was discontinued and she is ordered for special formula TPN at 40 cc an hour. The remainder of her medications are unchanged as compared to yesterday. PROBLEMS: 1. 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 Her GRF is down to 15 today. I discussed the same with her son, Deni, and her [id number] as well. They agree against pursuing aggressive measures such as dialysis, for which she would overall be a very poor candidate. 2. Ventilator dependent respiratory failure: FIO2 requirements are stable. Moss Picker is pessimistic that patient cannot be extubated and family has elected to withdraw care on Thursday morning after family members arrive to the area. She continues on broad spectrum antibiotics. She is in moderate fluid overload, but she is not suitable for diuresis at present. She has been vent dependent for six days now. 3. Hypoglycemia: Patient's blood sugars were down into the 70's overnight. Half normal saline is discontinued and TPN is ordered. 4. Hypotension: Patient continues on Levophed for MAP of 65 in the setting of septic shock and she is on broad spectrum antibiotics, and her white count remains elevated.
[2020-05-11] MEDS ORDERED: HYOSCYAMINE SULFATE 0.125 MG SUBL TABLET PO PRN (12:30)
[2020-05-11] MEDS ORDERED: MORPHINE 10MG/0.5ML ORAL CONCENTRATE SOLUTION U/D SL PRN (12:30)
[2020-05-11] MEDS ORDERED: SCOPOLAMINE 1MG TRANSDERMAL PATCH TOP PRN (12:30)
[2020-05-11] MEDS ORDERED: ATROPINE SULFATE 1% OP SOLN 2 ML BTL SL PRN (12:30)
--- NOTE | 2020-05-11 13:22 | DS.PDOC ---
Discharge Summary General Date of Admission May 02, 2020 at 22:33 Date of Discharge 05/11/20 Discharge Summary PROCEDURES PERFORMED DURING STAY: [None]. ADMITTING DIAGNOSES: left intertrochanteric hip fracture Septic shock Acute hypoxemic respiratory failure Bilateral pneumonia/ COPD Possible CVA type 2 diabetes HHS Lactic acidosis AURA/Oliguria Elevated troponin Constipation Hypoalbuminemia DISCHARGE DIAGNOSES: left intertrochanteric hip fracture Septic shock Acute hypoxemic respiratory failure Bilateral pneumonia/ COPD Possible CVA type 2 diabetes HHS Lactic acidosis AURA/Oliguria Elevated troponin Constipation Hypoalbuminemia COMPLICATIONS/CHIEF COMPLAINT: Hip Fracture. HISTORY OF PRESENT ILLNESS: Patient is an 89-year-old female with a past medical history significant for coronary artery disease, congestive heart failure with diastolic dysfunction, pulmonary hypertension and COPD who presented to the [facility] emergency room after mechanical fall and found to have a left intertrochanteric hip fracture HOSPITAL COURSE: During the hospital stay the following issue addressed Acute hypoxemic respiratory failure Most likely secondary to acute bilateral pneumonia possibly complicated with fat embolism CT showed Essentially stable spiculated left upper lobe perihilar mass.2. Advanced COPD. And bilateral upper lobe emphysema.3. Extensive bilateral lower lobe necrotizing pneumonia.4. Very small bilateral pleural effusions. Right a little more so than left. Patient received broad-spectrum antibiotics vancomycin IV and Zosyn IV MRSA negative, DC vancomycin, I added doxycycline to cover atypicals Patient was intubated on 05/04/20 Family would like to change her CODE STATUS to comfort measures only today. After extubation patient at 13:01 from acute respiratory failure Septic shock Could be secondary to bilateral pneumonia Patient developed hypotension with increased leukocytosis and hypoxia Central line was placed and pressure support started Blood culture negative for 48 hours Urine culture positive for Klebsiella pneumonia, treated for now with broad- spectrum antibiotics Bilateral pneumonia/ COPD Be secondary to aspiration complicated with fat embolism See above Possible CVA Patient developed right facial droop in the morning CT head negative for stroke or bleeding Unable to do brain MRI due to acute respiratory failure and BiPAP I talked to Dr. Verdin, he did not recommend TPA due to advanced age and not obvious neurological presentation of stroke type 2 diabetes Insulin sliding scale HHS Resolved Patient developed hyperglycemia overnight with glucose level of 618 due to D5 IV D5 stopped Lactic acidosis Improved after fluid resuscitation AURA/Oliguria Patient developed kidney failure most likely secondary to septic shock Also there is concern for fat embolism Urine output improved, but remains suboptimal. No indications for dialysis for now Nephrology team follows her Elevated troponin Troponin trended up , 3d troponin 0.8 EKG didn't show acute ischemic changes Troponin trended down today Doppler DVT ultrasound negative Dr. Mane recommended transesophageal echo. Transthoracic echo showed possible clot in the right atrium Continue Lovenox Constipation Abdominal x-ray showed Bowel pattern suggests fecal stasis and possible enteritis Dulcolax Fleet Enema Hypoalbuminemia Patient received albumin IV infusion per nephrology team recommendation DISCHARGE MEDICATIONS: Please see below. ALLERGIES: Please see below. PHYSICAL EXAMINATION ON DISCHARGE: VITAL SIGNS: Please see below. GENERAL: HEENT: NECK: CARDIOVASCULAR EXAMINATION: RESPIRATORY EXAMINATION: ABDOMINAL EXAMINATION: EXTREMITIES: SKIN: NEUROLOGICAL EXAMINATION: PSYCHIATRIC EXAMINATION: LABORATORY DATA: Please see below. IMAGING: PROGNOSIS: ACTIVITY: [As tolerated]. DIET: DISCHARGE PLAN: DISPOSITION: . DISCHARGE INSTRUCTIONS: 1. . ITEMS TO FOLLOWUP ON ON OUTPATIENT: 1. . DISCHARGE CONDITION: [Stable]. TIME SPENT ON DISCHARGE: Greater than minutes. Vital Signs/I&Os Vital Signs Date Time Temp Pulse Resp B/P (MAP) Pulse Ox O2 Delivery O2 Flow Rate FiO2 05/11/20 10:00 103 16 114/57 (76) 95 Ventilator 50 05/11/20 08:00 97.9 05/05/20 18:00 50.0 I&O- Last 24 Hours up to 6 AM 05/11/20 06:00 Intake Total 2721.0 ml Output Total 700 ml Balance 2021.0 ml Laboratory Data Labs 24H Laboratory Tests 2 05/11/20 04:43: Immature Granulocyte % (Auto) 3.4H, Neutrophils (%) (Auto) 84.6H, Lymphocytes (%) (Auto) 5.4L, Monocytes (%) (Auto) 5.9H, Eosinophils (%) (Auto) 0.5, Basophils (%) (Auto) 0.2, Neutrophils # (Auto) 15.1H, Lymphocytes # (Auto) 1.0L, Monocytes # (Auto) 1.1H, Eosinophils # (Auto) 0.1, Basophils # (Auto) 0.0, Nucleated Red Blood Cells % (auto) 0.6H, Blood Gas Bicarbonate Standard 20.0L, Arterial Blood pH 7.250L, Arterial Blood Partial Pressure CO2 51.2H, Arterial Blood Partial Pressure O2 76.1, Arterial Blood Total CO2 23.5, Arterial Blood HCO3 21.9L, Arterial Blood Base Excess -5.3L, Arterial Blood Oxygen Saturation 93.8L, Anion Gap 15, Glomerular Filtration Rate 12.6L, Calcium Level 7.2L, Magnesium Level 2.0, Total Bilirubin 0.6, Aspartate Amino Transf (AST/SGOT) 88H, Alanine Aminotransferase (ALT/SGPT) 129H, Alkaline Phosphatase 62, Total Protein 5.2L, Albumin 1.9L, Albumin/Globulin Ratio 0.6L CBC/BMP Laboratory Tests 05/11/20 04:43 Microbiology Microbiology 05/03/20 Blood Culture - Final, Complete NO GROWTH AFTER 5 DAYS 05/03/20 Blood Culture - Final, Complete NO GROWTH AFTER 5 DAYS 05/02/20 Urine Culture - Final, Complete Klebsiella Pneumoniae Discharge Medications Scheduled Atenolol (Atenolol) 50 Mg Tablet, 50 MG PO BID, (Reported) Calcitriol (Calcitriol) 0.25 Mcg Capsule, 0.25 MCG PO 5XW, (Reported) Furosemide (Furosemide) 40 Mg Tablet, 40 MG PO DAILY, (Reported) Glipizide (Glipizide) 5 Mg Tablet, 5 MG PO DAILY, (Reported) Potassium Chloride (Potassium Chloride) 20 Meq Tablet.er, 20 MEQ PO DAILY, (Reported) Salmeterol/Fluticasone (Advair 100-50 Diskus) 1 Each Blst.w.dev, 1 PUFF INH BID, (Reported) Sitagliptin (Januvia) 50 Mg Tablet, 50 MG PO DAILY, (Reported) Scheduled PRN Albuterol Sulfate (Proair Hfa) 8.5 Gm Hfa.aer.ad, 2 PUFF INH QID PRN for SHORTNESS OF BREATH, (Reported) Alprazolam (Alprazolam) 0.5 Mg Tablet, 0.5 MG PO BID PRN for ANXIETY, (Reported) Nitroglycerin (Nitrostat) 0.4 Mg Tab.subl, 0.4 MG SL NITRO PRN for CHEST PAIN, (Reported) Miscellaneous Medications [Patient Coment] , (Reported) MED REC COMPLETED VIA PHARMACY Allergies Coded Allergies: No Known Drug Allergies (Verified Allergy, Unknown, 05/02/20) ANIBAL GARCIA DO May 11, 2020 13:22
== END 2020-05-11 14:40 | disposition expired | DRG 963 ==
LOC: EDSEX 19:07 → M ED 19:07 → EDBD 19:07 → M ED INP 22:33 → ENRESERV 23:24 → M MS5PR 05-03 00:50 → M PCU 05-03 07:53
PROVIDERS: ADMIT Student in an Organized Health Care Education/Training Program; ATTEND Internal Medicine
PROC: 5A1955Z Respiratory Ventilation, Greater than 96 Consecutive Hours (ICD-10-PCS; principal; 2020-05-03)
PROC: 02HV33Z Insertion of Infusion Device into Superior Vena Cava, Percutaneous Approach (ICD-10-PCS; 2020-05-03)
DX: S72.145A Nondisplaced intertrochanteric fracture of left femur, initial encounter for closed fracture (principal); T79.1XXA Fat embolism (traumatic), initial encounter; A41.9 Sepsis, unspecified organism; R65.21 Severe sepsis with septic shock; J96.21 Acute and chronic respiratory failure with hypoxia; I63.9 Cerebral infarction, unspecified; J69.0 Pneumonitis due to inhalation of food and vomit; J85.0 Gangrene and necrosis of lung; I50.32 Chronic diastolic (congestive) heart failure; N17.9 Acute kidney failure, unspecified; E87.2 Acidosis; E46 Unspecified protein-calorie malnutrition; E87.1 Hypo-osmolality and hyponatremia; I27.20 Pulmonary hypertension, unspecified; K59.00 Constipation, unspecified; W18.30XA Fall on same level, unspecified, initial encounter; Y92.009 Unspecified place in unspecified non-institutional (private) residence as the place of occurrence of the external cause; E11.65 Type 2 diabetes mellitus with hyperglycemia; Z79.899 Other long term (current) drug therapy; Z80.1 Family history of malignant neoplasm of trachea, bronchus and lung; E78.5 Hyperlipidemia, unspecified; Z95.2 Presence of prosthetic heart valve; I25.2 Old myocardial infarction; Z87.891 Personal history of nicotine dependence; N18.32 Chronic kidney disease, stage 3b; Z51.5 Encounter for palliative care

== ENCOUNTER → 2020-05-02 | Outpatient (REF) | payer MEDICARE, MEDICAID ==
[~2020-05-02] MED LIST changes: +ALPR0.5T3 PO; +CALC1CAP31 PO; +GLIP5TAB8 PO; +PROAAER10 INH; +SITA50TAB PO; +[UNRECOGNIZED DRUG - REMARK]
== END ==
LOC: M LAB REF 17:14
PROVIDERS: ATTEND Family Medicine
DX: E07.9 Disorder of thyroid, unspecified (principal)